=== PATIENT | male | born 1960 | race Caucasian/White ===

== ENCOUNTER 2017-02-15 05:03 | Inpatient (IN) | payer OTHER ==
[2017-01-20 13:44] VITALS: BMI 37.0
--- NOTE | 2017-01-20 14:42 | PAT Medication Instructions ---
Service Date Jan 20, 2017. Current Home Medication List Amlodipine (Norvasc), 5 MG PO QAM Aspirin (Aspirin Ec), 81 MG PO QPM Citalopram (Citalopram Hydrobromide), 1 TAB PO QAM Colchicine (Colcrys), 1 TAB PO QAM Etodolac (Etodolac), 1 TAB PO BID Hctz/Losartan (Hyzaar 25MG/100MG), 1 TAB PO QAM Ibuprofen Tab (Advil), 800 MG PO DAILY PRN for Pain Misc Natural Products (Osteo Bi-Flex Advanced Do), 1 TAB PO BID Omeprazole (Prilosec), 20 MG PO QPM Simvastatin (Zocor), 1 TAB PO HS Tramadol (Ultram), 50 MG PO Q8H PRN for Pain Medication Instructions For Your Scheduled Surgery - Hold the following medications 2 weeks prior to surgery: Misc Natural Products (Osteo Bi-Flex Advanced Do), 1 TAB PO BID - Hold the following medications 7 days hours prior to surgery: Etodolac (Etodolac), 1 TAB PO BID Ibuprofen Tab (Advil), 800 MG PO DAILY PRN for Pain - Hold the following medications the morning of surgery: Hctz/Losartan (Hyzaar 25MG/100MG), 1 TAB PO QAM - Take the following medications the morning of surgery with a sip of water OTHERWISE NOTHING TO EAT OR DRINK AFTER MIDNIGHT: Amlodipine (Norvasc), 5 MG PO QAM Citalopram (Citalopram Hydrobromide), 1 TAB PO QAM Tramadol (Ultram), 50 MG PO Q8H PRN for Pain (okay to take if needed up to 4 hours prior to surgery) Colchicine (Colcrys), 1 TAB PO QAM - Take the following medications as scheduled the night before surgery: Omeprazole (Prilosec), 20 MG PO QPM Aspirin (Aspirin Ec), 81 MG PO QPM Simvastatin (Zocor), 1 TAB PO HS Tramadol (Ultram), 50 MG PO Q8H PRN for Pain If you have any questions please call us at [phone] or [phone] or [phone]
[2017-01-20 15:40] LABS: BASO % 0.7 %; BASO ABS # 0.04 K/uL (0-0.2); COMPLETE YES; EOS % 4.3 %; HEMATOCRIT 42.5 % (42-52); IG% 0.3 %; LYMPH % 18.8 %; MEAN CELL VOLUME 91.2 fL (80-100); MEAN CORPUSCULAR HEMOGLOBIN 31.3 pg (25-34); MEAN CORPUSCULAR HGB CONC 34.4 g/dl (32-36); MEAN PLATELET VOLUME 9.6 fL (7.4-10.4); MONO % 6.8 %; NEUT % 69.1 %; PLATELET COUNT 202 K/uL (130-400); RED BLOOD COUNT 4.66 M/uL (4.7-6.1); WHITE BLOOD COUNT 5.86 K/uL (4.8-10.8)
[2017-01-20 15:48] LABS: BUN/CREATININE RATIO 17.6 (10-20); CREATININE 1.2 mg/dl (0.60-1.40); POTASSIUM 4.2 mmol/L (3.5-5.1)
[2017-01-20 15:50] LABS: INR 0.9 (0.9-1.1)
[2017-01-20 15:53] LABS: URINE APPEARANCE CLEAR (CLEAR); URINE BILIRUBIN NEG (NEG); URINE COLOR YELLOW; URINE NITRITE NEG (NEG); URINE PH 5.5 (4.5-7.5); UROBILINOGEN NEG (NEG)
[2017-01-20 16:04] LABS: MANUAL MICROSCOPIC REQUIRED? NO; REVIEW REQ? NO
--- NOTE | 2017-01-20 16:24 | History and Physical ---
History & Physical Date Jan 20, 2017. Chief Complaint right knee pain History of Present Illness Mr Ramirez is a 56 year old male who complains of right knee pain. Pt here for right tka pre operative visit. States symptoms are worsening. Driving, sitting, and prolonged walking are painful. Reports no relief from pain medication and injections. States he had previous right knee scope 10-12 years ago in [facility] area. He presents with pain, stiffness and weakness on the right side. He states that the symptoms have been chronic non-traumatic. The symptoms occur constantly. The problem is worse. Currently the patient states that the symptoms are moderate-severe. The pain is described as aching, discomforting, shooting, sharp and throbbing. The symptoms occur continuously. He rates his worst pain as 8/10. He rates his current pain as 4/10. The symptoms are aggravated by ascending stairs, descending stairs, driving, first steps while awake, kneeling, movement, squatting, repetitive activities, standing and walking. Guy states that the symptoms are relieved by ice, pain medicine and rest. In addition to right knee pain the patient is also experiencing decreased mobility, crepitus, difficulty bending, pain after activity, stiffness, tenderness and weakness. Pertinent negatives include chills and fever. The patient has had a previous x-ray. He has been treated with a corticosteroid injection on the right side. Patient has had scope on right side. Past Medical/Surgical History HTN High Cholesterol Sleep Apnea GERD h/o back surgery hernia repair hydrocele knee arthroscopy Additional History Hepatic Disease: No Endocrine Disorder: No Kidney Disease: No Hypertension: Yes Heart Disease: No Bleeding Tendencies: No Allergies Coded Allergies: Allopurinol (Verified Allergy, Unknown, rash, 01/20/17) Home Medications Scheduled Amlodipine (Norvasc), 5 MG PO QAM Aspirin (Aspirin Ec), 81 MG PO QPM Citalopram (Citalopram Hydrobromide), 1 TAB PO QAM Colchicine (Colcrys), 1 TAB PO QAM Etodolac (Etodolac), 1 TAB PO BID Hctz/Losartan (Hyzaar 25MG/100MG), 1 TAB PO QAM Misc Natural Products (Osteo Bi-Flex Advanced Do), 1 TAB PO BID Omeprazole (Prilosec), 20 MG PO QPM Simvastatin (Zocor), 1 TAB PO HS Scheduled PRN Ibuprofen Tab (Advil), 800 MG PO DAILY PRN for Pain Tramadol (Ultram), 50 MG PO Q8H PRN for Pain Physical Examination Skin: warm/dry, no rash Eyes: normal inspection, EOMI, sclerae normal ENT: normal ENT inspection, pharynx normal Head: normocephalic, atraumatic Neck: supple, no adenopathy, trachea midline Respiratory/Chest: lungs clear, normal breath sounds, no respiratory distress Cardiovascular: regular rate, rhythm, no edema, no murmur Abdomen / GI: normal bowel sounds, non tender Addiitonal Comments: Physical Exam Exam Findings Details Knee ROM L * Active ROM - Flexion: 135 degrees, Extension: 0 degrees, Factors: normal, Description: active pain free range of motion. Passive ROM - Flexion: 135 degrees, Extension: 0 degrees, Factors: normal, Description: passive pain free range of motion. Knee ROM R * Active ROM - Flexion: 120 degrees, Extension: 5 degrees, Factors: pain, Description: active painful range of motion. Passive ROM - Flexion: 120 degrees, Extension: 5 degrees, Factors: pain, Description: passive painful range of motion. Strength LE Normal Strength Description - Hip: Right: strength is normal. Knee: Right: strength is normal. Ankle/Foot: Right: strength is normal. Knee * Inspection - Gait: limp. Alignment - Right: varus, Left: neutral. Ecchymosis - Right: negative, Left: negative. Effusion - Right: mild, Left: normal. Swelling - Right: mild, Left: none. Flexibility - Right: normal, Left: normal. Maximum tenderness - Right: medial joint line, lateral joint line, patella, Left: normal. Patella exam - Crepitation - Right: mild, Left: normal. Patella position - Right: neutral, Left: neutral. Tilt - Right: equal, Left: normal. [facility]'s - lateral - Right: Positive. [facility]'s - medial - Right: Positive. Knee Comments No calf tenderness Knee Normal Inspection - Atrophy - Right: Absent, Left: Absent. Skin - Right: Normal, Left: Normal. Patella exam - Apprehension - Right: Negative, Left: Negative. Q-angle - Right: Normal, Left: Normal. Neel's - Right: Negative, Left: Negative. [facility]'s - lateral - Left: Negative. [facility]'s - medial - Left: Negative. Posterior drawer - Right: Negative, Left: Negative. Anterior drawer - Right: Negative, Left: Negative. Valgus stress - Right: Negative, Left : Negative. Varus stress - Right: Negative, Left: Negative. Extensor lag - Right : Normal. Neurovascular LE Normal Neurovascular examination including reflexes, sensation , and pulses is within normal limits. Right Knee X-ray: Xrays reviewed of the right knee showing findings consistent with degenerative joint disease including joint space narrowing, subchondral sclerosis and peripheral osteophyte formation. no acute bony pathology, overall varus alignment. Impression: degenerative joint disease of the right knee with no acute bony pathology noted. Diagnosis Right TKA Further care discussed with patient and at this point in time has failed conservative measures and would like to proceed with a right total knee replacement. Plan on discharge will be home with outpatient physical therapy. DVT prophalaxis with TEDs, SCDs and will also place on aspirin 81 mg p.o. b.i.d. for a month postop. Patient will have follow up appointment in our office two weeks post op for staple/suture removal and re-evaluation. Patient otherwise has no other questions or concerns.
[2017-01-21 05:58] LABS: ESTIMATED AVERAGE GLUCOSE 100 mg/dl; HA1C FLAG Normal (Normal)
[~2017-02-15] VITALS: Ht 185.4 cm; Wt 127.5 kg
[2017-02-15] VITALS (9 sets, daily range): BP systolic 110–144; BP diastolic 66–95; PULSE 84–94; TEMP 36.3–36.8; O2SAT 91–96; Ht 185.4 cm; Wt 127.5 kg
[~2017-02-15 05:03] MED LIST: AMLO-110 PO; ASPI81TA28 PO; CITA40TA4 PO; CLC6 PO; ETOD500T95 PO; HYZ/10015 PO; IBUP-103 PO; MISCTAB78 PO; PRLSR20 PO; SIMV20TA2 PO; TRAM-10 PO
[2017-02-15] MEDS ORDERED: LACTATED RINGER'S 1000ML 1,000 ML IV SCH (06:00)
[2017-02-15] MEDS ORDERED: GABAPENTIN 300 MG CAP PO SCH (06:00)
[2017-02-15] MEDS ORDERED: CeleBREX 200 MG CAP PO SCH (06:00)
[2017-02-15] MEDS ORDERED: FAMOTIDINE 20 MG TAB PO SCH (06:00)
[2017-02-15] MEDS ORDERED: LACTATED RINGER'S 1000ML IV SCH (06:00)
[2017-02-15] MEDS ORDERED: CEFAZOLIN 3000 MG/65 ML D5W 65 ML IV SCH (06:00)
[2017-02-15] MEDS ORDERED: ROPIVACAINE 5MG/ML 30 ML 150 MG, BUPIVACAINE/EPINEPHR 0.5% MPF 30 ML, KETOROLAC TROMETH... INFIL SCH ×7 (06:00)
[2017-02-15] MEDS ORDERED: ACETAMINOPHEN 500 MG TAB PO SCH (06:00)
[2017-02-15] MEDS ORDERED: DEXAMETHASONE 4 MG TAB PO SCH (06:00)
[2017-02-15] MEDS ORDERED: LACTATED RINGER'S 1000ML 500 ML IV ONE (06:00)
[2017-02-15] MEDS ORDERED: METOCLOPRAMIDE HCL 10 MG TAB PO SCH (06:00)
[2017-02-15] MEDS ORDERED: BUPIVACAINE 0.25% 30 ML VIAL ONE (06:20)
[2017-02-15] MEDS ORDERED: BUPIVACAINE 0.5 % 5 MG/1 ML PF 10ML VIAL ONE (06:20)
[2017-02-15] MEDS ORDERED: MIDAZOLAM HCL 1 MG/ML 2ML VIAL ONE ×2 (06:34→07:15)
[2017-02-15] MEDS ORDERED: FENTANYL CITRATE INJ 50 MCG/1 ML 2 ML VIAL ONE (06:34)
[2017-02-15] MEDS ORDERED: PROPOFOL IV EMULSION 10 MG/ML 20 ML VIAL IV ONE ×2 (06:34→08:06)
[2017-02-15] MEDS ORDERED: LIDOCAINE HCL 2% 2 ML VIAL (20MG/ML) ONE (06:34)
[2017-02-15] MEDS ORDERED: POVIDONE-IODINE OP SOLN 30 ML BTL ONE (06:42)
[2017-02-15] MEDS ORDERED: BACITRACIN 50000 UNIT VIAL ONE (06:42)
[2017-02-15] MEDS ORDERED: ORTHO JOINT ANESTHETIC ONE (06:42)
[2017-02-15] MEDS: TRANEXAMIC ACID INJ 1,000 MG in SODIUM CHLORIDE 0.9% 100ML 100 ML IV SCH ×2 (06:58→10:42)
--- NOTE | 2017-02-15 07:07 | History & Physical Bridge Note ---
H&P Re-Evaluation Bridge Note: I have examined the patient, reviewed the History & Physical and in the interval since the performance of the History & Physical I have noted the following changes of clinical significance: No changes noted
[2017-02-15] MEDS ORDERED: PHENYLEPHRINE 100MCG/ML 5ML SYR ONE (08:07)
--- NOTE | 2017-02-15 08:22 | [facility] Operative Report ---
Operative Report Operative Date Feb 15, 2017. Pre-Operative Diagnosis Right knee degenerative joint disease Post-Operative Diagnosis Right knee degenerative joint disease Procedure(s) Performed Right total knee arthroplasty right total knee arthroplasty utilizing [employer]hew journey 2 patient matched total knee arthroplasty 6 femur 6 tibia 12 Samia [address] Mayur Coronado Pathology Tech Surgeon(s) Raymon Her PA-C Estimated Blood Loss 5cc Findings Patient presents with severe end-stage DJD with varus alignment subchondral cystic changes medial osteophytes sclerosis varus alignment of the knee Nourse wants to conservative therapy including injections anti-inflammatories relative rest activity modification presents for total knee arthroplasty. Specimens A. Right knee bone and tissue Complication(s) None Disposition Recovery Room / PACU Indications Patient presents with a severe end-stage DJD right knee after failing attempts at conservative management for right total knee Orthoplast a thorough discussion regarding was Caucasians's been had patient elects to proceed forward with knee arthroplasty Description of Procedure After proper prepping and draping of the Right lower extremity anterior midline incision was made over the region of the extensor extensor mechanism after meticulous hemostasis was obtained and maintained in subcutaneous tissues a medial parapatellar incision was made The patella was subluxed lateralward the medial lateral gutter were cleaned from any hypertrophic synovitis and scar tissue of the distal femoral block was placed and the distal femoral osteotomy cut was made subsequently the chamfers anterior and posterior osteotomy cuts were made utilizing the 4-in-1 block the tibia was subsequently subluxed anteriorward medial and ateral meniscal remnants were excised in their entirety remnants of the anterior and posterior cruciate ligaments were excised in their entirety excellent exposure of the proximal tibia was obtained the tibial osteotomy guide was placed on the proximal tibial osteotomy cut was made once again the knee was irrigated with copious amounts of sterile saline solution the patella was subsequently everted lateralward thickened scar tissue around the patella was removed the patella was subsequently cut utilizing a freehand technique and was drilled prepared for final preparation and placement of patella socially flexion-extension gaps were checked and the equal and symmetric trials were placed to the appropriate femoral and tibial trials with poly-spacer being placed for equal flexion and extension gaps and full range of motion including extension to 0 and flexion to 140 the trial components after having been taken to recovery range of motion was subsequently removed meticulous hemostasis was obtained and maintained subsequently a knee block injection of joint cocktail including ropivacaine 0.5% 150 mg. Bupivacaine 0.5 % epinephrine 1-200,030 mL's toradol 30 mg dexamethasone 4 mg ketamine 10 mg clonidine 100 micrograms normal saline solution 30 mg was infiltrated into the soft tissues of the posterior knee medial lateral gutters and periosteal synovium special attention was paid to protect neurovascular structures at all times subsequently trial components having been removed the knee was irrigated with sterile saline solution. debris was removed the proximal tibia was subsequently prepared and was made ready for the placement of the tibial component tibial component was also cemented and tamped into position the femoral component was subsequently placed and cemented in the position the patellar component was subsequently cemented in position because hemostasis once again obtained and maintained wound having been thoroughly irrigated with debridement and debridement lavage was performed as well as a medial parapatellar incision closed with #1 Vicryl in interrupted fashion subcutaneous was closed with #2 Vicryl skin was closed with skin clips. PA-C was necessary for prepping and drapping as well as wound closure of deep fascia Sub cutaneous tissue and skin and was necessary for the case. A sterile compressive dressing was placed patient was taken to recovery in stable condition of report dictated by Cliff I attest to the content of the Intraoperative Record and any orders documented therein. Any exceptions are noted below. I attest to the content of the Intraoperative Record and any orders documented therein. Any exceptions are noted below.
[2017-02-15] MEDS ORDERED: EpHEDrine SULFATE INJ 50 MG/ML AMP IV PRN (09:00)
[2017-02-15] MEDS ORDERED: MEPERIDINE HCL 25 MG/ML CARP IV PRN (09:00)
[2017-02-15] MEDS ORDERED: HYDROmorphone INJ 1 MG/ML SYR IV PRN (09:00)
[2017-02-15] MEDS ORDERED: MoRPHine SULFATE 2 MG/ML CARP IV PRN ×2 (09:00→10:30)
[2017-02-15] MEDS ORDERED: LABETALOL HCL IV 5 MG/ML 20ML IV PRN (09:00)
[2017-02-15] MEDS ORDERED: FENTANYL CITRATE INJ 50 MCG/1 ML 2 ML VIAL IV PRN (09:00)
[2017-02-15] MEDS ORDERED: ONDANSETRON INJ 2 MG/ML 2 ML VIAL IV PRN ×2 (09:00)
[2017-02-15] MEDS ORDERED: CEFAZOLIN IV 2,000 MG in DEXTROSE 5% 50ML 50 ML IV SCH (09:00)
[2017-02-15] MEDS ORDERED: MAGNESIUM HYDROXIDE SUSP 30 ML UDC PO PRN (09:00)
[2017-02-15] MEDS ORDERED: ALUMINUM/MAGNESIUM/SIMETH (MAALOX MAX) 30 ML UDC PO PRN (09:00)
[2017-02-15] MEDS ORDERED: ATROPINE SULFATE 0.1 MG/ML 5ML SYR IV PRN (09:00)
[2017-02-15] MEDS ORDERED: BISACODYL 10 MG SUPP PR PRN (09:00)
[2017-02-15] MEDS ORDERED: TAMSULOSIN HCL 0.4 MG CAP PO PRN (09:00)
--- NOTE | 2017-02-15 09:24 | DIAGNOSTIC IMAGING REPORT ---
RIGHT KNEE 2 VIEWS CLINICAL HISTORY: Degenerative arthritis postop study COMPARISON: None. DISCUSSION: There are postsurgical changes of a total right knee arthroplasty and patellar resurfacing. The femoral and tibial components appear well seated. Overlying surgical drains are evident. There is air within soft tissues consistent with recent surgery. There is a 7 mm corticated bony density projected over the posterior aspect of the medial joint space. IMPRESSION: Postsurgical changes of a total right knee arthroplasty. Electronically signed by: Ravi Ruth M.D. 02/15/2017 9:23 AM Dictated Date/Time: 02/15/2017 9:21 AM
--- NOTE | 2017-02-15 10:22 | Anesthesiology Progress Note ---
Anesthesia Post Op Note Date & Time Feb 15, 2017 at 10:22 Vital Signs Pain Intensity: 0.0 Vital Signs Past 12 Hours Date Time Temp Pulse Resp B/P (MAP) Pulse Ox O2 Delivery O2 Flow Rate FiO2 02/15/17 10:00 94 Nasal Cannula 2.0 02/15/17 10:00 36.8 84 15 116/73 (87) 96 Nasal Cannula 2.0 02/15/17 09:45 81 18 113/78 97 Nasal Cannula 2 02/15/17 09:41 127/88 02/15/17 09:39 87 22 94 02/15/17 09:39 85 22 02/15/17 09:36 111/91 02/15/17 09:35 37.0 79 18 125/81 95 Nasal Cannula 2 02/15/17 09:34 80 20 97 02/15/17 09:34 79 20 02/15/17 09:31 125/81 02/15/17 09:29 74 23 02/15/17 09:29 73 23 94 02/15/17 09:28 75 20 96 02/15/17 09:28 77 20 02/15/17 09:26 120/74 02/15/17 09:23 74 23 95 02/15/17 09:23 73 23 02/15/17 09:21 107/75 02/15/17 09:18 85 21 93 02/15/17 09:18 84 21 02/15/17 09:16 99/73 02/15/17 09:13 82 20 02/15/17 09:13 83 20 95 02/15/17 09:11 116/70 02/15/17 09:08 78 18 97 02/15/17 09:08 78 18 02/15/17 09:06 112/60 02/15/17 09:03 82 20 02/15/17 09:03 81 20 100 02/15/17 09:01 117/67 02/15/17 08:58 83 16 97/64 99 02/15/17 08:58 83 16 02/15/17 08:58 36.6 80 20 97/64 100 Nasal Cannula 2 02/15/17 06:02 36.8 93 20 144/95 Room Air Notes Mental Status: alert / awake / arousable, participated in evaluation Pt Amnestic to Procedure: Yes Nausea / Vomiting: adequately controlled Pain: adequately controlled Airway Patency, RR, SpO2: stable & adequate BP & HR: stable & adequate Hydration State: stable & adequate Anesthetic Complications: no major complications apparent
[2017-02-15] MEDS ORDERED: MoRPHine SULFATE 10 MG/ML CARP/VIAL IV PRN (10:30)
[2017-02-15] MEDS ORDERED: MoRPHine SULFATE 4 MG/ML 1 ML CARP\\VIAL IV PRN (10:30)
[2017-02-15] MEDS: ACETAMINOPHEN 500 MG TAB PO SCH ×2 (10:42→17:04)
[2017-02-15] MEDS: AMLODIPINE BESYLATE 5 MG TAB PO SCH (11:00)
[2017-02-15] MEDS: CITALOPRAM 40 MG TAB PO SCH (11:00)
[2017-02-15] MEDS: COLCHICINE 0.6 MG TAB PO SCH (11:00)
[2017-02-15] MEDS: LOSARTAN/HCTZ 50-12.5 EA TAB PO SCH (11:00)
[2017-02-15] MEDS ORDERED: PANTOprazole SOD 40 MG TAB PO SCH (11:00)
[2017-02-15] MEDS: D5W AND 1/2NSS + 20MEQ KCL 1,000 ML IV SCH ×2 (11:15→18:17)
[2017-02-15] MEDS: CeleBREX 200 MG CAP PO SCH ×2 (12:23→20:55)
[2017-02-15] MEDS: ASPIRIN 81 MG ECTAB PO SCH ×2 (12:24→20:54)
[2017-02-15] MEDS: FERROUS GLUCONATE 324 MG TAB PO SCH ×2 (12:24→17:04)
[2017-02-15] MEDS: MULTIVITAMIN TAB PO SCH (12:24)
[2017-02-15] MEDS: DOCUSATE SODIUM 100 MG CAP PO SCH ×2 (12:25→20:55)
[2017-02-15] MEDS: OXYCODONE HCL IR 5 MG TAB (IMMEDIATE RELEASE) PO PRN (17:06)
[2017-02-15] MEDS: CEFAZOLIN IV 2,000 MG in SYRINGE 0 ML IV SCH (18:17)
[2017-02-15] MEDS: SIMVASTATIN 20 MG TAB PO SCH (20:53)
[2017-02-15] MEDS: SENNA 8.6 MG TAB PO SCH (20:56)
[2017-02-15] MEDS: PANTOprazole SOD 40 MG TAB PO SCH (21:12)
[2017-02-15] MEDS ORDERED: NURSING VERBAL MED ORDER ONE (21:15)
[2017-02-16] MEDS: ACETAMINOPHEN 500 MG TAB PO SCH ×3 (01:39→17:01)
[2017-02-16] MEDS: OXYCODONE HCL IR 5 MG TAB (IMMEDIATE RELEASE) PO PRN ×7 (01:40→20:17)
[2017-02-16] MEDS: CEFAZOLIN IV 2,000 MG in SYRINGE 0 ML IV SCH (01:40)
[2017-02-16 03:51] VITALS: BP 120/76; PULSE 89; TEMP 36.5; O2SAT 95
[2017-02-16] MEDS: D5W AND 1/2NSS + 20MEQ KCL 1,000 ML IV SCH (04:16)
[2017-02-16 06:44] LABS: HEMATOCRIT 33.9 % (42-52); MEAN CELL VOLUME 90.4 fL (80-100); MEAN CORPUSCULAR HEMOGLOBIN 31.2 pg (25-34); MEAN CORPUSCULAR HGB CONC 34.5 g/dl (32-36); MEAN PLATELET VOLUME 9.2 fL (7.4-10.4); PLATELET COUNT 178 K/uL (130-400); RED BLOOD COUNT 3.75 M/uL (4.7-6.1); WHITE BLOOD COUNT 13.77 K/uL (4.8-10.8)
[2017-02-16 07:20] LABS: BUN/CREATININE RATIO 17.1 (10-20); CALCIUM 8.3 mg/dl (8.5-10.1); CREATININE 1.05 mg/dl (0.60-1.40); POTASSIUM 4.2 mmol/L (3.5-5.1)
[2017-02-16 08:00] VITALS: BP 150/91; PULSE 91; TEMP 36.3; O2SAT 97
--- NOTE | 2017-02-16 08:00 | Orthopedic Progress Note ---
Orthopedic Progress Note Date of Service Feb 16, 2017. Subjective Post OP Day: 1 Reports: feeling well, Denies: chest pain, SOB, nausea / vomiting, light headedness, calf pain Objective calves soft nontender, N/V intact, capillary refill less than 2 sec., dressing C /D/I, A&O x3, toes mobile, hemovac drainage (450/125cc per shift) Date Time Temp Pulse Resp B/P (MAP) Pulse Ox O2 Delivery O2 Flow Rate FiO2 02/16/17 03:51 36.5 89 16 120/76 (91) 95 Room Air 02/15/17 23:00 36.6 94 16 114/67 (83) 93 Room Air 02/15/17 20:18 36.4 92 18 110/66 (81) 93 Room Air 02/15/17 19:50 Room Air CPAP 02/15/17 15:01 36.3 86 18 116/73 (87) 93 Nasal Cannula 2.0 02/15/17 13:00 93 18 135/83 (100) 93 02/15/17 12:00 88 18 120/83 (95) 95 02/15/17 11:00 89 18 114/71 (85) 91 02/15/17 10:30 84 18 129/84 (99) 93 02/15/17 10:00 94 Nasal Cannula 2.0 02/15/17 10:00 36.8 84 15 116/73 (87) 96 Nasal Cannula 2.0 02/15/17 09:45 81 18 113/78 97 Nasal Cannula 2 02/15/17 09:41 127/88 02/15/17 09:39 87 22 94 02/15/17 09:39 85 22 02/15/17 09:36 111/91 02/15/17 09:35 37.0 79 18 125/81 95 Nasal Cannula 2 02/15/17 09:34 80 20 97 02/15/17 09:34 79 20 02/15/17 09:31 125/81 02/15/17 09:29 74 23 02/15/17 09:29 73 23 94 02/15/17 09:28 75 20 96 02/15/17 09:28 77 20 02/15/17 09:26 120/74 02/15/17 09:23 74 23 95 02/15/17 09:23 73 23 02/15/17 09:21 107/75 02/15/17 09:18 85 21 93 02/15/17 09:18 84 21 02/15/17 09:16 99/73 02/15/17 09:13 82 20 02/15/17 09:13 83 20 95 02/15/17 09:11 116/70 02/15/17 09:08 78 18 97 02/15/17 09:08 78 18 02/15/17 09:06 112/60 02/15/17 09:03 82 20 02/15/17 09:03 81 20 100 02/15/17 09:01 117/67 02/15/17 08:58 83 16 97/64 99 02/15/17 08:58 83 16 02/15/17 08:58 36.6 80 20 97/64 100 Nasal Cannula 2 Laboratory Results 24 Hours: Test 02/16/17 06:10 Hematocrit 33.9 % Hemoglobin 11.7 g/dL Assessment & Plan Assessment: POD#1 sp right TKA Plan: PT/OT DVT proph- ASA 81mg bid Pain management- Teetee,Tylenol, Celebrex DC planning- OPPT likely DC Monday
[2017-02-16] MEDS: FERROUS GLUCONATE 324 MG TAB PO SCH ×3 (09:25→17:01)
[2017-02-16] MEDS: MULTIVITAMIN TAB PO SCH (09:25)
[2017-02-16] MEDS: ASPIRIN 81 MG ECTAB PO SCH ×2 (09:25→21:03)
[2017-02-16] MEDS: AMLODIPINE BESYLATE 5 MG TAB PO SCH (09:25)
[2017-02-16] MEDS: CITALOPRAM 40 MG TAB PO SCH (09:25)
[2017-02-16] MEDS: COLCHICINE 0.6 MG TAB PO SCH (09:26)
[2017-02-16] MEDS: DOCUSATE SODIUM 100 MG CAP PO SCH ×2 (09:28→21:03)
[2017-02-16] MEDS: LOSARTAN/HCTZ 50-12.5 EA TAB PO SCH (09:28)
[2017-02-16] MEDS: CeleBREX 200 MG CAP PO SCH ×2 (09:29→21:02)
[2017-02-16] MEDS: TRAMADOL HCL 50 MG TAB PO PRN (10:12)
[2017-02-16 12:00] VITALS: BP 141/91; PULSE 87
--- NOTE | 2017-02-16 12:46 | Anesthesiology Progress Note ---
Anesthesia Post Op Note Date & Time Feb 16, 2017 at 12:46 Vital Signs Pain Intensity: 6.0 Vital Signs Past 12 Hours Date Time Temp Pulse Resp B/P (MAP) Pulse Ox O2 Delivery O2 Flow Rate FiO2 02/16/17 08:31 Room Air 02/16/17 08:00 36.3 91 18 150/91 (110) 97 Room Air 02/16/17 03:51 36.5 89 16 120/76 (91) 95 Room Air Notes Mental Status: alert / awake / arousable, participated in evaluation Pt Amnestic to Procedure: Yes Nausea / Vomiting: adequately controlled Pain: adequately controlled Airway Patency, RR, SpO2: stable & adequate BP & HR: stable & adequate Hydration State: stable & adequate Neuraxial Anesthesia: was administered, sensory block resolved Anesthetic Complications: no major complications apparent
[2017-02-16 15:31] VITALS: BP 142/88; PULSE 79; TEMP 36.5; O2SAT 94
[2017-02-16] MEDS: SIMVASTATIN 20 MG TAB PO SCH (21:02)
[2017-02-16] MEDS: SENNA 8.6 MG TAB PO SCH (21:03)
[2017-02-16] MEDS: PANTOprazole SOD 40 MG TAB PO SCH (21:03)
[2017-02-16 23:04] VITALS: BP 155/77; PULSE 87; TEMP 36.8; O2SAT 97
[2017-02-17] MEDS: ACETAMINOPHEN 500 MG TAB PO SCH ×2 (01:18→09:08)
[2017-02-17] MEDS: OXYCODONE HCL IR 5 MG TAB (IMMEDIATE RELEASE) PO PRN ×3 (01:18→10:33)
[2017-02-17 07:00] VITALS: BP 145/90; PULSE 70; TEMP 36.6; O2SAT 94
--- NOTE | 2017-02-17 07:39 | Orthopedic Progress Note ---
Orthopedic Progress Note Date of Service Feb 17, 2017. Subjective Post OP Day: 2 Reports: feeling well, pain controlled w PO medications, Denies: complaints, chest pain, SOB, nausea / vomiting, light headedness, calf pain Objective calves soft nontender, N/V intact, capillary refill less than 2 sec., dressing C /D/I, A&O x3, toes mobile DERMABOND IN TACT Date Time Temp Pulse Resp B/P (MAP) Pulse Ox O2 Delivery O2 Flow Rate FiO2 02/17/17 00:00 Room Air CPAP 02/16/17 23:04 36.8 87 16 155/77 (103) 97 Room Air 02/16/17 15:50 Room Air 02/16/17 15:31 36.5 79 18 142/88 (106) 94 Room Air 02/16/17 12:00 87 141/91 (108) 02/16/17 08:31 Room Air 02/16/17 08:00 36.3 91 18 150/91 (110) 97 Room Air Assessment & Plan Assessment: POD#2 sp right TKA Plan: PT/OT DVT proph- ASA 81mg bid Pain management- Teetee,Tylenol, Celebrex DC planning- OPPT likely DC TODAY
[2017-02-17] MEDS ORDERED: RXC5 PO (07:42)
[2017-02-17] MEDS ORDERED: ACET-24 PO (07:42)
[2017-02-17] MEDS ORDERED: ASPEC81 PO (07:42)
--- NOTE | 2017-02-17 07:43 | Discharge Instructions ---
Discharge Instructions Date of Service Feb 17, 2017. Admission Reason for Admission: Right Knee Degenerative Joint Disease Discharge Discharge Diagnosis / Problem: RIGHT TKA Discharge Goals Goal(s): Improve function Activity Recommendations Activity Limitations: as noted below . Instructions / Follow-Up Instructions / Follow-Up ACTIVITY RECOMMENDATIONS: SELF CARE INSTRUCTIONS AFTER TOTAL KNEE REPLACEMENT A. You may need to continue a physical therapy program after discharge from the hospital. There are several options available to you. Your doctor will assist you in selecting the best one for you. 1. An out-patient facility 2 to 3 times a week for therapy or home therapy. 2. Continue working on all exercises taught to you in the hospital. Your goals should be to increase bending of your knee to 90 degrees and beyond and to fully straighten your knee. B. You may progress at your own pace from walking with a walker or crutches to a cane; then to no assistive devices. C. Make walking a part of your daily routine. Be up as much as comfortable with rest periods throughout the day. Rest with leg elevation is very important. Use the ice wrap frequently for the first 3-4 weeks. D. There are no restrictions on activities. You may ride in a car, shop, participate in weaving machine operator and all social activities. E. Wear the long elastic stockings (LIZA hose) 20 hours a day for 2 weeks after surgery. They can be removed several times a day for laundering and for a bath. F. You may shower, no tub baths until cleared by your doctor. SPECIAL CARE INSTRUCTIONS: VERY IMPORTANT TO READ AND REVIEW A. There are a few signs you need to watch for after you are home. Call [facility] [place] if you notice any of the followin. Increased severe knee pain. Some pain is expected especially when you exercise. 2. Increased swelling in your leg or knee; pain or swelling of the calf muscle in either lower leg. 3. Any fluid drainage from the incision. 4. Shortness of breath or chest pain. B. Please call [facility] [place] at if you have any concerns or questions about your operation or recovery. The doctor or his nurse will return your call promptly. C. You must take antibiotics before dental work, bladder, bowel or other surgery. Your doctor will provide you with a permanent care to carry describing this precaution. IMPORTANT: * REMEMBER TO TAKE ASPIRIN, 81 MG, TWICE DAILY FOR 4 WEEKS UNLESS OTHERWISE DIRECTED. THIS IS YOUR BLOOD THINNER. * HIGH RISK PATIENTS MAY BE PRESCRIBED A STRONGER BLOOD THINNER. THIS WILL BE PROVIDED AT DISCHARGE. * CALL IF INCREASED PAIN, REDNESS, DRAINAGE OR FEVER GREATER THAT 101. * WEAR LIZA HOSE 20 HOURS PER DAY FOR 2 WEEKS. * YOU MAY HAVE A LARGE BAND-AID LIKE DRESSING (SILVERON). THIS WILL REMAIN ON YOUR INCISION FOR 7 DAYS, THEN CAN BE REMOVED. IF INCISION IS LEAKING THROUGH DRESSING, CALL THE OFFICE . FOLLOW UP VISIT: If appointment is not already scheduled: Please call [facility] [place] to make a follow-up appointment for 2 weeks after your surgery at . Current Hospital Diet Patient's current hospital diet: Regular Diet Discharge Diet Recommended Diet: Regular Diet Procedures Procedures Performed: Right total knee arthroplasty right total knee arthroplasty utilizing [employer] Prest[employer] journey 2 patient matched total knee arthroplasty 6 femur 6 tibia 12 Samia 32 oval patella Pending Studies Studies pending at discharge: no Laboratory Results Hemoglobin A1c Test 01/20/17 14:34 Range/Units Estimated Average Glucose 100 mg/dl Hemoglobin A1c 5.1 4.5-5.6 % Medical Emergencies . Who to Call and When: Medical Emergencies: If at any time you feel your situation is an emergency, please call 911 immediately. . Non-Emergent Contact Non-Emergency issues call your: Primary Care Provider . "Provider Documentation" section prepared by Mitch Espinoza. . VTE Core Measure Inpt VTE Proph given/why not?: Other Anticoagulation (ASA), T.E.D. Stockings, SCD's [place] Drug Monitoring Program Search Results: patient reviewed within database, no issues identified
[2017-02-17 08:01] VITALS: BP 145/90; PULSE 70; TEMP 36.6; O2SAT 94
[2017-02-17] MEDS: MULTIVITAMIN TAB PO SCH (09:08)
[2017-02-17] MEDS: FERROUS GLUCONATE 324 MG TAB PO SCH ×2 (09:08→12:30)
[2017-02-17] MEDS: LOSARTAN/HCTZ 50-12.5 EA TAB PO SCH (09:08)
[2017-02-17] MEDS: CeleBREX 200 MG CAP PO SCH (09:09)
[2017-02-17] MEDS: ASPIRIN 81 MG ECTAB PO SCH (09:09)
[2017-02-17] MEDS: AMLODIPINE BESYLATE 5 MG TAB PO SCH (09:09)
[2017-02-17] MEDS: CITALOPRAM 40 MG TAB PO SCH (09:09)
[2017-02-17] MEDS: DOCUSATE SODIUM 100 MG CAP PO SCH (09:09)
[2017-02-17] MEDS: COLCHICINE 0.6 MG TAB PO SCH (09:10)
[2017-02-17] MEDS: TRAMADOL HCL 50 MG TAB PO PRN (09:14)
[2017-02-17 10:23] VITALS: BP 143/83; PULSE 86; O2SAT 95
== END 2017-02-17 13:19 | disposition home or self-care (01) | DRG 470 ==
LOC: C.ACU 05:03 → C.3E 05:53 → ENRESERV 09:22
PROVIDERS: ADMIT Orthopaedic Surgery; ATTEND Orthopaedic Surgery
PROC: 0SRC0J9 Replacement of Right Knee Joint with Synthetic Substitute, Cemented, Open Approach (ICD-10-PCS; principal; 2017-02-15 07:00)
DX: M17.11 Unilateral primary osteoarthritis, right knee (principal); I10 Essential (primary) hypertension; E78.00 Pure hypercholesterolemia, unspecified; G47.30 Sleep apnea, unspecified; K21.9 Gastro-esophageal reflux disease without esophagitis; Z79.82 Long term (current) use of aspirin; Z79.899 Other long term (current) drug therapy

== ENCOUNTER 2021-08-05 09:02 | Inpatient (IN) ==
--- NOTE | 2021-08-05 09:26 | Emergency Department Note ---
Impression & Plan Third degree heart block, Bradycardia ED Provider Note NAME: ELIZABETH ROCHA AGE: 61 SEX: M : 1960 ARRIVES VIA: Walk-In INFORMANT: Patient ED PROVIDER(S): Devin Hughes DO CHIEF COMPLAINT: shortness of breath HPI: Patient is a 61-year-old gentleman with a past medical history of hypertension who presents to the ER for shortness of breath. Symptoms started about 2 weeks ago. He denies any headache or change in vision. He notes any mild exertion causes him significant shortness of breath and he has to stop. He was seen and evaluated here about a week ago and sent home. He followed up with cardiology today. EKG at cardiology showed a complete heart block. He was referred in for further evaluation. Patient does have animals at home. No history of thyroid issues. ROS: See above HPI for pertinent positives & negatives. A total of 10 systems reviewed and were otherwise negative. PAST MEDICAL HISTORY:See Below PAST SURGICAL HISTORY:See Below FAMILY HISTORY:See Below SOCIAL HISTORY:See Below HOME MEDICATIONS:See Below ALLERGIES:See Below VITALS:See Below PHYSICAL EXAMINATION: GENERAL: Sitting up in bed, alert, well appearing, well nourished, no distress, non-toxic EYE EXAM: normal conjunctiva. PERRL and EOM's grossly intact. OROPHARYNX: no exudate, no erythema, lips, buccal mucosa, and tongue normal and mucous membranes are moist NECK: supple, no nuchal rigidity, no adenopathy, non-tender LUNGS: Clear to auscultation. Normal chest wall mechanics HEART: no murmurs, S1 normal and S2 normal ABDOMEN: abdomen soft, non-tender, normo-active bowel sounds, no masses, no rebound or guarding. UPPER EXTREMITIES: upper extremities are grossly normal. LOWER EXTREMITIES: No pitting edema. NEURO EXAM: Normal sensorium, cranial nerves II-XII grossly intact, normal speech, no gross weakness of arms, no gross weakness of legs. MEDICAL DECISION MAKING: Patient is a 61-year-old male who was seen here on the first of this month for shortness of breath. He notes is been present for 2 weeks and gotten significa ntly worse. He was seen evaluated by cardiology and found to have third-degree heart block. He was referred in. IV was established blood work was obtained. EKG once again confirmed third-degree heart block. Patient was placed on the pads. Labs show no significant leukocytosis or anemia. BMP with LFTs bilirubin is unremarkable. TSH was slightly elevated but free T4 was normal. Lyme and Covid were negative. Does have a history of sarcoid. Patient was seen and evaluated by Dr. Quinn Marquez and admitted to the hospitalist. Triage Nursing notes reviewed. Limited review of prior medical records performed Vital Signs: reviewed and remarkable for bradycardia Differential diagnosis: Differential diagnoses includes but is not limited to pneumonia, bronchitis, COPD/Asthma exacerbation, pneumothorax, pulmonary embolism, congestive heart failure, acute coronary syndrome ER treatment provided: See below Diagnostics interpreted by me: ECG: Complete heart block rate of 42 Left axis No PVCs Right bundle branch block QTC 492 Cardiac Monitoring: An order was placed for continuous cardiac monitoring. The monitor shows a rate of 41 with 3rd degree heart block rhythm. Laboratory studies: As stated above and show below. Imaging studies: Portable AP upright 1 view chest shows CHF Consultation(s): Discussed with Dana from [facility] service for further evaluation Discussed with Dr. Quinn Marquez who evaluate the patient at bedside and recomm ended admission and no additional medication currently Procedures: none Critical Care: None Past Med/Surg History Medical History Cutaneous sarcoidosis GERD (gastroesophageal reflux disease) Gout HLD (hyperlipidemia) HTN (hypertension) No pertinent family history TANNER on CPAP Pre-diabetes Surgical History History of arthroscopic knee surgery History of fusion of cervical spine History of hernia repair History of knee replacement procedure of right knee Family History Father , 57 Cancer pancreatitic Alcohol abuse Mother , 64 Myocardial infarction Stroke Social History Smoking Status: Never smoker Hx Alcohol Use: Yes Alcohol type: wine and hard liquor Alcohol type Comment: beer, bourbon Alcohol Intake Frequency: 2-3 x/Week Hx Substance Use: No Preferred Language: Mohawk Communication Ability: Effective Ammonia Distiller Required: No Beliefs That Will Affect Care: None marital status: Current Living Situation: Spouse Other Information That Helps Us Care for You: No Feels Safe at Home: Yes Safety Concerns: Feels Safe At This Time Assistive Devices: Glasses and Hearing Aid - Bilateral Allergies Allergies Allergy/AdvReac Type Severity Reaction Status Date / Time No Known Allergies Allergy Unverified 08/05/21 10:00 Home Meds Home Medications Medication Instructions Recorded Confirmed amlodipine 5 mg tablet 5 mg PO [facility] 07/30/21 08/05/21 colchicine 0.6 mg tablet 0.6 mg PO [facility] 07/30/21 08/05/21 fluticasone propionate 50 2 spray INTRANASAL [facility] 07/30/21 08/05/21 mcg/actuation nasal spray,suspension hydrochlorothiazide 25 mg tablet 25 mg PO [facility] 07/30/21 08/05/21 hydroxychloroquine 200 mg tablet 200 mg PO BID 07/30/21 08/05/21 losartan 100 mg tablet 100 mg PO [facility] 07/30/21 08/05/21 omeprazole 20 mg capsule,delayed 20 mg PO 07/30/21 08/05/21 release sertraline 100 mg tablet 200 mg PO [facility] 07/30/21 08/05/21 simvastatin 20 mg tablet 20 mg PO 07/30/21 08/05/21 triamcinolone acetonide 0.1 % 1 applic TOPICAL [facility] 07/30/21 08/05/21 lotion aspirin 81 mg tablet,delayed 81 mg PO 08/05/21 08/05/21 release furosemide 40 mg tablet (Lasix) 40 mg PO [facility] 08/05/21 08/05/21 Results & Data (ED) Vital Signs Vital Signs - 24 hr 08/05/21 09:05 08/05/21 09:08 08/05/21 10:02 Temperature 37.0 C Temperature Source Temporal Artery Scan Pulse Rate 42 L Pulse Rate [Apical] 72 43 L Respiratory Rate 18 14 22 Respiratory Effort / Characteristics Non-Labored Non-Labored Spontaneous Non-Labored Spontaneous Respiratory Depth Normal Normal Normal Respiratory Pattern Regular Blood Pressure 132/77 Blood Pressure [Left Arm] 149/78 H 123/63 Blood Pressure Mean 95 Blood Pressure Mean [Left Arm] 101 83 Pulse Oximetry 97 95 94 Oxygen Delivery Method Room Air Room Air Room Air Sepsis Recent Fever Within 48 Hours No Sepsis New/Unexplained Change in Mental Status No Sepsis Action Taken by Nursing No Action Required Laboratory Data Result diagrams: 08/05/21 09:28 08/05/21 09:28 Lab Results 0408/05/21 08/05/21 Range/Units 09:25 09:28 09:28 WBC 6.12 (4.8-10.8) K/uL RBC 4.56 L (4.7-6.1) M/uL Hgb 14.4 (14.0-18.0) g/dL Hct 40.6 L (42-52) % MCV 89.0 (80-100) fL MCH 31.6 (25-34) pg MCHC 35.5 (32-36) g/dL RDW Std Deviation 46.5 H (36.4-46.3) fL RDW Coeff of Surya 14.3 (11.5-14.5) % Plt Count 122 L (130-400) K/uL MPV 9.3 (7.4-10.4) fL Immature Gran % (Auto) 0.2 % Neut % (Auto) 81.4 % Lymph % (Auto) 10.1 % [place] % (Auto) 6.4 % Eos % (Auto) 1.6 % Baso % (Auto) 0.3 % Neut # (Auto) 4.98 (1.4-6.5) K/uL Lymph # (Auto) 0.62 L (1.2-3.4) K/uL [place] # (Auto) 0.39 (0.11-0.59) K/uL Eos # (Auto) 0.10 (0-0.5) K/uL Baso # (Auto) 0.02 (0-0.2) K/uL Immature Gran # (Auto) 0.01 (0.00-0.02) K/uL Sodium 137 (136-145) mmol/L Potassium 3.6 (3.5-5.1) mmol/L Chloride 103 (98-107) mmol/L Carbon Dioxide 25 (21-32) mmol/L Anion Gap 9 (3-11) BUN 24 H (6-23) mg/dl Creatinine 1.21 (0.6-1.4) mg/dl Est Cr Clr Drug Dosing 91.9 ml/min Est GFR ( Amer) 74.4 ml/min Est GFR (Non-Af Amer) 64.2 ml/min BUN/Creatinine Ratio 19.8 (10-20) Glucose 110 H (70-99(Fasting)) mg/dl Calcium 8.8 (8.5-10.1) mg/dl Total Bilirubin 1.0 (0.2-1.0) mg/dl AST 20 (13-39) U/L ALT 26 (7-52) U/L Alkaline Phosphatase 45 (34-104) U/L Troponin I < 0.03 (0-0.04) ng/ml Total Protein 7.3 (6.0-8.3) gm/dl Albumin 4.5 (3.4-5.0) gm/dl Globulin 2.8 (2.5-4.0) gm/dl Albumin/Globulin Ratio 1.6 (0.9-2) Lipase 49 (11-82) U/L TSH (0.300-4.500) uIu/ml Free T4 (0.61-1.60) ng/dl Lyme Disease IgG Ab (Negative) Lyme Disease IgM Ab (Negative) SARS-CoV-2, RNA, NAAT NEGATIVE (NEGATIVE) 08/05/21 08/05/21 Range/Units 09:28 09:28 WBC (4.8-10.8) K/uL RBC (4.7-6.1) M/uL Hgb (14.0-18.0) g/dL Hct (42-52) % MCV (80-100) fL MCH (25-34) pg MCHC (32-36) g/dL RDW Std Deviation (36.4-46.3) fL RDW Coeff of Surya (11.5-14.5) % Plt Count (130-400) K/uL MPV (7.4-10.4) fL Immature Gran % (Auto) % Neut % (Auto) % Lymph % (Auto) % [place] % (Auto) % Eos % (Auto) % Baso % (Auto) % Neut # (Auto) (1.4-6.5) K/uL Lymph # (Auto) (1.2-3.4) K/uL [place] # (Auto) (0.11-0.59) K/uL Eos # (Auto) (0-0.5) K/uL Baso # (Auto) (0-0.2) K/uL Immature Gran # (Auto) (0.00-0.02) K/uL Sodium (136-145) mmol/L Potassium (3.5-5.1) mmol/L Chloride (98-107) mmol/L Carbon Dioxide (21-32) mmol/L Anion Gap (3-11) BUN (6-23) mg/dl Creatinine (0.6-1.4) mg/dl Est Cr Clr Drug Dosing ml/min Est GFR ( Amer) ml/min Est GFR (Non-Af Amer) ml/min BUN/Creatinine Ratio (10-20) Glucose (70-99(Fasting)) mg/dl Calcium (8.5-10.1) mg/dl Total Bilirubin (0.2-1.0) mg/dl AST (13-39) U/L ALT (7-52) U/L Alkaline Phosphatase (34-104) U/L Troponin I (0-0.04) ng/ml Total Protein (6.0-8.3) gm/dl Albumin (3.4-5.0) gm/dl Globulin (2.5-4.0) gm/dl Albumin/Globulin Ratio (0.9-2) Lipase (11-82) U/L TSH 6.043 H (0.300-4.500) uIu/ml Free T4 0.86 (0.61-1.60) ng/dl Lyme Disease IgG Ab Negative (Negative) Lyme Disease IgM Ab Negative (Negative) SARS-CoV-2, RNA, NAAT (NEGATIVE) Administered Medications Discontinued Medications Lidocaine HCl (Lidocaine 1% Local 20 Ml Vial) Confirm Administered Dose 20 ml .ROUTE .[employer] ONE Stop: 08/05/21 10:30 Last Admin: 08/05/21 11:23 Dose: Not Given Documented by: [id number] Imaging Data Radiologist's Impression: Chest X-Ray 08/05/21 09:08 XR chest 1V portable CLINICAL HISTORY: Atypical chest pain TECHNIQUE: Single frontal radiograph of the chest was obtained. Comparison: Comparison is made to chest radiograph 07/30/2021 FINDINGS: Anterior cervical fixation hardware is seen. No lines and tubes are seen. The cardiomediastinal silhouette is normal. The lungs are clear. No evidence of pleural effusion or pneumothorax. Previously noted radiodensity in the left chest is not well seen today. IMPRESSION: No acute chest disease. ACT 112: Negative or not required by law. Electronically signed by: Loc Pineda M.D. 08/05/2021 9:55 AM Discharge Plan Visit Data Chief Complaint: Referred by Doctor Stated Complaint: abnormal ekg @ doctor jer elizabeth called ED Provider: Devin Hughes Discharge Problem: Third degree heart block, Bradycardia Patient Disposition: Admitted As Inpatient Discharge Instructions Interventions: ED Discharge Assessment Last Done: 08/05/21 11:20
[2021-08-05 09:38] LABS: Basophils # (auto) 0.02 K/uL (0-0.2); Basophils % (auto) 0.3 %; Eosinophils % (auto) 1.6 %; Hematocrit (blood only) 40.6 % (42-52); Hemoglobin 14.4 g/dL (14.0-18.0); Immature Granulocytes # (auto) 0.01 K/uL (0.00-0.02); Immature Granulocytes % (auto) 0.2 %; Lymphocytes # (auto) 0.62 K/uL (1.2-3.4); Lymphocytes % (auto) 10.1 %; Mean Corpuscular Hemoglobin 31.6 pg (25-34); Mean Corpuscular Hgb Conc 35.5 g/dL (32-36); Mean Platelet Volume 9.3 fL (7.4-10.4); Monocytes # (auto) 0.39 K/uL (0.11-0.59); Monocytes % (auto) 6.4 %; Neutrophils # (auto) 4.98 K/uL (1.4-6.5); Neutrophils % (auto) 81.4 %; Platelet Count 122 K/uL (130-400); RDW Coefficient of Variation 14.3 % (11.5-14.5); RDW Standard Deviation 46.5 fL (36.4-46.3); Red Blood Count 4.56 M/uL (4.7-6.1); White Blood Count 6.12 K/uL (4.8-10.8)
--- NOTE | 2021-08-05 09:51 | Electrocardiogram Report ---
Test Reason : Blood Pressure : / mmHG Vent. Rate : 042 BPM Atrial Rate : 096 BPM P-R Int : 000 ms QRS Dur : 140 ms QT Int : 590 ms P-R-T Axes : 050 -35 000 degrees QTc Int : 492 ms Sinus rhythm with high grade heart block (may not be complete heart block since QRS complex is unchan ged) Left axis deviation Right bundle branch block Abnormal ECG When compared with ECG of 30-JUL-2021 18:40, High grade heart block now present Confirmed by Lencho Vega ([id number]) on 08/05/2021 9:51:06 AM Referred By: ER Confirmed By:Lencho Vega
--- NOTE | 2021-08-05 09:56 | XRay Report ---
XR chest 1V portable CLINICAL HISTORY: Atypical chest pain TECHNIQUE: Single frontal radiograph of the chest was obtained. Comparison: Comparison is made to chest radiograph 07/30/2021 FINDINGS: Anterior cervical fixation hardware is seen. No lines and tubes are seen. The cardiomediastinal silho uette is normal. The lungs are clear. No evidence of pleural effusion or pneumothorax. Previously not ed radiodensity in the left chest is not well seen today. IMPRESSION: No acute chest disease. ACT 112: Negative or not required by law. Electronically signed by: Loc Pineda M.D. 08/05/2021 9:55 AM
[2021-08-05 10:13] LABS: Alanine Aminotransferase 26 U/L (7-52); Albumin Globulin Ratio 1.6 (0.9-2); Albumin Level 4.5 gm/dl (3.4-5.0); Alkaline Phosphatase 45 U/L (34-104); Anion Gap 9 (3-11); Aspartate Aminotransferase 20 U/L (13-39); BUN Creatinine Ratio 19.8 (10-20); Blood Urea Nitrogen 24 mg/dl (6-23); Calcium 8.8 mg/dl (8.5-10.1); Carbon Dioxide 25 mmol/L (21-32); Chloride 103 mmol/L (98-107); Creatinine Clr Calc Pharmacy 91.9 ml/min; Est GFR (African American) 74.4 ml/min; Est GFR (Non-African American) 64.2 ml/min; Globulin 2.8 gm/dl (2.5-4.0); Glucose 110 mg/dl (70-99(Fasting)); Lipase 49 U/L (11-82); Potassium 3.6 mmol/L (3.5-5.1); Sodium 137 mmol/L (136-145); Total Protein 7.3 gm/dl (6.0-8.3); Troponin I < 0.03 ng/ml (0-0.04)
[2021-08-05 10:25] LABS: Thyroid Stimulating Hormone 6.043 uIu/ml (0.300-4.500)
[2021-08-05] MEDS ORDERED: LIDOCAINE 1% LOCAL 20 ML VIAL ONE ×2 (10:29→13:56)
--- NOTE | 2021-08-05 10:31 | History & Physical Report ---
Date of Service August 05, 2021 Assessment & Plan (1) Complete heart block: (2) RICHARDSON (dyspnea on exertion): (3) HTN (hypertension): (4) HLD (hyperlipidemia): (5) TANNER on CPAP: (6) Cutaneous sarcoidosis: Plan: This is a 61-year-old male who has significant past medical history of prediabetes, HTN, HLD, TANNER on CPAP, gout, cutaneous sarcoidosis, depression who presents to ED after being referred from cardiology due to complete heart block. Complete heart block Admit to PCU Cardiology already on board Echocardiogram currently being obtained Elevated TSH but normal Free T4, negative lyme screen Cardiology to discuss with EP for possible pacemaker placement Remain n.p.o. until timing of surgical intervention decided Pacer pads in place HTN hold home bp meds for now, bp 123/63 on amlodipine, lasix, HCTZ and losartan as outpt resume when able HLD Continue statin TANNER on CPAP Continue CPAP Cutaneous sarcoidosis continue hydroxychloroquine twice daily PreDM a1c in a.m. dvt ppx: SCD/TEDS for now Dispo: PCU FULL CODE PCP: Sandra Pt was seen and examined in collaboration with Dr. Elizabeth, please see addendum History of Present Illness Chief Complaint: Referred from cardiology due to complete heart block. Primary Care Provider: Marquis Flores MD This is a 61-year-old male who has significant past medical history of predia betes, HTN, HLD, TANNER on CPAP, gout, cutaneous sarcoidosis, depression who presents to ED after being referred from cardiology due to complete heart block. Patient's is at bedside. Of significance he was diagnosed with COVID-19 May 2021. Approximately 2 weeks ago he noticed increasing shortness of breath with exertion. Even minimal walking required him to take rest due to shortness of breath. He also has been experiencing intermittent lightheadedness and dizziness and twice came down to his knees due to fear of passing out. He denies frankly losing consciousness. He denies recent illness, fever, chills, sweats, syncope, chest pain, shortness of breath, palpitations, cough, URI symptoms, nausea, vomiting, abdominal pain, changes bowel or urinary habits. He denies any recent tick bites. He initially was seen as outpatient by PCP and was found to have an elevated proBNP. He was then referred to ED for further evaluation on 07/31. At that time chest x-ray was unremarkable and clinically no concern of volume overload. EKG at that time was not read as complete heart block. He was seen and evaluated by Dr. Givens in cardiology this morning. EKG in clinic revealed complete heart block and right bundle branch block. He was referred to ED for further evaluation, Lyme screen, TSH and possible pacemaker placement. In ED he remained hemodynamically stable although he was significantly bradycardic. EKG did reveal complete heart block, right bundle branch block. Allergies Allergy/AdvReac Type Severity Reaction Status Date / Time No Known Allergies Allergy Unverified 08/05/21 10:00 Home Medications Medication Instructions Recorded Confirmed Type amlodipine 5 mg tablet 5 mg PO [facility] 07/30/21 08/05/21 History colchicine 0.6 mg tablet 0.6 mg PO [facility] 07/30/21 08/05/21 History fluticasone propionate 50 2 spray INTRANASAL [facility] 07/30/21 08/05/21 History mcg/actuation nasal spray,suspension hydrochlorothiazide 25 mg tablet 25 mg PO [facility] 07/30/21 08/05/21 History hydroxychloroquine 200 mg tablet 200 mg PO BID 07/30/21 08/05/21 History losartan 100 mg tablet 100 mg PO [facility] 07/30/21 08/05/21 History omeprazole 20 mg capsule,delayed 20 mg PO [facility] 07/30/21 08/05/21 History release sertraline 100 mg tablet 200 mg PO [facility] 07/30/21 08/05/21 History simvastatin 20 mg tablet 20 mg PO [facility] 07/30/21 08/05/21 History triamcinolone acetonide 0.1 % 1 applic TOPICAL [facility] 07/30/21 08/05/21 History lotion aspirin 81 mg tablet,delayed 81 mg PO [facility] 08/05/21 08/05/21 History release furosemide 40 mg tablet (Lasix) 40 mg PO [facility] 08/05/21 08/05/21 History Past Med/Surg History Medical History Cutaneous sarcoidosis GERD (gastroesophageal reflux disease) Gout HLD (hyperlipidemia) HTN (hypertension) No pertinent family history TANNER on CPAP Pre-diabetes Surgical History History of arthroscopic knee surgery History of fusion of cervical spine History of hernia repair History of knee replacement procedure of right knee Family History Father , 57 Cancer pancreatitic Alcohol abuse Mother , 64 Myocardial infarction Stroke Social History Smoking Status: Never smoker Hx Alcohol Use: Yes Alcohol type: wine and hard liquor Alcohol type Comment: beer, bourbon Alcohol Intake Frequency: 2-3 x/Week Hx Substance Use: No Preferred Language: Mongolian Communication Ability: Effective Medical Liaison Required: No Beliefs That Will Affect Care: None marital status: Current Living Situation: Spouse Other Information That Helps Us Care for You: No Feels Safe at Home: Yes Safety Concerns: Feels Safe At This Time Assistive Devices: Glasses and Hearing Aid - Bilateral Review of Systems Review of Systems: All systems reviewed & are unremarkable except as noted in HPI & below Physical Exam Physical Exam: Constitutional: WD/WN, M, vitals as above, NAD, sitting up in bed, pleasant, conversing easily Head: Normocephalic, Atraumatic Eyes: PERRL, conjunctivae normal, anicteric sclerae ENMT: external ear and nose normal, oropharynx normal Neck: trachea midline, no thyromegaly normal visual inspection Respiratory: normal respiratory effort, lungs clear to auscultation, no wheeze, rales, rhonchi. Normal insp/exp effort, no accessory muscle use Cardiovascular: bradycardic rate, regular rhythm, no murmur, no edema Vessels: no JVD or carotid bruit Chest: normal inspection of chest Abdomen: obese abd, normal bowel sounds, soft, nontender, no hepatosplenomegaly Musculoskeletal: no cyanosis or clubbing, extremities motor strength 5/5 Skin: no rashes, warm and dry normal turgor Neurologic: PERRL, EOMI, accommodation nl, no face palsy, no dysarthria CN's II-XI intact bilaterally and moves all extremities Psychiatric: A+Ox3, euthymic affect Lymphatic: no cervical or axillary lymphadenopathy : deferred Results & Data Results & Data ([facility]) Vital Signs (Past 12 Hours) Vital Signs Temp Pulse Pulse Resp BP BP Pulse Ox 08/05/21 10:02 43 L 22 123/63 94 04/07/22 09:08 72 14 149/78 H 95 08/05/21 09:05 37.0 C 42 L 18 132/77 97 Diagnostic Findings Chest X-Ray 08/05/21 09:08 XR chest 1V portable CLINICAL HISTORY: Atypical chest pain TECHNIQUE: Single frontal radiograph of the chest was obtained. Comparison: Comparison is made to chest radiograph 07/30/2021 FINDINGS: Anterior cervical fixation hardware is seen. No lines and tubes are seen. The ca rdiomediastinal silhouette is normal. The lungs are clear. No evidence of pleural effusion or pneumothorax. Previously noted radiodensity in the left chest is not well seen today. IMPRESSION: No acute chest disease. ACT 112: Negative or not required by law. Electronically signed by: Loc Pineda M.D. 08/05/2021 9:55 AM ECG Rate (beats per minute): 42 Rhythm: normal sinus Findings: + complete heart block, + RBBB and + prolonged QT COVID-19 Results Results COVID-19 Adm Lab Results: RBC 4.56 M/uL (4.7-6.1) L 08/05/21 WBC 6.12 K/uL (4.8-10.8) 08/05/21 Hgb 14.4 g/dL (14.0-18.0) 08/05/21 Hct 40.6 % (42-52) L 08/05/21 Plt Count 122 K/uL (130-400) L 08/05/21 Neutrophils (%) (Auto) 81.4 % 08/05/21 Lymphocytes (%) (Auto) 10.1 % 08/05/21 Monocytes # (Auto) 0.39 K/uL (0.11-0.59) 08/05/21 Eosinophils # (Auto) 0.10 K/uL (0-0.5) 08/05/21 Immature Granulocyte % (Auto) 0.2 % 08/05/21 Neutrophils # (Auto) 4.98 K/uL (1.4-6.5) 08/05/21 Lymphocytes # (Auto) 0.62 K/uL (1.2-3.4) L 08/05/21 Monocytes # (Auto) 0.39 K/uL (0.11-0.59) 08/05/21 Eosinophils # (Auto) 0.10 K/uL (0-0.5) 08/05/21 Basophils # (Auto) 0.02 K/uL (0-0.2) 08/05/21 Immature Granulocyte # (Auto) 0.01 K/uL (0.00-0.02) 08/05/21 Na 137 mmol/L (136-145) 08/05/21 K 3.6 mmol/L (3.5-5.1) 08/05/21 Cl 103 mmol/L (98-107) 08/05/21 CO2 25 mmol/L (21-32) 08/05/21 Anion Gap 9 (3-11) 08/05/21 BUN 24 mg/dl (6-23) H 08/05/21 Creatinine 1.21 mg/dl (0.6-1.4) 08/05/21 BUN/Creatinine Ratio 19.8 (10-20) 08/05/21 Glucose Level 110 mg/dl (70-99(Fasting)) H 08/05/21 Ca 8.8 mg/dl (8.5-10.1) 08/05/21 Total Bilirubin 1.0 mg/dl (0.2-1.0) 08/05/21 AST/SGOT 20 U/L (13-39) 08/05/21 ALT/SGPT 26 U/L (7-52) 08/05/21 Alkaline Phosphatase 45 U/L (34-104) 08/05/21 Total Protein 7.3 gm/dl (6.0-8.3) 08/05/21 Albumin 4.5 gm/dl (3.4-5.0) 08/05/21 Globulin 2.8 gm/dl (2.5-4.0) 08/05/21 Albumin/Globulin Ratio 1.6 (0.9-2) 08/05/21 Troponin I < 0.03 ng/ml (0-0.04) 08/05/21 SARS-CoV-2, RNA, NAAT NEGATIVE (NEGATIVE) 08/05/21 Chest X-Ray 08/05/21 Code Status & VTE Plan Code Status FULL CODE VTE Prophylaxis Plan VTE Prophylaxis will be ordered: Yes Supervising Physician Co-Signing Physician Notes I have seen and examined the patient at bedside. I have reviewed the chart and discussed the case with Dana PA-C. In summary, this is a 61-year-old male with history of cutaneous sarcoid, TANNER, HTN who presents to the ED with symptomatic complete heart block. No reversible causes found. Electrolytes normal, TSH normal, lyme negative, not on AV griffin blocking agents. HR in 40s, BP normal. Awake, alert oriented, sitting comfortably in bed, not in acute distress. Chest clear, bradycardic, abdomen benign. Extremities with no edema. Echo reviewed. Seen by Cardiology. Plan for pacemaker and npo for the same. Discussed with patient and at bedside. Rest per the note above.
[2021-08-05 10:46] LABS: Lyme Ab IgG w/WB Rflx Negative (Negative); Lyme Ab IgM w/WB Rflx Negative (Negative)
[2021-08-05 11:00] LABS: T4 Free Thyroxine 0.86 ng/dl (0.61-1.60)
--- NOTE | 2021-08-05 11:10 | Cardiology Consultation ---
Date of Consultation August 05, 2021 Assessment & Plan (1) Complete heart block: (2) RICHARDSON (dyspnea on exertion): (3) TANNER on CPAP: (4) HTN (hypertension): (5) Cutaneous sarcoidosis: 61-year-old male with approximately 3 to 4-week history of exertional dyspnea and mild congestive heart failure found out to be in third-degree AV block on EKG and assessment. Current symptoms and complaints appear precipitated by conduction abnormalities. Initial thyroid function without profound hypothyroidism and Lyme screen negative. Echocardiogram is pending and will be reviewed. EP was consulted for consideration of pacemaker cutaneous sarcoid does raise some concerns regarding possible systemic involvement though no evidence of such on chest x-ray. Echocardiogram will be reviewed Patient to be kept n.p.o. for time being History of Present Illness Reason for Consultation: Third-degree heart block Requesting Physician: Dr. Hughes Attending Physician: Dr. Elizabeth History of Present Illness Patient is a 61-year-old male evaluated in cardiology outpatient clinic earlier today. Full consultation performed at that time but issues are as follows 1. Recent symptoms of exertional dyspnea and mild congestive heart failure treated with oral furosemide 2. Third-degree AV block 3. Hypertension 4. Obstructive sleep apnea on CPAP supplementation 5. Moderate obesity 6. 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 Initial evaluation on 07/29/2021 resulted on ER visit for elevated BNP and initiation of diuretic therapy. He was referred for cardiology evaluation and on presentation today was found to be in sinus rhythm with third-degree AV block, right bundle branch block conduction configuration. He denies any acute chest pains, notes no syncope or near syncope but does have exertional dyspnea and fatigue occasional lightheadedness on sudden standing. No acute fevers chills or unexplained infections. No rash or tick exposure. No orthopnea PND or worsening peripheral edema with chronic mild edema at times. Weight is up approximately 30 pounds over the past year. No bleeding difficulties. Wears CPAP faithfully Allergies Allergy/AdvReac Type Severity Reaction Status Date / Time No Known Allergies Allergy Unverified 08/05/21 10:00 Home Medications Medication Instructions Recorded Confirmed Type amlodipine 5 mg tablet 5 mg PO QAM 07/30/21 08/05/21 History colchicine 0.6 mg tablet 0.6 mg PO QAM 07/30/21 08/05/21 History fluticasone propionate 50 2 spray INTRANASAL QA 07/30/21 08/05/21 History mcg/actuation nasal spray,suspension hydrochlorothiazide 25 mg tablet 25 mg PO [facility] 07/30/21 08/05/21 History hydroxychloroquine 200 mg tablet 200 mg PO BID 07/30/21 08/05/21 History losartan 100 mg tablet 100 mg PO QA 07/30/21 08/05/21 History omeprazole 20 mg capsule,delayed 20 mg PO HS 07/30/21 08/05/21 History release sertraline 100 mg tablet 200 mg PO [facility] 07/30/21 08/05/21 History simvastatin 20 mg tablet 20 mg PO HS 07/30/21 08/05/21 History triamcinolone acetonide 0.1 % 1 applic TOPICAL QA 07/30/21 08/05/21 History lotion aspirin 81 mg tablet,delayed 81 mg PO 08/05/21 08/05/21 History release furosemide 40 mg tablet (Lasix) 40 mg PO [facility] 08/05/21 08/05/21 History Patient History Medical History Cutaneous sarcoidosis GERD (gastroesophageal reflux disease) Gout HLD (hyperlipidemia) HTN (hypertension) No pertinent family history TANNER on CPAP Pre-diabetes Surgical History History of arthroscopic knee surgery History of fusion of cervical spine History of hernia repair History of knee replacement procedure of right knee Family History Father , 57 Cancer pancreatitic Alcohol abuse Mother , 64 Myocardial infarction Stroke Social History Smoking Status: Never smoker Hx Alcohol Use: Yes Alcohol type: wine and hard liquor Alcohol type Comment: beer, bourbon Alcohol Intake Frequency: 2-3 x/Week Hx Substance Use: No Preferred Language: Setswana Communication Ability: Effective 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 Beliefs That Will Affect Care: None marital status: Current Living Situation: Spouse Other Information That Helps Us Care for You: No Feels Safe at Home: Yes Safety Concerns: Feels Safe At This Time Assistive Devices: Glasses and Hearing Aid - Bilateral Review of Systems Review of Systems: All systems reviewed & are unremarkable except as noted in HPI & below Physical Exam Constitutional: WD/WN, vitals as above + obese; no acute distress Eyes: PERRL, conjunctivae normal, anicteric sclerae ENMT: external ear and nose normal, oropharynx normal Neck: trachea midline, no thyromegaly Respiratory: normal respiratory effort, lungs clear to auscultation Cardiovascular: Rate/Rhythm: regular rate and + bradycardic Heart Sounds: normal S1 and normal S2; no gallop and no murmur Palpation: normal PMI Vessels: normal carotid upstroke and radial pulses present; no JVD and no carotid bruit Extremities: + edema (Trace) Gastrointestinal (Abdomen): normal bowel sounds, soft, nontender, no hepatosplenomegaly Musculoskeletal: no cyanosis or clubbing, extremities motor strength 5/5 Skin: no rashes, warm and dry Neurologic: PERRL, EOMI, accommodation nl, no face palsy, no dysarthria Psychiatric: A+Ox3, euthymic affect Results & Data ([facility]) Vital Signs (Past 12 Hours) Vital Signs Temp Pulse Pulse Resp BP BP Pulse Ox 08/05/21 10:50 36.6 C 41 L 20 123/60 93 08/05/21 10:02 43 L 22 123/63 94 08/05/21 09:08 72 14 149/78 H 95 08/05/21 09:05 37.0 C 42 L 18 132/77 97 Laboratory Results Laboratory Results - last 24 hr 08/05/21 08/05/21 08/05/21 09:25 09:28 09:28 WBC 6.12 RBC 4.56 L Hgb 14.4 Hct 40.6 L MCV 89.0 MCH 31.6 MCHC 35.5 RDW Std Deviation 46.5 H RDW Coeff of Surya 14.3 Plt Count 122 L MPV 9.3 Immature Gran % (Auto) 0.2 Neut % (Auto) 81.4 Lymph % (Auto) 10.1 Titus % (Auto) 6.4 Eos % (Auto) 1.6 Baso % (Auto) 0.3 Neut # (Auto) 4.98 Lymph # (Auto) 0.62 L Titus # (Auto) 0.39 Eos # (Auto) 0.10 Baso # (Auto) 0.02 Immature Gran # (Auto) 0.01 Sodium 137 Potassium 3.6 Chloride 103 Carbon Dioxide 25 Anion Gap 9 BUN 24 H Creatinine 1.21 Est Cr Clr Drug Dosing 91.9 Est GFR ( Amer) 74.4 Est GFR (Non-Af Amer) 64.2 BUN/Creatinine Ratio 19.8 Glucose 110 H Calcium 8.8 Total Bilirubin 1.0 AST 20 ALT 26 Alkaline Phosphatase 45 Troponin I < 0.03 Total Protein 7.3 Albumin 4.5 Globulin 2.8 Albumin/Globulin Ratio 1.6 Lipase 49 TSH Free T4 Lyme Disease IgG Ab Lyme Disease IgM Ab SARS-CoV-2, RNA, NAAT NEGATIVE 08/05/21 08/05/21 09:28 09:28 WBC RBC Hgb Hct MCV MCH MCHC RDW Std Deviation RDW Coeff of Surya Plt Count MPV Immature Gran % (Auto) Neut % (Auto) Lymph % (Auto) Titus % (Auto) Eos % (Auto) Baso % (Auto) Neut # (Auto) Lymph # (Auto) Titus # (Auto) Eos # (Auto) Baso # (Auto) Immature Gran # (Auto) Sodium Potassium Chloride Carbon Dioxide Anion Gap BUN Creatinine Est Cr Clr Drug Dosing Est GFR ( Amer) Est GFR (Non-Af Amer) BUN/Creatinine Ratio Glucose Calcium Total Bilirubin AST ALT Alkaline Phosphatase Troponin I Total Protein Albumin Globulin Albumin/Globulin Ratio Lipase TSH 6.043 H Free T4 0.86 Lyme Disease IgG Ab Negative Lyme Disease IgM Ab Negative SARS-CoV-2, RNA, NAAT
[2021-08-05] MEDS ORDERED: POLYETHYLENE (MIRALAX) 17 GM PACK PO PRN (11:57)
[2021-08-05] MEDS ORDERED: MAGNESIUM HYDROXIDE SUSP 30 ML UDC PO PRN (11:57)
[2021-08-05] MEDS ORDERED: ACETAMINOPHEN 325 MG TAB PO PRN (11:57)
[2021-08-05] MEDS ORDERED: ALUMINUM/MAGNESIUM SUSP 30 ML UDC PO PRN (11:57)
[2021-08-05] MEDS ORDERED: PROMETHAZINE HCL 12.5 MG in SODIUM CHLORIDE 0.9% 50 ML IV PRN (11:57)
[2021-08-05] MEDS ORDERED: VANCOMYCIN HCL 1000MG/20ML VIAL ONE ×2 (13:56→16:00)
[2021-08-05] MEDS ORDERED: WATER, STERILE FOR INJ 10 ML VIAL ONE (13:56)
[2021-08-05] MEDS ORDERED: BUPIVACAINE 0.25% 30 ML VIAL ONE (13:56)
[2021-08-05] MEDS ORDERED: MIDAZOLAM HCL 5 MG/ML 1 ML VIAL ONE (14:00)
[2021-08-05] MEDS ORDERED: fentaNYL citrate 100 MCG/2 ML VIAL ONE (14:00)
[2021-08-05] MEDS ORDERED: ceFAZolin 330 MG/ML 1 GM VIAL ONE (14:01)
--- NOTE | 2021-08-05 14:11 | Cardiology Consultation ---
Date of Consultation August 05, 2021 Assessment & Plan (1) Third degree heart block: (2) Bradycardia: (3) RICHARDSON (dyspnea on exertion): (4) Complete heart block: 1. Symptomatic bradycardia: This is related to complete heart block. This is clearly the etiology behind most his symptoms over the past few weeks. Curiously, on the EKG obtained at his last emergency room evaluation there does appear to be 2-1 av conduction mistaken as sinus bradycardia. The etiology of his heart block is unclear. He does not have known cardiac disease and is relatively young for development of complete heart block. There is no evidence of Lyme carditis. The concerning part of his history involves sarcoidosis. While this is only known to involve the skin In his case, I think it is plausible that it also involves his cardiac conduction system. Additional evaluation in this regard can be performed subsequent to implantation of a pacemaker. In lieu of a pacemaker and in the setting of possible cardiac sarcoid, I think he is better served by an implantable defibrillator. Individual this with cardiac sarcoid or certainly at risk of more malignant arrhythmias for which a pacemaker Will provide no benefit. I do not think there is much of a downside to implant an ICD verses a pacemaker in his circumstance. There is always the concern about inappropriate therapy. However, the device will provide pacing support just like a pacemaker and will alleviate his symptoms. He will not provide "physiologic" pacing which would be our standard otherwise in his case, but with preserved LV systolic function, RV apical pacing has been shown to be safe and not detrimental over many years. I discussed the procedure with the patient and his including the risks and alternatives. We will plan on proceeding today. History of Present Illness Reason for Consultation: Complete heart block, symptomatic bradycardia Requesting Physician: Jimmy Attending Physician: Les Elizabeth MD History of Present Illness the patient is a 61-year-old gentleman without a known history of cardiac disease who has been experiencing symptoms of exertional intolerance and dyspnea for few weeks. This primarily manifest by dyspnea on exertion. He also feels more fatigued and has difficulty completing routine tasks such as walking to get the mail. rare symptoms of dizziness. No presyncope. No history of syncope. No exertional chest symptoms. The patient had presented to the emergency room approximately 1 week ago for evaluation After serum studies revealed an elevated BNP. he was started on diuretic therapy and scheduled for follow-up in the outpatient setting. This morning he presented to the outpatient cardiology clinic where he was discovered to be bradycardic. An EKG confirmed complete heart block and the patient was sent to the emergency room. At the time of my interview the patient was feeling well. No specific complaints at rest. Allergies Allergy/AdvReac Type Severity Reaction Status Date / Time No Known Allergies Allergy Unverified 08/05/21 10:00 Home Medications Medication Instructions Recorded Confirmed Type amlodipine 5 mg tablet 5 mg PO QAM 07/30/21 08/05/21 History colchicine 0.6 mg tablet 0.6 mg PO QAM 07/30/21 08/05/21 History fluticasone propionate 50 2 spray INTRANASAL QAM 07/30/21 08/05/21 History mcg/actuation nasal spray,suspension hydrochlorothiazide 25 mg tablet 25 mg PO QAM 07/30/21 08/05/21 History hydroxychloroquine 200 mg tablet 200 mg PO BID 07/30/21 08/05/21 History losartan 100 mg tablet 100 mg PO QA 07/30/21 08/05/21 History omeprazole 20 mg capsule,delayed 20 mg PO HS 07/30/21 08/05/21 History release sertraline 100 mg tablet 200 mg PO QAM 07/30/21 08/05/21 History simvastatin 20 mg tablet 20 mg PO HS 07/30/21 08/05/21 History triamcinolone acetonide 0.1 % 1 applic TOPICAL QA 07/30/21 08/05/21 History lotion aspirin 81 mg tablet,delayed 81 mg PO HS 08/05/21 08/05/21 History release furosemide 40 mg tablet (Lasix) 40 mg PO QAM 90 Days #90 tab 08/06/21 Rx oxycodone 5 mg tablet 5 mg PO Q8H PRN #10 tab 08/06/21 Rx Patient History Medical History Cutaneous sarcoidosis GERD (gastroesophageal reflux disease) Gout HLD (hyperlipidemia) HTN (hypertension) No pertinent family history TANNER on CPAP Pre-diabetes Surgical History History of arthroscopic knee surgery History of fusion of cervical spine History of hernia repair History of knee replacement procedure of right knee Family History Father , 57 Cancer pancreatitic Alcohol abuse Mother , 64 Myocardial infarction Stroke Social History Smoking Status: Never smoker Hx Alcohol Use: Yes Alcohol type: wine and hard liquor Alcohol type Comment: beer, bourbon Alcohol Intake Frequency: 2-3 x/Week Hx Substance Use: No Preferred Language: Latvian Communication Ability: Effective Player Manager Required: No Beliefs That Will Affect Care: None marital status: Current Living Situation: Spouse Other Information That Helps Us Care for You: No Feels Safe at Home: Yes Safety Concerns: Feels Safe At This Time Assistive Devices: Glasses and Hearing Aid - Bilateral Review of Systems Review of Systems: Per HPI. No recent fevers or chills. Physical Exam Physical Exam: The patient is alert and oriented. Mood and affect appeared normal. He answered all questions appropriately. HEENT: Pupils are equal and reactive to light and accommodation. Extraocular movements are intact. The sclerae are anicteric. Neuro: Cranial nerves intact Lungs: Clear to auscultation bilaterally. He has good air movement without use of accessory muscles. No rales wheezes or rhonchi. Cardiac: Heart demonstrates a Regular rhythm and slow rate. Normal S1 and S2. No murmurs on examination. Pulses: The patient has palpable radial pulses bilaterally that are equal in intensity Extremities: There was no evidence of hypoperfusion. There is no cyanosis or clubbing. There is no edema. Skin: I did not appreciate any rashes on examination today. Results & Data ([facility]) Vital Signs (Past 12 Hours) Vital Signs Temp Pulse Pulse Resp BP BP Pulse Ox 08/05/21 11:57 36.7 C 40 L 20 137/71 96 08/05/21 11:55 36.7 C 40 L 18 143/73 H 96 08/05/21 10:50 36.6 C 41 L 20 123/60 93 08/05/21 10:02 43 L 22 123/63 94 08/05/21 09:08 72 14 149/78 H 95 08/05/21 09:05 37.0 C 42 L 18 132/77 97 Laboratory Results Lyme titers negative. TSH very mildly elevated. Free T4 was normal. Chest x-ray obtained the time admission was essentially normal. Echocardiogram obtained 08/05/2021: Normal LV size with moderate LVH. Ejection fraction greater than 70 percent. Mild mitral regurgitation. Mildly elevated estimated right ventricular pressures. PG Care Time/CCT Total # of Minutes Spent Total Time Spent with Patient: Total time spent is greater than 50% in coordination of care (as documented) at patient's floor/unit and/or counseling patient: Coding Level of Care Code 66388 Inpt Consult Level 4 Diagnoses Third degree heart block I44.2 Bradycardia R00.1 RICHARDSON (dyspnea on exertion) R06.00 Complete heart block I44.2
--- NOTE | 2021-08-05 14:13 | Pre Anesthesia Assessment ---
Date of Service August 05, 2021 Pre Sedation Assessment Vital Signs Temp Pulse Pulse Resp BP BP Pulse Ox 08/05/21 11:57 36.7 C 40 L 20 137/71 96 08/05/21 11:55 36.7 C 40 L 18 143/73 H 96 08/05/21 10:50 36.6 C 41 L 20 123/60 93 08/05/21 10:02 43 L 22 123/63 94 08/05/21 09:08 72 14 149/78 H 95 08/05/21 09:05 37.0 C 42 L 18 132/77 97 Cardiovascular + bradycardic Respiratory + respiratory effort normal Pre-Sedation Airway Assessment Smoking Status: Never smoker Hx Sleep Apnea: Yes Hx Difficult Intubation: No Short, Thick Neck: No Thyromental Distance: > or= 3.5 Finger Breadths Oral Cavity: + WNL Mallampati Class: III ASA: ASA3 Procedure Planning Contraindications for Sedation: none Current Medications Reviewed: Yes Notes The planned sedation has been discussed with the patient. Informed Consent was obtained. I have identified the patient, determined the appropriateness of sedation and have assessed the patient immediately prior to the procedure. All medicine(s) and interventions are by my order.
--- NOTE | 2021-08-05 16:28 | Electrophysiology Report ---
Date of Service August 05, 2021 Electrophysiology Procedure Electrophysiology Procedure Report Procedure performed: Implantation of dual-chamber ICD Staff wastewater technician: Jamison Beebe MD Indication: The patient is a 61-year-old gentleman with a history of sarcoidosis. He has been experiencing symptoms of exertional dyspnea and exercise intolerance for a few weeks. Emergency room evaluation today revealed complete heart block. The patient was felt to be a good candidate for a permanent device due to symptomatic nonreversible AV node dysfunction. A dual- chamber device was selected is currently in sinus rhythm and wished to maintain AV synchrony. Defibrillator was selected given his history of sarcoidosis and heart block. Procedure in detail: The patient was informed of the risks benefits and alternatives to the intended procedure and she wished to proceed. He was taken to the electrophysiology suite in a fasting state. A preoperative antibiotic had been administered. The patient was monitored electrocardiographically throughout today's procedure and conscious sedation was administered per protocol. The left upper pectoral area is prepped and draped in usual sterile fashion. This area was anesthetized using subcutaneous administration of a xylocaine solution. An incision was made at this site and carried down to the prepectoralis fascia using sharp dissection. Electrocautery was also employed for dissection as well as for hemostasis. A device pocket was fashioned tissues above the pectoralis muscle. Subsequent to this maneuver the left axillary vein was accessed using modified Seldinger technique. Sheaths were placed over guidewires at this site and used to facilitate passage of the pacing leads to the respective chambers under fluoroscopic guidance. This included right atrial and right ventricular leads. Adequate sensing and threshold parameters were obtained prior to Active fixation of the leads to the endocardial surface. The proximal portion leads were then sutured the prepectoral fascia using nonabsorbable suture. The device pocket was irrigated with antibiotic solution. The leads were then attached to the device. The device and leads were then placed in the pocket and pocket was closed in 3 layers of absorbable suture. Steri-Strips and sterile dressing were applied. The device was tested noninvasively prior to conclusion the procedure. The patient tolerated procedure well there no immediate complications. Equipment used: New pulse generator: Construction [employer]. Model number: [id number] serial number [id number] Right atrial lead: Construction Crew Member [employer]. Model number: [id number] serial number [id number] Right ventricular lead: Construction Crew Member [employer]. Model number: 6935M serial number [id number] Measured data: Right atrial lead: P waves measured 2.3 mV. Pacing threshold 1.75 V at 0.4 ms with a paced impedance of 399 ohms Right ventricular lead: R waves measured 3.5 mV. Pacing threshold was 0.75 V at 0.4 ms with a pacing impedance of 551 ohms Impression: Successful implantation of dual-chamber ICD [facility] Electrophysiology codes ICD Procedure 1: ICD: 71126 Insert single or dual ICD system PG Moderate Sedation Codes Moderate Sedation Codes Procedure 1: Sedation/Anesthesia: 45228 Mod Sedation by the same physician;Init15 Min Child Age 5 & Up Procedure 2: Sedation/Anesthesia: 22429 Mod Sedation by the same physician; Ea [id number] Minutes
--- NOTE | 2021-08-05 16:28 | Post Anesthesia Assessment ---
Date of Service August 05, 2021 Post Sedation Assessment Vital Signs Temp Pulse Pulse Resp BP BP Pulse Ox 08/05/21 14:17 42 L 16 129/81 94 08/05/21 11:57 36.7 C 40 L 20 137/71 96 08/05/21 11:55 36.7 C 40 L 18 143/73 H 96 08/05/21 10:50 36.6 C 41 L 20 123/60 93 08/05/21 10:02 43 L 22 123/63 94 08/05/21 09:08 72 14 149/78 H 95 08/05/21 09:05 37.0 C 42 L 18 132/77 97 Recovery Score Activity: Moves 4 extremities Respiration: Deep Breath/Cough Circulation: +/-20% PreAnes Value Consciousness: Fully Awake Oxygen Saturation: > 92% On Room Air Discharge Sedation Level of Care: Fast Track Phase II Post Sedation Plan On clinical assessment, the patient appears to have tolerated the sedation without complications. Patient is recovering as anticipated. Patient will continue to be monitored by nursing and may be discharged when sedation discharge criteria are met per below protocol. Upon Completions of procedure up to 15 minutes continue every 5 minute vital signs and the P.A.R. score; then discharge to a Phase I or Fast Track to Phase II per the following guidelines: * Discharge Patient to appropriate Phase II area if PAR is 8 or greater or retur n to pre- procedure baseline. The post - procedure orders will be as directed. * If PAR score is less than 8 or not return to pre-procedure baseline then patient will follow Phase I monitoring till PAR is reached for Phase II. The Phase I may be done in procedure room or may call to secure a Phase I area. * If naloxone or flumazenil are used for reversal, hold in Phase I for continued monitoring from when last reversal dose was given for a minimum of 60 minutes or longer pending the nurse and/or physician discretion of patient condition before discharge to Phase II. Please call the Sedation Physician to re-evaluate and complete post-note for discharge to Phase II area. Do NOT discharge from procedure sedation or Phase 1 until post- sedation evaluation note is complete by procedure /sedation MD Sedation Discharge Instructions to be given to the patient at discharge to home.
[2021-08-05] MEDS: oxyCODONE HCL IR 5 MG TAB (IMMEDIATE RELEASE) PO PRN (19:51)
[2021-08-05] MEDS: HYDROXYCHLOROQUINE SULFATE 200 MG TAB PO SCH (20:08)
[2021-08-05] MEDS ORDERED: PANTOprazole 40 MG TAB PO SCH (21:00)
[2021-08-05] MEDS ORDERED: SIMVASTATIN 20 MG TAB PO SCH (21:00)
[2021-08-05] MEDS ORDERED: ASPIRIN 81 MG ECTAB PO SCH (21:00)
[2021-08-05] MEDS: ceFAZolin 1000MG 1,000 MG/7.5 ML SYR IV SCH (23:14)
[2021-08-06] MEDS: oxyCODONE HCL IR 5 MG TAB (IMMEDIATE RELEASE) PO PRN ×2 (04:32→10:22)
[2021-08-06 06:12] LABS: Hematocrit (blood only) 39.8 % (42-52); Hemoglobin 13.9 g/dL (14.0-18.0); Mean Corpuscular Hemoglobin 31.5 pg (25-34); Mean Corpuscular Hgb Conc 34.9 g/dL (32-36); Mean Corpuscular Volume 90.2 fL (80-100); Mean Platelet Volume 9.3 fL (7.4-10.4); Platelet Count 103 K/uL (130-400); RDW Coefficient of Variation 14.1 % (11.5-14.5); RDW Standard Deviation 46.5 fL (36.4-46.3); Red Blood Count 4.41 M/uL (4.7-6.1); White Blood Count 4.33 K/uL (4.8-10.8)
[2021-08-06 06:37] LABS: Albumin Globulin Ratio 1.7 (0.9-2); Albumin Level 4.3 gm/dl (3.4-5.0); BUN Creatinine Ratio 18.6 (10-20); Bilirubin,Total 1.2 mg/dl (0.2-1.0); Calcium 8.8 mg/dl (8.5-10.1); Creatinine Clr Calc Pharmacy 97.5 ml/min; Est GFR (African American) 80.9 ml/min; Est GFR (Non-African American) 69.8 ml/min; Globulin 2.5 gm/dl (2.5-4.0); Magnesium 2.2 mg/dl (1.7-2.4); Potassium 3.7 mmol/L (3.5-5.1); Total Protein 6.8 gm/dl (6.0-8.3)
--- NOTE | 2021-08-06 08:13 | XRay Report ---
XR chest 2V PA/lateral CLINICAL HISTORY: EXACT TIME ORDERED Evaluate for pneumothorax and l. Status post pacer placement COMPARISON STUDY: 08/05/2021 TECHNIQUE: 2 views of the chest FINDINGS: Frontal and lateral radiographs of the chest demonstrate interval placement of a dual-lead cardiac pa cer on the left. There is no evidence for pneumothorax. The lungs are clear of alveolar opacities. On the lateral radiograph, there is evidence for small bilateral pleural effusions. There is no evidenc e for vascular congestion. There is no acute osseous pathology. IMPRESSION: 1. Status post pacer placement with no evidence for pneumothorax. 2. Small bilateral pleural effusions. ACT 112: Negative or not required by law. Electronically signed by: Remington Rosado M.D. 08/06/2021 8:12 AM
[2021-08-06] MEDS: ceFAZolin 1000MG 1,000 MG/7.5 ML SYR IV SCH (08:58)
[2021-08-06] MEDS: HYDROXYCHLOROQUINE SULFATE 200 MG TAB PO SCH (08:58)
[2021-08-06] MEDS ORDERED: SERTRALINE HCL 100 MG TABLET PO SCH (09:00)
[2021-08-06] MEDS ORDERED: COLCHICINE 0.6 MG TAB PO SCH (09:00)
[2021-08-06] MEDS ORDERED: FLUTICASONE PROPIONATE NA SPR 16 GM BTL SCH (09:00)
--- NOTE | 2021-08-06 09:33 | Cardiology Progress Note ---
Date of Service August 06, 2021 Assessment & Plan (1) Complete heart block: Plan: Successful implant of dual-chamber ICD yesterday. Normal function. Symptoms are better. At this point I believe he is safe for discharge. I will recommend keeping wound dry in the Steri-Strips intact until he can follow-up in the clinic for a wound check. He should refrain from lifting left arm above the shoulder behind the neck for 6 weeks. An ICD was selected in lieu of a pa cemaker given his history of sarcoid and unknown explanation for his conduction disease. An additional evaluation for cardiac sarcoid can be considered in the outpatient setting. Admission and Anticipated Discharge Date Admission Date: August 05, 2021 Subjective This morning patient claims to be feeling well. Some discomfort at the implant site. Overall feeling much better. He is able to ambulate to the bathroom without significant dyspnea. Review of Systems Review of Systems: Per HPI Physical Exam Physical Exam: evaluation of the device implant site did not reveal any evidence of hematoma or erythema. No significant ecchymosis. Steri-Strips intact. Results & Data ([facility]) Vital Signs (Past 12 Hours) Vital Signs Temp Pulse Resp BP BP Pulse Ox 08/06/21 07:33 36.5 C 84 16 155/83 H 94 08/06/21 04:10 36.8 C 83 18 138/83 91 08/05/21 23:23 36.7 C 89 18 155/83 H 94 Diagnostic Findings Chest x-ray obtained this morning revealed normal lead placement without pneumothorax. I performed complete device interrogation. No intrinsic R-waves. Normal sensing on the atrial lead. Normal threshold on both leads. Normal function.
[2021-08-06] MEDS ORDERED: amLODIPine BESYLATE 5 MG TAB PO ONE (10:24)
[2021-08-06] MEDS ORDERED: LOSARTAN POTASSIUM 50 MG TAB PO SCH (10:30)
[2021-08-06 10:39] LABS: Estimated Average Glucose 88 mg/dl; Hemoglobin A1C 4.7 % (4.5-5.6)
--- NOTE | 2021-08-06 10:47 | Cardiology Progress Note ---
Date of Service August 06, 2021 Assessment & Plan (1) Complete heart block: (2) RICHARDSON (dyspnea on exertion): (3) TANNER on CPAP: (4) HTN (hypertension): (5) Cutaneous sarcoidosis: Plan: 61-year-old male admitted with complete heart block and mild congestive heart failure secondary to conduction abnormalities not clinically improving with AV sequential pacing. 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 Overall feels improved almost immediately after pacemaker defibrillator implanted. No difficulties overnight. Incision site clean Device interrogation reveals normal function Review of Systems Review of Systems: All systems reviewed & are unremarkable except as noted in Subjective Physical Exam Constitutional: WD/WN, vitals as above + obese; no acute distress Eyes: PERRL, conjunctivae normal, anicteric sclerae ENMT: external ear and nose normal, oropharynx normal Neck: trachea midline, no thyromegaly Respiratory: normal respiratory effort, lungs clear to auscultation Cardiovascular: Rate/Rhythm: regular rate and + bradycardic Heart Sounds: normal S1 and normal S2; no gallop and no murmur Palpation: normal PMI Vessels: normal carotid upstroke and radial pulses present; no JVD and no carotid bruit Extremities: + edema (Trace) Gastrointestinal (Abdomen): normal bowel sounds, soft, nontender, no hepatosplenomegaly Musculoskeletal: no cyanosis or clubbing, extremities motor strength 5/5 Skin: no rashes, warm and dry Neurologic: PERRL, EOMI, accommodation nl, no face palsy, no dysarthria Psychiatric: A+Ox3, euthymic affect Results & Data ([facility]) Vital Signs (Past 12 Hours) Vital Signs Temp Pulse Pulse Resp BP BP Pulse Ox 08/06/21 08:00 83 08/06/21 07:33 36.5 C 84 16 155/83 H 94 08/06/21 04:10 36.8 C 83 18 138/83 91 08/05/21 23:23 36.7 C 89 18 155/83 H 94 Laboratory Results Laboratory Results - last 24 hr 08/06/21 08/06/21 08/06/21 05:55 05:55 05:55 WBC 4.33 L RBC 4.41 L Hgb 13.9 L Hct 39.8 L MCV 90.2 MCH 31.5 MCHC 34.9 RDW Std Deviation 46.5 H RDW Coeff of Surya 14.1 Plt Count 103 L MPV 9.3 Sodium 137 Potassium 3.7 Chloride 103 Carbon Dioxide 27 Anion Gap 7 BUN 21 Creatinine 1.13 Est Cr Clr Drug Dosing 97.5 Est GFR ( Amer) 80.9 Est GFR (Non-Af Amer) 69.8 BUN/Creatinine Ratio 18.6 Glucose 114 H Estimat Average Glucose 88 Hemoglobin A1c 4.7 Calcium 8.8 Magnesium 2.2 Total Bilirubin 1.2 H AST 24 ALT 24 Alkaline Phosphatase 44 Total Protein 6.8 Albumin 4.3 Globulin 2.5 Albumin/Globulin Ratio 1.7 Diagnostic Findings Chest x-ray 08/06/2021 no pneumothorax
--- NOTE | 2021-08-06 14:26 | Discharge Summary ---
Date of Service August 06, 2021 Admission HPI Per Admitting Provider This is a 61-year-old male who has significant past medical history of prediabetes, HTN, HLD, TANNER on CPAP, gout, cutaneous sarcoidosis, depression who presents to ED after being referred from cardiology due to complete heart block. Patient's is at bedside. Of significance he was diagnosed with COVID-19 May 2021. Approximately 2 weeks ago he noticed increasing shortness of breath with exertion. Even minimal walking required him to take rest due to shortness of breath. He also has been experiencing intermittent lightheadedness and dizziness and twice came down to his knees due to fear of passing out. He denies frankly losing consciousness. He denies recent illness, fever, chills, sweats, syncope, chest pain, shortness of breath, palpitations, cough, URI symptoms, nausea, vomiting, abdominal pain, changes bowel or urinary habits. He denies any recent tick bites. He initially was seen as outpatient by PCP and was found to have an elevated proBNP. He was then referred to ED for further evaluation on 07/31. At that time chest x-ray was unremarkable and clinically no concern of volume overload. EKG at that time was not read as complete heart block. He was seen and evaluated by Dr. Givens in cardiology this morning. EKG in clinic revealed complete heart block and right bundle branch block. He was referred to ED for further evaluation, Lyme screen, TSH and possible pacemaker placement. In ED he remained hemodynamically stable although he was significantly bradycardic. EKG did reveal complete heart block, right bundle branch block. Admission Exam Per Admitting Provider Constitutional: WD/WN, M, vitals as above, NAD, sitting up in bed, pleasant, conversing easily Head: Normocephalic, Atraumatic Eyes: PERRL, conjunctivae normal, anicteric sclerae ENMT: external ear and nose normal, oropharynx normal Neck: trachea midline, no thyromegaly normal visual inspection Respiratory: normal respiratory effort, lungs clear to auscultation, no wheeze, rales, rhonchi. Normal insp/exp effort, no accessory muscle use Cardiovascular: bradycardic rate, regular rhythm, no murmur, no edema Vessels: no JVD or carotid bruit Chest: normal inspection of chest Abdomen: obese abd, normal bowel sounds, soft, nontender, no hepatosplenomegaly Musculoskeletal: no cyanosis or clubbing, extremities motor strength 5/5 Skin: no rashes, warm and dry normal turgor Neurologic: PERRL, EOMI, accommodation nl, no face palsy, no dysarthria CN's II-XI intact bilaterally and moves all extremities Psychiatric: A+Ox3, euthymic affect Lymphatic: no cervical or axillary lymphadenopathy : deferred Principal Diagnosis (1) Complete heart block: (2) RICHARDSON (dyspnea on exertion): (3) Obstructive sleep apnea on CPAP: (4) HTN (hypertension): (5) Cutaneous sarcoidosis: Discharge Exam General- No acute distress Head- atraumatic Eyes- PERRL, EOMI, ENT- oropharynx clear Neck- supple, no JVD Lungs- clear to auscultation Heart- regular rhythm; no murmur Abdomen- normal bowel sounds, soft, nontender Extremities- no calf tenderness Neuro- alert, oriented x 3; PERRL, EOMI; no facial palsy; no dysarthria Skin- warm & dry Discharge Data Allergies Allergy/AdvReac Type Severity Reaction Status Date / Time No Known Allergies Allergy Unverified 08/05/21 10:00 Consultations 08/05/21 09:48 ED Decision to Admit Stat 08/05/21 10:08 Consult Cardiology Routine 08/05/21 11:10 Consult Cardiology Stat Procedures Performed Operation Date: 08/05/21 14:30 Actual Procedures p ICD Insertion Single or Dual - Jamison Beebe MD Ordered Studies 08/05/21 14:00 EP Lab Images for PACS ONCE XR chest 2V PA/lateral CLINICAL HISTORY: EXACT TIME ORDERED Evaluate for pneumothorax and l. Status post pacer placement COMPARISON STUDY: 08/05/2021 TECHNIQUE: 2 views of the chest FINDINGS: Frontal and lateral radiographs of the chest demonstrate interval placement of a dual-lead cardiac pacer on the left. There is no evidence for pneumothorax. The lungs are clear of alveolar opacities. On the lateral radiograph, there is evidence for small bilateral pleural effusions. There is no evidence for vascular congestion. There is no acute osseous pathology. IMPRESSION: 1. Status post pacer placement with no evidence for pneumothorax. 2. Small bilateral pleural effusions. ACT 112: Negative or not required by law. Electronically signed by: Remington Rosado M.D. 08/06/2021 8:12 AM Dictated:08/06/21810 Transcribed: 08/06/21810 XR chest 1V portable CLINICAL HISTORY: Atypical chest pain TECHNIQUE: Single frontal radiograph of the chest was obtained. Comparison: Comparison is made to chest radiograph 07/30/2021 FINDINGS: Anterior cervical fixation hardware is seen. No lines and tubes are seen. The cardiomediastinal silhouette is normal. The lungs are clear. No evidence of pleural effusion or pneumothorax. Previously noted radiodensity in the left chest is not well seen today. IMPRESSION: No acute chest disease. ACT 112: Negative or not required by law. Electronically signed by: Loc Pineda M.D. 08/05/2021 9:55 AM Dictated:08/05/21952 Transcribed: 08/05/21952 Hospital Course (1) Complete heart block: (2) RICHARDSON (dyspnea on exertion): (3) HTN (hypertension): (4) HLD (hyperlipidemia): (5) TANNER on CPAP: (6) Cutaneous sarcoidosis: This is a 61-year-old male who has significant past medical history of prediabetes, HTN, HLD, TANNER on CPAP, gout, cutaneous sarcoidosis, depression who presents to ED after being referred from cardiology due to complete heart block. Complete heart block Successful implant of dual-chamber ICD yesterday. CXR showed Status post pacer placement with no evidence for pneumothorax. ECHO showed moderate concentric LVH with EF greater than 70% Case discussed with cardiology Ok from cardiology standpoint to discharge home today Follow up with cardiology in 1 week to check for pacemaker wound HTN hold home bp meds for now, bp 123/63 Continue amlodipine, lasix, HCTZ and losartan as outpt resume when able HLD Continue statin TANNER on CPAP Continue CPAP Cutaneous sarcoidosis continue hydroxychloroquine twice daily PreDM Hgb A1c 4.7 Continue monitor BS dvt ppx: SCD/TEDS for now Dispo: PCU FULL CODE PCP: Sandra Total Time Total Time Spent Total Time Spent (In Minutes): 35 minutes Discharge Plan Discharge Items Patient Disposition: Home - Self-Care Reason For Visit: COMPLETE HEART BLOCK Discharge Diagnosis: (1) Complete heart block: (2) RICHARDSON (dyspnea on exertion): (3) Obstructive sleep apnea on CPAP: (4) HTN (hypertension): (5) Cutaneous sarcoidosis: Activity: Resume your previous activity Lifting: No more than 10 pounds Lifting Comment: No lifting left arm above the shoulder or behind the neck for 6 weeks Bathing: Keep incision dry Bathing Comment: keep wound dry and Steri-Strips intact until follow-up in 5-7 days. Driving/Machine Use: Resume 1 day after discharge Non-emergency contact: Primary Care Provider and Microbial Specialist Call non-emergency contact if: you have any medication questions, your pain is worsening, your temperature is above 101, your wound has increased redness and your wound has increased drainage Follow-up/Referrals: Marquis Flores MD [Primary Care Provider] - (Date & Time 08/10/2021 12:20 PM Provider Marquis Flores MD Department [facility] ) Diet: Heart Healthy Addtl Attending Provider Instructions: Follow up with your primary care provider Dr. Flores on 08/10/2021 @ 12:20 PM at the [facility] Follow up with cardiology to check pacemaker ( wound ). Please call for the appointment if you don't hear next week from the cardiology office Please keep wound dry in the Steri-Strips intact until you can follow-up in the clinic for a wound check. Please avoid lifting left arm above the shoulder behind the neck for [address] your doctor says it's OK. OK to shower tomorrow Do not lift no more than 10 lbs for 1-2 week Do not stretch your arm behind your back for as long as directed by your doctor. Keep incision area clean and dry Check your incision area for signs of infection (redness, swelling, drainage, or warmth). Before you receive any treatment, tell all healthcare providers (including your dentist) that you have a pacemaker. Keep your cell phone away from your pacemaker. Don't carry the phone in your shirt pocket overlying the pacemaker, even when it's turned off. Avoid strong magnets If you order for an MRI in the future, please inform that you have a pacemaker Check BMP in 1 week to monitor your renal function and electrolytes while on Lasix and Hydrochlorothoazide Pending Studies at Discharge: No Stand-Alone Forms: My [facility] [employer], Smoking Cessation Medications and DC Order Prescriptions: New oxycodone 5 mg Tablet 5 mg PO Q8H PRN (Reason: severe pain (scale score 7-10)) Qty: 10 RF: 0 Continued amlodipine 5 mg tablet 5 mg PO QAM RF: 0 omeprazole 20 mg capsule,delayed release(DR/EC) 20 mg PO HS RF: 0 simvastatin 20 mg tablet 20 mg PO HS RF: 0 sertraline 100 mg tablet 200 mg PO QAM RF: 0 hydrochlorothiazide 25 mg tablet 25 mg PO QAM RF: 0 losartan 100 mg tablet 100 mg PO QAM RF: 0 colchicine 0.6 mg tablet 0.6 mg PO QAM RF: 0 hydroxychloroquine 200 mg tablet 200 mg PO BID RF: 0 triamcinolone acetonide 0.1 % Lotion 1 applic TOPICAL QAM RF: 0 fluticasone propionate 50 mcg/actuation [place],Suspension 2 spray INTRANASAL QAM RF: 0 aspirin 81 mg Tablet,Delayed Release (Dr/Ec) 81 mg PO HS RF: 0 Changed furosemide [Lasix] 40 mg tablet 40 mg PO QAM 90 Days Qty: 90 RF: 0 Discharge Orders: Discharge Order (Routine); Ordered 08/06/21 Ordered By: Cristo Medrano Admission Data Admit Date/Time: 08/05/21 10:08 Attending Provider: Cristo Medrano Admit Provider: Les Elizabeth Primary Care Provider: Marquis Flores Other Providers: Les Elizabeth ; Jamison Beebe ; Quinn Marquez Other Interventions: Discharge Summary Assessment (RN) Last Done: 08/06/21 15:00
--- NOTE | 2021-08-07 12:34 | Electrocardiogram Report ---
Test Reason : Blood Pressure : / mmHG Vent. Rate : 081 BPM Atrial Rate : 081 BPM P-R Int : 174 ms QRS Dur : 180 ms QT Int : 498 ms P-R-T Axes : 040 -89 066 degrees QTc Int : 578 ms Atrial-sensed ventricular-paced rhythm Abnormal ECG When compared with ECG of 05-AUG-2021 09:13, Electronic ventricular pacemaker has replaced Sinus rhythm Vent. rate has increased BY 39 BPM Confirmed by Stefan Caba ([id number]) on 08/07/2021 12:33:28 PM Referred By: Mayur Givens Confirmed By:Stefan Caba
== END 2021-08-06 15:46 | disposition home or self-care (01) | DRG 244 ==
LOC: ED 09:02 → 2S 10:08 → SUATTDRO 10:08 → 2S 11:20
PROC: EPB.ICD (2021-08-05 14:30)
DX: G47.33 Obstructive sleep apnea (adult) (pediatric); F32.A Depression, unspecified; I11.0 Hypertensive heart disease with heart failure; E66.9 Obesity, unspecified; Z79.82 Long term (current) use of aspirin; I50.9 Heart failure, unspecified; M10.9 Gout, unspecified; Z96.651 Presence of right artificial knee joint; Z98.1 Arthrodesis status; E78.5 Hyperlipidemia, unspecified; I44.2 Atrioventricular block, complete; D86.3 Sarcoidosis of skin; Z68.38 Body mass index [BMI] 38.0-38.9, adult; K21.9 Gastro-esophageal reflux disease without esophagitis

== ENCOUNTER 2021-08-10 09:45 | Inpatient (IN) ==
[2021-08-10] MEDS ORDERED: SODIUM CHLORIDE 0.9% 500 ML IV ONE (10:08)
[2021-08-10 10:15] LABS: Basophils # (auto) 0.01 K/uL (0-0.2); Basophils % (auto) 0.1 %; Eosinophils # (auto) 0.06 K/uL (0-0.5); Eosinophils % (auto) 0.6 %; Hematocrit (blood only) 36.8 % (42-52); Hemoglobin 12.7 g/dL (14.0-18.0); Immature Granulocytes # (auto) 0.03 K/uL (0.00-0.02); Immature Granulocytes % (auto) 0.3 %; Lymphocytes # (auto) 0.86 K/uL (1.2-3.4); Lymphocytes % (auto) 8.6 %; Mean Corpuscular Hemoglobin 31.2 pg (25-34); Mean Corpuscular Hgb Conc 34.5 g/dL (32-36); Mean Corpuscular Volume 90.4 fL (80-100); Mean Platelet Volume 9.9 fL (7.4-10.4); Monocytes # (auto) 0.83 K/uL (0.11-0.59); Monocytes % (auto) 8.3 %; Neutrophils # (auto) 8.26 K/uL (1.4-6.5); Neutrophils % (auto) 82.1 %; Platelet Count 160 K/uL (130-400); RDW Standard Deviation 45.9 fL (36.4-46.3); Red Blood Count 4.07 M/uL (4.7-6.1); White Blood Count 10.05 K/uL (4.8-10.8)
--- NOTE | 2021-08-10 10:19 | Emergency Department Note ---
Impression & Plan Cardiac tamponade, Cardiac pacemaker in situ, Syncope ED Provider Note NAME: ELIZABETH ROCHA AGE: 61 SEX: M : 1960 ARRIVES VIA: Ambulance INFORMANT: Patient ED PROVIDER(S): Devin Hughes DO CHIEF COMPLAINT: weak, dizzy, syncope HPI: Patient is a 61-year-old gentleman who was seen here in the ER this past . He had third-degree heart block and was maintaining appropriate pressures. He was seen and evaluated by Dr. Marquez and taken to the cardiac suite for an ICD placement. He presents today as he woke up and was not feeling well. He was feeling very dizzy and lightheaded. He has blood pressure checked and it was in the 70s. He did pass out. He denies any headache or change in vision currently. He admits to intermittent sharp stabbing pains in his chest. He notes shortness of breath has been getting worse over the past 2 days. No belly pain Currently. No dysuria urgency or frequency. No other exacerbating or remitting factors. ROS: See above HPI for pertinent positives & negatives. A total of 10 systems reviewed and were otherwise negative. PAST MEDICAL HISTORY:See Below PAST SURGICAL HISTORY:See Below FAMILY HISTORY:See Below SOCIAL HISTORY:See Below HOME MEDICATIONS:See Below ALLERGIES:See Below VITALS:See Below PHYSICAL EXAMINATION: GENERAL: Sitting up in bed, alert, well appearing, well nourished, no distress, non-toxic EYE EXAM: normal conjunctiva. PERRL and EOM's grossly intact. OROPHARYNX: no exudate, no erythema, lips, buccal mucosa, and tongue normal and mucous membranes are moist NECK: supple, no nuchal rigidity, no adenopathy, non-tender CHEST: Pacer pocket left upper chest is clean dry and intact with Steri-Strips in place LUNGS: Clear to auscultation. Normal chest wall mechanics HEART: no murmurs, S1 normal and S2 normal ABDOMEN: abdomen soft, non-tender, normo-active bowel sounds, no masses, no rebound or guarding. UPPER EXTREMITIES: upper extremities are grossly normal. LOWER EXTREMITIES: No pitting edema. NEURO EXAM: Normal sensorium, cranial nerves II-XII grossly intact, normal speech, no gross weakness of arms, no gross weakness of legs. MEDICAL DECISION MAKING: Patient is a 61-year-old male who presents the ER for syncopal episode sewed. IV was established blood work was obtained. Labs show no significant leukocytosis. Mild anemia 12.7. BMP with creatinine 1.99 up from baseline of 1. LFTs were unremarkable. T bili slightly up at 1.5. Lipase was normal. Covid was negative. Chest x-ray with a large cardiac silhouette. Bedside ultrasound was placed myself and showed a large pleural effusion. Consulted Dr. Patten he was gracious enough to come down right away and had the pc technician and showed them benign. Heart alert was called. He was given IV fluids. He was taken emergently to [facility].Systolic pressures remained 90s to low 100s while in the ER. Pressures were soft initially in the 80s upon arrival. Triage Nursing notes reviewed. Limited review of prior medical records performed Vital Signs: reviewed and remarkable for Hypotension Differential diagnosis: Differential diagnosis includes etiologies such as vasovagal event, infection, hypoglycemia, electrolyte abnormalities, cardiac sources, intracerebral event, toxicologic, neurologic, as well as others were entertained. ER treatment provided: See below Diagnostics interpreted by me: ECG:Ventricularly paced at a rate of 89 Left axis QTC 547 Cardiac Monitoring: An order was placed for continuous cardiac monitoring. The monitor shows a rate of 89 with sinus rhythm. Laboratory studies: As stated above and show below. Imaging studies: Portable AP upright 1 view of the chest shows large cardiac silhouette Consultation(s): D/w with Dr. Alan Patten who evaluated the patient and he was taken emergently to [facility] D/w New from [facility] for admission Procedures: none PDMP:reviewed and no issues Critical Care: I have personally spent 32 minutes of critical care time in the direct management of this patient. This includes bedside care, interpretation of diagnostic studies, and testing, discussion with consultants, patient, and family members, and other required patient management activities. This 32 minutes is in excess of all separately billable procedures. Past Med/Surg History Medical History Cutaneous sarcoidosis GERD (gastroesophageal reflux disease) Gout HLD (hyperlipidemia) HTN (hypertension) No pertinent family history TANNER on CPAP Pre-diabetes Surgical History History of arthroscopic knee surgery History of fusion of cervical spine History of hernia repair History of knee replacement procedure of right knee Family History Father , 57 Cancer pancreatitic Alcohol abuse Mother , 64 Myocardial infarction Stroke Social History Smoking Status: Never smoker Hx Alcohol Use: Yes Alcohol type: wine and hard liquor Alcohol type Comment: beer, bourbon Alcohol Intake Frequency: 2-3 x/Week Hx Substance Use: No Preferred Language: Lithuanian Communication Ability: Effective 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: No Beliefs That Will Affect Care: None marital status: Current Living Situation: Spouse Feels Safe at Home: Yes Assistive Devices: Glasses and Hearing Aid - Bilateral Allergies Allergies Allergy/AdvReac Type Severity Reaction Status Date / Time No Known Allergies Allergy Unverified 08/10/21 11:51 Home Meds Home Medications Medication Instructions Recorded Confirmed amlodipine 5 mg tablet 5 mg PO [facility] 07/30/21 08/10/21 colchicine 0.6 mg tablet 0.6 mg PO [facility] 07/30/21 08/10/21 fluticasone propionate 50 2 spray INTRANASAL [facility] 07/30/21 08/10/21 mcg/actuation nasal spray,suspension hydrochlorothiazide 25 mg tablet 25 mg PO [facility] 07/30/21 08/10/21 hydroxychloroquine 200 mg tablet 200 mg PO BID 07/30/21 08/10/21 losartan 100 mg tablet 100 mg PO [facility] 07/30/21 08/10/21 omeprazole 20 mg capsule,delayed 20 mg PO HS 07/30/21 08/10/21 release sertraline 100 mg tablet 200 mg PO [facility] 07/30/21 08/10/21 simvastatin 20 mg tablet 20 mg PO 07/30/21 08/10/21 triamcinolone acetonide 0.1 % 1 applic TOPICAL [facility] 07/30/21 08/10/21 lotion aspirin 81 mg tablet,delayed 81 mg PO 08/05/21 08/10/21 release acetaminophen 500 mg tablet 1,500 mg PO .TODAY PRN 08/10/21 08/10/21 (Tylenol Extra Strength) Previous Rx's Medication Instructions Recorded furosemide 40 mg tablet (Lasix) 40 mg PO QA 90 Days #90 tab 08/06/21 oxycodone 5 mg tablet 5 mg PO Q8H PRN #10 tab 08/06/21 Results & Data (ED) Vital Signs Vital Signs - 24 hr 08/10/21 09:48 08/10/21 10:09 08/10/21 11:00 Temperature 36 C L Temperature Source Oral Pulse Rate 90 Pulse Rate [Apical] 88 90 Respiratory Rate 23 24 Respiratory Effort / Characteristics Non-Labored Spontaneous Non-Labored Spontaneous Respiratory Depth Normal Normal Blood Pressure 90/64 L Blood Pressure [Right Arm] 90/71 L 104/73 Blood Pressure Mean 72 Blood Pressure Mean [Right Arm] 77 83 Pulse Oximetry 92 94 91 Oxygen Delivery Method Room Air Room Air Room Air Sepsis Recent Fever Within 48 Hours No Sepsis New/Unexplained Change in Mental Status No Sepsis Action Taken by Nursing No Action Required Laboratory Data Result diagrams: 08/10/21 09:55 08/10/21 09:55 Lab Results 08/10/21 08/10/21 08/10/21 Range/Units 09:55 09:55 09:55 WBC 10.05 (4.8-10.8) K/uL RBC 4.07 L (4.7-6.1) M/uL Hgb 12.7 L (14.0-18.0) g/dL Hct 36.8 L (42-52) % MCV 90.4 (80-100) fL MCH 31.2 (25-34) pg MCHC 34.5 (32-36) g/dL RDW Std Deviation 45.9 (36.4-46.3) fL RDW Coeff of Surya 14.0 (11.5-14.5) % Plt Count 160 (130-400) K/uL MPV 9.9 (7.4-10.4) fL Immature Gran % (Auto) 0.3 % Neut % (Auto) 82.1 % Lymph % (Auto) 8.6 % [place] % (Auto) 8.3 % Eos % (Auto) 0.6 % Baso % (Auto) 0.1 % Neut # (Auto) 8.26 H (1.4-6.5) K/uL Lymph # (Auto) 0.86 L (1.2-3.4) K/uL [place] # (Auto) 0.83 H (0.11-0.59) K/uL Eos # (Auto) 0.06 (0-0.5) K/uL Baso # (Auto) 0.01 (0-0.2) K/uL Immature Gran # (Auto) 0.03 H (0.00-0.02) K/uL Sodium 134 L (136-145) mmol/L Potassium 3.8 (3.5-5.1) mmol/L Chloride 100 (98-107) mmol/L Carbon Dioxide 23 (21-32) mmol/L Anion Gap 11 (3-11) BUN 32 H (6-23) mg/dl Creatinine 1.99 H (0.6-1.4) mg/dl Est Cr Clr Drug Dosing 57.1 ml/min Est GFR ( Amer) 40.8 ml/min Est GFR (Non-Af Amer) 35.2 ml/min BUN/Creatinine Ratio 16.1 (10-20) Glucose 157 H (70-99(Fasting)) mg/dl Calcium 8.6 (8.5-10.1) mg/dl Total Bilirubin 1.5 H (0.2-1.0) mg/dl AST 32 (13-39) U/L ALT 38 (7-52) U/L Alkaline Phosphatase 62 (34-104) U/L Troponin I High Sens Cancelled 5.6 Total Protein 6.9 (6.0-8.3) gm/dl Albumin 4.2 (3.4-5.0) gm/dl Globulin 2.7 (2.5-4.0) gm/dl Albumin/Globulin Ratio 1.6 (0.9-2) Lipase 26 (11-82) U/L SARS-CoV-2, RNA, NAAT (NEGATIVE) 08/10/21 08/10/21 Range/Units 10:13 10:55 WBC (4.8-10.8) K/uL RBC (4.7-6.1) M/uL Hgb (14.0-18.0) g/dL Hct (42-52) % MCV (80-100) fL MCH (25-34) pg MCHC (32-36) g/dL RDW Std Deviation (36.4-46.3) fL RDW Coeff of Surya (11.5-14.5) % Plt Count (130-400) K/uL MPV (7.4-10.4) fL Immature Gran % (Auto) % Neut % (Auto) % Lymph % (Auto) % [place] % (Auto) % Eos % (Auto) % Baso % (Auto) % Neut # (Auto) (1.4-6.5) K/uL Lymph # (Auto) (1.2-3.4) K/uL [place] # (Auto) (0.11-0.59) K/uL Eos # (Auto) (0-0.5) K/uL Baso # (Auto) (0-0.2) K/uL Immature Gran # (Auto) (0.00-0.02) K/uL Sodium (136-145) mmol/L Potassium (3.5-5.1) mmol/L Chloride (98-107) mmol/L Carbon Dioxide (21-32) mmol/L Anion Gap (3-11) BUN (6-23) mg/dl Creatinine (0.6-1.4) mg/dl Est Cr Clr Drug Dosing ml/min Est GFR ( Amer) ml/min Est GFR (Non-Af Amer) ml/min BUN/Creatinine Ratio (10-20) Glucose (70-99(Fasting)) mg/dl Calcium (8.5-10.1) mg/dl Total Bilirubin (0.2-1.0) mg/dl AST (13-39) U/L ALT (7-52) U/L Alkaline Phosphatase (34-104) U/L Troponin I High Sens 5.4 Total Protein (6.0-8.3) gm/dl Albumin (3.4-5.0) gm/dl Globulin (2.5-4.0) gm/dl Albumin/Globulin Ratio (0.9-2) Lipase (11-82) U/L SARS-CoV-2, RNA, NAAT NEGATIVE (NEGATIVE) Administered Medications Acetaminophen (Acetaminophen 325 Mg Tab) 650 mg PO Q4H PRN PRN Reason: Pain or Fever Stop: 09/09/21 14:39 Last Admin: 08/10/21 16:09 Dose: 650 mg Documented by: [id number] Colchicine (Colchicine 0.6 Mg Tab) 0.6 mg PO BID LANRE Stop: 09/09/21 14:49 Last Admin: 08/10/21 16:16 Dose: 0.6 mg Documented by: [id number] Discontinued Medications Fentanyl Citrate (Fentanyl Citrate 100 Mcg/2 Ml Vial) Confirm Administered Dose 100 mcg .ROUTE .STK-MED ONE Stop: 08/10/21 11:52 Last Admin: 08/10/21 13:05 Dose: 100 mcg Documented by: [id number] Fentanyl Citrate (Fentanyl Citrate 100 Mcg/2 Ml Vial) Confirm Administered Dose 100 mcg .ROUTE .STK-MED ONE Stop: 08/10/21 13:03 Last Increment: 08/10/21 13:07 Dose: 25 mcg Documented by: [id number] Heparin Sodium (Porcine) (Heparin (Porcine) 1000 Unit/Ml 10 Ml ([facility] Use Only)) Confirm Administered Dose 10,000 units .ROUTE .STK-MED ONE Stop: 08/10/21 11:53 Last Admin: 08/10/21 13:06 Dose: Not Given Documented by: [id number] Heparin Sodium/Sodium Chloride (Heparin In Nss Infusion 1000 Unit/500 Ml (2 U/Ml) Bag) Confirm Administered Dose 3,000 units IV .STK-MED ONE Stop: 08/10/21 11:52 Last Admin: 08/10/21 13:07 Dose: 3,000 units Documented by: [id number] Sodium Chloride (Nss) 500 mls @ 999 mls/hr IV .Q31M ONE Stop: 08/10/21 10:38 Last Infusion: 08/10/21 10:48 Dose: 0 mls/hr Documented by: [id number] Admin: 08/10/21 10:16 Dose: 999 mls/hr Documented by: [id number] Lidocaine HCl (Lidocaine 1% Local 20 Ml Vial) Confirm Administered Dose 20 ml .ROUTE .STK-MED ONE Stop: 08/10/21 12:11 Last Admin: 08/10/21 13:06 Dose: 20 ml Documented by: [id number] Midazolam HCl (Midazolam Hcl 1 Mg/Ml 2ml Vial) Confirm Administered Dose 2 mg .ROUTE .STK-MED ONE Stop: 08/10/21 11:52 Last Admin: 08/10/21 13:06 Dose: 2 mg Documented by: [id number] Midazolam HCl (Midazolam Hcl 1 Mg/Ml 2ml Vial) Confirm Administered Dose 2 mg .ROUTE .STK-MED ONE Stop: 08/10/21 12:57 Last Admin: 08/10/21 13:06 Dose: 2 mg Documented by: [id number] Nicardipine HCl (Nicardipine Hcl Inj 2.5 Mg/Ml 10 Ml Amp) Confirm Administered Dose 25 mg .ROUTE .STK-MED ONE Stop: 08/10/21 11:52 Last Admin: 08/10/21 13:06 Dose: Not Given Documented by: [id number] Imaging Data Radiologist's Impression: Chest X-Ray 08/10/21 10:09 XR chest 1V portable HISTORY: 61 years-old Male Chest Pain acute atypical chest pain COMPARISON: Chest radiographs 08/16/2001 TECHNIQUE: Portable AP view of the chest FINDINGS: The cardiac silhouette is enlarged. Left subclavian pacer/AICD. No pneumothorax or overt pulmonary edema. Blunting of the right costophrenic angle. Mild bibasilar densities. Bones appear grossly intact. Cervical spinal fusion hardware. IMPRESSION: 1. Cardiomegaly without overt pulmonary edema. 2. Trace right pleural effusion with mild bibasilar opacities. ACT 112: Negative or not required by law. The above report was generated using voice recognition software. It may contain grammatical, syntax or spelling errors. Electronically signed by: Brian Nieto M.D. 08/10/2021 11:05 AM Discharge Plan Visit Data Chief Complaint: Hypotension Stated Complaint: HYPOTENSION ED Provider: Devin Hughes Discharge Problem: Cardiac tamponade, Cardiac pacemaker in situ, Syncope Patient Disposition: Admitted As Inpatient Discharge Instructions Interventions: ED Discharge Assessment Last Done: 08/10/21 12:00
[2021-08-10 10:40] LABS: Albumin Globulin Ratio 1.6 (0.9-2); Albumin Level 4.2 gm/dl (3.4-5.0); BUN Creatinine Ratio 16.1 (10-20); Bilirubin,Total 1.5 mg/dl (0.2-1.0); Calcium 8.6 mg/dl (8.5-10.1); Creatinine Clr Calc Pharmacy 57.1 ml/min; Est GFR (African American) 40.8 ml/min; Est GFR (Non-African American) 35.2 ml/min; Globulin 2.7 gm/dl (2.5-4.0); Potassium 3.8 mmol/L (3.5-5.1); Total Protein 6.9 gm/dl (6.0-8.3)
--- NOTE | 2021-08-10 11:06 | XRay Report ---
XR chest 1V portable HISTORY: 61 years-old Male Chest Pain acute atypical chest pain COMPARISON: Chest radiographs 08/16/2001 TECHNIQUE: Portable AP view of the chest FINDINGS: The cardiac silhouette is enlarged. Left subclavian pacer/AICD. No pneumothorax or overt pulmonary ed sharonda. Blunting of the right costophrenic angle. Mild bibasilar densities. Bones appear grossly intact. Cervical spinal fusion hardware. IMPRESSION: 1. Cardiomegaly without overt pulmonary edema. 2. Trace right pleural effusion with mild bibasilar opacities. ACT 112: Negative or not required by law. The above report was generated using voice recognition software. It may contain grammatical, syntax o r spelling errors. Electronically signed by: Brian Nieto M.D. 08/10/2021 11:05 AM
[2021-08-10 11:22] LABS: Troponin I High Sensitivity 5.6 pg/ml (0-20)
[2021-08-10] MEDS ORDERED: fentaNYL citrate 100 MCG/2 ML VIAL ONE ×2 (11:51→13:02)
[2021-08-10] MEDS ORDERED: MIDAZOLAM HCL 1 MG/ML 2ML VIAL ONE ×2 (11:51→12:56)
[2021-08-10] MEDS ORDERED: niCARdipine HCL INJ 2.5 MG/ML 10 ML AMP ONE (11:51)
[2021-08-10] MEDS ORDERED: HEPARIN (PORCINE) 1000 UNIT/ML 10 ML (CATH LAB USE ONLY) ONE (11:52)
[2021-08-10] MEDS ORDERED: LIDOCAINE 1% LOCAL 20 ML VIAL ONE (12:10)
--- NOTE | 2021-08-10 12:18 | Cardiology Consultation ---
Date of Consultation August 10, 2021 Assessment & Plan (1) Cardiac tamponade: (2) Syncope: (3) Third degree heart block: (4) TANNER on CPAP: (5) Pre-diabetes: (6) Cardiac pacemaker in situ: Large circumferential pericardial effusion with tamponade physiology 2 large bore antecubital IV's placed with NSS wide open for emergent echo guided pericardiocentesis will then recover in ICU and fully interrogate pacemaker I discussed the findings, plan, treatment and possible complications with the patient and his , both are in agreement to proceed. 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 Hughes Attending Physician: RICCO History of Present Illness Mr. Ramirez is a very pleasant 61 yo M post op day #5 s/p dual chamber ppm placement for 3rd degree heart block. Presented to [facility] ER on 08/10/21 with a reported witnessed syncopal event. He states that initially after pacemaker placement he was feeling well.Then few days later he developed some lightheadedness and overall feeling not well. he developed some lightheadedness and overall feeling not well. This morning he h tried his a witnessed syncopal event by his that occurred upon standing. . He presents to the emergency department and was initially relatively hypotensive. and was initially relative a stat echocardiogram was performed which revealed hypotensive. A stat echocardiogram for large pericardial effusion was performed which revealed with tamponade physiology. Allergies Allergy/AdvReac Type Severity Reaction Status Date / Time No Known Allergies Allergy Unverified 08/10/21 11:51 Home Medications Medication Instructions Recorded Confirmed Type amlodipine 5 mg tablet 5 mg PO [facility] 07/30/21 08/10/21 History fluticasone propionate 50 2 spray INTRANASAL [facility] 07/30/21 08/10/21 History mcg/actuation nasal spray,suspension hydroxychloroquine 200 mg tablet 200 mg PO BID 07/30/21 08/10/21 History sertraline 100 mg tablet 200 mg PO [facility] 07/30/21 08/10/21 History simvastatin 20 mg tablet 20 mg PO HS 07/30/21 08/10/21 History triamcinolone acetonide 0.1 % 1 applic TOPICAL [facility] 07/30/21 08/10/21 History lotion oxycodone 5 mg tablet 5 mg PO Q8H PRN #10 tab 08/06/21 08/10/21 Rx colchicine 0.6 mg tablet 0.6 mg PO BID 30 Days #10 tab 08/16/21 Rx pantoprazole 40 mg tablet,delayed 40 mg PO HS 30 Days #10 tab 08/16/21 Rx release prednisone 10 mg tablet 10 mg PO UD #9 tab 08/16/21 Rx Patient History Medical History Complete heart block Cutaneous sarcoidosis Depression GERD (gastroesophageal reflux disease) Gout HLD (hyperlipidemia) HTN (hypertension) No pertinent family history TANNER on CPAP Pre-diabetes Surgical History History of arthroscopic knee surgery History of fusion of cervical spine History of hernia repair History of knee replacement procedure of right knee Family History Father , 57 Cancer pancreatitic Alcohol abuse Mother , 64 Myocardial infarction Stroke Social History Smoking Status: Never smoker Hx Alcohol Use: Yes Alcohol type: wine and hard liquor Alcohol type Comment: beer, bourbon Alcohol Intake Frequency: 2-3 x/Week Hx Substance Use: No Preferred Language: [place] Islander Communication Ability: Effective Oracle Database Architect Required: No Beliefs That Will Affect Care: None marital status: Current Living Situation: Spouse Feels Safe at Home: Yes Assistive Devices: CPAP, Glasses and Hearing Aid - Bilateral Review of Systems Review of Systems: All systems reviewed & are unremarkable except as noted in HPI & below Physical Exam Physical Exam: Physical Exam: General: Awake, alert and oriented x 3. No acute distress. HEENT: Normocephalic, atraumatic. Pupils equal, round and reactive to light and accommodation. Extraocular muscles are intact. Anicteric sclera. Moist mucous membranes. Neck: No JVD. No bruit. Cardiovascular: Regular but distant. Pulmonary: Clear to auscultation bilaterally. No rales, rhonchi, or wheezing. Abdomen: Bowel sounds x 4, soft. No rebound, guarding or tenderness. No organomegaly. Extremities: No clubbing, cyanosis or edema. +2 pedal pulses bilaterally. Skin: Warm and dry. Results & Data ([facility]) Vital Signs (Past 12 Hours) Vital Signs Temp Pulse Pulse Resp BP BP Pulse Ox 08/10/21 11:00 90 24 104/73 91 08/10/21 10:09 94 08/10/21 09:48 36 C L 90 88 23 90/64 L 90/71 L 92 Diagnostic Findings bedside echocardiogram revealed large circumferential pericardial effusion, particulary anterior with tamponade physiology and significant RV free wall collapse.
--- NOTE | 2021-08-10 14:29 | Pre Anesthesia Assessment ---
Date of Service August 10, 2021 Pre Sedation Assessment Vital Signs Temp Pulse Pulse Resp BP BP Pulse Ox 08/10/21 13:45 99.3 F 81 22 122/81 92 08/10/21 13:31 81 17 112/72 94 08/10/21 13:21 79 17 120/82 90 08/10/21 11:00 90 24 104/73 91 08/10/21 10:09 94 08/10/21 09:48 96.8 F L 90 88 23 90/64 L 90/71 L 92 Cardiovascular RRR, no murmur, no edema Respiratory normal respiratory effort, lungs clear to auscultation Pre-Sedation Airway Assessment Smoking Status: Never smoker Hx Sleep Apnea: Yes Hx Difficult Intubation: No Short, Thick Neck: No Thyromental Distance: > or= 3.5 Finger Breadths Oral Cavity: + WNL ASA: ASA3 Procedure Planning Contraindications for Sedation: none Current Medications Reviewed: Yes Notes The planned sedation has been discussed with the patient. Informed Consent was obtained. I have identified the patient, determined the appropriateness of sedation and have assessed the patient immediately prior to the procedure. All medicine(s) and interventions are by my order.
--- NOTE | 2021-08-10 14:30 | Post Anesthesia Assessment ---
Date of Service August 10, 2021 Post Sedation Assessment Vital Signs Temp Pulse Pulse Resp BP BP Pulse Ox 08/10/21 13:45 99.3 F 81 22 122/81 92 08/10/21 13:31 81 17 112/72 94 08/10/21 13:21 79 17 120/82 90 08/10/21 11:00 90 24 104/73 91 08/10/21 10:09 94 08/10/21 09:48 96.8 F L 90 88 23 90/64 L 90/71 L 92 Recovery Score Activity: Moves 4 extremities Respiration: Deep Breath/Cough Circulation: +/-20% PreAnes Value Consciousness: Fully Awake Oxygen Saturation: O2 needed for >90% Discharge Sedation Level of Care: Fast Track Phase II Post Sedation Plan On clinical assessment, the patient appears to have tolerated the sedation without complications. Patient is recovering as anticipated. Patient will continue to be monitored by nursing and may be discharged when sedation discharge criteria are met per below protocol. Upon Completions of procedure up to 15 minutes continue every 5 minute vital signs and the P.A.R. score; then discharge to a Phase I or Fast Track to Phase II per the following guidelines: * Discharge Patient to appropriate Phase II area if PAR is 8 or greater or return to pre- procedure baseline. The post - procedure orders will be as directed. * If PAR score is less than 8 or not return to pre-procedure baseline then patient will follow Phase I monitoring till PAR is reached for Phase II. The Phase I may be done in procedure room or may call to secure a Phase I area. * If naloxone or flumazenil are used for reversal, hold in Phase I for continued monitoring from when last reversal dose was given for a minimum of 60 minutes or longer pending the nurse and/or physician discretion of patient condition before discharge to Phase II. Please call the Sedation Physician to re-evaluate and complete post-note for discharge to Phase II area. Do NOT discharge from procedure sedation or Phase 1 until post- sedation evaluation note is complete by procedure /sedation MD Sedation Discharge Instructions to be given to the patient at discharge to home.
[2021-08-10] MEDS ORDERED: ONDANSETRON INJ 2 MG/ML 2 ML VIAL IV PRN (14:40)
[2021-08-10] MEDS ORDERED: POLYETHYLENE (MIRALAX) 17 GM PACK PO PRN (14:40)
[2021-08-10] MEDS ORDERED: ICU PROTOCOL FOR HYPERGLYCEMIA PRN (14:40)
[2021-08-10] MEDS ORDERED: MAGNESIUM HYDROXIDE SUSP 30 ML UDC PO PRN (14:40)
[2021-08-10] MEDS ORDERED: ALUMINUM/MAGNESIUM SUSP 30 ML UDC PO PRN (14:40)
--- NOTE | 2021-08-10 14:46 | Cardiac Catheterization ---
[facility] Data: Efficiency Expert Cardiac Status Clinical evaluation leading to the procedure CAD Presenation: Sx unlikely to be ischemic Diagnostic Physicians Name: Jamison Mcclure MD Closure Device Recommendations: Medical Therapy and/or Counseling Cardiac Cath Procedure Full Procedure Date August 10, 2021 Pre-Procedure Diagnosis Pre-Procedure Diagnosis: Pericardial Disease AUC Score AUC Score: 8 Post-Procedure Diagnosis Post-Procedure Diagnosis: Cardiothoracic Finding (pericardial tamponade) Procedure(s) Performed Procedure(s) Performed: Pericardiocentesis Berry Grower Jamison Mcclure MD Gaming Dealer(s) Heating Technician Estimated Blood Loss Estimated Blood Loss: pericardial fluid Medication(s) Medication(s): Fentanyl, Lidocaine 1% and Versed Summary of Findings PERICARDIOCENTESIS Indication: Large pericardial effusion, tamponade post pacemaker placement 08/05/2021 Procedure: Local anesthesia with 1% lidocaine Under echocardiographic/fluoroscopic guidance pericardial space accessed with a micro puncture needle Position in pericardial space confirmed with injection of saline contrast Opening pericardial pressure 20 6 Fr pericardial pigtail catheter placed in pericardial space Removed 620 mL of grossly bloody fluid On repeat echo trivial residual fluid, RV well-expanded Post procedure pericardial pressure 11 Pericardial drain sutured in place Summary: 1. Successful ultrasound-guided pericardiocentesis with removal of 620 mL of grossly bloody fluid Recommendations: Drainage pericardial catheter every 8-12 hours Follow-up pericardial cell counts, cultures Repeat echo in a.m. Start colchicine Hemodynamics Rest Ao:: -- Final Ao: -- LV: -- Recommendations Recommendations: Medical Therapy and/or Counseling Specimens Specimens: None Radiation Exposure (mGy) 266 Contrast (mls) -- Drains Drains: 6Fr pericardial pigtail catheter Anesthesia Moderate 5152-3310 Procedural Complication(s) None Disposition ICU I attest to the content of the Intraoperative Record and any orders documented therein. Any exceptions are noted below. [facility] Card Cath Procedure Codes Therapeutic Services & Ancillary Proc Procedure 1: Cardiovascular Tx and Anc Procedures: 83047 Ultrasonic Guidance Pericardiocentesis Procedure 2: Cardiovascular Tx and Anc Procedures: 91537 Pericardiocentesis; initial Moderate Sedation Procedure 1: Sedation/Anesthesia: 97345 Mod Sedation by the same physician;Init15 Min Child Age 5 & Up Procedure 2: Sedation/Anesthesia: 07042 Mod Sedation by the same physician; Ea [id number] Minutes PG Care Time/CCT Total # of Minutes Spent Total Time Spent with Patient: Total time spent is greater than 50% in coordination of care (as documented) at patient's floor/unit and/or counseling patient:
--- NOTE | 2021-08-10 14:56 | Critical Care Consultation ---
Date of Consultation August 10, 2021 Assessment & Plan (1) Cardiac tamponade: (2) RICHARDSON (dyspnea on exertion): (3) TANNER on CPAP: (4) GERD (gastroesophageal reflux disease): (5) Gout: (6) Cutaneous sarcoidosis: 61-year-old male presented to the hospital with shortness of breath, he recently had cardiac pacemaker placed in 08/05/2021. Was found to be in cardiac tamponade. Was taken to the OR for pericardiocentesis 08/10/21 --Cardiac tamponade Likely to genic from pacemaker placement S/p pericardiocentesis 08/10/21, 620 mL bloody fluid was removed. Monitor hemodynamics Interventional cardiology on board Continue with colchicine Repeat 2D echo in the morning --TANNER Continue with home CPAP --Hypertension At home patient is on amlodipine 5 mg, Hydrochlorothiazide 25 mg Hold blood pressure medication for the time being, will resume once the blood pressure starts to creep up --Dyslipidemia Continue with simvastatin --Cutaneous sarcoidosis On hydroxychloroquine Prolonged QTC, patient does have a paced rhythm which might be one of the reason why it is following Avoid other QT prolonging medications --Prophylaxis VTE:IPC GI: Pantoprazole Lines: Peripheral Diet: Cardiac Plan: Monitor H&H Monitor hemodynamics Pain medication to control chest pain Incentive spirometry I have personally spent 38 minutes of critical care time in the direct management of this patient. This is a life/limb threatening event. This includes time spent evaluating patient, direct bedside care, chart review, placing orders, interpretation of diagnostic studies, discussion with consultants, patient, and family members, as well as other required patient management activities. This time is exclusive of all separately billable procedures, and teaching time and separate from and in addition to any other critical care service time. Please note the above document was generated using voice recognition software. It may contain grammatical, syntax or spelling errors. History of Present Illness Attending Physician: Maylin Alcaraz MD History of Present Illness 61-year-old male presented to hospital with complaints of shortness of breath Past medical history: Hypertension, dyslipidemia, TANNER on CPAP, gout, cutaneous sarcoidosis Patient recently had a pacemaker placed in 08/05/2021 for complete heart block. He was discharged on 08/06/2021 Chest x-ray in the ED showed increased cardiac silhouette compared to 08/05/2021. Bedside echo showed cardiac tamponade. Patient was taken to the Home Care Scheduler for pericardiocentesis Was transferred to ICU for further monitoring At the time of examination patient's was in the room. Patient's heart rate was pacing at 85. Blood pressure was in the 120s. He was breathing in the mid teens. Did complain of chest pain on taking deep breath in but did say that he is feeling better compared to when he came to the hospital. Denies any headache, no nausea or vomiting No chest tightness. No hemoptysis. Social history: Lifetime non-smoker Allergies Allergy/AdvReac Type Severity Reaction Status Date / Time No Known Allergies Allergy Unverified 08/10/21 11:51 Home Medications Medication Instructions Recorded Confirmed Type amlodipine 5 mg tablet 5 mg PO QAM 07/30/21 08/10/21 History colchicine 0.6 mg tablet 0.6 mg PO QAM 07/30/21 08/10/21 History fluticasone propionate 50 2 spray INTRANASAL QA 07/30/21 08/10/21 History mcg/actuation nasal spray,suspension hydrochlorothiazide 25 mg tablet 25 mg PO QAM 07/30/21 08/10/21 History hydroxychloroquine 200 mg tablet 200 mg PO BID 07/30/21 08/10/21 History losartan 100 mg tablet 100 mg PO QA 07/30/21 08/10/21 History omeprazole 20 mg capsule,delayed 20 mg PO HS 07/30/21 08/10/21 History release sertraline 100 mg tablet 200 mg PO QA 07/30/21 08/10/21 History simvastatin 20 mg tablet 20 mg PO HS 07/30/21 08/10/21 History triamcinolone acetonide 0.1 % 1 applic TOPICAL QAM 07/30/21 08/10/21 History lotion aspirin 81 mg tablet,delayed 81 mg PO HS 08/05/21 08/10/21 History release furosemide 40 mg tablet (Lasix) 40 mg PO QAM 90 Days #90 tab 08/06/21 08/10/21 Rx oxycodone 5 mg tablet 5 mg PO Q8H PRN #10 tab 08/06/21 08/10/21 Rx acetaminophen 500 mg tablet 1,500 mg PO .TODAY PRN 08/10/21 08/10/21 History (Tylenol Extra Strength) Patient History Medical History Cutaneous sarcoidosis GERD (gastroesophageal reflux disease) Gout HLD (hyperlipidemia) HTN (hypertension) No pertinent family history TANNER on CPAP Pre-diabetes Surgical History History of arthroscopic knee surgery History of fusion of cervical spine History of hernia repair History of knee replacement procedure of right knee Family History Father , 57 Cancer pancreatitic Alcohol abuse Mother , 64 Myocardial infarction Stroke Social History Smoking Status: Never smoker Hx Alcohol Use: Yes Alcohol type: wine and hard liquor Alcohol type Comment: beer, bourbon Alcohol Intake Frequency: 2-3 x/Week Hx Substance Use: No Preferred Language: Gambian Communication Ability: Effective Sr. Social Media & Mobile Manager Required: No Beliefs That Will Affect Care: None marital status: Current Living Situation: Spouse Other Information That Helps Us Care for You: No Feels Safe at Home: Yes Safety Concerns: Feels Safe At This Time Assistive Devices: Glasses and Hearing Aid - Bilateral Review of Systems Review of Systems: All systems reviewed & are unremarkable except as noted in HPI & below Physical Exam Physical Exam: Constitutional: No acute distress HEENT: EOMI, PERRLA Respiratory system: Good air entry bilaterally, no wheeze, rhonchi, mild crackles bilateral lower lobes CVS: S1-S2 positive, no murmurs or gallops, distant heart sounds, left-sided PPM Abdomen: Soft, nontender, nondistended, positive bowel sounds x4 Extremities: +2 pulses bilaterally radialis/ dorsalis pedis, no cyanosis, no edema Neuro: Awake alert oriented x3 Psych: Normal mood and affect G/U: No Kim Skin: no rashes, warm and dry Lymphatic: no cervical or axillary lymphadenopathy Results & Data Results & Data ([facility]) Vital Signs (Past 12 Hours) Vital Signs Temp Pulse Pulse Resp BP BP Pulse Ox 08/10/21 13:45 37.4 C 81 22 122/81 92 08/10/21 13:31 81 17 112/72 94 08/10/21 13:21 79 17 120/82 90 08/10/21 11:00 90 24 104/73 91 08/10/21 10:09 94 08/10/21 09:48 36 C L 90 88 23 90/64 L 90/71 L 92 Laboratory Results 08/10/21 09:55 08/10/21 09:55 Coding Level of Care Code Critical Care 1st 30-74 mins Diagnoses Cardiac tamponade I31.4 RICHARDSON (dyspnea on exertion) R06.00 TANNER on CPAP G47.33; Z99.89 GERD (gastroesophageal reflux disease) K21.9 Gout M10.9 Cutaneous sarcoidosis D86.3 Time Spent (min) 38
[2021-08-10] MEDS: ACETAMINOPHEN 325 MG TAB PO PRN ×2 (16:09→20:36)
[2021-08-10] MEDS: COLCHICINE 0.6 MG TAB PO SCH ×2 (16:16→20:38)
[2021-08-10 16:51] LABS: Basophils, Fluid 2 %; Eosinophils, Fluid 0 %; Lymphocytes, Fluid 7 %; Mono,Macrophage,Mesothelial 3 %; Neutrophils, Fluid 88 %; Pericardial Fluid Appearance BLOODY; Pericardial Fluid Color RED; RBC Pericardial Fluid (A) 4908000 /uL; WBC Pericardial Fluid (A) 10482 /ul
[2021-08-10] MEDS: IBUPROFEN 600 MG TAB PO SCH (17:14)
--- NOTE | 2021-08-10 19:50 | History & Physical Report ---
Date of Service August 10, 2021 Assessment & Plan (1) Cardiac tamponade: (2) Syncope: (3) Complete heart block: (4) Cardiac pacemaker in situ: (5) TANNER on CPAP: (6) HLD (hyperlipidemia): (7) Cutaneous sarcoidosis: (8) HTN (hypertension): (9) Gout: (10) Depression: Plan: Pt is a 61 y/o M with hx of cutaneous sarcoidosis on hydroxychloroquine, Gout, TANNER on CPAP, Depression, HLD, HTN, recent admission for complete heart block s/p dual camber ICD implantation admitted for cardiac tamponade Examined the pt after the pericardiocentesis. He is feeling better and VSS Syncope and Hypotension -2/2 Cardiac tamponade -s/p Pericardiocentesis: removed 620cc of bloody fluid ----has a drain in place -pt was started on colchicine -pt is currently admitted to ICU -will hold pts HTN meds for now -cardiology following ZEE: 2/2 Cardiac tamponade s/p pericardiocentesis -s/p fluid resuscitation -will trend BMP -will hold pts HTN meds for now Complete heart block s/p dual chamber ICD implantation: -device interrogation was normal -continue to monitor pt on tele Cutaneous sarcoidosis: -continue hydroxychloroquine HLD: -continue statin Depression: -continue Zoloft TANNER on CPAP: -setting of 10 Diet: Cardiac DVT PPx: On IPC Code Status: Full code Emergency Contact: [phone] Admission and Anticipated Discharge Date Admission Date: August 10, 2021 History of Present Illness Chief Complaint: syncope Primary Care Provider: Marquis Flores MD Pt is a 61 y/o M with hx of cutaneous sarcoidosis on hydroxychloroquine, Gout, TANNER on CPAP, Depression, HLD, HTN, recent admission for complete heart block s/p dual camber ICD implantation came to the ER after a syncopal episode with hypotension Per , pt complained of not feeling too well 3 days ago. Started to experience fatigue 2 days ago and today morning he felt lightheaded and had a syncopal episode. He lost consciousness for 1 minute. Was slightly confused after the syncope but no episode of foaming in the mouth, urinary or fecal inco ntinence. He also experienced diaphoresis with the syncope. Denied any fever. At bedside pt complained of mild headache. Denied any CP, SOB or leg swelling. Pt was found to be in cardiac tamponade therefore taken to the produce laborer for pericardiocentesis. Recent Echo showed LVH with EF of >70% EKG: Ventricular paced with HR of 89 BPM Allergies Allergy/AdvReac Type Severity Reaction Status Date / Time No Known Allergies Allergy Unverified 08/10/21 11:51 Home Medications Medication Instructions Recorded Confirmed Type amlodipine 5 mg tablet 5 mg PO QA 07/30/21 08/10/21 History colchicine 0.6 mg tablet 0.6 mg PO QAM 07/30/21 08/10/21 History fluticasone propionate 50 2 spray INTRANASAL QA 07/30/21 08/10/21 History mcg/actuation nasal spray,suspension hydrochlorothiazide 25 mg tablet 25 mg PO QA 07/30/21 08/10/21 History hydroxychloroquine 200 mg tablet 200 mg PO BID 07/30/21 08/10/21 History losartan 100 mg tablet 100 mg PO QA 07/30/21 08/10/21 History omeprazole 20 mg capsule,delayed 20 mg PO HS 07/30/21 08/10/21 History release sertraline 100 mg tablet 200 mg PO QA 07/30/21 08/10/21 History simvastatin 20 mg tablet 20 mg PO HS 07/30/21 08/10/21 History triamcinolone acetonide 0.1 % 1 applic TOPICAL QA 07/30/21 08/10/21 History lotion aspirin 81 mg tablet,delayed 81 mg PO HS 08/05/21 08/10/21 History release furosemide 40 mg tablet (Lasix) 40 mg PO QA 90 Days #90 tab 08/06/21 08/10/21 Rx oxycodone 5 mg tablet 5 mg PO Q8H PRN #10 tab 08/06/21 08/10/21 Rx acetaminophen 500 mg tablet 1,500 mg PO .TODAY PRN 08/10/21 08/10/21 History (Tylenol Extra Strength) Past Med/Surg History Medical History (Updated 08/10/21 @ 19:48 by Maylin Alcaraz MD) Complete heart block Cutaneous sarcoidosis Depression GERD (gastroesophageal reflux disease) Gout HLD (hyperlipidemia) HTN (hypertension) No pertinent family history TANNER on CPAP Pre-diabetes Surgical History History of arthroscopic knee surgery History of fusion of cervical spine History of hernia repair History of knee replacement procedure of right knee Family History Father , 57 Cancer pancreatitic Alcohol abuse Mother , 64 Myocardial infarction Stroke Social History Smoking Status: Never smoker Hx Alcohol Use: Yes Alcohol type: wine and hard liquor Alcohol type Comment: beer, bourbon Alcohol Intake Frequency: 2-3 x/Week Hx Substance Use: No Preferred Language: Lao Communication Ability: Effective Magneto Repairer Required: No Beliefs That Will Affect Care: None marital status: Current Living Situation: Spouse Feels Safe at Home: Yes Assistive Devices: Glasses and Hearing Aid - Bilateral Review of Systems Review of Systems: At least 10 Review of systems were reviewed and all negative except as indicated in HPI Physical Exam Physical Exam: General:. well developed, well nourished, average body habitus HEENT:. Normocephalic and atraumatic, Normal Conjunctiva, EOMI, Sclera is non- icteric Lungs:. No signs of respiratory distress, CTA, no wheezing or crackles Heart:.distant heart sound Abdominal:.obese abd, Soft, NT MSK:. No deformities of UE and LE, No leg edema Psych:. AAOx3, normal affect Results & Data Results & Data ([facility]) Vital Signs (Past 12 Hours) Vital Signs Temp Pulse Pulse Resp BP BP Pulse Ox 08/10/21 18:00 94 H 30 H 109/74 92 08/10/21 17:00 101 H 20 125/75 97 08/10/21 16:00 37.1 C 89 18 137/92 96 08/10/21 15:00 82 15 129/85 94 08/10/21 14:00 81 23 122/81 95 08/10/21 13:45 37.4 C 81 22 122/81 92 08/10/21 13:31 81 17 112/72 94 08/10/21 13:21 79 17 120/82 90 08/10/21 11:00 90 24 104/73 91 08/10/21 10:09 94 08/10/21 09:48 36 C L 90 88 23 90/64 L 90/71 L 92 Laboratory Results Short CBC 08/10/21 Range/Units 09:55 WBC 10.05 (4.8-10.8) K/uL Hgb 12.7 L (14.0-18.0) g/dL Hct 36.8 L (42-52) % Plt Count 160 (130-400) K/uL BMP 08/10/21 09:55 Sodium 134 L Potassium 3.8 Chloride 100 Carbon Dioxide 23 BUN 32 H Creatinine 1.99 H Glucose 157 H Calcium 8.6 Liver Function 08/10/21 Range/Units 09:55 Total Bilirubin 1.5 H (0.2-1.0) mg/dl AST 32 (13-39) U/L ALT 38 (7-52) U/L Alkaline Phosphatase 62 (34-104) U/L Albumin 4.2 (3.4-5.0) gm/dl Diagnostic Findings Chest X-Ray 08/10/21 10:09 XR chest 1V portable HISTORY: 61 years-old Male Chest Pain acute atypical chest pain COMPARISON: Chest radiographs 08/16/2001 TECHNIQUE: Portable AP view of the chest FINDINGS: The cardiac silhouette is enlarged. Left subclavian pacer/AICD. No pneumothorax or overt pulmonary edema. Blunting of the right costophrenic angle. Mild bibasilar densities. Bones appear grossly intact. Cervical spinal fusion hardware. IMPRESSION: 1. Cardiomegaly without overt pulmonary edema. 2. Trace right pleural effusion with mild bibasilar opacities. ACT 112: Negative or not required by law. The above report was generated using voice recognition software. It may contain grammatical, syntax or spelling errors. Electronically signed by: Brian Nieto M.D. 08/10/2021 11:05 AM Code Status & VTE Plan VTE Prophylaxis Plan VTE Prophylaxis will be ordered: Yes (1) Syncope Syncope type: unspecified Qualified Code(s): R55 - Syncope and collapse
[2021-08-10] MEDS: SIMVASTATIN 20 MG TAB PO SCH (20:39)
[2021-08-10] MEDS: PANTOprazole 40 MG TAB PO SCH (20:39)
[2021-08-10] MEDS: HYDROXYCHLOROQUINE SULFATE 200 MG TAB PO SCH (20:39)
[2021-08-10] MEDS ORDERED: ASPIRIN 81 MG ECTAB PO SCH (21:00)
[2021-08-10] MEDS ORDERED: MoRPHine SULFATE 2 MG/ML CARP ONE (22:12)
--- NOTE | 2021-08-10 22:13 | Communication Note ---
Date of Service: August 10, 2021 Drained an additional 270ml of bloody appearing fluid at 10pm.
[2021-08-10] MEDS: MoRPHine SULFATE 2 MG/ML CARP IV PRN (22:20)
[2021-08-10] MEDS: oxyCODONE HCL IR 5 MG TAB (IMMEDIATE RELEASE) PO PRN (22:23)
[2021-08-11] MEDS: IBUPROFEN 600 MG TAB PO SCH ×3 (00:26→16:53)
[2021-08-11 05:20] LABS: Basophils # (auto) 0.01 K/uL (0-0.2); Basophils % (auto) 0.2 %; Eosinophils % (auto) 1.7 %; Hematocrit (blood only) 33.8 % (42-52); Hemoglobin 11.5 g/dL (14.0-18.0); Immature Granulocytes # (auto) 0.01 K/uL (0.00-0.02); Immature Granulocytes % (auto) 0.2 %; Lymphocytes % (auto) 11.7 %; Mean Corpuscular Hemoglobin 31.1 pg (25-34); Mean Corpuscular Volume 91.4 fL (80-100); Mean Platelet Volume 9.5 fL (7.4-10.4); Monocytes # (auto) 0.66 K/uL (0.11-0.59); Neutrophils # (auto) 4.52 K/uL (1.4-6.5); Neutrophils % (auto) 75.2 %; Platelet Count 119 K/uL (130-400); RDW Standard Deviation 47.1 fL (36.4-46.3)
[2021-08-11 05:27] LABS: Albumin Globulin Ratio 1.4 (0.9-2); Albumin Level 3.8 gm/dl (3.4-5.0); BUN Creatinine Ratio 20.9 (10-20); Bilirubin,Total 1.2 mg/dl (0.2-1.0); Calcium 8.3 mg/dl (8.5-10.1); Creatinine Clr Calc Pharmacy 79.2 ml/min; Est GFR (African American) 65.8 ml/min; Est GFR (Non-African American) 56.8 ml/min; Globulin 2.7 gm/dl (2.5-4.0); Magnesium 2.3 mg/dl (1.7-2.4); Potassium 3.7 mmol/L (3.5-5.1); Total Protein 6.5 gm/dl (6.0-8.3)
--- NOTE | 2021-08-11 05:43 | Electrocardiogram Report ---
Test Reason : Blood Pressure : / mmHG Vent. Rate : 089 BPM Atrial Rate : 089 BPM P-R Int : 188 ms QRS Dur : 170 ms QT Int : 450 ms P-R-T Axes : 056 -81 053 degrees QTc Int : 547 ms Atrial-sensed ventricular-paced rhythm Abnormal ECG When compared with ECG of 06-AUG-2021 05:39, Vent. rate has increased BY 8 BPM Confirmed by Denzel Win ([id number]) on 08/11/2021 5:43:17 AM Referred By: REFERRED SELF Confirmed By:Denzel Win
[2021-08-11] MEDS: POTASSIUM CHLORIDE / WTR 10 MEQ/100 ML PLCT IV SCH ×2 (07:32→09:00)
[2021-08-11] MEDS: COLCHICINE 0.6 MG TAB PO SCH ×2 (07:33→20:25)
[2021-08-11] MEDS: SERTRALINE HCL 100 MG TABLET PO SCH (07:34)
[2021-08-11] MEDS: HYDROXYCHLOROQUINE SULFATE 200 MG TAB PO SCH ×2 (07:35→20:25)
[2021-08-11] MEDS ORDERED: PANTOprazole 40 MG TAB PO SCH (09:00)
--- NOTE | 2021-08-11 09:10 | Critical Care Progress Note ---
Date of Service August 11, 2021 Assessment & Plan (1) Cardiac tamponade: (2) RICHARDSON (dyspnea on exertion): (3) TANNER on CPAP: (4) GERD (gastroesophageal reflux disease): (5) Gout: (6) Cutaneous sarcoidosis: Plan: 61-year-old male presented to the hospital with shortness of breath, he recently had cardiac pacemaker placed in 08/05/2021. Was found to be in cardiac tamponade. Was taken to the OR for pericardiocentesis 08/10/21 --Cardiac tamponade Likely to genic from pacemaker placement S/p pericardiocentesis 08/10/21, 620 mL bloody fluid was removed --> another 270ml was removed later on the day of 08/11/21 Monitor hemodynamics Interventional cardiology on board Continue with colchicine Repeat 2D echo today --TANNER Continue with home CPAP --Hypertension At home patient is on amlodipine 5 mg, Hydrochlorothiazide 25 mg Hold blood pressure medication for the time being, will resume once the blood pressure starts to creep up --Dyslipidemia Continue with simvastatin --Cutaneous sarcoidosis On hydroxychloroquine Prolonged QTC, patient does have a paced rhythm which might be one of the reason why it is following Avoid other QT prolonging medications --Thrombocytopenia Chronic Etiology could be underlying sarcoidosis or being on Plaquenil Continue to monitor --Prophylaxis VTE:IPC GI: Pantoprazole Lines: Peripheral Diet: Cardiac Plan: Chest x-ray from today shows better contours of the pericardial vasculature., AICD in place H&H is stable. Continue with incentive spirometry Further plan will depend on how much fluid is drained today at bedside Follow-up 2D echo from today Please note the above document was generated using voice recognition software. It may contain grammatical, syntax or spelling errors.Any formal questions or concerns about the content, text or information contained within the body of this dictation should be directly addressed to the provider for clarification. Admission and Anticipated Discharge Date Admission Date: August 10, 2021 Subjective Patient seen and examined at bedside. No acute distress, no adverse events overnight Patient says his breathing is much better compared to yesterday Denies any pain when he takes deep breaths. No headache, no blurry vision No nausea or vomiting He had his breakfast today. Use his CPAP overnight Review of Systems Review of Systems: All systems reviewed & are unremarkable except as noted in Subjective Physical Exam 2 Physical Exam: Constitutional: No acute distress HEENT: EOMI, PERRLA Respiratory system: Good air entry bilaterally, no wheeze, rhonchi, mild precision aircraft systems assembler ckles bilateral lower lobes CVS: S1-S2 positive, no murmurs or gallops, distant heart sounds, left-sided PPM Abdomen: Soft, nontender, nondistended, positive bowel sounds x4 Extremities: +2 pulses bilaterally radialis/ dorsalis pedis, no cyanosis, no edema Neuro: Awake alert oriented x3 Psych: Normal mood and affect G/U: No Kim Skin: no rashes, warm and dry Lymphatic: no cervical or axillary lymphadenopathy Results & Data Results & Data ([facility]) Vital Signs (Past 12 Hours) Vital Signs Temp Pulse Resp BP Pulse Ox 08/11/21 07:01 88 16 96 08/11/21 07:00 86 19 113/75 96 08/11/21 06:00 84 21 117/74 92 08/11/21 05:00 82 25 H 108/69 94 08/11/21 04:26 37.0 C 08/11/21 04:00 77 19 103/68 95 08/11/21 03:00 70 20 92/66 L 93 08/11/21 02:01 74 18 94 08/11/21 02:00 69 19 94 08/11/21 01:00 75 19 90/62 L 93 08/11/21 00:14 94 H 08/11/21 00:00 88 18 107/65 92 08/10/21 23:00 92 H 18 105/73 92 08/10/21 22:00 36.8 C 97 H 31 H 122/76 94 08/10/21 21:00 91 H 24 107/61 93 Laboratory Results 08/11/21 04:46 08/11/21 04:46 Coding Level of Care Code 03186 Subseq Hosp Care Lvl 3 Diagnoses Cardiac tamponade I31.4 RICHARDSON (dyspnea on exertion) R06.00 TANNER on CPAP G47.33; Z99.89 GERD (gastroesophageal reflux disease) K21.9 Gout M10.9 Cutaneous sarcoidosis D86.3
[2021-08-11] MEDS: FLUTICASONE PROPIONATE NA SPR 16 GM BTL SCH (09:22)
[2021-08-11] MEDS: MoRPHine SULFATE 2 MG/ML CARP IV PRN ×2 (09:41→20:26)
[2021-08-11] MEDS: oxyCODONE HCL IR 5 MG TAB (IMMEDIATE RELEASE) PO PRN ×2 (09:41→20:46)
--- NOTE | 2021-08-11 10:16 | XRay Report ---
XR chest 1V portable HISTORY: 61 years-old Male f/u acute shortness of breath COMPARISON: Chest radiograph 08/10/2021 TECHNIQUE: Portable AP view of the chest FINDINGS: Cardiac silhouette is enlarged. Left subclavian pacer/AICD. Trace pleural effusions suggested. Mild b ibasilar densities are similar to prior. No pneumothorax overt pulmonary edema. Degenerative changes of the shoulders and spine. Cervical spinal fusion hardware. IMPRESSION: 1. Cardiomegaly without pulmonary edema. 2. Trace pleural effusions with mild bibasilar opacities suggestive of probable atelectasis. ACT 112: Negative or not required by law. The above report was generated using voice recognition software. It may contain grammatical, syntax o r spelling errors. Electronically signed by: Brian Nieto M.D. 08/11/2021 10:15 AM
--- NOTE | 2021-08-11 11:57 | Communication Note ---
Date of Service: August 11, 2021 145 mL of bloody appearing fluid removed from pericardial drain at 9:30 AM
[2021-08-11] MEDS ORDERED: OPTIRAY 320 100ml IV ONE (12:34)
--- NOTE | 2021-08-11 13:21 | CT Scan Report ---
CHEST CT WITH CONTRAST CT DOSE: 745.88 mGycm HISTORY: lead perforation-evaluate pacer leads for culprit TECHNIQUE: Multiaxial CT images of the chest were performed following the intravenous administration of contrast. A dose lowering technique was utilized adhering to the principles of ALARA. COMPARISON: None. FINDINGS: The central airways are patent. No pneumothorax. Consolidation within the bilateral lower l obes posteriorly favor atelectasis from the small bilateral pleural effusions. No suspicious lytic or blastic osseous lesions. Cervical spinal fusion hardware is partially visualized. A left-sided dual- chamber pacemaker. The leads are located within the right atrium and right ventricle. Evaluation for lead perforations essentially nondiagnostic due to the motion artifact. There is a trace pericardial effusion. No mediastinal hematoma. Small old external pacemaker lead also noted. Mild mediastinal lym phadenopathy with the dominant subcarinal lymph node measuring 3.2 x 1.6 cm. No hilar lymphadenopathy . Questional small filling defect seen within the right lower lobe pulmonary embolus on image 230. Th is favors streak artifact. A small pulmonary embolus could also a similar appearance. Normal caliber thoracic aorta with no evidence for dissection. The visualized liver and spleen are unremarkable. Nor mal esophagus. IMPRESSION: 1. Essentially nondiagnostic evaluation for cardiac pacemaker lead perforation due to the cardiac mot ion. There is a trace pericardial effusion. However, no mediastinal hematoma. 2. Mild mediastinal lymphadenopathy. 3. Small bilateral pleural effusions. 4. Questionable filling defect seen within a right lower lobe segmental pulmonary artery is likely du e to streak artifact. However, a pulmonary embolus could also have a similar appearance. Therefore, c orrelation with lower extremity Dopplers is recommended to assess for possible DVT. ACT 112: Negative or not required by law. Electronically signed by: Joni Vela M.D. 08/11/2021 1:19 PM
--- NOTE | 2021-08-11 13:44 | Cardiology Consultation ---
Date of Consultation August 11, 2021 Assessment & Plan (1) Cardiac tamponade: (2) Syncope: (3) Third degree heart block: (4) TANNER on CPAP: (5) Pre-diabetes: (6) Cardiac pacemaker in situ: Large circumferential pericardial effusion with tamponade physiology 2 large bore antecubital IV's placed with NSS wide open for emergent echo guided pericardiocentesis will then recover in ICU and fully interrogate pacemaker I discussed the findings, plan, treatment and possible complications with the patient and his , both are in agreement to proceed. Heart alert called to activate can labeler, case reviewed with interventional team History of Present Illness Attending Physician: Noé Oakes MD Allergies Allergy/AdvReac Type Severity Reaction Status Date / Time No Known Allergies Allergy Unverified 08/10/21 11:51 Home Medications Medication Instructions Recorded Confirmed Type amlodipine 5 mg tablet 5 mg PO QA 07/30/21 08/10/21 History colchicine 0.6 mg tablet 0.6 mg PO QA 07/30/21 08/10/21 History fluticasone propionate 50 2 spray INTRANASAL QA 07/30/21 08/10/21 History mcg/actuation nasal spray,suspension hydrochlorothiazide 25 mg tablet 25 mg PO QA 07/30/21 08/10/21 History hydroxychloroquine 200 mg tablet 200 mg PO BID 07/30/21 08/10/21 History losartan 100 mg tablet 100 mg PO QA 07/30/21 08/10/21 History omeprazole 20 mg capsule,delayed 20 mg PO 07/30/21 08/10/21 History release sertraline 100 mg tablet 200 mg PO QA 07/30/21 08/10/21 History simvastatin 20 mg tablet 20 mg PO 07/30/21 08/10/21 History triamcinolone acetonide 0.1 % 1 applic TOPICAL QA 07/30/21 08/10/21 History lotion aspirin 81 mg tablet,delayed 81 mg PO 08/05/21 08/10/21 History release furosemide 40 mg tablet (Lasix) 40 mg PO QAM 90 Days #90 tab 08/06/21 08/10/21 Rx oxycodone 5 mg tablet 5 mg PO Q8H PRN #10 tab 08/06/21 08/10/21 Rx acetaminophen 500 mg tablet 1,500 mg PO .TODAY PRN 04/12/22 04/12/22 History (Tylenol Extra Strength) Patient History Medical History (Updated 08/10/21 @ 19:48 by Maylin Alcaraz MD) Complete heart block Cutaneous sarcoidosis Depression GERD (gastroesophageal reflux disease) Gout HLD (hyperlipidemia) HTN (hypertension) No pertinent family history TANNER on CPAP Pre-diabetes Surgical History History of arthroscopic knee surgery History of fusion of cervical spine History of hernia repair History of knee replacement procedure of right knee Family History Father , 57 Cancer pancreatitic Alcohol abuse Mother , 64 Myocardial infarction Stroke Social History Smoking Status: Never smoker Hx Alcohol Use: Yes Alcohol type: wine and hard liquor Alcohol type Comment: beer, bourbon Alcohol Intake Frequency: 2-3 x/Week Hx Substance Use: No Preferred Language: [place] Communication Ability: Effective 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: No Beliefs That Will Affect Care: None marital status: Current Living Situation: Spouse Feels Safe at Home: Yes Assistive Devices: CPAP, Glasses and Hearing Aid - Bilateral Results & Data ([facility]) Vital Signs (Past 12 Hours) Vital Signs Temp Pulse Resp BP Pulse Ox 08/11/21 12:00 87 20 126/66 93 08/11/21 11:00 89 16 109/72 94 08/11/21 09:00 90 25 H 117/65 93 08/11/21 08:00 87 17 110/70 96 08/11/21 07:01 88 16 96 08/11/21 07:00 86 19 113/75 96 08/11/21 06:00 84 21 117/74 92 08/11/21 05:00 82 25 H 108/69 94 08/11/21 04:26 37.0 C 08/11/21 04:00 77 19 103/68 95 08/11/21 03:00 70 20 92/66 L 93 08/11/21 02:01 74 18 94 08/11/21 02:00 69 19 94 (1) Syncope Syncope type: unspecified Qualified Code(s): R55 - Syncope and collapse
--- NOTE | 2021-08-11 13:49 | Cardiology Progress Note ---
Date of Service August 11, 2021 Assessment & Plan (1) Cardiac tamponade: (2) Syncope: (3) Third degree heart block: (4) TANNER on CPAP: (5) Pre-diabetes: (6) Cardiac pacemaker in situ: (7) Acute pericarditis: Plan: S/p pericardiocentesis now with a total of 1035 mL of grossly bloody fluid removed our EP colleagues will reevaluate today, appreciate their input colchicin, ibuprofen and prn morphine for acute pericarditis will be continued. cont to monitor in ICU Admission and Anticipated Discharge Date Admission Date: August 10, 2021 Subjective Patient seen and examined, chart reviewed. He did have some chest discomfort starting yesterday afternoon was started on colchicine, I also added Motrin at that time. Additional 270 mL of fluid removed last p.m. and 145 mL this morning. States chest pain has improved especially with the addition of morphine. Denies shortness of breath. Telemetry reviewed: Ventricularly paced rhythm. Review of Systems Review of Systems: All systems reviewed & are unremarkable except as noted in HPI & below Physical Exam Physical Exam: General: Awake, alert and oriented x 3. No acute distress. HEENT: Normocephalic, atraumatic. Pupils equal, round and reactive to light and accommodation. Extraocular muscles are intact. Anicteric sclera. Moist mucous membranes. Neck: No JVD. No bruit. Cardiovascular: Regular. Positive S-4. Normal S-1 and S-2. No S-3. No murmurs or rubs. Pulmonary: Clear to auscultation B/L. No rales, rhonchi or wheezing Abdomen: Bowel sounds x 4, soft. No rebound, guarding or tenderness. No organomegaly. Extremities: No clubbing, cyanosis or edema. +2 pedal pulses bilaterally. Skin: Warm and dry. Results & Data ([facility]) Vital Signs (Past 12 Hours) Vital Signs Temp Pulse Resp BP Pulse Ox 08/11/21 12:00 87 20 126/66 93 08/11/21 11:00 89 16 109/72 94 08/11/21 09:00 90 25 H 117/65 93 08/11/21 08:00 87 17 110/70 96 08/11/21 07:01 88 16 96 08/11/21 07:00 86 19 113/75 96 08/11/21 06:00 84 21 117/74 92 08/11/21 05:00 82 25 H 108/69 94 08/11/21 04:26 37.0 C 08/11/21 04:00 77 19 103/68 95 08/11/21 03:00 70 20 92/66 L 93 08/11/21 02:01 74 18 94 08/11/21 02:00 69 19 94 (1) Syncope Syncope type: unspecified Qualified Code(s): R55 - Syncope and collapse
--- NOTE | 2021-08-11 17:28 | Hospitalist Progress Note ---
Date of Service August 11, 2021 Assessment & Plan (1) Cardiac tamponade: (2) Syncope: (3) Complete heart block: (4) Cardiac pacemaker in situ: (5) TANNER on CPAP: (6) HLD (hyperlipidemia): (7) Cutaneous sarcoidosis: (8) HTN (hypertension): (9) Gout: (10) Depression: Plan: per admitting SVC notes with addendum: Pt is a 61 y/o M with hx of cutaneous sarcoidosis on hydroxychloroquine, Gout, TANNER on CPAP, Depression, HLD, HTN, recent admission for complete heart block s/p dual camber ICD implantation admitted for cardiac tamponade Examined the pt after the pericardiocentesis. He is feeling better and VSS Syncope and Hypotension -2/2 Cardiac tamponade -s/p Pericardiocentesis: removed 620cc of bloody fluid ----has a drain in place -pt was started on colchicine -pt is currently admitted to ICU -will hold pts HTN meds for now -cardiology following 08/11 has drained at least 800cc so far BP stable overall on Colchicine and Ibuprofen monitor closely ZEE: 2/2 Cardiac tamponade s/p pericardiocentesis -s/p fluid resuscitation -will trend BMP -will hold pts HTN meds for now 08/11 crea improved to 1.3 Complete heart block s/p dual chamber ICD implantation: -device interrogation was normal -continue to monitor pt on tele Cutaneous sarcoidosis: -continue hydroxychloroquine HLD: -continue statin Depression: -continue Zoloft TANNER on CPAP: -setting of 10 Diet: Cardiac DVT PPx: On IPC Code Status: Full code Emergency Contact: [phone] Admission and Anticipated Discharge Date Admission Date: August 10, 2021 Subjective ff up for cardiac tamponade, etc seen resting in bed, comfortable sitting up states he feels fine overall no chest pain, dyspnea, palpitations, dizziness no fever/chills no other symptoms Review of Systems Review of Systems: all noted and negative except for above Physical Exam Physical Exam: General- oriented x 3, not in distress, speaks in sentences with no effort or accessory muscle use Head- atraumatic Eyes- PERRL, EOMI, anicteric ENT- oropharynx clear Neck- supple, no JVD, no adenopathy, no thyromegaly; carotids +2/2, no bruits appreciated Lungs- clear to auscultation bilaterally, no rales/wheezes Heart- normal rate, regular rhythm; no murmur, no gallop, no rub appreciated drain in place- no surrounding erythema/bleeding Abdomen- normal bowel sounds, nondistended, soft, nontender, no masses or hepatosplenomegaly Extremities- no pretibial edema, no calf tenderness; peripheral pulses intact Neuro- alert, oriented x 3; CN 2-12 grossly intact; motor 5/5 bilateral ly;sensation 100% on all extremities; no other gross focal neurologic deficits Skin- warm & dry Results & Data Results & Data ([facility]) Vital Signs (Past 12 Hours) Vital Signs Pulse Resp BP Pulse Ox 08/11/21 16:00 91 H 08/11/21 15:18 91 H 08/11/21 14:00 91 H 25 H 124/77 92 08/11/21 13:00 87 21 103/79 92 08/11/21 12:38 92 H 14 107/76 95 08/11/21 12:00 87 20 126/66 93 08/11/21 11:00 89 16 109/72 94 08/11/21 09:00 90 25 H 117/65 93 08/11/21 08:00 87 17 110/70 96 08/11/21 07:01 88 16 96 08/11/21 07:00 86 19 113/75 96 08/11/21 06:00 84 21 117/74 92 all noted and reviewed including below (1) Syncope Syncope type: unspecified Qualified Code(s): R55 - Syncope and collapse
[2021-08-11] MEDS: PANTOprazole 40 MG TAB PO SCH (20:25)
[2021-08-11] MEDS: SIMVASTATIN 20 MG TAB PO SCH (20:25)
--- NOTE | 2021-08-11 20:26 | Ultrasound Report ---
ULTRASOUND BILATERAL LOWER EXTREMITY VENOUS CLINICAL HISTORY: Preoperative examination. COMPARISON STUDY: Left lower extremity venous ultrasound dated 10/03/2017 TECHNIQUE: Real-time, grayscale, and color Doppler sonography of the deep veins of the right and left lower extremity was performed from the inguinal crease to the calf. Compression and augmentation wer e utilized. FINDINGS: There is no sonographic evidence of deep venous thrombosis identified in the right or left lower extremity. The common femoral, superficial femoral, and popliteal veins are patent and normally compressible bilaterally. The greater saphenous vein and the profunda femoris vein at the junction w ith the common femoral vein are clear in both legs. The visualized calf veins are patent bilaterally. IMPRESSION: There is no sonographic evidence of deep venous thrombosis identified in the right or lef t lower extremity. ACT 112: Negative or not required by law. Electronically signed by: Uriah Salinas M.D. 08/11/2021 8:25 PM
[2021-08-12] MEDS: IBUPROFEN 600 MG TAB PO SCH ×3 (00:03→16:31)
[2021-08-12 05:25] LABS: Basophils # (auto) 0.01 K/uL (0-0.2); Basophils % (auto) 0.2 %; Eosinophils # (auto) 0.15 K/uL (0-0.5); Eosinophils % (auto) 3.2 %; Hematocrit (blood only) 34.1 % (42-52); Hemoglobin 11.5 g/dL (14.0-18.0); Immature Granulocytes # (auto) 0.01 K/uL (0.00-0.02); Immature Granulocytes % (auto) 0.2 %; Lymphocytes # (auto) 0.58 K/uL (1.2-3.4); Lymphocytes % (auto) 12.2 %; Mean Corpuscular Hemoglobin 30.5 pg (25-34); Mean Corpuscular Hgb Conc 33.7 g/dL (32-36); Mean Corpuscular Volume 90.5 fL (80-100); Mean Platelet Volume 9.2 fL (7.4-10.4); Monocytes # (auto) 0.58 K/uL (0.11-0.59); Monocytes % (auto) 12.2 %; Neutrophils # (auto) 3.43 K/uL (1.4-6.5); Platelet Count 122 K/uL (130-400); RDW Coefficient of Variation 13.8 % (11.5-14.5); RDW Standard Deviation 46.3 fL (36.4-46.3); Red Blood Count 3.77 M/uL (4.7-6.1); White Blood Count 4.76 K/uL (4.8-10.8)
[2021-08-12 05:46] LABS: BUN Creatinine Ratio 21.8 (10-20); Calcium 8.2 mg/dl (8.5-10.1); Creatinine Clr Calc Pharmacy 118.3 ml/min; Est GFR (Non-African American) 93.2 ml/min; Magnesium 2.3 mg/dl (1.7-2.4); Potassium 3.8 mmol/L (3.5-5.1)
[2021-08-12] MEDS ORDERED: POTASSIUM CHLORIDE CRTAB 20 MEQ TABCR PO STA (06:08)
[2021-08-12] MEDS: COLCHICINE 0.6 MG TAB PO SCH ×2 (07:33→21:17)
[2021-08-12] MEDS: HYDROXYCHLOROQUINE SULFATE 200 MG TAB PO SCH ×2 (07:34→21:17)
[2021-08-12] MEDS: FLUTICASONE PROPIONATE NA SPR 16 GM BTL SCH (07:34)
[2021-08-12] MEDS: SERTRALINE HCL 100 MG TABLET PO SCH (07:34)
--- NOTE | 2021-08-12 08:09 | Critical Care Progress Note ---
Date of Service August 12, 2021 Assessment & Plan (1) Cardiac tamponade: (2) RICHARDSON (dyspnea on exertion): (3) TANNER on CPAP: (4) GERD (gastroesophageal reflux disease): (5) Gout: (6) Cutaneous sarcoidosis: Plan: 61-year-old male presented to the hospital with shortness of breath, he recently had cardiac pacemaker placed in 08/05/2021. Was found to be in cardiac tamponade. Was taken to the OR for pericardiocentesis 08/10/21 --Cardiac tamponade Likely to genic from pacemaker placement S/p pericardiocentesis 08/10/21, 620 mL bloody fluid was removed --> another 270ml followed by 100ml removed on 08/11/21 --> 80ml removed on 08/12/21 Monitor hemodynamics Interventional cardiology on board Repeat 2D echo 08/11/2021: Trace anterior pericardial effusion with no tamponade physiology Continue with colchicine and ibuprofen --CT chest without contrast showed possible right lower lobe pulmonary artery filling defect Doppler bilateral lower extremity was negative The probability of pulmonary embolus is very low given the patient saturating well on room air. Patient is not complaining of any shortness of breath and CT chest was without contrast No further work-up indicated right now --TANNER Continue with home CPAP --Hypertension At home patient is on amlodipine 5 mg, Hydrochlorothiazide 25 mg Hold blood pressure medication for the time being, will resume once the blood pressure starts to creep up --Dyslipidemia Continue with simvastatin --Cutaneous sarcoidosis On hydroxychloroquine Prolonged QTC, patient does have a paced rhythm which might be one of the reason why it is following Avoid other QT prolonging medications --Thrombocytopenia Chronic Etiology could be underlying sarcoidosis or being on Plaquenil Continue to monitor --Prophylaxis VTE:IPC GI: Pantoprazole Lines: Peripheral Diet: Cardiac Plan: In/out: -1126, urine output 2146 H&H stable Patient is still draining pericardial fluid from the drain. It is getting more clear. Plan as per cardiology to decide whether they can remove the pericardial drain later today or tomorrow Please note the above document was generated using voice recognition software. It may contain grammatical, syntax or spelling errors.Any formal questions or concerns about the content, text or information contained within the body of this dictation should be directly addressed to the provider for clarification. Admission and Anticipated Discharge Date Admission Date: August 10, 2021 Subjective Patient seen and examined at bedside. No acute distress, no adverse events overnight. Denies any chest pain Able to take deep breaths and without any issues No headache, no nausea, no vomiting Urinating well. Fair appetite Review of Systems Review of Systems: All systems reviewed & are unremarkable except as noted in Subjective Physical Exam Physical Exam: Constitutional: No acute distress HEENT: EOMI, PERRLA Respiratory system: Good air entry bilaterally, no wheeze, rhonchi, mild crackles bilateral lower lobes CVS: S1-S2 positive, no murmurs or gallops, distant heart sounds, left-sided PPM Abdomen: Soft, nontender, nondistended, positive bowel sounds x4 Extremities: +2 pulses bilaterally radialis/ dorsalis pedis, no cyanosis, no edema Neuro: Awake alert oriented x3 Psych: Normal mood and affect G/U: No Kim Skin: no rashes, warm and dry Lymphatic: no cervical or axillary lymphadenopathy Results & Data Results & Data ([facility]) Vital Signs (Past 12 Hours) Vital Signs Temp Pulse Resp BP BP Pulse Ox 08/12/21 05:00 36.8 C 82 17 132/83 92 08/12/21 04:05 108/74 08/12/21 04:00 81 19 108/74 95 08/12/21 03:57 36.7 C 08/12/21 03:00 83 22 106/73 92 08/12/21 02:00 78 18 102/70 92 08/12/21 01:00 81 20 102/72 93 08/12/21 00:00 36.8 C 88 20 108/75 94 08/11/21 23:17 89 08/11/21 23:00 84 19 104/71 92 08/11/21 22:30 89 21 92 08/11/21 22:00 91 H 19 116/73 91 08/11/21 21:30 91 H 17 92 08/11/21 21:01 93 H 21 141/91 H 91 08/11/21 21:00 94 H 24 93 08/11/21 20:30 90 20 92 Laboratory Results 08/12/21 04:52 08/12/21 04:52 Coding Level of Care Code 76411 Subseq Hosp Care Lvl 3 Diagnoses Cardiac tamponade I31.4 RICHARDSON (dyspnea on exertion) R06.00 TANNER on CPAP G47.33; Z99.89 GERD (gastroesophageal reflux disease) K21.9 Gout M10.9 Cutaneous sarcoidosis D86.3
--- NOTE | 2021-08-12 08:15 | Communication Note ---
Date of Service: August 11, 2021 Removed 100ml of bloody/serosanguineous fluid from pericardial drain at 08/11 20:45.
[2021-08-12] MEDS: MoRPHine SULFATE 2 MG/ML CARP IV PRN ×2 (08:43→21:26)
--- NOTE | 2021-08-12 08:50 | Communication Note ---
Date of Service: August 12, 2021 Removed 80ml of serosanguineous fluid at 08:30 08/12.
--- NOTE | 2021-08-12 11:31 | Hospitalist Progress Note ---
Date of Service August 12, 2021 Assessment & Plan (1) Cardiac tamponade: (2) Syncope: (3) Complete heart block: (4) Cardiac pacemaker in situ: (5) TANNER on CPAP: (6) HLD (hyperlipidemia): (7) Cutaneous sarcoidosis: (8) HTN (hypertension): (9) Gout: (10) Depression: Plan: per admitting SVC notes with addendum: Pt is a 61 y/o M with hx of cutaneous sarcoidosis on hydroxychloroquine, Gout, TANNER on CPAP, Depression, HLD, HTN, recent admission for complete heart block s/p dual camber ICD implantation admitted for cardiac tamponade Examined the pt after the pericardiocentesis. He is feeling better and VSS Syncope and Hypotension -2/2 Cardiac tamponade -s/p Pericardiocentesis: removed 620cc of bloody fluid ----has a drain in place -pt was started on colchicine -pt is currently admitted to ICU -will hold pts HTN meds for now -cardiology following 08/12 has drained at least 1000cc so far drainage output seems to be decreasing Hg stable 11.5 BP remaining stable overall on Colchicine and Ibuprofen monitor closely ZEE: 2/2 Cardiac tamponade s/p pericardiocentesis -s/p fluid resuscitation -will trend BMP -will hold pts HTN meds for now 08/11 crea improved to 0.87 Complete heart block s/p dual chamber ICD implantation: -device interrogation was normal -continue to monitor pt on tele Cutaneous sarcoidosis: -continue hydroxychloroquine HLD: -continue statin Depression: -continue Zoloft TANNER on CPAP: -setting of 10 Diet: Cardiac DVT PPx: On IPC Code Status: Full code Emergency Contact: [phone] Admission and Anticipated Discharge Date Admission Date: August 10, 2021 Subjective ff up for cardiac tamponade, etc seen resting in bed, sitting up comfortable in good spirits states he feels fine overall no chest pain, dyspnea, dizziness, palpitations no other symptoms Review of Systems Review of Systems: all noted and negative except for above Physical Exam Physical Exam: General- oriented x 3, not in distress, speaks in sentences with no effort or accessory muscle use Eyes- anicteric Neck- no JVD Lungs- clear breath sounds bilaterally, no rales/wheezes Heart- normal rate, regular rhythm; no murmurs drain in place- no bleeding, discharge noted Abdomen- normal bowel sounds, nondistended, soft, nontender Extremities- no pretibial edema, no calf tenderness Neuro- alert, oriented x 3; no gross focal neurologic deficits Skin- warm & dry Results & Data Results & Data ([facility]) Vital Signs (Past 12 Hours) Vital Signs Temp Pulse Pulse Resp BP BP Pulse Ox 08/12/21 08:00 36.2 C L 84 20 119/82 93 08/12/21 05:00 36.8 C 82 17 132/83 92 08/12/21 04:05 108/74 08/12/21 04:00 81 19 108/74 95 08/12/21 03:57 36.7 C 08/12/21 03:00 83 22 106/73 92 08/12/21 02:00 78 18 102/70 92 08/12/21 01:00 81 20 102/72 93 08/12/21 00:00 36.8 C 88 20 108/75 94 all noted and reviewed including below (1) Syncope Syncope type: unspecified Qualified Code(s): R55 - Syncope and collapse
[2021-08-12] MEDS: ACETAMINOPHEN 325 MG TAB PO PRN (14:10)
--- NOTE | 2021-08-12 14:44 | Cardiology Progress Note ---
Date of Service August 12, 2021 Assessment & Plan (1) Cardiac tamponade: (2) Syncope: (3) Third degree heart block: (4) TANNER on CPAP: (5) Pre-diabetes: (6) Cardiac pacemaker in situ: (7) Acute pericarditis: Plan: S/p pericardiocentesis Only 80 mL out today. Discussed with our EP colleagues, no indication for lead rearrangement at this time. We will continue to monitor output. We will continue colchicine 0.6 mg p.o. twice daily x3 months and ibuprofen 600 mg 3 times daily for 1 month for treatment of pericarditis. Admission and Anticipated Discharge Date Admission Date: August 10, 2021 Subjective Patient seen and examined, chart reviewed. Out of bed in chair with family at bedside. States he feels well. States the chest discomfort has resolved and denies any shortness of breath, palpitations, lightheadedness or dizziness. Telemetry reviewed: Ventricularly paced rhythm. Review of Systems Review of Systems: All systems reviewed & are unremarkable except as noted in HPI & below Physical Exam Physical Exam: General: Awake, alert and oriented x 3. No acute distress. HEENT: Normocephalic, atraumatic. Pupils equal, round and reactive to light and accommodation. Extraocular muscles are intact. Anicteric sclera. Moist mucous membranes. Neck: No JVD. No bruit. Cardiovascular: Regular. Positive S-4. Normal S-1 and S-2. No S-3. No murmurs or rubs. Pulmonary: Clear to auscultation B/L. No rales, rhonchi or wheezing Abdomen: Bowel sounds x 4, soft. No rebound, guarding or tenderness. No organomegaly. Extremities: No clubbing, cyanosis or edema. +2 pedal pulses bilaterally. Skin: Warm and dry. Results & Data ([facility]) Vital Signs (Past 12 Hours) Vital Signs Temp Pulse Pulse Resp BP BP Pulse Ox 08/12/21 11:00 84 23 115/69 92 08/12/21 10:00 94 H 19 97/70 L 95 08/12/21 09:00 87 19 99/69 L 95 08/12/21 08:00 36.2 C L 84 20 119/82 93 08/12/21 05:00 36.8 C 82 17 132/83 92 08/12/21 04:05 108/74 04/14/22 04:00 81 19 108/74 95 08/12/21 03:57 36.7 C 08/12/21 03:00 83 22 106/73 92 (1) Syncope Syncope type: unspecified Qualified Code(s): R55 - Syncope and collapse
[2021-08-12] MEDS: SIMVASTATIN 20 MG TAB PO SCH (21:16)
[2021-08-12] MEDS: PANTOprazole 40 MG TAB PO SCH (21:16)
--- NOTE | 2021-08-12 21:52 | Communication Note ---
Date of Service: August 12, 2021 Removed 105ml of serosanguineous fluid at 08/12 21:40.
[2021-08-13] MEDS: IBUPROFEN 600 MG TAB PO SCH ×3 (00:16→18:11)
[2021-08-13 05:38] LABS: Basophils # (auto) 0.02 K/uL (0-0.2); Basophils % (auto) 0.4 %; Eosinophils # (auto) 0.19 K/uL (0-0.5); Eosinophils % (auto) 4.3 %; Hematocrit (blood only) 33.5 % (42-52); Hemoglobin 11.1 g/dL (14.0-18.0); Immature Granulocytes # (auto) 0.02 K/uL (0.00-0.02); Immature Granulocytes % (auto) 0.4 %; Lymphocytes # (auto) 0.42 K/uL (1.2-3.4); Lymphocytes % (auto) 9.4 %; Mean Corpuscular Hemoglobin 30.4 pg (25-34); Mean Corpuscular Hgb Conc 33.1 g/dL (32-36); Mean Corpuscular Volume 91.8 fL (80-100); Mean Platelet Volume 9.2 fL (7.4-10.4); Monocytes # (auto) 0.38 K/uL (0.11-0.59); Monocytes % (auto) 8.5 %; Neutrophils # (auto) 3.43 K/uL (1.4-6.5); Platelet Count 136 K/uL (130-400); RDW Coefficient of Variation 13.5 % (11.5-14.5); RDW Standard Deviation 45.9 fL (36.4-46.3); Red Blood Count 3.65 M/uL (4.7-6.1); White Blood Count 4.46 K/uL (4.8-10.8)
[2021-08-13 05:58] LABS: BUN Creatinine Ratio 20.6 (10-20); Calcium 8.2 mg/dl (8.5-10.1); Creatinine Clr Calc Pharmacy 107.3 ml/min; Est GFR (African American) 97.3 ml/min; Est GFR (Non-African American) 83.9 ml/min; Magnesium 2.2 mg/dl (1.7-2.4); Phosphorus 3.5 mg/dl (2.5-4.9); Potassium 3.8 mmol/L (3.5-5.1)
[2021-08-13] MEDS: FLUTICASONE PROPIONATE NA SPR 16 GM BTL SCH ×2 (09:11→09:16)
[2021-08-13] MEDS: SERTRALINE HCL 100 MG TABLET PO SCH (09:11)
[2021-08-13] MEDS: COLCHICINE 0.6 MG TAB PO SCH ×2 (09:12→20:11)
[2021-08-13] MEDS: HYDROXYCHLOROQUINE SULFATE 200 MG TAB PO SCH ×2 (09:12→20:11)
[2021-08-13] MEDS: MoRPHine SULFATE 2 MG/ML CARP IV PRN ×2 (09:27→20:40)
--- NOTE | 2021-08-13 09:27 | Critical Care Progress Note ---
Date of Service August 13, 2021 Assessment & Plan (1) Cardiac tamponade: (2) RICHARDSON (dyspnea on exertion): (3) TANNER on CPAP: (4) GERD (gastroesophageal reflux disease): (5) Gout: (6) Cutaneous sarcoidosis: Plan: 61-year-old male presented to the hospital with shortness of breath, he recently had cardiac pacemaker placed in 08/05/2021. Was found to be in cardiac tamponade. Was taken to the OR for pericardiocentesis 08/10/21 --Cardiac tamponade Likely to genic from pacemaker placement S/p pericardiocentesis 08/10/21, 620 mL bloody fluid was removed --> another 270ml followed by 100ml removed on 08/11/21 --> 80ml removed on 08/12/21 followed by 105 mL in the evening--> Monitor hemodynamics Interventional cardiology on board Repeat 2D echo 08/11/2021: Trace anterior pericardial effusion with no tamponade physiology Continue with colchicine and ibuprofen --CT chest without contrast showed possible right lower lobe pulmonary artery filling defect Doppler bilateral lower extremity was negative The probability of pulmonary embolus is very low given the patient saturating well on room air. Patient is not complaining of any shortness of breath and CT chest was without contrast No further work-up indicated right now --TANNER Continue with home CPAP --Hypertension At home patient is on amlodipine 5 mg, Hydrochlorothiazide 25 mg Hold blood pressure medication for the time being, will resume once the blood pressure starts to creep up --Dyslipidemia Continue with simvastatin --Cutaneous sarcoidosis On hydroxychloroquine Prolonged QTC, patient does have a paced rhythm which might be one of the reason why it is following Avoid other QT prolonging medications --Thrombocytopenia Chronic Etiology could be underlying sarcoidosis or being on Plaquenil Continue to monitor --Prophylaxis VTE:IPC GI: Pantoprazole Lines: Peripheral Diet: Cardiac Plan: In/out: -486, urine output 1686 H&H stable Pericardial catheter still draining, it is more serosanguineous now. Plan regarding removal as per cardiology Please note the above document was generated using voice recognition software. It may contain grammatical, syntax or spelling errors.Any formal questions or concerns about the content, text or information contained within the body of this dictation should be directly addressed to the provider for clarification. Admission and Anticipated Discharge Date Admission Date: August 10, 2021 Subjective Patient seen and examined at bedside. No acute distress, no gross events overnight Denies any chest pain Able to take deep breaths without any issues No headache, no nausea, no vomiting Fair appetite. Review of Systems Review of Systems: All systems reviewed & are unremarkable except as noted in Subjective Physical Exam Physical Exam: Constitutional: No acute distress HEENT: EOMI, PERRLA Respiratory system: Mild decreased right lower lobe air entry, no wheeze,no rhonchi, mild crackles bilateral lower lobes CVS: S1-S2 positive, no murmurs or gallops, distant heart sounds, left-sided PPM Abdomen: Soft, nontender, nondistended, positive bowel sounds x4 Extremities: +2 pulses bilaterally radialis/ dorsalis pedis, no cyanosis, no edema Neuro: Awake alert oriented x3 Psych: Normal mood and affect G/U: No Kim Skin: no rashes, warm and dry Lymphatic: no cervical or axillary lymphadenopathy Results & Data Results & Data ([facility]) Vital Signs (Past 12 Hours) Vital Signs Temp Pulse Resp BP Pulse Ox 08/13/21 05:30 81 15 96 08/13/21 05:02 86 22 113/78 95 08/13/21 05:00 106 H 14 95 08/13/21 04:30 79 16 95 08/13/21 04:00 80 21 120/73 97 08/13/21 03:30 76 19 95 08/13/21 03:00 36.7 C 75 19 107/76 95 08/13/21 02:30 76 19 94 08/13/21 02:00 70 12 112/70 98 08/13/21 01:30 76 16 96 08/13/21 01:00 75 18 120/75 96 08/13/21 00:30 77 28 H 97 08/13/21 00:00 36.8 C 79 19 94 08/12/21 23:30 83 18 96 08/12/21 23:00 84 22 121/79 94 08/12/21 22:30 90 18 95 08/12/21 22:00 94 H 23 134/86 100 Laboratory Results 08/13/21 04:56 08/13/21 04:56 Coding Level of Care Code 03611 Subseq Hosp Care Lvl 2 Diagnoses Cardiac tamponade I31.4 RICHARDSON (dyspnea on exertion) R06.00 TANNER on CPAP G47.33; Z99.89 GERD (gastroesophageal reflux disease) K21.9 Gout M10.9 Cutaneous sarcoidosis D86.3
--- NOTE | 2021-08-13 10:32 | Cardiology Progress Note ---
Date of Service August 13, 2021 Assessment & Plan (1) Cardiac tamponade: (2) Syncope: (3) Third degree heart block: (4) TANNER on CPAP: (5) Pre-diabetes: (6) Cardiac pacemaker in situ: (7) Acute pericarditis: Plan: Still draining from his pericardial catheter. Otherwise the patient is stable. Interventional as well as EP services are appreciated. Admission and Anticipated Discharge Date Admission Date: August 10, 2021 Subjective The patient is alert and in no acute distress. He feels well and is watching TV comfortably. Review of Systems Review of Systems: Review of Systems: See HPI for pertinent positives. All other 10 point review of systems are negative. Physical Exam Physical Exam: General: no acute distress and stated age Head: normocephalic, no masses, lesions, tenderness or abnormalities Eyes: conjunctiva are pink and non-injected, sclera clear Neck: supple, no adenopathy, no bruits, normal jugular venous pulse, no hepatojugular reflux Chest: normal shape and normal respiratory effort Lungs: clear to auscultation and percussion Cardiac Exam: - regular rate & rhythm, no murmurs gallops or rubs - normal S1, normal S2 Pulses: 2(+) throughout Abdomen: abdomen soft, non-tender, no abnormal masses and no hepatosplenomegaly Musculoskeletal: no gait disturbance, no joint inflammation, no deforming arthritis Extremities: no edema and no cyanosis Neuro: grossly normal exam Results & Data ([facility]) Vital Signs (Past 12 Hours) Vital Signs Temp Pulse Resp BP Pulse Ox 08/13/21 09:33 36.8 C 08/13/21 08:30 89 20 93 08/13/21 08:01 100 H 23 114/74 96 08/13/21 08:00 91 H 20 97 08/13/21 07:30 89 27 H 98 08/13/21 07:01 85 26 H 133/81 96 08/13/21 07:00 82 15 95 08/13/21 06:30 79 20 94 08/13/21 06:00 85 19 94 08/13/21 05:30 81 15 96 08/13/21 05:02 86 22 113/78 95 08/13/21 05:00 106 H 14 95 08/13/21 04:30 79 16 95 08/13/21 04:00 80 21 120/73 97 08/13/21 03:30 76 19 95 08/13/21 03:00 36.7 C 75 19 107/76 95 08/13/21 02:30 76 19 94 08/13/21 02:00 70 12 112/70 98 08/13/21 01:30 76 16 96 08/13/21 01:00 75 18 120/75 96 08/13/21 00:30 77 28 H 97 08/13/21 00:00 36.8 C 79 19 94 08/12/21 23:30 83 18 96 08/12/21 23:00 84 22 121/79 94 Laboratory Results Laboratory Results - last 24 hr 08/12/21 08/13/21 08/13/21 11:29 04:56 04:56 WBC 4.46 L RBC 3.65 L Hgb 11.1 L Hct 33.5 L MCV 91.8 MCH 30.4 MCHC 33.1 RDW Std Deviation 45.9 RDW Coeff of Surya 13.5 Plt Count 136 MPV 9.2 Immature Gran % (Auto) 0.4 Neut % (Auto) 77.0 Lymph % (Auto) 9.4 Scott % (Auto) 8.5 Eos % (Auto) 4.3 Baso % (Auto) 0.4 Neut # (Auto) 3.43 Lymph # (Auto) 0.42 L Scott # (Auto) 0.38 Eos # (Auto) 0.19 Baso # (Auto) 0.02 Immature Gran # (Auto) 0.02 Sodium 135 L Potassium 3.8 Chloride 104 Carbon Dioxide 23 Anion Gap 8 BUN 20 Creatinine 0.97 Est Cr Clr Drug Dosing 107.3 Est GFR ( Amer) 97.3 Est GFR (Non-Af Amer) 83.9 BUN/Creatinine Ratio 20.6 H Glucose 103 H POC Glucose 106 H Calcium 8.2 L Phosphorus 3.5 Magnesium 2.2 Medications Administered Current Inpatient Medications Acetaminophen (Acetaminophen 325 Mg Tab) 650 mg PO Q4H PRN PRN Reason: Pain or Fever Stop: 09/09/21 14:39 Last Admin: 08/12/21 14:10 Dose: 650 mg Documented by: Al Hydrox/Mg Hydrox/Simethicone (Aluminum/Magnesium Susp 30 Ml Udc) 15 ml PO Q4H PRN PRN Reason: Dyspepsia Stop: 09/09/21 14:39 Colchicine (Colchicine 0.6 Mg Tab) 0.6 mg PO BID [facility] Stop: 09/09/21 14:49 Last Admin: 08/13/21 09:12 Dose: 0.6 mg Documented by: Fluticasone Propionate (Fluticasone Propionate Na Spr 16 Gm Btl) 2 sprays NA QAM [facility] Stop: 09/10/21 08:59 Last Admin: 08/13/21 09:16 Dose: Not Given Documented by: Hydroxychloroquine Sulfate (Hydroxychloroquine Sulfate 200 Mg Tab) 200 mg PO BID [facility] Stop: 09/09/21 20:59 Last Admin: 08/13/21 09:12 Dose: 200 mg Documented by: Potassium Chloride (K Dawson / Wtr) 10 meq in 100 mls @ 100 mls/hr IV Q1H [facility] Stop: 08/13/21 12:14 Ibuprofen (Ibuprofen 600 Mg Tab) 600 mg PO Q8H [facility] Stop: 09/09/21 16:44 Last Admin: 08/13/21 09:13 Dose: 600 mg Documented by: Magnesium Hydroxide (Magnesium Hydroxide Susp 30 Ml Udc) 30 ml PO Q12H PRN PRN Reason: Constipation Stop: 09/09/21 14:39 Morphine Sulfate (Morphine Sulfate 2 Mg/Ml Carp) 2 mg IV Q2H PRN PRN Reason: Pain Stop: 08/24/21 22:10 Last Admin: 08/13/21 09:27 Dose: 2 mg Documented by: Oxycodone HCl (Oxycodone Hcl Ir 5 Mg Tab (Immediate Release)) 5 mg PO Q8H PRN PRN Reason: severe pain (scale score 7-10) Stop: 08/24/21 14:39 Last Admin: 08/11/21 20:46 Dose: 5 mg Documented by: Pantoprazole Sodium (Pantoprazole 40 Mg Tab) 40 mg PO [facility]; Protocol Stop: 09/09/21 20:59 Last Admin: 08/12/21 21:16 Dose: 40 mg Documented by: Polyethylene Glycol (Polyethylene (Miralax) 17 Gm Pack) 17 gm PO DAILY PRN PRN Reason: Constipation Stop: 09/09/21 14:39 Sertraline HCl (Sertraline Hcl 100 Mg Tablet) 200 mg PO [facility] Stop: 09/10/21 08:59 Last Admin: 08/13/21 09:11 Dose: 200 mg Documented by: Simvastatin (Simvastatin 20 Mg Tab) 20 mg PO HS [facility] Stop: 09/09/21 20:59 Last Admin: 08/12/21 21:16 Dose: 20 mg Documented by: (1) Syncope Syncope type: unspecified Qualified Code(s): R55 - Syncope and collapse
--- NOTE | 2021-08-13 10:42 | Communication Note ---
Date of Service: August 13, 2021 Removed another 105 mL of Serosanguineous fluid from pericardial drain at 0930 on 08/13.
[2021-08-13] MEDS: POTASSIUM CHLORIDE / WTR 10 MEQ/100 ML PLCT IV SCH ×2 (10:59→12:42)
--- NOTE | 2021-08-13 17:07 | Hospitalist Progress Note ---
Date of Service August 13, 2021 Assessment & Plan (1) Cardiac tamponade: (2) Syncope: (3) Complete heart block: (4) Cardiac pacemaker in situ: (5) TANNER on CPAP: (6) HLD (hyperlipidemia): (7) Cutaneous sarcoidosis: (8) HTN (hypertension): (9) Gout: (10) Depression: Plan: per admitting SVC notes with addendum: Pt is a 61 y/o M with hx of cutaneous sarcoidosis on hydroxychloroquine, Gout, TANNER on CPAP, Depression, HLD, HTN, recent admission for complete heart block s/p dual camber ICD implantation admitted for cardiac tamponade Examined the pt after the pericardiocentesis. He is feeling better and VSS Syncope and Hypotension -2/2 Cardiac tamponade -s/p Pericardiocentesis: removed 620cc of bloody fluid ----has a drain in place -pt was started on colchicine -pt is currently admitted to ICU -will hold pts HTN meds for now -cardiology following 08/13 drained another 100cc today Hg stable 1l BP remaining stable overall on Colchicine and Ibuprofen awaiting further recommendations by Cardiology ZEE: 2/2 Cardiac tamponade s/p pericardiocentesis -s/p fluid resuscitation -will trend BMP -will hold pts HTN meds for now 08/11 crea improved to 0.87 Complete heart block s/p dual chamber ICD implantation: -device interrogation was normal -continue to monitor Cutaneous sarcoidosis: -continue hydroxychloroquine HLD: -continue statin Depression: -continue Zoloft TANNER on CPAP: -setting of 10 Diet: Cardiac DVT PPx: On IPC Code Status: Full code Emergency Contact: [phone] Admission and Anticipated Discharge Date Admission Date: August 10, 2021 Subjective ff up for pericardial effusion, etc seen resting in bed, sitting up not in distress states he feels fine overall no chest pain, dyspnea, palpitations, dizziness no other symptoms Review of Systems Review of Systems: all noted and negative except for above Physical Exam Physical Exam: General- oriented x 2, not in distress, speaks in sentences with no effort or accessory muscle use Eyes- anicteric Neck- no JVD Lungs- clear BS, no rales/wheezes Heart- normal rate, regular rhythm; no murmurs Abdomen- normal bowel sounds, nondistended, soft, nontender Extremities- no pretibial edema, no calf tenderness Neuro- alert, oriented x 3; no gross focal neurologic deficits Skin- warm & dry Results & Data Results & Data ([facility]) Vital Signs (Past 12 Hours) Vital Signs Temp Pulse Resp BP Pulse Ox 08/13/21 16:25 36.7 C 08/13/21 13:00 85 20 130/81 96 08/13/21 12:39 36.8 C 08/13/21 12:30 82 22 95 08/13/21 12:00 84 14 115/75 97 08/13/21 11:30 83 25 H 96 08/13/21 11:00 92 H 16 96 08/13/21 10:30 82 25 H 93 08/13/21 10:00 85 24 117/75 92 08/13/21 09:33 36.8 C 08/13/21 09:30 84 25 H 98 08/13/21 09:29 86 18 128/69 96 08/13/21 09:00 88 21 120/75 08/13/21 08:30 89 20 93 08/13/21 08:01 100 H 23 114/74 96 08/13/21 08:00 91 H 20 97 08/13/21 07:30 89 27 H 98 08/13/21 07:01 85 26 H 133/81 96 08/13/21 07:00 82 15 95 08/13/21 06:30 79 20 94 08/13/21 06:00 85 19 94 08/13/21 05:30 81 15 96 all noted and reviewed including below (1) Syncope Syncope type: unspecified Qualified Code(s): R55 - Syncope and collapse
[2021-08-13] MEDS: SIMVASTATIN 20 MG TAB PO SCH (20:12)
[2021-08-13] MEDS: PANTOprazole 40 MG TAB PO SCH (20:12)
--- NOTE | 2021-08-13 20:52 | Communication Note ---
Date of Service: August 13, 2021 Using sterile technique, 80cc serosanguinous fluid removed from pericardial drain.
[2021-08-13] MEDS: oxyCODONE HCL IR 5 MG TAB (IMMEDIATE RELEASE) PO PRN (20:54)
[2021-08-13] MEDS ORDERED: methylPREDNISolone 60 MG in SYRINGE 0 ML IV ONE (21:00)
[2021-08-14] MEDS: IBUPROFEN 600 MG TAB PO SCH ×3 (00:13→17:05)
[2021-08-14 05:52] LABS: BUN Creatinine Ratio 19.8 (10-20); Calcium 8.4 mg/dl (8.5-10.1); Creatinine Clr Calc Pharmacy 108.5 ml/min; Est GFR (African American) 98.5 ml/min; Magnesium 2.3 mg/dl (1.7-2.4); Phosphorus 3.5 mg/dl (2.5-4.9); Potassium 4.9 mmol/L (3.5-5.1)
[2021-08-14 05:59] LABS: Eosinophils # (auto) 0.02 K/uL (0-0.5); Eosinophils % (auto) 0.4 %; Hematocrit (blood only) 33.8 % (42-52); Hemoglobin 11.2 g/dL (14.0-18.0); Immature Granulocytes # (auto) 0.01 K/uL (0.00-0.02); Immature Granulocytes % (auto) 0.2 %; Lymphocytes # (auto) 0.33 K/uL (1.2-3.4); Lymphocytes % (auto) 5.9 %; Mean Corpuscular Hemoglobin 30.5 pg (25-34); Mean Corpuscular Hgb Conc 33.1 g/dL (32-36); Mean Corpuscular Volume 92.1 fL (80-100); Mean Platelet Volume 9.2 fL (7.4-10.4); Monocytes # (auto) 0.07 K/uL (0.11-0.59); Monocytes % (auto) 1.2 %; Neutrophils # (auto) 5.21 K/uL (1.4-6.5); Neutrophils % (auto) 92.3 %; Platelet Count 174 K/uL (130-400); RDW Coefficient of Variation 13.4 % (11.5-14.5); RDW Standard Deviation 45.2 fL (36.4-46.3); Red Blood Count 3.67 M/uL (4.7-6.1); White Blood Count 5.64 K/uL (4.8-10.8)
--- NOTE | 2021-08-14 06:44 | Electrocardiogram Report ---
Test Reason : Blood Pressure : / mmHG Vent. Rate : 084 BPM Atrial Rate : 084 BPM P-R Int : 170 ms QRS Dur : 170 ms QT Int : 454 ms P-R-T Axes : 025 -81 049 degrees QTc Int : 536 ms Atrial-sensed ventricular-paced rhythm Abnormal ECG When compared with ECG of 10-AUG-2021 09:49, Vent. rate has decreased BY 5 BPM Confirmed by Denzel Win ([id number]) on 08/14/2021 6:44:13 AM Referred By: REFERRED SELF Confirmed By:Denzel Win
[2021-08-14] MEDS: FLUTICASONE PROPIONATE NA SPR 16 GM BTL SCH (08:06)
[2021-08-14] MEDS: COLCHICINE 0.6 MG TAB PO SCH ×2 (08:07→20:15)
[2021-08-14] MEDS: HYDROXYCHLOROQUINE SULFATE 200 MG TAB PO SCH ×2 (08:07→20:15)
[2021-08-14] MEDS: SERTRALINE HCL 100 MG TABLET PO SCH (08:08)
[2021-08-14] MEDS: MoRPHine SULFATE 2 MG/ML CARP IV PRN ×2 (10:16→21:40)
--- NOTE | 2021-08-14 10:53 | Communication Note ---
Date of Service: August 14, 2021 Using sterile technique 50 cc of serosanguineous fluid removed from the pericardial drain
[2021-08-14] MEDS ORDERED: methylPREDNISolone 60 MG in SYRINGE 0 ML IV STA (10:54)
--- NOTE | 2021-08-14 11:06 | Critical Care Progress Note ---
Date of Service August 14, 2021 Assessment & Plan (1) Cardiac tamponade: (2) RICHARDSON (dyspnea on exertion): (3) TANNER on CPAP: (4) GERD (gastroesophageal reflux disease): (5) Gout: (6) Cutaneous sarcoidosis: Plan: 61-year-old male presented to the hospital with shortness of breath, he recently had cardiac pacemaker placed in 08/05/2021. Was found to be in cardiac tamponade. Was taken to the OR for pericardiocentesis 08/10/21 --Cardiac tamponade Likely to genic from pacemaker placement S/p pericardiocentesis 08/10/21, 620 mL bloody fluid was removed --> another 270ml followed by 100ml removed on 08/11/21 --> 80ml removed on 08/12/21 followed by 105 mL in the evening Monitor hemodynamics Interventional cardiology on board Repeat 2D echo 08/11/2021: Trace anterior pericardial effusion with no tamponade physiology Continue with colchicine and ibuprofen --CT chest without contrast showed possible right lower lobe pulmonary artery filling defect Doppler bilateral lower extremity was negative The probability of pulmonary embolus is very low given the patient saturating well on room air. Patient is not complaining of any shortness of breath and CT chest was without contrast No further work-up indicated right now --TANNER Continue with home CPAP --Hypertension At home patient is on amlodipine 5 mg, Hydrochlorothiazide 25 mg Hold blood pressure medication for the time being, will resume once the blood pressure starts to creep up --Dyslipidemia Continue with simvastatin --Cutaneous sarcoidosis On hydroxychloroquine Prolonged QTC, patient does have a paced rhythm which might be one of the reason why it is following Avoid other QT prolonging medications --Thrombocytopenia Chronic Etiology could be underlying sarcoidosis or being on Plaquenil Continue to monitor --Prophylaxis VTE:IPC GI: Pantoprazole Lines: Peripheral Diet: Cardiac Plan: In/out: -1 L, urine output [id number] Patient has been started on Solu-Medrol on top of ibuprofen and colchicine I will increase his pantoprazole to 40 mg twice daily while he stays on Solu- Medrol Cardiology drained 50 mL in the morning today. Plan is likely to take the drain out today. Please note the above document was generated using voice recognition software. It may contain grammatical, syntax or spelling errors.Any formal questions or concerns about the content, text or information contained within the body of this dictation should be directly addressed to the provider for clarification. Admission and Anticipated Discharge Date Admission Date: August 10, 2021 Subjective Patient seen and examined at bedside. No acute distress, no events overnight. Good appetite Denies any nausea or vomiting No chest pain, no shortness of breath No headache, no blurry vision Overall feeling better. Use CPAP overnight Review of Systems Review of Systems: All systems reviewed & are unremarkable except as noted in Subjective Physical Exam Physical Exam: Constitutional: No acute distress HEENT: EOMI, PERRLA Respiratory system: Mild decreased right lower lobe air entry, no wheeze,no rhonchi, mild crackles bilateral lower lobes CVS: S1-S2 positive, no murmurs or gallops, distant heart sounds, left-sided PPM Abdomen: Soft, nontender, nondistended, positive bowel sounds x4 Extremities: +2 pulses bilaterally radialis/ dorsalis pedis, no cyanosis, no edema Neuro: Awake alert oriented x3 Psych: Normal mood and affect G/U: No Kim Skin: no rashes, warm and dry Lymphatic: no cervical or axillary lymphadenopathy Results & Data Results & Data ([facility]) Vital Signs (Past 12 Hours) Vital Signs Temp Pulse Resp BP Pulse Ox 08/14/21 09:11 36.7 C 08/14/21 07:30 91 H 17 95 08/14/21 07:01 77 15 115/72 96 08/14/21 07:00 75 15 91 08/14/21 06:30 79 20 91 08/14/21 06:00 85 20 95 08/14/21 05:30 83 15 89 L 08/14/21 05:00 77 25 H 116/75 92 08/14/21 04:00 76 19 115/94 93 08/14/21 03:30 77 20 94 08/14/21 03:00 80 19 113/77 93 08/14/21 02:30 36.8 C 75 20 93 08/14/21 02:00 76 22 115/74 96 08/14/21 01:30 77 19 96 08/14/21 01:00 79 20 108/73 93 08/14/21 00:30 84 25 H 92 08/14/21 00:00 36.6 C 85 19 116/81 95 08/13/21 23:57 91 H 08/13/21 23:30 93 H 20 96 Laboratory Results 08/14/21 04:37 08/14/21 04:37 Coding Level of Care Code 01397 Subseq Hosp Care Lvl 2 Diagnoses Cardiac tamponade I31.4 RICHARDSON (dyspnea on exertion) R06.00 TANNER on CPAP G47.33; Z99.89 GERD (gastroesophageal reflux disease) K21.9 Gout M10.9 Cutaneous sarcoidosis D86.3
[2021-08-14] MEDS: PANTOprazole 40 MG TAB PO SCH ×2 (11:37→20:14)
--- NOTE | 2021-08-14 17:52 | Hospitalist Progress Note ---
Date of Service August 14, 2021 delayed entry date of service noted above Assessment & Plan (1) Cardiac tamponade: (2) Syncope: (3) Complete heart block: (4) Cardiac pacemaker in situ: (5) TANNER on CPAP: (6) HLD (hyperlipidemia): (7) Cutaneous sarcoidosis: (8) HTN (hypertension): (9) Gout: (10) Depression: Plan: per admitting SVC notes with addendum: Pt is a 61 y/o M with hx of cutaneous sarcoidosis on hydroxychloroquine, Gout, TANNER on CPAP, Depression, HLD, HTN, recent admission for complete heart block s/p dual camber ICD implantation admitted for cardiac tamponade Examined the pt after the pericardiocentesis. He is feeling better and VSS Syncope and Hypotension -2/2 Cardiac tamponade -s/p Pericardiocentesis: removed 620cc of bloody fluid ----has a drain in place -pt was started on colchicine -pt is currently admitted to ICU -will hold pts HTN meds for now -cardiology following 08/14 drained another 50cc today Hg stable 1l BP remaining stable overall on Colchicine and Ibuprofen Solumedrol daily given awaiting further recommendations by Cardiology ZEE: 2/2 Cardiac tamponade s/p pericardiocentesis -s/p fluid resuscitation -will trend BMP -will hold pts HTN meds for now crea improved to 0.87 Complete heart block s/p dual chamber ICD implantation: -device interrogation was normal -continue to monitor Cutaneous sarcoidosis: -continue hydroxychloroquine HLD: -continue statin Depression: -continue Zoloft TANNER on CPAP: -setting of 10 Diet: Cardiac DVT PPx: On IPC Code Status: Full code Emergency Contact: [phone] Admission and Anticipated Discharge Date Admission Date: August 10, 2021 Subjective ff up for pericardial effusion, etc seen resting in chair, comfortable in good spirits denies chest pain, dyspnea, palpitations no other new symptoms Review of Systems Review of Systems: all noted and negative except for above Physical Exam Physical Exam: General- oriented x 3, not in distress, speaks in sentences with no effort or accessory muscle use Eyes- anicteric Neck- no JVD Lungs- clear breath sounds bilaterally Heart- normal rate, regular rhythm; no murmurs drain in place- no issues Abdomen- normal bowel sounds, nondistended, soft, nontender Extremities- no pretibial edema, no calf tenderness Neuro- alert, oriented x 3; no gross focal neurologic deficits Skin- warm & dry Results & Data Results & Data ([facility]) Vital Signs (Past 12 Hours) Vital Signs Temp Pulse Resp BP Pulse Ox 08/14/21 17:08 36.8 C 08/14/21 12:11 36.6 C 08/14/21 11:30 91 H 14 92 08/14/21 11:01 87 16 116/87 97 08/14/21 11:00 87 21 92 08/14/21 10:30 88 16 94 08/14/21 10:00 84 23 131/85 94 08/14/21 09:30 85 16 95 08/14/21 09:11 36.7 C 08/14/21 09:00 91 H 15 127/87 94 08/14/21 08:30 86 24 90 08/14/21 08:05 91 H 23 123/74 95 08/14/21 08:00 99 H 19 08/14/21 07:30 91 H 17 95 08/14/21 07:01 77 15 115/72 96 08/14/21 07:00 75 15 91 08/14/21 06:30 79 20 91 08/14/21 06:00 85 20 95 all noted and reviewed including below (1) Syncope Syncope type: unspecified Qualified Code(s): R55 - Syncope and collapse
[2021-08-14] MEDS: SIMVASTATIN 20 MG TAB PO SCH (20:14)
--- NOTE | 2021-08-14 21:58 | Communication Note ---
Date of Service: August 14, 2021 Using sterile technique, 30cc serosanguinous fluid removed from pericardial drain
[2021-08-15] MEDS: IBUPROFEN 600 MG TAB PO SCH ×3 (01:02→16:21)
[2021-08-15 05:23] LABS: Basophils # (auto) 0.01 K/uL (0-0.2); Basophils % (auto) 0.1 %; Eosinophils # (auto) 0.09 K/uL (0-0.5); Eosinophils % (auto) 1.1 %; Hematocrit (blood only) 32.5 % (42-52); Hemoglobin 10.9 g/dL (14.0-18.0); Immature Granulocytes # (auto) 0.01 K/uL (0.00-0.02); Immature Granulocytes % (auto) 0.1 %; Lymphocytes % (auto) 7.2 %; Mean Corpuscular Hemoglobin 30.3 pg (25-34); Mean Corpuscular Hgb Conc 33.5 g/dL (32-36); Mean Corpuscular Volume 90.3 fL (80-100); Monocytes # (auto) 0.75 K/uL (0.11-0.59); Neutrophils # (auto) 6.91 K/uL (1.4-6.5); Neutrophils % (auto) 82.5 %; Platelet Count 181 K/uL (130-400); RDW Coefficient of Variation 13.3 % (11.5-14.5); RDW Standard Deviation 44.5 fL (36.4-46.3); White Blood Count 8.37 K/uL (4.8-10.8)
[2021-08-15 05:39] LABS: Calcium 8.2 mg/dl (8.5-10.1); Creatinine Clr Calc Pharmacy 105.4 ml/min; Est GFR (African American) 98.5 ml/min; Magnesium 2.3 mg/dl (1.7-2.4); Phosphorus 3.5 mg/dl (2.5-4.9); Potassium 4.5 mmol/L (3.5-5.1)
--- NOTE | 2021-08-15 07:57 | Critical Care Progress Note ---
Date of Service August 15, 2021 Assessment & Plan (1) Cardiac tamponade: (2) RICHARDSON (dyspnea on exertion): (3) TANNER on CPAP: (4) GERD (gastroesophageal reflux disease): (5) Gout: (6) Cutaneous sarcoidosis: Plan: 61-year-old male presented to the hospital with shortness of breath, he recently had cardiac pacemaker placed in 08/05/2021. Was found to be in cardiac tamponade. Was taken to the OR for pericardiocentesis 08/10/21 --Cardiac tamponade Likely to genic from pacemaker placement S/p pericardiocentesis 08/10/21, 620 mL bloody fluid was removed --> another 270ml followed by 100ml removed on 08/11/21 --> 80ml removed on 08/12/21 followed by 105 mL in the evening Monitor hemodynamics Interventional cardiology on board Repeat 2D echo 08/11/2021: Trace anterior pericardial effusion with no tamponade physiology Continue with colchicine and ibuprofen --CT chest without contrast showed possible right lower lobe pulmonary artery filling defect Doppler bilateral lower extremity was negative The probability of pulmonary embolus is very low given the patient saturating well on room air. Patient is not complaining of any shortness of breath and CT chest was without contrast No further work-up indicated right now --TANNER Continue with home CPAP --Hypertension At home patient is on amlodipine 5 mg, losartan 100 mg, one-time dose hydrochlorothiazide 25 mg Hold blood pressure medication for the time being, will resume once the blood pressure starts to creep up --Dyslipidemia Continue with simvastatin --Cutaneous sarcoidosis On hydroxychloroquine Prolonged QTC, patient does have a paced rhythm which might be one of the reason why it is following Avoid other QT prolonging medications --Thrombocytopenia Chronic Etiology could be underlying sarcoidosis or being on Plaquenil Continue to monitor --Prophylaxis VTE:IPC GI: Pantoprazole Lines: Peripheral Diet: Cardiac Plan: In/out: -1 L, urine output 2557 Go down on pantoprazole to again once every day as patient is not on Solu-Medrol anymore. Cardiology drained 30 mL last night Patient blood pressure has started to creep up occasionally. Will resume amlodipine 5 mg on a daily basis Please note the above document was generated using voice recognition software. It may contain grammatical, syntax or spelling errors.Any formal questions or concerns about the content, text or information contained within the body of this dictation should be directly addressed to the provider for clarification. Admission and Anticipated Discharge Date Admission Date: August 10, 2021 Subjective Patient seen and examined at bedside. No acute distress, no dressings overnight Denies any chest pain, no headache, no nausea, no vomiting Has been using incentive spirometry Fair appetite. Urinating well. Review of Systems Review of Systems: All systems reviewed & are unremarkable except as noted in Subjective Physical Exam Physical Exam: Constitutional: No acute distress HEENT: EOMI, PERRLA Respiratory system: Good range of activity, no wheeze,no rhonchi, mild crackles bilateral lower lobes CVS: S1-S2 positive, no murmurs or gallops, distant heart sounds, left-sided PPM Abdomen: Soft, nontender, nondistended, positive bowel sounds x4 Extremities: +2 pulses bilaterally radialis/ dorsalis pedis, no cyanosis, no edema Neuro: Awake alert oriented x3 Psych: Normal mood and affect G/U: No Kim Skin: no rashes, warm and dry Lymphatic: no cervical or axillary lymphadenopathy Results & Data Results & Data ([facility]) Vital Signs (Past 12 Hours) Vital Signs Temp Pulse Resp BP Pulse Ox 08/15/21 07:37 36.5 C 08/15/21 03:00 72 19 111/75 96 08/15/21 02:00 80 19 134/84 93 08/15/21 01:06 83 15 128/84 97 08/15/21 00:00 80 22 135/79 93 08/14/21 23:01 81 15 138/83 93 08/14/21 22:01 104 H 20 140/90 08/14/21 21:01 86 23 146/86 H 92 08/14/21 20:11 86 25 H 140/88 95 08/14/21 20:00 87 Laboratory Results 08/15/21 04:57 08/15/21 04:57 Coding Level of Care Code 49532 Subseq Hosp Care Lvl 2 Diagnoses Cardiac tamponade I31.4 RICHARDSON (dyspnea on exertion) R06.00 TANNER on CPAP G47.33; Z99.89 GERD (gastroesophageal reflux disease) K21.9 Gout M10.9 Cutaneous sarcoidosis D86.3
[2021-08-15] MEDS: COLCHICINE 0.6 MG TAB PO SCH ×2 (08:18→20:02)
[2021-08-15] MEDS: FLUTICASONE PROPIONATE NA SPR 16 GM BTL SCH (08:18)
[2021-08-15] MEDS: SERTRALINE HCL 100 MG TABLET PO SCH (08:19)
[2021-08-15] MEDS: HYDROXYCHLOROQUINE SULFATE 200 MG TAB PO SCH ×2 (08:19→20:02)
[2021-08-15] MEDS: MoRPHine SULFATE 2 MG/ML CARP IV PRN (09:28)
--- NOTE | 2021-08-15 10:23 | Cardiology Progress Note ---
Date of Service August 15, 2021 Assessment & Plan (1) Cardiac tamponade: (2) Syncope: (3) Third degree heart block: (4) TANNER on CPAP: (5) Pre-diabetes: (6) Acute pericarditis: (7) Presence of combination internal cardiac defibrillator (ICD) and pacemaker: Plan: Patient clinically improving with less pericardial catheter drainage with anticipated catheter removal. On colchicine and steroids. No clinical symptoms. Device still functioning appropriately Admission and Anticipated Discharge Date Admission Date: August 10, 2021 Subjective Patient seen and examined, chart, medications, telemetry reviewed. Feels well this morning no pleuritic discomfort no chest pain or discomfort. Pericardial catheter draining last with likely plans to remove later today. No arrhythmias on telemetry. Review of Systems Review of Systems: All systems reviewed & are unremarkable except as noted in Subjective Physical Exam Constitutional: WD/WN, vitals as above Eyes: PERRL, conjunctivae normal, anicteric sclerae ENMT: external ear and nose normal, oropharynx normal Neck: trachea midline, no thyromegaly Respiratory: normal respiratory effort, lungs clear to auscultation Cardiovascular: Rate/Rhythm: regular rate and regular rhythm Heart Sounds: no murmur and no cardiac rub Chest (Breasts): Chest: + pacemaker (Pacer defibrillator site clean without irritation) Additional Comments: Pericardial catheter site without erythema Gastrointestinal (Abdomen): normal bowel sounds, soft, nontender, no hepatosplenomegaly Results & Data ([facility]) Vital Signs (Past 12 Hours) Vital Signs Temp Pulse Resp BP Pulse Ox 08/15/21 07:37 36.5 C 08/15/21 03:00 72 19 111/75 96 08/15/21 02:00 80 19 134/84 93 08/15/21 01:06 83 15 128/84 97 08/15/21 00:00 80 22 135/79 93 08/14/21 23:01 81 15 138/83 93 Laboratory Results Laboratory Results - last 24 hr 08/15/21 08/15/21 04:57 04:57 WBC 8.37 RBC 3.60 L Hgb 10.9 L Hct 32.5 L MCV 90.3 MCH 30.3 MCHC 33.5 RDW Std Deviation 44.5 RDW Coeff of Surya 13.3 Plt Count 181 MPV 9.0 Immature Gran % (Auto) 0.1 Neut % (Auto) 82.5 Lymph % (Auto) 7.2 Jennings % (Auto) 9.0 Eos % (Auto) 1.1 Baso % (Auto) 0.1 Neut # (Auto) 6.91 H Lymph # (Auto) 0.60 L Jennings # (Auto) 0.75 H Eos # (Auto) 0.09 Baso # (Auto) 0.01 Immature Gran # (Auto) 0.01 Sodium 135 L Potassium 4.5 Chloride 105 Carbon Dioxide 24 Anion Gap 6 BUN 23 Creatinine 0.96 Est Cr Clr Drug Dosing 105.4 Est GFR ( Amer) 98.5 Est GFR (Non-Af Amer) 85.0 BUN/Creatinine Ratio 24.0 H Glucose 124 H Calcium 8.2 L Phosphorus 3.5 Magnesium 2.3 (1) Syncope Syncope type: unspecified Qualified Code(s): R55 - Syncope and collapse
[2021-08-15] MEDS: amLODIPine BESYLATE 5 MG TAB PO SCH (12:33)
--- NOTE | 2021-08-15 13:05 | Communication Note ---
Date of Service: August 15, 2021 Using sterile technique, approximately 45 cc of serosanguineous fluid removed from the pericardial drain. Subsequently the drain itself was removed and an iodoform gauze dressing was placed over the access site. No immediate complications.
[2021-08-15] MEDS: predniSONE 10 MG TABLET PO SCH (14:36)
--- NOTE | 2021-08-15 17:49 | Hospitalist Progress Note ---
Date of Service August 15, 2021 Assessment & Plan (1) Cardiac tamponade: (2) Syncope: (3) Complete heart block: (4) Cardiac pacemaker in situ: (5) TANNER on CPAP: (6) HLD (hyperlipidemia): (7) Cutaneous sarcoidosis: (8) HTN (hypertension): (9) Gout: (10) Depression: Plan: per admitting SVC notes with addendum: Pt is a 61 y/o M with hx of cutaneous sarcoidosis on hydroxychloroquine, Gout, TANNER on CPAP, Depression, HLD, HTN, recent admission for complete heart block s/p dual camber ICD implantation admitted for cardiac tamponade Examined the pt after the pericardiocentesis. He is feeling better and VSS Syncope and Hypotension -2/2 Cardiac tamponade -s/p Pericardiocentesis: removed 620cc of bloody fluid ----has a drain in place -pt was started on colchicine -pt is currently admitted to ICU -will hold pts HTN meds for now -cardiology following 08/15 drained another 30cc today Hg stable ~11 BP remaining stable overall on Colchicine and Ibuprofen Solumedrol daily given--> transitioned to Prednisone Cardiology on board ZEE: 2/2 Cardiac tamponade s/p pericardiocentesis -s/p fluid resuscitation -will trend BMP -will hold pts HTN meds for now crea improved to 0.87 Complete heart block s/p dual chamber ICD implantation: -device interrogation was normal -continue to monitor Cutaneous sarcoidosis: -continue hydroxychloroquine HLD: -continue statin Depression: -continue Zoloft TANNER on CPAP: -setting of 10 Diet: Cardiac DVT PPx: On IPC Code Status: Full code Emergency Contact: [phone] Admission and Anticipated Discharge Date Admission Date: August 10, 2021 Subjective ff up for pericardial effusion, etc seen resting in bed, comfortable no chest pain, dyspnea, palpitations, dizziness no other symptoms Review of Systems Review of Systems: all noted and negative except for above Physical Exam Physical Exam: General- oriented x 3, not in distress, speaks in sentences with no effort or accessory muscle use Eyes- anicteric Neck- no JVD Lungs- clear breath sounds BL Heart- normal rate, regular rhythm; no murmurs drain in place: no bleeding/signs of infection Abdomen- normal bowel sounds, nondistended, soft, nontender Extremities- no pretibial edema, no calf tenderness Neuro- alert, oriented x 3; no gross focal neurologic deficits Skin- warm & dry Results & Data Results & Data ([facility]) Vital Signs (Past 12 Hours) Vital Signs Temp Pulse Resp BP Pulse Ox 08/15/21 16:15 36.5 C 08/15/21 16:00 82 19 138/86 08/15/21 15:30 78 21 08/15/21 15:00 83 19 134/86 08/15/21 14:30 85 08/15/21 14:00 84 23 115/78 93 08/15/21 13:30 89 22 08/15/21 13:00 88 16 135/81 92 08/15/21 12:37 36.6 C 08/15/21 12:34 86 20 136/81 95 08/15/21 12:30 82 18 94 08/15/21 12:00 89 19 97 08/15/21 11:30 80 24 92 08/15/21 11:00 79 19 124/81 93 08/15/21 10:30 87 21 08/15/21 10:00 80 24 141/80 H 96 08/15/21 09:30 78 20 98 08/15/21 09:00 80 22 119/68 95 08/15/21 08:30 85 23 96 08/15/21 08:01 20 117/73 08/15/21 08:00 87 19 97 08/15/21 07:37 36.5 C 08/15/21 07:30 82 13 100 08/15/21 07:00 77 16 114/75 95 08/15/21 06:30 76 20 95 08/15/21 06:00 78 12 117/80 95 all noted and reviewed including below (1) Syncope Syncope type: unspecified Qualified Code(s): R55 - Syncope and collapse
[2021-08-15] MEDS: SIMVASTATIN 20 MG TAB PO SCH (20:01)
[2021-08-15] MEDS ORDERED: PANTOprazole 40 MG TAB PO SCH (21:00)
[2021-08-16] MEDS: IBUPROFEN 600 MG TAB PO SCH ×2 (00:32→08:54)
[2021-08-16] MEDS: FLUTICASONE PROPIONATE NA SPR 16 GM BTL SCH (08:54)
[2021-08-16] MEDS: predniSONE 10 MG TABLET PO SCH (08:55)
[2021-08-16] MEDS: SERTRALINE HCL 100 MG TABLET PO SCH (08:55)
[2021-08-16] MEDS: COLCHICINE 0.6 MG TAB PO SCH (08:56)
[2021-08-16] MEDS: amLODIPine BESYLATE 5 MG TAB PO SCH (08:56)
[2021-08-16] MEDS: HYDROXYCHLOROQUINE SULFATE 200 MG TAB PO SCH (08:56)
--- NOTE | 2021-08-16 09:19 | Cardiology Progress Note ---
Date of Service August 16, 2021 Assessment & Plan (1) Cardiac tamponade: (2) Syncope: (3) Third degree heart block: (4) TANNER on CPAP: (5) Pre-diabetes: (6) Acute pericarditis: (7) Presence of combination internal cardiac defibrillator (ICD) and pacemaker: Plan: The patient will have a limited echo today. If no reaccumulation of pericardial fluid then I believe he can be discharged. He should be discharged on colchicine and a tapering dose of steroids. Admission and Anticipated Discharge Date Admission Date: August 10, 2021 Subjective Sitting in a chair no complaints today. Review of Systems Review of Systems: Review of Systems: See HPI for pertinent positives. All other 10 point review of systems are negative. Physical Exam Physical Exam: General: no acute distress and stated age Head: normocephalic, no masses, lesions, tenderness or abnormalities Eyes: conjunctiva are pink and non-injected, sclera clear Neck: supple, no adenopathy, no bruits, normal jugular venous pulse, no hepatojugular reflux Chest: normal shape and normal respiratory effort Lungs: clear to auscultation and percussion Cardiac Exam: - regular rate & rhythm, no murmurs gallops or rubs - normal S1, normal S2 Pulses: 2(+) throughout Abdomen: abdomen soft, non-tender, no abnormal masses and no hepatosplenomegaly Musculoskeletal: no gait disturbance, no joint inflammation, no deforming arthritis Extremities: no edema and no cyanosis Neuro: grossly normal exam Results & Data ([facility]) Vital Signs (Past 12 Hours) Vital Signs Temp Pulse Pulse Resp BP BP Pulse Ox 08/16/21 07:21 36.7 C 84 19 148/93 H 95 08/16/21 03:00 36.6 C 80 13 141/94 H 08/16/21 00:00 78 08/15/21 23:00 82 18 136/87 93 Medications Administered Current Inpatient Medications Acetaminophen (Acetaminophen 325 Mg Tab) 650 mg PO Q4H PRN PRN Reason: Pain or Fever Stop: 09/09/21 14:39 Last Admin: 08/12/21 14:10 Dose: 650 mg Documented by: Al Hydrox/Mg Hydrox/Simethicone (Aluminum/Magnesium Susp 30 Ml Udc) 15 ml PO Q4H PRN PRN Reason: Dyspepsia Stop: 09/09/21 14:39 Amlodipine Besylate (Amlodipine Besylate 5 Mg Tab) 5 mg PO QAM [facility] Stop: 09/14/21 11:59 Last Admin: 08/16/21 08:56 Dose: 5 mg Documented by: Colchicine (Colchicine 0.6 Mg Tab) 0.6 mg PO BID [facility] Stop: 09/09/21 14:49 Last Admin: 08/16/21 08:56 Dose: 0.6 mg Documented by: Fluticasone Propionate (Fluticasone Propionate Na Spr 16 Gm Btl) 2 sprays NA QAM [facility] Stop: 09/10/21 08:59 Last Admin: 08/16/21 08:54 Dose: Not Given Documented by: Hydroxychloroquine Sulfate (Hydroxychloroquine Sulfate 200 Mg Tab) 200 mg PO BID [facility] Stop: 09/09/21 20:59 Last Admin: 08/16/21 08:56 Dose: 200 mg Documented by: Ibuprofen (Ibuprofen 600 Mg Tab) 600 mg PO Q8H [facility] Stop: 09/09/21 16:44 Last Admin: 08/16/21 08:54 Dose: 600 mg Documented by: Magnesium Hydroxide (Magnesium Hydroxide Susp 30 Ml Udc) 30 ml PO Q12H PRN PRN Reason: Constipation Stop: 09/09/21 14:39 Morphine Sulfate (Morphine Sulfate 2 Mg/Ml Carp) 2 mg IV Q2H PRN PRN Reason: Pain Stop: 08/24/21 22:10 Last Admin: 08/15/21 09:28 Dose: 2 mg Documented by: Oxycodone HCl (Oxycodone Hcl Ir 5 Mg Tab (Immediate Release)) 5 mg PO Q8H PRN PRN Reason: severe pain (scale score 7-10) Stop: 08/24/21 14:39 Last Admin: 08/13/21 20:54 Dose: 5 mg Documented by: Pantoprazole Sodium (Pantoprazole 40 Mg Tab) 40 mg PO [facility]; Protocol Stop: 09/14/21 20:59 Last Admin: 08/15/21 20:01 Dose: 40 mg Documented by: Polyethylene Glycol (Polyethylene (Miralax) 17 Gm Pack) 17 gm PO DAILY PRN PRN Reason: Constipation Stop: 09/09/21 14:39 Prednisone (Prednisone 10 Mg Tablet) 30 mg PO DAILY [facility] Stop: 09/14/21 13:14 Last Admin: 08/16/21 08:55 Dose: 30 mg Documented by: Sertraline HCl (Sertraline Hcl 100 Mg Tablet) [facility] Stop: 09/10/21 08:59 Last Admin: 08/16/21 08:55 Dose: 200 mg Documented by: Simvastatin (Simvastatin 20 Mg Tab) 20 mg PO [facility] Stop: 09/09/21 20:59 Last Admin: 08/15/21 20:01 Dose: 20 mg Documented by: (1) Syncope Syncope type: unspecified Qualified Code(s): R55 - Syncope and collapse
[2021-08-16 09:39] LABS: Basophils # (auto) 0.01 K/uL (0-0.2); Basophils % (auto) 0.1 %; Eosinophils % (auto) 2.8 %; Hematocrit (blood only) 36.6 % (42-52); Immature Granulocytes # (auto) 0.01 K/uL (0.00-0.02); Immature Granulocytes % (auto) 0.1 %; Lymphocytes # (auto) 1.26 K/uL (1.2-3.4); Lymphocytes % (auto) 17.5 %; Mean Corpuscular Hemoglobin 29.9 pg (25-34); Mean Corpuscular Hgb Conc 32.8 g/dL (32-36); Mean Platelet Volume 8.8 fL (7.4-10.4); Monocytes % (auto) 1.4 %; Neutrophils # (auto) 5.61 K/uL (1.4-6.5); Neutrophils % (auto) 78.1 %; Platelet Count 178 K/uL (130-400); RDW Coefficient of Variation 13.5 % (11.5-14.5); RDW Standard Deviation 45.4 fL (36.4-46.3); Red Blood Count 4.02 M/uL (4.7-6.1); White Blood Count 7.19 K/uL (4.8-10.8)
--- NOTE | 2021-08-16 15:01 | Hospitalist Progress Note ---
Date of Service August 16, 2021 Assessment & Plan (1) Cardiac tamponade: (2) Syncope: (3) Complete heart block: (4) Cardiac pacemaker in situ: (5) TANNER on CPAP: (6) HLD (hyperlipidemia): (7) Cutaneous sarcoidosis: (8) HTN (hypertension): (9) Gout: (10) Depression: Plan: per admitting SVC notes with addendum: Pt is a 61 y/o M with hx of cutaneous sarcoidosis on hydroxychloroquine, Gout, TANNER on CPAP, Depression, HLD, HTN, recent admission for complete heart block s/p dual camber ICD implantation admitted for cardiac tamponade Examined the pt after the pericardiocentesis. He is feeling better and VSS Syncope and Hypotension -- 2/2 Cardiac tamponade -- s/p Pericardiocentesis: removed 620cc of bloody fluid ----has a drain in place -pt was started on colchicine -pt is currently admitted to ICU -will hold pts HTN meds for now -cardiology following 08/16 limited echo: minimal effusion noted Hg stable ~11 BP remaining stable overall on Colchicine Solumedrol daily given--> transitioned to Prednisone Cardiology on board cleared for discharge: Colchicine BID Prednisone taper x 5 days HOLD Aspirin, Losartan, Lasix, HCTZ until ff up with Dr. Beebe as per him ff up with Dr. Beebe in 1 week ZEE: 2/2 Cardiac tamponade s/p pericardiocentesis -s/p fluid resuscitation crea improved to 0.87 Complete heart block s/p dual chamber ICD implantation: -device interrogation was normal Cutaneous sarcoidosis: -continue hydroxychloroquine HLD: -continue statin Depression: -continue Zoloft TANNER on CPAP: -setting of 10 Disposition d/c home ff up with PCP in 1 week Admission and Anticipated Discharge Date Admission Date: August 10, 2021 Subjective ff up for pericardial effusion, etc seen resting in bed, comfortable sitting up in good spirits states he feels better overall no chest pain, dyspnea, palpitations, dizziness no other symptoms states he is ready and would like to be discharged today Review of Systems Review of Systems: all noted and negative except for above Physical Exam Physical Exam: General- oriented x 3, not in distress, speaks in sentences with no effort or accessory muscle use Eyes- anicteric Neck- no JVD Lungs- clear breath sounds bilaterally, no rales/wheezes Heart- normal rate, regular rhythm; no murmurs dressing in place: no bleeding, discharge or signs of infection Abdomen- normal bowel sounds, nondistended, soft, nontender Extremities- no pretibial edema, no calf tenderness Neuro- alert, oriented x 3; no gross focal neurologic deficits Skin- warm & dry Results & Data Results & Data ([facility]) Vital Signs (Past 12 Hours) Vital Signs Temp Pulse Pulse Resp BP BP Pulse Ox 08/16/21 14:00 87 23 137/84 93 08/16/21 13:01 85 21 130/86 95 08/16/21 13:00 86 23 94 08/16/21 12:01 96 H 17 151/81 H 93 08/16/21 12:00 92 H 21 94 08/16/21 11:01 127/80 92 08/16/21 11:00 93 08/16/21 10:02 19 08/16/21 09:00 92 H 19 144/82 H 08/16/21 08:01 88 20 98 08/16/21 07:21 36.7 C 84 19 148/93 H 95 08/16/21 07:15 78 22 148/93 H 95 08/16/21 07:00 81 14 96 all noted and reviewed including below (1) Syncope Syncope type: unspecified Qualified Code(s): R55 - Syncope and collapse
--- NOTE | 2021-08-16 15:24 | Discharge Summary ---
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 Started to experience fatigue 2 days ago and today morning he felt lightheaded and had a syncopal episode. He lost consciousness for 1 minute. Was slightly confused after the syncope but no episode of foaming in the mouth, urinary or fecal incontinence. He also experienced diaphoresis with the syncope. Denied any fever. At bedside pt complained of mild headache. Denied any CP, SOB or leg swelling. Pt was found to be in cardiac tamponade therefore taken to the director of laboratory operations for pericardiocentesis. Recent Echo showed LVH with EF of >70% EKG: Ventricular paced with HR of 89 BPM Principal Diagnosis Cardiac Tamponade secondary to Pericardial Effusion Discharge Exam General- oriented x 3, not in distress, speaks in sentences with no effort or accessory muscle use Eyes- anicteric Neck- no JVD Lungs- clear breath sounds bilaterally, no rales/wheezes Heart- normal rate, regular rhythm; no murmurs dressing in place: no bleeding, discharge or signs of infection Abdomen- normal bowel sounds, nondistended, soft, nontender Extremities- no pretibial edema, no calf tenderness Neuro- alert, oriented x 3; no gross focal neurologic deficits Skin- warm & dry Discharge Data Allergies Allergy/AdvReac Type Severity Reaction Status Date / Time No Known Allergies Allergy Unverified 08/10/21 11:51 Consultations 08/10/21 11:14 ED Decision to Admit Stat 08/10/21 11:30 Consult Cardiology Routine 08/10/21 12:53 Consult Pilot Boat Captain Routine Procedures Performed Operation Date: 08/10/21 12:00 Actual Procedures p Pericardiocentesis Initial - Luis Antonio Mcclure MD s Fluoroscopy Up To 1 Hour - Luis Antonio Mcclure MD Ordered Studies 08/10/21 12:07 CL Cath Imgs for PACS use only Stat 08/11/21 10:46 CT chest diagnostic w con Routine CHEST CT WITH CONTRAST CT DOSE: 745.88 mGycm HISTORY: lead perforation-evaluate pacer leads for culprit TECHNIQUE: Multiaxial CT images of the chest were performed following the intravenous administration of contrast. A dose lowering technique was utilized adhering to the principles of ALARA. COMPARISON: None. FINDINGS: The central airways are patent. No pneumothorax. Consolidation within the bilateral lower lobes posteriorly favor atelectasis from the small bilateral pleural effusions. No suspicious lytic or blastic osseous lesions. Cervical spinal fusion hardware is partially visualized. A left-sided dual-chamber pacemaker. The leads are located within the right atrium and right ventricle. Evaluation for lead perforations essentially nondiagnostic due to the motion artifact. There is a trace pericardial effusion. No mediastinal hematoma. Small old external pacemaker lead also noted. Mild mediastinal lymphadenopathy with the dominant subcarinal lymph node measuring 3.2 x 1.6 cm. No hilar lymphadenopathy. Questional small filling defect seen within the right lower lobe pulmonary embolus on image 230. This favors streak artifact. A small pulmonary embolus could also a similar appearance. Normal caliber thoracic aorta with no evidence for dissection. The visualized liver and spleen are unremarkable. Normal esophagus. IMPRESSION: 1. Essentially nondiagnostic evaluation for cardiac pacemaker lead perforation due to the cardiac motion. There is a trace pericardial effusion. However, no mediastinal hematoma. 2. Mild mediastinal lymphadenopathy. 3. Small bilateral pleural effusions. 4. Questionable filling defect seen within a right lower lobe segmental pulmonary artery is likely due to streak artifact. However, a pulmonary embolus could also have a similar appearance. Therefore, correlation with lower extremity Dopplers is recommended to assess for possible DVT. ACT 112: Negative or not required by law. 08/11/21 13:21 US venous doppler LE Routine FINDINGS: There is no sonographic evidence of deep venous thrombosis identified in the right or left lower extremity. The common femoral, superficial femoral, and popliteal veins are patent and normally compressible bilaterally. The greater saphenous vein and the profunda femoris vein at the junction with the common femoral vein are clear in both legs. The visualized calf veins are patent bilaterally. IMPRESSION: There is no sonographic evidence of deep venous thrombosis identified in the right or left lower extremity. ACT 112: Negative or not required by law. 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, Gout, TANNER on CPAP, Depression, HLD, HTN, recent admission for complete heart block s/p dual camber ICD implantation admitted for cardiac tamponade Syncope and Hypotension -- recent admission for complete heart block s/p dual camber ICD implantation came to the ER after a syncopal episode with hypotension -- 2/2 Cardiac tamponade -- admitted to ICU -- s/p Pericardiocentesis, Pericardial drain placement ~1L bloody fluid drained Hypotension improved -- placed on colchicine, Ibuprofen, Solumedrol 08/16 limited echo: minimal effusion noted Hg stable ~11 BP remaining stable overall Solumedrol daily given--> transitioned to Prednisone cleared for discharge: Colchicine BID Prednisone taper x 5 days HOLD Aspirin, Losartan, Lasix, HCTZ until ff up with Dr. Beebe as per him ff up with Dr. Beebe in 1 week ZEE: 2/2 Cardiac tamponade s/p pericardiocentesis -s/p fluid resuscitation crea improved to 0.87 Complete heart block s/p dual chamber ICD implantation: -device interrogation was normal Cutaneous sarcoidosis: -continue hydroxychloroquine HLD: -continue statin Depression: -continue Zoloft TANNER on CPAP: -setting of 10 Disposition d/c home ff up with PCP in 1 week ff up with [facility] [place] [employer] [place] [employer] Dr. Beebe Total Time Total Time Spent Total Time Spent (In Minutes): >30 minutes Discharge Plan Discharge Items Patient Disposition: Home - Self-Care Reason For Visit: PERICARDIAL EFFUSION Discharge Diagnosis: PERICARDIAL EFFUSION Activity: As commented below Activity Comment: INCREASE ACTIVITY GRADUALLY TOLERATED Lifting: Wait until after follow-up appointment Exercise/Sports: Wait until after follow-up appointment Driving/Machine Use: NO DRIVING UNTIL RE-EVALUATED AND ALLOWED BY PRECISION LENS GENERATOR Non-emergency contact: Primary Care Provider and [employer] Officer Call non-emergency contact if: you have any medication questions, your symptoms worsen, your pain is worsening and your pain is unusual for you Follow-up/Referrals: Jamison Beebe MD [Physician] - Guy Bower DO [Physician] - Marquis Flores MD [Primary Care Provider] - (Date & Time 08/19/2021 10:40 AM Provider Marquis Flores MD Department Family Practice [facility] ) Diet: Heart Healthy Addtl Attending Provider Instructions: PLEASE REFER TO YOUR NEW MEDICATION LIST AND FOLLOW INSTRUCTIONS CAREFULLY. YOUR NEW MEDICATIONS INCLUDE: COLCHICINE- TWICE A DAY PREDNISONE TAPER- TAKE 30MG X 1 DAY, THEN 20MG X 2 DAYS, THEN 10 MG X 2 DAYS, THEN STOP PANTOPRAZOLE PLEASE HOLD LOSARTAN, ASPIRIN, LASIX, HCTZ FOR NOW. FURTHER ADVICE ON WHEN TO RESUME THESE MEDICATIONS ON FOLLOW UP WITH DR. BEEBE IN 1 WEEK. RETURN TO THE ER IF WITH WORSENING OF SYMPTOMS, INCLUDING CHEST PAIN, SHORTNESS OF BREATH, DIZZINESS, WEAKNESS. FOLLOW UP WITH PRIMARY CARE PHYSICIAN IN [address] FOLLOW UP WITH DR. BEEBE IN 1 WEEK. FOLLOW UP WITH DR. BOWER IN 3-4 WEEKS. Pending Studies at Discharge: No Stand-Alone Forms: My [facility], Smoking Cessation Medications and DC Order Prescriptions: New pantoprazole 40 mg Tablet,Delayed Release (Dr/Ec) 40 mg PO HS 30 Days Qty: 30 RF: 1 prednisone 10 mg tablet 10 mg PO UD Qty: 9 RF: 0 Continued amlodipine 5 mg tablet 5 mg PO QAM RF: 0 simvastatin 20 mg tablet 20 mg PO HS RF: 0 sertraline 100 mg tablet 200 mg PO QAM RF: 0 hydroxychloroquine 200 mg tablet 200 mg PO BID RF: 0 triamcinolone acetonide 0.1 % Lotion 1 applic TOPICAL QAM RF: 0 fluticasone propionate 50 mcg/actuation [place],Suspension 2 spray INTRANASAL QAM RF: 0 oxycodone 5 mg Tablet 5 mg PO Q8H PRN (Reason: severe pain (scale score 7-10)) Qty: 10 RF: 0 Changed colchicine 0.6 mg tablet 0.6 mg PO BID 30 Days Qty: 60 RF: 0 Discontinued omeprazole 20 mg capsule,delayed release(DR/EC) 20 mg PO HS RF: 0 hydrochlorothiazide 25 mg tablet 25 mg PO QAM RF: 0 losartan 100 mg tablet 100 mg PO QAM RF: 0 aspirin 81 mg Tablet,Delayed Release (Dr/Ec) 81 mg PO HS RF: 0 furosemide [Lasix] 40 mg tablet 40 mg PO QAM 90 Days Qty: 90 RF: 0 acetaminophen [Tylenol Extra Strength] 500 mg Tablet 1,500 mg PO .TODAY PRN (Reason: Pain) RF: 0 Discharge Orders: Discharge Order (Routine); Ordered 08/16/21 Ordered By: Noé Oakes Admission Data Admit Date/Time: 08/10/21 12:03 Attending Provider: Noé Oakes Admit Provider: Maylin Alcaraz Primary Care Provider: Marquis Flores Other Providers: Maylin Alcaraz ; Guy Bower Muqueet Other Interventions: Discharge Summary Assessment (RN) Last Done: 08/16/21 14:59
--- NOTE | 2021-08-23 09:29 | Coding Query ---
CODING QUERY To promote full compliance with coding requirements relating to patient care, provider participation is requested in all cases of icd 9 coder uncertainty. Please assist us with the question(s) below: Please clarify the meaning of ZEE. ZEE is not a valid abbreviation. Thank you. ( X ) Acute Kidney Injury ( ) Acute Kidney Insufficiency ( ) Other (Specify): Principal Diagnosis: "that condition established after study, to be chiefly responsible for occasioning the admission of the patient to the hospital for care." Co-Existing Principal Diagnosis: "when two or more diagnoses equally meet the criteria for principal diagnosis as determined by the circumstances of admission, diagnostic work up, and/or therapy provided, and the Alphabetic Index, Tabular List, or another coding guideline does not provide sequencing direction, any one of the diagnoses may be sequenced first." "When the physician has documented what appears to be a current diagnosis in the body of the record, but has not included the diagnosis in the final diagnostic statement, the physician should be asked whether the diagnosis should be added." (Source Coding Clinic 2 QTR90. p3-4) TANYA
== END 2021-08-16 15:40 | disposition home or self-care (01) | DRG 315 ==
LOC: ED 09:45 → CC 12:02 → 1E 12:02 → SUATTDRO 12:03

== ENCOUNTER 2023-10-06 09:56 | Inpatient (IN) ==
--- NOTE | 2023-10-06 10:29 | Emergency Department Note ---
Impression & Plan Near syncope, Atypical chest pain ED Provider Note Provider: Emmanuel Bryant MD DATE OF SERVICE: 10/06/2023 CHIEF COMPLAINT: Near syncope, diaphoresis/sweating, shortness of breath, chest heaviness HISTORY OF PRESENT ILLNESS: Patient is a 63-year-old gentleman history of heart block with AICD and prediabetes presenting here today via ambulance from the [facility]. Patient was at the [facility] for a conference and carried a box up about a flight of stairs and sat down and felt some tunnel vision diaphoresis chest heaviness but not pain and shortness of breath. This has improved some. States the last few days has been having some chest heaviness. Denies syncope but again near syncope with some tunnel vision today. Denies any abdominal symptoms or fever cough or cold of significance. Denies significant leg swelling or recent travel. Patient states that his mother had a head bleed with a heart attack while on aspirin and he does not like to take aspirin and declined it and route. PAST MEDICAL HISTORY: As noted above MEDICATIONS: Reviewed home medications list not on aspirin. SOCIAL HISTORY: Non-smoker PHYSICAL EXAM: GENERAL: alert and oriented in no acute distress on stretcher Head: normocephalic and atraumatic EYES: No injection, discharge or icterus. NECK: Trachea midline. ENT: Mucous membranes pink and moist. LUNGS: Airway patent. No retractions. Breath sounds clear HEART: Regular rate and rhythm. No chest wall tenderness ABDOMEN: Soft and non-tender, without guarding or rebound. SKIN: Acyanotic, warm, dry, without rashes EXTREMITIES: Without swelling, tenderness or deformity NEUROLOGICAL: No focal deficits. No aphasia. No facial droop or slurred speech. Ambulatory. EK bpm atrially sensed ventricular paced rhythm without PVC. No clear acute ST segment elevation with an interventricular conduction delay. QTc 508. CONTINUOUS CARDIAC MONITORING: was ordered and showed a heart rate of 70s bpm in ventricular paced rhythm Patient's laboratory studies and imaging reviewed. Differential includes Cardiac ischemia, aortic dissection, pulmonary embolism, pneumothorax, pneumonia, pericarditis, myocarditis, esophageal rupture, GERD, cholecystitis, pancreatitis, musculoskeletal, as well as other pathologies. IMPRESSION/MEDICAL DECISION MAKING: EKG obtained which appears to be stable ventricular pacing. No obvious ischemic changes although again given the fact that he is ventricular paced some limitations. QTc 508. Pacemaker interrogation completed without significant arrhythmia noted discussion with the [employer] junior sales representative. Chest x-ray without acute process mild basilar atelectasis noted. Ambulatory to the bathroom here without issue and again not significantly hypoxic. Again patient hesitant for aspirin at this time. Denies significant chest heaviness at this point. Did have a pacemaker placed but no history of cardiac stenting by his report. Family history of heart issues. No other significant neurological deficit I doubt acute CVA. No headache reported. Blood work here without significant leukocytosis. No severe anemia. No evidence of significant lecture abnormality or renal dysfunction. Troponin here normal. Lipase not elevated no evidence of hepatitis or pancreatitis. Questionably exist if this exertional near syncopal episode is cardiac related. Discussed with the patient the findings. Discussed concerning nature. Patient was scheduled for an elective outpatient echo on Monday to follow the history of cardiac tamponade after pacemaker placement from several years ago. Follows with Dr. Givens; is director of search engine optimization is actually on-call so reached out discussed with him the findings and story today. He also agrees the patient should stay for further cardiac evaluation. Updated the patient and family at bedside and patient was reluctantly agreeable. Discussed with the hospitalist team. DIAGNOSIS: Atypical chest pain, near syncope DISPOSITION: Hospitalist will evaluate Patient was agreeable with this plan. Past Med/Surg History Problem List (Updated 10/06/23 @ 13:12 by Emmanuel Bryant M.D.) Atypical chest pain (Acute) Near syncope (Acute) Dyspnea Presence of combination internal cardiac defibrillator (ICD) and pacemaker Acute pericarditis Depression Complete heart block Cardiac pacemaker in situ (Acute) Syncope (Acute) Cardiac tamponade (Acute) Pre-diabetes GERD (gastroesophageal reflux disease) Gout Right knee DJD Medical History Complete heart block Cutaneous sarcoidosis Depression GERD (gastroesophageal reflux disease) Gout HLD (hyperlipidemia) HTN (hypertension) No pertinent family history TANNER on CPAP Pre-diabetes Surgical History History of arthroscopic knee surgery History of fusion of cervical spine History of hernia repair History of knee replacement procedure of right knee Family History Father , 57 Cancer pancreatitic Alcohol abuse Mother , 64 Myocardial infarction Stroke Social History Smoking Status: Never smoker Hx Alcohol Use: Yes Alcohol type: wine and hard liquor Alcohol type Comment: beer, bourbon Alcohol Intake Frequency: 2-3 x/Week Hx Substance Use: No Preferred Language: Slovenian Communication Ability: Effective Hr Analyst Required: No Beliefs That Will Affect Care: None marital status: Current Living Situation: Spouse Feels Safe at Home: Yes Assistive Devices: CPAP, Glasses and Hearing Aid - Bilateral Allergies Allergies Allergy/AdvReac Type Severity Reaction Status Date / Time No Known Allergies Allergy Unverified 08/31/21 10:18 Home Meds Home Medications Medication Instructions Recorded Confirmed amlodipine 5 mg tablet 5 mg PO [facility] 07/30/21 08/31/21 fluticasone propionate 50 2 spray intranasal [facility] 07/30/21 08/31/21 mcg/actuation nasal spray,suspension hydroxychloroquine 200 mg tablet 200 mg PO BID 07/30/21 08/31/21 sertraline 100 mg tablet 200 mg PO [facility] 07/30/21 08/31/21 simvastatin 20 mg tablet 20 mg PO HS 07/30/21 08/31/21 triamcinolone acetonide 0.1 % 1 applic topical [facility] 07/30/21 08/31/21 lotion Previous Rx's Medication Instructions Recorded oxycodone 5 mg tablet 5 mg PO Q8H PRN severe pain (scale 08/06/21 score 7-10) #10 tabs colchicine 0.6 mg tablet 0.6 mg PO BID 30 days #10 tabs 08/16/21 pantoprazole 40 mg tablet,delayed 40 mg PO HS 30 days #10 tabs 08/16/21 release Results & Data (ED) Vital Signs Vital Signs - 24 hr 10/06/23 09:57 10/06/23 10:10 10/06/23 10:10 Temperature 36.0 C L Temperature Source Temporal Artery Scan Pulse Rate 76 74 Pulse Rhythm Regular Respiratory Rate 20 18 Blood Pressure 138/82 Blood Pressure Mean 100 Pulse Oximetry 96 96 96 Oxygen Delivery Method Room Air Room Air Oxygen Flow Rate 0 Sepsis Recent Fever Within 48 Hours No Sepsis New/Unexplained Change in Mental Status N/A Sepsis Action Taken by Nursing No Action Required 10/06/23 10:17 10/06/23 10:45 Temperature Temperature Source Pulse Rate 73 72 Pulse Rhythm Respiratory Rate 19 Blood Pressure 128/82 Blood Pressure Mean 97 Pulse Oximetry 93 Oxygen Delivery Method Room Air Oxygen Flow Rate Sepsis Recent Fever Within 48 Hours Sepsis New/Unexplained Change in Mental Status Sepsis Action Taken by Nursing Laboratory Data 10/06/23 10:10 10/06/23 10:10 Lab Results 10/06/23 Range/Units 10:10 WBC 5.61 (4.8-10.8) K/ul RBC 4.55 L (4.70-6.10) M/uL Hgb 13.8 L (14.0-18.0) g/dl Hct 41.2 L (42.0-52.0) % MCV 90.5 (80.0-100.0) fL MCH 30.3 (25.0-34.0) pg MCHC 33.5 (32.0-36.0) g/dL RDW Std Deviation 47.6 H (36.4-46.3) fL RDW Coeff of Surya 14.3 (11.5-14.5) % Plt Count 109 L (130-400) K/uL MPV 9.4 (9.4-12.4) fL Immature Gran % (Auto) 0.2 % Neut % (Auto) 77.5 % Lymph % (Auto) 11.4 % Coffey % (Auto) 8.9 % Eos % (Auto) 1.6 % Baso % (Auto) 0.4 % Neut # (Auto) 4.35 (1.40-6.50) K/uL Lymph # (Auto) 0.64 L (1.20-3.40) K/uL Coffey # (Auto) 0.50 (0.11-0.59) K/uL Eos # (Auto) 0.09 (0.00-0.50) K/uL Baso # (Auto) 0.02 (0.00-0.20) K/uL Immature Gran # (Auto) 0.01 (0.01-0.20) K/uL PT 10.4 (9.0-12.0) Seconds INR 1.0 (0.9-1.1) APTT 28 (21-31) Seconds PTT Ratio 1.0 Sodium 137 (136-145) mmol/L Potassium 4.0 (3.5-5.1) mmol/L Chloride 102 (98-107) mmol/L Carbon Dioxide 28 (21-32) mmol/L Anion Gap 7 (3-11) BUN 24 H (6-23) mg/dl Creatinine 1.04 (0.6-1.4) mg/dl Est Cr Clr Drug Dosing 102.9 ml/min Est GFR ( Amer) 88.1 ml/min Est GFR (Non-Af Amer) 76.1 ml/min BUN/Creatinine Ratio 23.1 H (10-20) Glucose 91 (70-99(Fasting)) mg/dl Calcium 9.1 (8.6-10.3) mg/dl Total Bilirubin 1.0 (0.2-1.0) mg/dl AST 25 (13-39) U/L ALT 26 (7-52) U/L Alkaline Phosphatase 42 (34-104) U/L Troponin I High Sens 4.1 (0-20) pg/ml Total Protein 7.6 (6.0-8.3) gm/dl Albumin 4.5 (3.4-5.0) gm/dl Globulin 3.1 (2.5-4.0) gm/dl Albumin/Globulin Ratio 1.5 (0.9-2) Lipase 47 (11-82) U/L Imaging Data Radiologist's Impression: Chest X-Ray 10/06/23 10:03 XR chest 1V portable HISTORY: 63 years-old Male Chest pain, nonspecific COMPARISON: 08/31/2021 TECHNIQUE: AP view of the chest FINDINGS: Cardiac silhouette is enlarged. Left subclavian pacer/AICD. Cervical spinal fusion hardware. No pneumothorax, pleural effusion or pulmonary edema. Mild linear subsegmental bibasilar atelectasis versus scarring. The right lateral lung bases partially excluded from the [id number]. IMPRESSION: 1. Cardiomegaly without acute process. 2. Mild subsegmental bibasilar atelectasis. ACT 112: Negative or not required by law. The above report was generated using voice recognition software. It may contain grammatical, syntax or spelling errors. Electronically signed by: Brian Nieto M.D. 10/06/2023 10:30 AM Discharge Plan Visit Data Chief Complaint: Chest Pain Stated Complaint: CHEST TIGHTNESS, NAUSEA, SOB ED Provider: Emmanuel Bryant Discharge Problem: Near syncope, Atypical chest pain Patient Disposition: Being Evaluated by Hospitalist Forms Stand Alone Forms: My [facility] Prescriptions Prescriptions: No Action colchicine 0.6 mg tablet 0.6 mg PO BID 30 Days Qty: 10 0RF pantoprazole 40 mg tablet,delayed release (DR/EC) 40 mg PO HS 30 Days Qty: 10 1RF amlodipine 5 mg tablet 5 mg PO QAM simvastatin 20 mg tablet 20 mg PO HS sertraline 100 mg tablet 200 mg PO QAM hydroxychloroquine 200 mg tablet 200 mg PO BID triamcinolone acetonide 0.1 % Lotion 1 applic TOPICAL QAM Rx Instructions: apply to forehead fluticasone propionate 50 mcg/actuation [place],Suspension 2 spray INTRANASAL QAM oxycodone 5 mg Tablet 5 mg PO Q8H PRN (Reason: severe pain (scale score 7-10)) Qty: 10 0RF Rx Instructions: please hold for lethargy and drowsiness Referrals Referrals: Marquis Flores MD [Primary Care Provider] -
--- NOTE | 2023-10-06 10:31 | XRay Report ---
XR chest 1V portable HISTORY: 63 years-old Male Chest pain, nonspecific COMPARISON: 08/31/2021 TECHNIQUE: AP view of the chest FINDINGS: Cardiac silhouette is enlarged. Left subclavian pacer/AICD. Cervical spinal fusion hardware. No pneum othorax, pleural effusion or pulmonary edema. Mild linear subsegmental bibasilar atelectasis versus s carring. The right lateral lung bases partially excluded from the [id number]. IMPRESSION: 1. Cardiomegaly without acute process. 2. Mild subsegmental bibasilar atelectasis. ACT 112: Negative or not required by law. The above report was generated using voice recognition software. It may contain grammatical, syntax o r spelling errors. Electronically signed by: Brian Nieto M.D. 10/06/2023 10:30 AM
[2023-10-06 11:46] LABS: Basophils # (auto) 0.02 K/uL (0.00-0.20); Basophils % (auto) 0.4 %; Eosinophils # (auto) 0.09 K/uL (0.00-0.50); Eosinophils % (auto) 1.6 %; Hematocrit (blood only) 41.2 % (42.0-52.0); Hemoglobin 13.8 g/dl (14.0-18.0); Immature Granulocytes # (auto) 0.01 K/uL (0.01-0.20); Immature Granulocytes % (auto) 0.2 %; Lymphocytes # (auto) 0.64 K/uL (1.20-3.40); Lymphocytes % (auto) 11.4 %; Mean Corpuscular Hemoglobin 30.3 pg (25.0-34.0); Mean Corpuscular Hgb Conc 33.5 g/dL (32.0-36.0); Mean Corpuscular Volume 90.5 fL (80.0-100.0); Mean Platelet Volume 9.4 fL (9.4-12.4); Monocytes % (auto) 8.9 %; Neutrophils # (auto) 4.35 K/uL (1.40-6.50); Neutrophils % (auto) 77.5 %; Platelet Count 109 K/uL (130-400); RDW Coefficient of Variation 14.3 % (11.5-14.5); RDW Standard Deviation 47.6 fL (36.4-46.3); Red Blood Count 4.55 M/uL (4.70-6.10); White Blood Count 5.61 K/ul (4.8-10.8)
[2023-10-06 12:01] LABS: Albumin Globulin Ratio 1.5 (0.9-2); Albumin Level 4.5 gm/dl (3.4-5.0); BUN Creatinine Ratio 23.1 (10-20); Calcium 9.1 mg/dl (8.6-10.3); Creatinine Clr Calc Pharmacy 102.9 ml/min; Est GFR (African American) 88.1 ml/min; Est GFR (Non-African American) 76.1 ml/min; Globulin 3.1 gm/dl (2.5-4.0); Total Protein 7.6 gm/dl (6.0-8.3)
[2023-10-06 12:07] LABS: Troponin I High Sensitivity 4.1 pg/ml (0-20)
[2023-10-06 12:11] LABS: Partial Thromboplastin Time 28 Seconds (21-31); Prothrombin Time 10.4 Seconds (9.0-12.0)
--- NOTE | 2023-10-06 13:23 | History & Physical Report ---
Date of Service October 06, 2023 Assessment & Plan (1) Chest heaviness: (2) Near syncope: (3) Dyspnea: (4) Presence of combination internal cardiac defibrillator (ICD) and pacemaker: Plan: Guy Ramirez is a 63 y/o M with PMHx of dyslipidemia, gout, prediabetes, TANNER on BiPAP, complete heart block s/p pacemaker placement, HTN, depression and other problems listed below who presented to the ED via EMS for evaluation of chest heaviness and episode of near-syncope. Initial troponin negative. EKG performed in the ED interpreted by myself and reveals the following: atrial-sensed ventricular-paced rhythm w/ HR 72bpm, P-R Int 174ms, QT/QTc 464/508ms and QRS Dur 174ms. No acute electrolyte abnormalities, LFTs unremarkable. No evidence of acute kidney injury or acute anemic process. Chest x-ray revealed cardiomegaly without acute process, mild subsegmental bi basilar atelectasis. Currently 96% SpO2 on RA. No acute distress, no supplemental oxygen therapy required at this time. -Cardiology consult placed, appreciate the recommendations/input. -Echo pending, troponin negative at this time. Repeat troponin @ 2pm, 6pm. Lipid panel in AM. -HH, carb consistent diet ordered. Bowel regimen in place PRN. Continuous cardiac monitoring. -Plan to keep patient NPO at midnight pending potential need for stress echo, further testing in AM. -Continue statin therapy, repeat CBC and BMP in AM as well. Will also repeat Hgb A1C. --> Follow results. Declined aspirin therapy initially in the ED, but has taken this medication in the past and is not against using it if need be. --> Please refer to my HPI for more explanation regarding this situation. (5) Pre-diabetes: Plan: -Appears last hemoglobin A1C 5.2 on 09/22/22, will repeat hemoglobin A1C in AM. -He is currently diet controlled, not on any diabetic medication regimen at home. (6) HLD (hyperlipidemia): Plan: -Continue simvastatin therapy, repeat lipid panel in AM. (7) Depression: Plan: -Can continue [employer] Zoloft therapy while hospitalized. (8) Cutaneous sarcoidosis: Plan: -No any oral medication regimen, using topical triamcinolone daily per patient. -Can continue topical triamcinolone therapy while he hospitalized, applies to his scalp region. --> will be bringing in this medication for him. (9) TANNER (obstructive sleep apnea): Plan: -Currently on BiPAP therapy, can use home device while inpatient. -Order placed to do so, will be bringing in his machine. DVT Prophylaxis: Lovenox Code Status: Full Code PCP: Marquis Flores MD Dispo: Observation --> Med/Surg w/ Telemetry Patient seen in collaboration with Dr. Chawla. Please see addendum. I spent a total of 75 minutes coordinating, documenting, and providing care for this patient excluding time spent in the performance of separately billed services. This included personally reviewing all current laboratories and imaging studies, medical reconciliation, outpatient chart review and discussion with specialists. This chart was completed in part utilizing Speech Voice Recognition Software. Grammatical errors, random word insertions, pronoun errors, and incomplete sentences are an occasional consequence of this system due to software limitations, ambient noise, and hardware issues. Any formal questions or concerns about the content, text, or information contained within the body of this dictation should be directly addressed to the provider for clarification. History of Present Illness Chief Complaint: Chest heaviness, episode of near syncope Primary Care Provider: Marquis Flores MD Guy Ramirez is a 63 y/o M with PMHx of dyslipidemia, gout, prediabetes, TANNER on BiPAP, complete heart block s/p pacemaker placement, HTN, depression and other problems listed below who presented to the ED via EMS for evaluation of chest heaviness and episode of near-syncope. History obtained from patient, and associated ED/PCP/specialist records. Patient seen with Dr. Chawla in the ED. Patient's present at bedside, provides additional history. Patient states he was attending a conference over at the [employer] and suddenly became very dizzy/sweaty when carrying a heavy box up stairs. Patient reports he was near syncope, but never lost consciousness (just felt like he was going to). Symptoms resolved with rest and application of an ice pack on his neck. He was still dizzy somewhat upon arrival to the ED, but that has since resolved. Patient states he has been experiencing some intermittent chest heaviness for the past few days, but states its "nothing that significant." It appears the these "chest heaviness" episodes have resolved with rest, no medical/medication intervention required. He has felt short of breath intermittently for the past few days as well. Patient reports that he "gets winded" when moving heavy objects or participating in increased activity. reports that he stated it felt like "something heavy was sitting on his chest" this morning, but ultimately that feeling subsided without any intervention. Patient does not feel anything is wrong. Reports his "heart history has not been arterial, more electrical." Him and his have been walking a couple miles here and there occasionally, and he does have to stop to rest intermittently but states it is not out of the normal for him to do so. He has never felt his ICD device go off. No tobacco history, occasional alcohol use. Patient reports drinking sometimes more than 2 drinks/day in the past 2 weeks. Wears BiPAP at home, will bring this in for him to wear at night during his hospitalization here. He reports being on aspirin in the past, but is very hesitant regarding being placed on any anticoagulation medication following an episode where his mother had a brain bleed following administration of "clot- busting" medication. Denies any abdominal pain, urinary or bowel habit changes. No true chest pain, only chest heaviness per patient. Has not noticed any leg swelling, changes in his appetite. Seems he lives a pretty active lifestyle recently with his , as alluded to previously. Initial troponin negative. EKG performed in the ED interpreted by myself and reveals the following: atrial-sensed ventricular-paced rhythm w/ HR 72bpm, P-R Int 174ms, QT/QTc 464/508ms and QRS Dur 174ms. No acute electrolyte abnormalities, LFTs unremarkable. No evidence of acute kidney injury or acute anemic process. Chest x-ray revealed cardiomegaly without acute process, mild subsegmental bibasilar atelectasis. Allergies Allergy/AdvReac Type Severity Reaction Status Date / Time hydroxychloroquine Allergy Rash Verified 10/06/23 13:38 Home Medications Medication Instructions Recorded Confirmed Type acetaminophen 500 mg tablet 1,500 mg PO BID PRN Pain 10/06/23 10/06/23 History (Tylenol Extra Strength) amlodipine 10 mg tablet 10 mg PO DAILY 10/06/23 10/06/23 History chlorthalidone 25 mg tablet 25 mg PO QAM 10/06/23 10/06/23 History fluticasone propionate 50 2 spray intranasal DAILY PRN Nasal 10/06/23 10/06/23 History mcg/actuation nasal Congestion spray,suspension (Flonase Allergy Relief) furosemide 20 mg tablet 20 mg PO DAILY 10/06/23 10/06/23 History losartan 100 mg tablet 100 mg PO QAM 10/06/23 10/06/23 History metoprolol succinate 50 mg 75 mg PO QAM 10/06/23 10/06/23 History tablet,extended release 24 hr omeprazole 20 mg capsule,delayed 20 mg PO QAM 10/06/23 10/06/23 History release sertraline 100 mg tablet 200 mg PO QAM 10/06/23 10/06/23 History simvastatin 20 mg tablet 20 mg PO HS 10/06/23 10/06/23 History triamcinolone acetonide 0.1 % 1 applic topical DAILY 10/06/23 10/06/23 History topical cream Past Med/Surg History Problem List (Updated 10/06/23 @ 14:52 by Atiya Collier PA-C) Cutaneous sarcoidosis TANNER (obstructive sleep apnea) Atypical chest pain HLD (hyperlipidemia) Dyslipidemia Chest heaviness Near syncope (Acute) Dyspnea Presence of combination internal cardiac defibrillator (ICD) and pacemaker Acute pericarditis Depression Complete heart block Cardiac pacemaker in situ (Acute) Syncope (Acute) Cardiac tamponade (Acute) Pre-diabetes GERD (gastroesophageal reflux disease) Gout Right knee DJD Medical History (Updated 10/06/23 @ 14:52 by Atiya Collier PA-C) Family history of ischemic heart disease Bradycardia Third degree heart block RICHARDSON (dyspnea on exertion) Complete heart block TANNER on CPAP No pertinent family history HTN (hypertension) Surgical History History of hernia repair History of fusion of cervical spine History of arthroscopic knee surgery History of knee replacement procedure of right knee Family History Father , 57 Cancer pancreatitic Alcohol abuse Mother , 64 Myocardial infarction Stroke Social History Smoking Status: Never smoker Hx Alcohol Use: Yes Alcohol type: wine and hard liquor Alcohol type Comment: beer, bourbon Alcohol Intake Frequency: 2-3 x/Week Hx Substance Use: No Preferred Language: Persian Communication Ability: Effective Director Of Promotions Required: No Beliefs That Will Affect Care: None marital status: Current Living Situation: Spouse Feels Safe at Home: Yes Assistive Devices: CPAP, Glasses and Hearing Aid - Bilateral Review of Systems Review of Systems: At least ten systems reviewed and negative, except as noted in the HPI. Physical Exam Physical Exam: Please refer to Dr. Chawla' addendum for physical examination findings, as we saw the patient together in the ED and she performed the physical examination herself. Results & Data Results & Data Vital Signs (Past 12 Hours) Vital Signs Temp Pulse Resp BP Pulse Ox O2 Del Method O2 Flow Rate 10/06/23 10:45 72 19 128/82 93 Room Air 10/06/23 10:17 73 10/06/23 10:10 74 18 96 Room Air 10/06/23 10:10 96 Room Air 0 10/06/23 09:57 36.0 C L 76 20 138/82 96 Laboratory Results Short CBC 10/06/23 Range/Units 10:10 WBC 5.61 (4.8-10.8) K/ul Hgb 13.8 L (14.0-18.0) g/dl Hct 41.2 L (42.0-52.0) % Plt Count 109 L (130-400) K/uL BMP 10/06/23 10:10 Sodium 137 Potassium 4.0 Chloride 102 Carbon Dioxide 28 BUN 24 H Creatinine 1.04 Glucose 91 Calcium 9.1 Liver Function 10/06/23 Range/Units 10:10 Total Bilirubin 1.0 (0.2-1.0) mg/dl AST 25 (13-39) U/L ALT 26 (7-52) U/L Alkaline Phosphatase 42 (34-104) U/L Albumin 4.5 (3.4-5.0) gm/dl Diagnostic Findings Chest X-Ray 10/06/23 10:03 XR chest 1V portable HISTORY: 63 years-old Male Chest pain, nonspecific COMPARISON: 08/31/2021 TECHNIQUE: AP view of the chest FINDINGS: Cardiac silhouette is enlarged. Left subclavian pacer/AICD. Cervical spinal fusion hardware. No pneumothorax, pleural effusion or pulmonary edema. Mild linear subsegmental bibasilar atelectasis versus scarring. The right lateral lung bases partially excluded from the [id number]. IMPRESSION: 1. Cardiomegaly without acute process. 2. Mild subsegmental bibasilar atelectasis. ACT 112: Negative or not required by law. The above report was generated using voice recognition software. It may contain grammatical, syntax or spelling errors. Electronically signed by: Brian Nieto M.D. 10/06/2023 10:30 AM ECG Additional Comments: EKG performed in the ED interpreted by myself and reveals the following: atrial- sensed ventricular-paced rhythm w/ HR 72bpm, P-R Int 174ms, QT/QTc 464/508ms and QRS Dur 174ms. Code Status & VTE Plan VTE Prophylaxis Plan VTE Prophylaxis will be ordered: Yes Supervising Physician Co-Signing Physician Notes I have seen and discussed the case with the collaborating advanced practitioner. I agree with the above H&P. I have reviewed and confirmed the patients medical history, the findings on physical examination, and the patients diagnosis and treatment plan with Fabio MATHIS and agree with the information documented. In short, Mr. Ramirez is a 63 year old gentleman with hx of CHB s/p dcICD and other comorbidities who is admitted for evaluation of exertional angina. Patient states he has been more physically active for the last 2 days, noting pressure and SOB. Today was more marked--as he attempted to climb stairs while holding a box, he noted diaphoresis, pallor, chest pressure--all which resolved with rest. GENERAL APPEARANCE: AxOx4, generally well-appearing M, no acute distress. HEENT: NC, AT. MMM. EOMI, clear conjunctiva, oropharynx clear. NECK: Supple without lymphadenopathy. No stiffness or restricted ROM. HEART: Normal rate and regular rhythm, normal S1/S1, no m/r/g LUNGS: CTAB, moving air well. No crackles or wheezes are heard. ABDOMEN: Soft, nontender, nondistended with good bowel sounds heard. BACK: No CVAT, no obvious deformity. EXTREMITIES: Without cyanosis, clubbing or edema. NEUROLOGICAL: Grossly nonfocal. Alert and oriented, moving all 4 extremities. CN not formally tested but appear grossly intact. Observed to ambulate with normal gait. Skin: Warm and dry without any rash. #Chest pain, suspicious for Stable Angina -substernal pressure on exertion, resolves with rest, no noted EKG changes Trop negative at this time Declined ASA at this time, but open to taking if necessary -add asa Continue Statin Lipid panel and A1C in am Monitor on tele Trend trop x 3 ECHO Cards consult Cath on monday, NPO Monday #CHB s/p dcICD #Paroxysmal atrial fibrillation, not on AC #Hx of tamponade 2/2 lead perforation EKG atrial pacing Monitor on tele no device discharges per patient #TANNER on BIPAP, can use home device #Cutaneous sarcoidosis no reports of active lesions, not on hydrochloroquine rest of plan as above I spent a total of 35 minutes coordinating, documenting, and providing care for this patient excluding time spent in the performance of separately billed services. All of the aforementioned completed outside of collaborating with the assigned advanced practitioner for a full treatment plan. I have reviewed the advanced practitioner's documentation, and I agree with, and take responsibility for the plan of care (3) Dyspnea Dyspnea type: dyspnea on exertion Qualified Code(s): R06.09 - Other forms of dyspnea (6) HLD (hyperlipidemia) Hyperlipidemia type: unspecified Qualified Code(s): E78.5 - Hyperlipidemia, unspecified (7) Depression Depression Type: unspecified Qualified Code(s): F32.A - Depression, unspecified
--- NOTE | 2023-10-06 13:48 | Cardiology Consultation ---
Date of Consultation October 06, 2023 Assessment & Plan (1) Chest heaviness: (2) Near syncope: (3) Dyspnea: (4) Presence of combination internal cardiac defibrillator (ICD) and pacemaker: (5) Complete heart block: (6) Cardiac pacemaker in situ: (7) Dyslipidemia: (8) Family history of ischemic heart disease: Plan 63-year-old male with recent issues of chest heaviness and exertional dyspnea, experiencing a near syncopal episode after mild exertional that wsa associated with dyspnea and diaphoresis. EKG with a ventricular paced rhythm. Initial high-sensitivity troponin negative. Chest x-ray without acute process. Device interrogation without arrhythmia or malfunction. Blood pressure normotensive. Examination without overt hypervolemia. Recommendations: Aspirin Beta-humberto Statin Serial cardiac enzymes, additional labs as ordered Resting echocardiography Lexiscan nuclear stress testing versus diagnostic cardiac catheterization to be determined. Further recommendations pending the above, evaluation by Dr. Givens, patient's ongoing hospitalization. I spent a total of 50 minutes on the date of service in preparation, delivery, and documentation of the care provided to this patient excluding any time spent in the performance of separately billed services. This visit was a split-shared visit with the substantive portion of the medical decision making performed by the supervising appointment scheduler/billing provider. Supervising Physician Co-Signing Physician Notes I have personally performed a history and physical examination on the patient. I have reviewed the advance practitioner's documentation, and I agree with, and take responsibility for the plan of care. 63-year-old male present to the emergency department episode of exertional chest heaviness and near syncope. Denies any resting symptoms. Notes reproducible discomfort when performing moderate to very including yard work. History suggestive of exertional angina. No personal history of coronary disease, cedric estive heart failure, or diabetes. Currently pain-free. Natural cardiac enzymes within normal limits. Further ischemic evaluation indicated. Discussed Lexiscan nuclear stress testing versus coronary angiography. Due to the typical nature of patient's anginal symptoms, he is agreeable to left heart catheterization with coronary angiography. Planned procedure Monday10/09/2023. N.p.o. except medications on Monday night. Add full dose aspirin. Transition simvastatin to high intensity statin therapy. Continue metoprolol succinate, losartan, amlodipine, and furosemide as previously ordered. I spent a total of 45 minutes on the date of service in preparation, delivery, and documentation of the care provided to this patient, excluding any time spent in the performance of separately billed services. History of Present Illness Reason for Consultation: Chest heaviness, near syncope Requesting Physician: Mani Blanton Attending Physician: Mani Blanton History of Present Illness Mr. Guy Ramirez is a very pleasant 63-year-old male who has been experiencing heaviness in the chest the last few days along with some exertional dyspnea. This morning he picked up a colleague to go to the [facility] for a [facility] [employer] [place]. When walking up one flight of stair while carrying a box he developed significant diaphoresis and dyspnea, experiencing a sensation of dizziness and some tunnel vision. He notes sitting down and drinking water and using an ice pack. He notes sitting there for 10 to 15 minutes and starting to feel better. Thereafter his Tamika picked him up and brought him to the ER for further evaluation. EKG for revealed a ventricular paced rhythm. Initial high-sensitivity troponin negative at 4.1 pg/mL. Chest x-ray without acute process. Laboratory work revealed mild anemia with a hemoglobin of 13.8. Platelet count was low at 109 K. Creatinine was normal at 1.04. He describes eating a good breakfast this morning, as per his norm. No recent illnesses. No vomiting. No diarrhea. No melena or hematochezia. No hematuria or dysuria. No recent medication changes. Lives in [place], [facility]. One dog. Yard is treated for ticks. No palpitations. No resting shortness of breath. No orthopnea, PND, or peripheral edema. No true syncope. No fevers or chills. No night sweats. Past Medical and Surgical History: High degree AV block status post dual chamber ICD implantation on 08/05/[address] Beebe at [facility] ICD implanted due to concerns regarding possible sarcoid cardiac involvement History of cardiac tamponade s/p pericardiocentesis r/t ICD implantation Cutaneous sarcoidosis, diagnosed 2016 and 2018 after skin biopsy from the scalp region. Treated with hydroxychloroquine from 2018 to 08/2021, discontinued due to development of a rash thought to be an allergic reaction from the hydrochloroquine. Paroxysmal atrial fibrillation via device interrogation No anticoagulation, patient preference Hypertension Dyslipidemia Prediabetes Obstructive sleep apnea on BiPAP therapy Obesity Cervical disc disease status post fusion Gout Hernia repair Knee medial meniscectomy Right total knee arthroplasty Hydrocele repair will Inguinal hernia repair Family History: Father at 57 with pancreatic cancer. Mother had severe long hypertension, suffering an SC with resultant hemorrhagic CVA. Brother with CAD and CHF. Maternal grandmother with CAD. Paternal grandmother with a CVA. Social History: Never smoker. No smokeless tobacco. Alcohol: 2 shots of whiskey daily. No illegal drug use. 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 Allergies Allergy/AdvReac Type Severity Reaction Status Date / Time hydroxychloroquine Allergy Rash Verified 10/06/23 13:38 Home Medications Medication Instructions Recorded Confirmed Type acetaminophen 500 mg tablet 1,500 mg PO BID PRN Pain 10/06/23 10/06/23 History (Tylenol Extra Strength) amlodipine 10 mg tablet 10 mg PO DAILY 10/06/23 10/06/23 History chlorthalidone 25 mg tablet 25 mg PO QAM 10/06/23 10/06/23 History fluticasone propionate 50 2 spray intranasal DAILY PRN Nasal 10/06/23 10/06/23 History mcg/actuation nasal Congestion spray,suspension (Flonase Allergy Relief) furosemide 20 mg tablet 20 mg PO DAILY 10/06/23 10/06/23 History losartan 100 mg tablet 100 mg PO QAM 10/06/23 10/06/23 History metoprolol succinate 50 mg 75 mg PO QAM 10/06/23 10/06/23 History tablet,extended release 24 hr omeprazole 20 mg capsule,delayed 20 mg PO QAM 10/06/23 10/06/23 History release sertraline 100 mg tablet 200 mg PO QAM 10/06/23 10/06/23 History simvastatin 20 mg tablet 20 mg PO HS 10/06/23 10/06/23 History triamcinolone acetonide 0.1 % 1 applic topical DAILY 10/06/23 10/06/23 History topical cream Patient History Medical History Bradycardia Third degree heart block RICHARDSON (dyspnea on exertion) Complete heart block Cutaneous sarcoidosis TANNER on CPAP HLD (hyperlipidemia) No pertinent family history HTN (hypertension) Surgical History History of hernia repair History of fusion of cervical spine History of arthroscopic knee surgery History of knee replacement procedure of right knee Family History Father , 57 Cancer pancreatitic Alcohol abuse Mother , 64 Myocardial infarction Stroke Social History Smoking Status: Never smoker Hx Alcohol Use: Yes Alcohol type: wine and hard liquor Alcohol type Comment: beer, bourbon Alcohol Intake Frequency: 2-3 x/Week Hx Substance Use: No Preferred Language: Guyanese Communication Ability: Effective 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 Physical Exam Physical Exam: General: A&Ox3. NAD. HENT: Normocephalic. Atraumatic. Eyes: PER. Conjunctiva pink, sclera clear. Neck: No carotid bruits. No JVD. Heart: Regular, paced. Systolic murmur. No diastolic murmur. Lungs: Clear to auscultation. Abdomen: +BS. No organomegaly. Extremities: No clubbing, cyanosis, or edema. Limited neurological examination is without focal deficits. Pulses: Posterior tibial=2/4. Results & Data Vital Signs (Past 12 Hours) Vital Signs Temp Pulse Resp BP Pulse Ox O2 Del Method O2 Flow Rate 10/06/23 10:45 72 19 128/82 93 Room Air 10/06/23 10:17 73 10/06/23 10:10 74 18 96 Room Air 10/06/23 10:10 96 Room Air 0 10/06/23 09:57 36.0 C L 76 20 138/82 96 Laboratory Results Cardiac Enzymes 10/06/23 Range/Units 10:10 AST 25 (13-39) U/L Troponin I High Sens 4.1 (0-20) pg/ml Coagulation 10/06/23 Range/Units 10:10 PT 10.4 (9.0-12.0) Seconds APTT 28 (21-31) Seconds CBC 10/06/23 Range/Units 10:10 WBC 5.61 (4.8-10.8) K/ul RBC 4.55 L (4.70-6.10) M/uL Hgb 13.8 L (14.0-18.0) g/dl Hct 41.2 L (42.0-52.0) % Plt Count 109 L (130-400) K/uL Neut # (Auto) 4.35 (1.40-6.50) K/uL Lymph # (Auto) 0.64 L (1.20-3.40) K/uL Benton # (Auto) 0.50 (0.11-0.59) K/uL Eos # (Auto) 0.09 (0.00-0.50) K/uL Baso # (Auto) 0.02 (0.00-0.20) K/uL Comprehensive Metabolic Panel 10/06/23 Range/Units 10:10 Sodium 137 (136-145) mmol/L Potassium 4.0 (3.5-5.1) mmol/L Chloride 102 (98-107) mmol/L Carbon Dioxide 28 (21-32) mmol/L BUN 24 H (6-23) mg/dl Creatinine 1.04 (0.6-1.4) mg/dl Glucose 91 (70-99(Fasting)) mg/dl Calcium 9.1 (8.6-10.3) mg/dl AST 25 (13-39) U/L ALT 26 (7-52) U/L Alkaline Phosphatase 42 (34-104) U/L Total Protein 7.6 (6.0-8.3) gm/dl Albumin 4.5 (3.4-5.0) gm/dl Intake and Output 10/05/23 10/06/23 10/06/23 22:59 06:59 14:59 Other: Weight 130.3 kg Weight Measurement Method Chair Scale Patient Weight 10/07/23 06:59 Weight 130.3 kg Diagnostic Findings Chest x-ray revealed an enlarged cardiac silhouette with left subclavian pacemaker defibrillator, cervical spine fusion hardware, and mild linear subsegmental bibasilar atelectasis versus scarring. Device interrogation performed on October 06, 2023 at 10:59:23 demonstrated appropriate function, 7 years remaining longevity. AT/AF (23 seconds in total from December 23, 2022 to October 06, 2023, nothing in September 2023). No VT. No VF. OptiVol 2.0 fluid index below threshold. 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 EKG on October 06, 2023 revealed an atrial sensed ventricular paced rhythm
[2023-10-06] MEDS ORDERED: FLUTICASONE PROPIONATE NA SPR 16 GM BTL PRN (14:02)
--- NOTE | 2023-10-06 15:05 | Communication Note ---
Date of Service: October 06, 2023 Patient was seen and evaluated by cardiology in the ED [Mitch Hou PA-C & Dr. Givens]. Appears his history is suggestive of exertional angina. Per their documentation, patient will be undergoing left heart catheterization w/ coronary angiography on Monday morning (10/09/23). He will need to be NPO Monday night, except his medications. Patient to be placed on full dose aspirin, and plan is to transition him from simvastatin to high-intensity statin therapy. OK to continue metoprolol succinate, losartan, amlodipine and furosemide. Per cardiology's documentation: "Device interrogation performed on October 06, 2023 at 10:59:23 demonstrated appropriate function, 7 years remaining longevity. AT/AF (23 seconds in total from December 23, 2022 to October 06, 2023, nothing in September 2023). No VT. No VF. OptiVol 2.0 fluid index below threshold. 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
[2023-10-06] MEDS ORDERED: POLYETHYLENE (MIRALAX) 17 GM PACK PO PRN (15:44)
[2023-10-06] MEDS ORDERED: LORazepam 1 MG TAB PO PRN (15:44)
[2023-10-06] MEDS ORDERED: ONDANSETRON INJ 2 MG/ML 2 ML VIAL IV PRN (15:44)
[2023-10-06] MEDS ORDERED: MAGNESIUM HYDROXIDE SUSP 30 ML UDC PO PRN (15:44)
[2023-10-06] MEDS ORDERED: ALUMINUM/MAGNESIUM SUSP 30 ML UDC PO PRN (15:44)
[2023-10-06] MEDS: ASPIRIN 81 MG ECTAB PO ONE (16:59)
[2023-10-06] MEDS: ENOXAPARIN INJ 40 MG/0.4 ML SYR SQ SCH (18:39)
[2023-10-06] MEDS: ACETAMINOPHEN 325 MG TAB PO PRN (19:45)
[2023-10-06] MEDS: ATORVASTATIN 40 MG TAB PO SCH (19:45)
[2023-10-06] MEDS: PANTOprazole 40 MG TAB PO SCH (20:31)
[2023-10-06] MEDS ORDERED: SIMVASTATIN 40 MG TAB PO SCH (21:00)
[2023-10-06] MEDS ORDERED: SIMVASTATIN 20 MG TAB PO SCH (21:00)
--- OUTSIDE RECORDS SUMMARY | 2023-10-07 04:26 | External Medical Summary | Summary of Care ---
Author Name Unknown Organization [facility] Address [address] [place] [address] Phone [phone] Care Team Providers Care Dust Box Worker Name Role Phone Marquis Flores MD Primary Care Provider + Reason for Referral * Precert (Within 10 days (routine)) - Pending Review Specialty Diagnoses / Procedures Referred By Contac t Referred To Contact Cardiac Studies Diagnoses Complete heart block (HCC) Sarcoidosis Procedures ECHO, COMPLETE (2D), TRANS-THORACIC Kathryn Lynn CRNP [address] [place] [id number] Referral ID Status Reason Start Date Expiration Date Visits Requested Visits Authorized [id number] Pending Review Precert 07/25/2023 999 999 Reason for Visit * Reason Comments Follow Up Encounter Details Date Type Department Care Team (Late st Contact Info) Description 07/25/2023 8:30 AM EDT Office Visit Cardiology, [facility] [address] [place] [phone] Kathryn Lynn CRNP [address] [place] [id number] Complete heart block (HCC)*; Sarcoidosis Allergies Active Allergy Reactions Criticality Noted Date Comments Hydroxychloroquine 12/27/2021 Total body rash documented as of this encounter (statuses as of 07/25/2023) Medications Medication Sig Dispensed Refills Start Date End Date Status fluticasone (FLONASE) 50 MCG/ACT nasal spray USE 2 SPRAYS IN EACH NOSTRIL DAILY 1 Bottle 2 06/08/2015 Active Acetaminophen 500 MG Oral Tablet (Tylenol) 3 Tablets. 0 08/10/2021 Active amLODIPine Besylate 10 MG Oral Tablet (Norvasc) Take 1 Tablet (10 mg) by mouth in the morning. 90 Tablet 3 03/16/2022 Active Allopurinol 300 MG Oral Tablet (Zyloprim) Take 1 Tablet by mouth in the morning. 90 Tablet 3 10/27/2022 Active Simvastatin 20 MG Oral Tablet (Zocor)Indicatio ns:Hyperlipidemi a with target LDL less than 100 TAKE 1 TABLET EVERY NIGHT AT BEDTIME 90 Tablet 3 12/09/2022 Active Furosemide 20 MG Oral Tablet (Lasix)Indicatio ns:Complete heart block (HCC),Sarcoidosi s,HTN, goal below 140/90 TAKE 1 TABLET IN THE MORNING 90 Tablet 3 12/09/2022 Active Omeprazole 20 MG Oral Capsule Delayed Release (PriLOSEC) TAKE 1 CAPSULE IN THE MORNING 90 Capsule 3 02/04/2023 Active Losartan Potassium 100 MG Oral Tablet (Cozaar) Take 1 Tablet by mouth in the morning. In the morning.. 90 Tablet 3 02/22/2023 Active Chlorthalidone 25 MG Oral Tablet (Hygroton)Indica tions:HTN, goal below 130/80 Take 1 Tablet by mouth in the morning. In the morning.. 90 Tablet 3 04/12/2023 Active Triamcinolone Acetonide 0.1 % External Cream (Aristocort) Apply topically to affected area 2 times a day. Apply to scalp 1-2 times daily 80 g 3 04/13/2023 Active Metoprolol Succinate ER 50 MG Oral Tablet Extended Release 24 Hour (toPROL XL)Indications:C omplete heart block (HCC),Sarcoidosi s,HTN, goal below 140/90 TAKE ONE AND ONE-HALF TABLETS IN THE MORNING 135 Tablet 3 04/20/2023 Active Sertraline HCl 100 MG Oral Tablet (Zoloft)Indicati ons:Depression, major, recurrent, mild (HCC) Take 2 Tablets by mouth in the morning. 180 Tablet 1 05/29/2023 Active BiPAP every night at bedtime. 0 Active CPAP every night at bedtime. 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 Present several years on scalp. Tinnitus of both ears 01/15/2018 Overview: ulbrecht-hearing aides. Prediabetes 01/15/2018 Depression, major, recurrent, mild 05/18/2017 History of nonmelanoma skin cancer 03/27/2017 Overview: Hx of BCC on nose & forehead TANNER on CPAP 10/22/2014 Overview: CPAP settings ? 02/20/13 Titration -- CPAP 14 cwp, resolution of hypoxemia 02/09/13 PSG -- AHI 65.9, <90% 89.3 mins [facility] (previously [facility] in ) Routine general medical exam ination at a health care facility 07/18/2014 Overview: 09/20 TTE normal EF , mild valve 10/20 PFT WNl. Refer sarcoid clinc. 08/20 Complete heart block. Pacemaker placed. Followed by cardiac tamponade TTE [facility] normal EF. +elev right vent pressures. 12/18 colon 6 & 5mm plyp PATH Pend: hyperplastic and adenoma russ 5y 03/19 cutaneous sarcoid 12/13 +polyp path hyperplastic. Colonoscopy. Russ 5y Dyslipidemia HTN, goal below 130/80 Gout Cervical vertebral fusion documented as of this encounter (statuses as of 07/25/2023) Resolved Problems Problem Noted Date Diagnosed Date Resolved Date Status post total right knee replacement 05/17/2016 06/06/2020 Numbness in feet 05/17/2016 06/06/2020 Overview: 2016 labs WNL. Consider EMG if worsening Hoarseness 09/02/2014 05/17/2016 Post-nasal drip 07/18/2014 06/06/2020 Allergic rhinitis 07/18/2014 06/06/2020 History of basal cell carcinoma (BCC) 06/06/2020 Overview: BCC documented as of this encounter (statuses as of 07/25/2023) Immunizations Name Administration Dates Next Due COVID-19 mRNA, LNP-s, No Pre serve, 2-Dose Series (SimpliVT) 02/03/2021,07/30/2020,07/04/2020 COVID-19, LNP-s, No Preserve , Jay-sucrose, Ages 12+ (SimpliVT) 10/07/2021 COVID-19, MRNA-LNP, 23-24, P F, 30 MCG/0.3 mL, 12 YRS AND ABOVE, IM ([email or web address]) 03/06/2023 Covid-19, Mrna, Lnp-s, Pf, B ivalent, 30 Mcg, IM, 12 yrs and above (SimpliVT) 02/12/2022 HEP A - Hepatitis A (Adult > 18 yrs) 08/12/2015, 05/01/2010 PPD 03/11/2015 Pneumococcal Conjugate Vacci ne, 20-valent ([id number]) 09/22/2022 Pneumococcal Polysaccharide PPV23 (Pneumovax) 08/19/2021 RSV Vac., Bivalent, Perfusio n F, Pf,0.5 Ml (Abrysvo) 04/12/2023 Rabies Vaccine (Rabavert) 09/11/2015,08/19/2015, 08/12/2015 Seasonal Influenza Virus Vac cine, Unspecified Formulation 02/12/2022,02/03/2021 Seasonal Influenza, PF, 6 M & above, IM , (FluLaval or Fluzone) 01/11/2023,01/17/2020,03/05/2019,01/15,01/30/2017 Seasonal Influenza, QUAD, wi th Preserv, 6 mons & Above, 0.5 mL, IM 02/12/2022 Seasonal Influenza, Quadriva lent, No Preserve, IM 02/29/2016 Seasonal Influenza, Split, I IV3, With Preserve, Inj 01/08/2015,03/05/2014 TDAP (age 10 and older)(Boostrix) 05/13/2015 Typhoid VICPs Parenteral, 2 years and above (Typhim ) 08/12/2015 Zoster Vaccine Recombinant (Shingrix) 11/28/2019 ,05/31/2019 documented as of this encounter Social History Tobacco Use Types Packs/Day Years Used Date Smoking Tobacco: Never Smokeless Tobacco: Never Tobacco Cessation:Counseling Given: Not Answered Alcohol Use Standard Drinks/Week Comments Yes 0 (1 standard drink = 0.6 oz pur e alcohol) 2-3 times/wk PHQ-2 Answer Date Recorded PHQ Adult Total Score 0 04/12/2023 Hunger Vital Sign Answer Date Recorded Within the past 12 months, y ou worried that your food would run out before you got the money to buy more. Never true 09/17/19 23 Within the past 12 months, t he food you bought just didn't last and you didn't have money to get more. Never true 09/16/2022 Sex and Gender Information Value Date Recorded Sex Assigned at Male 09/16/2022 11:49 AM EDT Gender Identity Male 09/16/2022 11:49 AM EDT Sexual Orientation Straight 09/16/2022 11 :49 AM EDT Job Start Date Occupation Industry Not on file Not on file Not on file documented as of this encounter Last Filed Vital Signs Vital Sign Reading Time Taken Comments Blood Pressure 128/76 07/25/2023 8:32 AM EDT Pulse 76 07/25/2023 8:32 AM EDT Temperature - - Respiratory Rate - - Oxygen Saturation 97% 07/25/2023 8:32 AM EDT Inhaled Oxygen Concentration - - Weight 133.4 kg (294 lb) 07/25/2023 8:32 AM EDT Height - - Body Mass Index 38.79 05/18/2022 9:24 AM EST documented in this encounter Progress Notes * Kathryn Lynn CRNP - 07/25/2023 8:30 AM EDT Cardiology Outpatient Visit 07/25/2023 Primary Cook Fast Food: Dr. Givens Past medical history: Hx of 3rd degree AVB s/p dual chamber ICD implantation, 08/05/[address] Beebe at [facility] ICD implanted (instead of dual chamber pacemaker) due to concerns regarding possible sarcoid cardiac involvement Hx of cardiac tamponade s/p pericardiocentesis r/t ICD implantation PAF, seen on device interrogation 01/10. [place] less than 0.1%, no AC- patient preference [id number] score of 1 HTN TANNER, bipap Obesity Cutaneous sarcoidosis, diagnosed 2016 and 2018 after skin biopsy from the scalp region. Was treatedwith chronic hydroxychloroquine from 2018 to 08/2021 but stopped due to development of a rash thought to be an allergic reaction from the hydrochloroquine. Following with Pulmonary, normal PFTs- no respiratory treatment needed at this time HPI Very pleasant 63-year-old male presenting to the cardiology office today in routine follow-up. Was last evaluated by Dr. Givens approximately 3 months ago. At this time he had concerns regarding hypertension. Losartan was increased. Hydrochlorothiazide was discontinued in favor of chlorthalidone. Today the patient presents feeling well and offers no acute concerns. No chest pain, shortness of breath, palpitations, dizziness, syncope or near syncope. No orthopnea, PND, or increased lower extremity edema. No fever, chills, cough, hematochezia, melena, or hemoptysis. Most recent device interrogation dated 05/2023--appropriate function. No mode switches or AFib. No VT/VF. No shocks. Adequate battery life of 7.75 years. He states he is compliant with all medications, and offers no side effects. Current Outpatient Medications Medication Sig Dispense Refill fluticasone (FLONASE) 50 MCG/ACT nasal spray USE 2 SPRAYS IN EACH NOSTRIL DAILY 1 Bottle 2 Acetaminophen 500 MG Oral Tablet (Tylenol) 3 Tablets. amLODIPine Besylate 10 MG Oral Tablet (Norvasc) Take 1 Tablet (10 mg) by mouth in the morning. 90 Tablet 3 Allopurinol 300 MG Oral Tablet (Zyloprim) Take 1 Tablet by mouth in the morning. 90 Tablet 3 Simvastatin 20 MG Oral Tablet (Zocor) TAKE 1 TABLET EVERY NIGHT AT BEDTIME 90 Tablet 3 Furosemide 20 MG Oral Tablet (Lasix) TAKE 1 TABLET IN THE MORNING 90 Tablet 3 Omeprazole 20 MG Oral Capsule Delayed Release (PriLOSEC) TAKE 1 CAPSULE IN THE MORNING 90 Capsule 3 Losartan Potassium 100 MG Oral Tablet (Cozaar) Take 1 Tablet by mouth in the morning. In the morning.. 90 Tablet 3 Chlorthalidone 25 MG Oral Tablet (Hygroton) Take 1 Tablet by mouth in the morning. In the morning..90 Tablet 3 Triamcinolone Acetonide 0.1 % External Cream (Aristocort) Apply topically to affected area 2 times a day. Apply to scalp 1-2 times daily 80 g 3 Metoprolol Succinate ER 50 MG Oral Tablet Extended Release 24 Hour (toPROL XL) TAKE ONE AND ONE-HALF TABLETS IN THE MORNING 135 Tablet 3 Sertraline HCl 100 MG Oral Tablet (Zoloft) Take 2 Tablets by mouth in the morning. 180 Tablet 1 BiPAP every night at bedtime. No current facility-administered medications for this visit. 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 New 03/19 dx Gout Hoarseness 09/02/2014 HTN, goal below 140/90 Hydrocele, right Major depression, recurrent (HCC) Numbness in feet 05/17/2016 TANNER on CPAP 10/22/2014 Other and unspecified hyperlipidemia Post-nasal drip 07/18/2014 Routine general medical examination at a health care facility 07/18/2014 S/P placement of cardiac pacemaker 08/05/2021 complete heart block Skin cancer BCC Sleep apnea, obstructive Status post total right knee replacement 05/17/2016 Tinnitus of both ears 01/15/2018 Past Surgical History: Procedure Laterality Date ANESTH, LOWER ABDOMEN HERNIA REPAIR ARTHROPLASTY KNEE TOTAL Right 02/15/2017 Dr Coronado [facility] COLONOSCOPY, DIAGNOSTIC (RECTUM) 12/05/2014 hyperplastic polyp, diverticulosis, repeat 5 yrs/COLONOSCOPY FLEXIBLE PROXIMAL DIAGNOSTIC performedby Magnus Adair DO at [facility] COLONOSCOPY, DIAGNOSTIC (RECTUM) 12/12/2019 severe diverticulosis sigmoid and descending colon/internal hemorrhoids/biopsies show adenomatous and hyperplastic polyps/recall 5 years/COLONOSCOPY FLEXIBLE PROXIMAL DIAGNOSTIC performed by Magnus Lan DO at [facility] EXPLORATION/TREATMENT OF KNEE JOINT Left 09/21/2017 Dr Coronado, medial meniscectomy. MISCELLANEOUS ORDER ([facility] ONLY) skin cancer face MISCELLANEOUS ORDER ([facility] ONLY) Right meniscus repair NECK SPINE FUSION (CERV, BELOW C2) Summer 2013 C3-5 [place], [place] PACEMAKER INSERTION PER 08/05/2021 Dr Beebe @[facility]. complete heart block PERICARDIOCENTESIS W/ IMAGING 08/10/2021 cardiac tamponade. done at [facility] REMOVAL OF HYDROCELE, UNILATERAL Right REPAIR INITIAL INGUINAL HERNIA REDUCIBLE AGE 5 OR MORE Bilateral Social History Tobacco Use Smoking status: Never Smokeless tobacco: Never Vaping Use Vaping Use: Never used Substance Use Topics Alcohol use: Yes Comment: 2-3 times/wk Drug use: No Review of patient's allergies indicates: Allergen Reactions Hydroxychloroquine Total body rash Review of Systems: See HPI for pertinent positives. All others negative, other than those noted in HPI. Physical Exam BP 128/76 | Pulse 76 | Wt 133.4 kg (294 lb) | SpO2 97% | BMI 38.79 kg/m | BSA 2.62 m General: No acute distress. A+Ox3. HEENT: Normocephalic. Atraumatic. Conjunctiva and sclera clear. NECK: No carotid bruits. No JVD. Carotid upstrokes are brisk. Heart: RRR. S1 and S2 noted without murmur, rubs, gallops. Left chest incision well approximated, no signs of infection. Lungs: Clear to auscultation. No wheezes, rhonchi, rales. Abdomen: Normal bowel sounds. Soft. Nontender. No masses or organomegaly. No abdominal bruits. Extremities: No edema. No clubbing or cyanosis. Pulses: radial=2/4, posterior tibial=2/4, dorsalis pedis = 2/4. NEURO: No focal deficits. PSYCH: Normal. Lab data/imaging study review: Cardiac PET-CT 11/12/2021 1. No PET evidence of active myocardial inflammation. 2. Diaphragmatic attenuation. No definite perfusion defect at rest. Normal left ventricular systolic function. 3. Hilar and mediastinal lymphadenopathy with increased radiotracer uptake, consistent with historyof extracardiac sarcoidosis. Echo 11/24/2021 Small circumferential pericardial effusion with moderate organization. Cardiac tamponade is absent. Normal IVC size and collapsability with sniff indicates a normal right atrial pressure of 3 mmHg. The qualitative LV ejection fraction is 55-59% (normal). 2D echocardiogram report [facility] 08/18/2021: Trivial pericardial effusion without hemodynamic significance. 2D echocardiogram report [facility] 08/16/2021: Trivial pericardial effusion. No evidence of tamponade. 2D echocardiogram report [facility] 08/10/2021: Large circumferential pericardial effusion more pronounced anteriorly. Tamponade physiology with RV diastolic collapse. Impression/Plan: 1. Complete heart block (HCC) 2. S/P placement of ICD 3. Cardiac/pericardial tamponade 4. S/P pericardiocentesis -History of complete heart block status ICD Postop course complicated by pericardial tamponade status post pericardial centesis. -ICD implanted (instead of dual chamber pacemaker) due to concerns regarding possible sarcoid cardiac involvement. -Cardiac PET-CT without active cardiac sarcoid involvement. -Also following with pulmonary for hilar LN involvement, no resp intervention warranted at this time. 1. Continue metoprolol succinate 75 mg daily 5. Paroxysmal atrial fibrillation -One episode of atrial fibrillation/flutter lasting 22 minutes, Metoprolol was increased to 75 mg daily and no further episodes of atrial fibrillation were seen on device interrogation. -Given a [id number] score of 1- AC deferred 1. Continue metoprolol succinate 75 mg daily 2. Not on AC, If atrial fibrillation is detected and burden increases will rediscuss anticoagulation at that time. 6. HTN, goal below 140/90 -BP controlled. 1. Continue amlodipine 10 mg daily 2. Continue losartan 100 mg daily 3. Continue chlorthalidone 25 mg daily 7. Sarcoidosis -Cutaneous sarcoidosis formally on hydroxychloroquine therapy. Cardiac PET-CT without active cardiac sarcoid involvement. Also following with pulmonary for hilar LN involvement, no resp intervention warranted at this time. 1. Repeat resting echocardiogram in the near future reassess LV systolic function and wall motion, valvular status The patient agrees to the above plan and will call with additional questions or concerns. ER with all emergencies advised. Follow-up: Return in about 6 months (around 01/25/2024). | Check-out note: SCHEDULE ECHO . 6 MOS TK I spent a total of 30 minutes on the date of service in preparation, delivery, and documentation ofthe care provided to Guy Ramirez excluding any time spent in the performance of separately billed services. JENNA Downs, Department of Cardiology This chart was completed in part utilizing [employer] Speech Voice Recognition Software. Grammatical errors, random word insertions, prounoun errors, and incomplete sentences are an occasional consequence of this system due to software limitations, ambient noise, and hardware issues. Any formal questions or concerns about the content, text, or information contained within the body of this dictation should be directly addressed to the provider for clarification. documented in this encounter Nursing Notes * Josie Christie CMA - 07/25/2023 8:31 AM EDT Examination Room: 7 Name: Guy Ramirez Date of : (1960) Reason for Visit: 4m Interim Hospitalization(s): none Problems/Concerns: denied Chest Pain/SOB: denied My [facility] is a way you can talk to your provider online through e-mail. Would you like to sign up? I can activate it for you? ALREADY ACTIVE Patient was instructed to not get up on the exam table until directed and assisted by their provider; patient is to remain seated in the chair/ wheelchair/ exam table for fall prevention and safety reasons. Patient is aware to have assistance to step down off exam table with personnel. Patient voiced full comprehension of instructions. documented in this encounter Plan of Treatment Upcoming Encounters Date Type Department Care Team (Late st Contact Info) Description 10/09/2023 7:15 AM EDT Cardiac Studies Cardiac Studies, [facility] [address] [place] [address] 10/12/2023 10:20 AM EDT Office Visit Family Practice [facility] [address] [place] [address] Marquis Flores MD [address] [place] [address] 12/25/2023 8:30 AM EDT Cardiac Studies Cardiology, [facility] [address] [place] [address] [facility] [address] [place] [address] Scheduled Orders Name Type Priority Associated Diagnoses Orde r Schedule ECHO, COMPLETE (2D), TRANS-THORACIC Echocardiology Routine Complete heart block (HCC) Sarcoidosis Expected: 07/25/2023, Expires: 07/24/2024 Scheduled Procedures Name Priority Associated Diagnoses Date/Ti me COLONOSCOPY FLEXIBLE PROXIMA L DIAGNOSTIC Recall History of colonic polyps Health Maintenance Due Date Last Done Comments HIV Screening 1975 Hepatitis C Screening 1978 HbA1c 09/23/2023 09/22/2022, 03/31, 02/13/2019, Additional history exists Depression Screening 04/12/2024 04/12/2023, 09/30/2016 (Declined) GFR 04/12/2024 04/12/2023, 05/2022, 09/22/2022, Additional history exists Albumin/Creatinine Ratio 07/29/2024 07/29/2021 COLONOSCOPY-EVERY 5 YRS AGES 18-100 12/11/2024 12/12/2019, 12/12/2019, 12/05/2014, Additional history exists DTaP,Tdap,and Td Vaccines (2 - Td or Tdap) 05/13/2025 05/13/2015 Lipid Panel 04/12/2028 04/12/2023, 08/30, 04/09/2021, Additional history exists Zoster Vaccines Completed 11/28/2019, 05/31/2019 Pneumococcal Vaccine: Pediatrics (0 to 5 Years) and At-Risk Patients (6 to 64 Years) Aged Out 09/22/2022, 08/19/2021 No longer eligibl e based on patient's age to complete this topic Influenza Vaccine (FLU shot) Completed , 02/12/2022, 02/12/2022, Additional history exists COVID-19 Vaccine Completed 03/06/2023, , 10/07/2021, Additional history exists GARDASIL-HPV IMMUNIZATION SERIES Aged Out No longer eligible based on patient's age to complete this topic Hepatitis B Aged Out No longer eligi ble based on patient's age to complete this topic MENINGOCOCCAL (MENACTRA/MENVEO) Aged Out No longer eligible based on patient's age to complete this topic documented as of this encounter Medical Devices Not on filedocumented as of this encounter Visit Diagnoses Diagnosis Complete heart block (HCC)- Primary Atrioventricular block, complete Sarcoidosis documented in this encounter Care Teams Dust Box Worker Relationship Specialty Start Date End Date Marquis Flores MD [address] [id number] PCP - General Family Medicine 07/18/14 documented as of this encounter"
--- OUTSIDE RECORDS SUMMARY | 2023-10-07 04:26 | External Medical Summary | Summary of Care ---
Author Name Unknown Organization [facility] Address [address] [place] [address] Phone [phone] Care Team Providers Care School Standards Coach Name Role Phone Marquis Flores MD Primary Care Provider + Encounter Details Date Type Department Care Team (Late st Contact Info) Description 06/15/2023 Result Scan Unspecified Department Mayur Givens O, DO [address] [place] [address] <No scans attached> Allergies Active Allergy Reactions Criticality Noted Date Comments Hydroxychloroquine 12/27/2021 Total body rash documented as of this encounter (statuses as of 06/15/2023) Medications Medication Sig Dispensed Refills Start Date End Date Status fluticasone (FLONASE) 50 MCG/ACT nasal spray USE 2 SPRAYS IN EACH NOSTRIL DAILY 1 Bottle 2 06/08/2015 Active Acetaminophen 500 MG Oral Tablet (Tylenol) 3 Tablets. 0 08/10/2021 Active amLODIPine Besylate 10 MG Oral Tablet (Norvasc) Take 1 Tablet (10 mg) by mouth in the morning. 90 Tablet 3 03/16/2022 Active CPAP every night at bedtime. 0 Active Allopurinol 300 MG Oral Tablet (Zyloprim) Take 1 Tablet by mouth in the morning. 90 Tablet 3 10/27/2022 Active Simvastatin 20 MG Oral Tablet (Zocor)Indications: Hyperlipidemia with target LDL less than 100 TAKE 1 TABLET EVERY NIGHT AT BEDTIME 90 Tablet 3 12/09/2022 Active Furosemide 20 MG Oral Tablet (Lasix)Indications: Complete heart block (HCC),Sarcoidosis,H TN, goal below 140/90 TAKE 1 TABLET IN THE MORNING 90 Tablet 3 12/09/2022 Active Omeprazole 20 MG Oral Capsule Delayed Release (PriLOSEC) TAKE 1 CAPSULE IN THE MORNING 90 Capsule 3 02/04/2023 Active Losartan Potassium 100 MG Oral Tablet (Cozaar) Take 1 Tablet by mouth in the morning. In the morning.. 90 Tablet 3 02/22/2023 Active Chlorthalidone 25 MG Oral Tablet (Hygroton)Indicatio ns:HTN, goal below 130/80 Take 1 Tablet by mouth in the morning. In the morning.. 90 Tablet 3 04/12/2023 Active Triamcinolone Acetonide 0.1 % External Cream (Aristocort) Apply topically to affected area 2 times a day. Apply to scalp 1-2 times daily 80 g 3 04/13/2023 Active Metoprolol Succinate ER 50 MG Oral Tablet Extended Release 24 Hour (toPROL XL)Indications:Comp lete heart block (HCC),Sarcoidosis,H TN, goal below 140/90 TAKE ONE AND ONE-HALF TABLETS IN THE MORNING 135 Tablet 3 04/20/2023 Active Sertraline HCl 100 MG Oral Tablet (Zoloft)Indications :Depression, major, recurrent, mild (HCC) Take 2 Tablets by mouth in the morning. 180 Tablet 1 05/29/2023 Active documented as of this encounter (statuses as of 06/15/2023) Active Problems Problem Noted Date Diagnosed Date Complete heart block 08/06/2021 S/P placement of cardiac pacemaker 08/05/2021 Overview: complete heart block Cutaneous sarcoidosis 03/22/2019 Overview: New 03/19 dx. Present several years on scalp. Tinnitus of both ears 01/15/2018 Overview: [employer]-hearing aides. Prediabetes 01/15/2018 Depression, major, recurrent, mild 05/18/2017 History of nonmelanoma skin cancer 03/27/2017 Overview: Hx of BCC on nose & forehead TANNER on CPAP 10/22/2014 Overview: CPAP settings ? 02/20/13 Titration -- CPAP 14 cwp, resolution of hypoxemia 02/09/13 PSG -- AHI 65.9, <90% 89.3 mins [facility] (previously [facility] in ) Routine general medical exam ination at a health care facility 07/18/2014 Overview: 09/20 TTE normal EF , mild valve 10/20 PFT WNl. Refer sarcoid clinc. 08/20 Complete heart block. Pacemaker placed. Followed by cardiac tamponade TTE [facility] normal EF. +elev right vent pressures. 12/18 colon 6 & 5mm plyp PATH Pend: hyperplastic and adenoma russ 5y 03/19 cutaneous sarcoid 12/13 +polyp path hyperplastic. Colonoscopy. Russ 5y Dyslipidemia HTN, goal below 130/80 Gout Cervical vertebral fusion documented as of this encounter (statuses as of 06/15/2023) Resolved Problems Problem Noted Date Diagnosed Date Resolved Date Status post total right knee replacement 05/17/2016 06/06/2020 Numbness in feet 05/17/2016 06/06/2020 Overview: 2016 labs WNL. Consider EMG if worsening Hoarseness 09/02/2014 05/17/2016 Post-nasal drip 07/18/2014 06/06/2020 Allergic rhinitis 07/18/2014 06/06/2020 History of basal cell carcinoma (BCC) 06/06/2020 Overview: BCC documented as of this encounter (statuses as of 06/15/2023) Immunizations Name Administration Dates Next Due COVID-19 mRNA, LNP-s, No Pre serve, 2-Dose Series (Scannx) 02/03/2021,07/30/2020,07/04/2020 COVID-19, LNP-s, No Preserve , Jay-sucrose, Ages 12+ (Scannx) 10/07/2021 COVID-19, MRNA-LNP, 23-24, P F, 30 MCG/0.3 mL, 12 YRS AND ABOVE, IM ([facility]) 03/06/2023 Covid-19, Mrna, Lnp-s, Pf, B ivalent, 30 Mcg, IM, 12 yrs and above (Pfizer) 02/12/2022 HEP A - Hepatitis A (Adult > 18 yrs) 08/12/2015, 05/01/2010 PPD 03/11/2015 Pneumococcal Conjugate Vacci ne, 20-valent ([id number]) 09/22/2022 Pneumococcal Polysaccharide PPV23 (Pneumovax) 08/19/2021 RSV [...] Date Smoking Tobacco: Never Smokeless Tobacco: Never Alcohol Use Standard Drinks/Week Comments Yes 0 [...] on file documented as of this encounter Plan of Treatment Upcoming Encounters Date Type Department Care Team (Late st Contact Info) Description 07/20/2023 9:00 AM EDT Office Visit Cardiology, [facility] [address] [place] [address] Kathryn Lynn CRNP [address] [place] [address] 10/12/2023 10:20 AM EDT Office Visit Family Practice [facility] [address] [place] [address] Marquis Flores MD [address] [place] [address] 12/25/2023 8:30 AM EDT Cardiac Studies Cardiology, [facility] [address] [place] [address] [facility] [address] [place] [address] Scheduled Procedures Name Priority Associated Diagnoses Date/Ti [...] Not on filedocumented as of this encounter Procedures Procedure Name Priority Date/Time Associated Diagnosis Comments CARDIOLOGY SCANNED RESULT 06/15/2023 documented in this encounter Results * CARDIOLOGY SCANNED RESULT (06/15/2023) 06/15/2023 Mayur MCKEON documented in this encounter Care Teams School Standards Coach Relationship Specialty Start Date End Date Marquis Flores MD [address] [place] [address] PCP - General Family Medicine 07/18/14 documented as of this encounter
--- OUTSIDE RECORDS SUMMARY | 2023-10-07 04:26 | External Medical Summary | Summary of Care ---
Author Name Unknown Organization [facility] Address [address] [place] [address] Phone [phone] Care Team Providers Care Wire Rigger Name Role Phone Marquis Flores MD Primary Care Provider + Encounter Details Date Type Department Care Team (Late st Contact Info) Description 09/19/2023 Result Scan Unspecified Department Mayur Givens O, DO [address] [place] [address] <No scans attached> Allergies Active Allergy Reactions Criticality Noted Date Comments Hydroxychloroquine 12/27/2021 Total body rash documented as of this encounter (statuses as of 09/19/2023) Medications Medication Sig Dispensed Refills Start Date End Date Status fluticasone (FLONASE) 50 MCG/ACT nasal spray USE 2 SPRAYS IN EACH NOSTRIL DAILY 1 Bottle 2 06/08/2015 Active Acetaminophen 500 MG Oral Tablet (Tylenol) 3 Tablets. 08/10/2021 Active amLODIPine Besylate 10 MG Oral [...] 05/29/2023 Active BiPAP every night at bedtime. 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 Present several years on scalp. Tinnitus of both ears 01/15/2018 Overview: [employer]-hearing aides. Prediabetes 01/15/2018 Depression, major, recurrent, mild 05/18/2017 History of nonmelanoma skin cancer 03/27/2017 Overview: Hx of BCC on nose & forehead TANNER on CPAP 10/22/2014 Overview: CPAP settings ? 02/20/13 Titration -- CPAP 14 cwp, resolution of hypoxemia 02/09/13 PSG -- AHI 65.9, <90% 89.3 mins [facility] (previously [facility] in ) Routine general medical exam ination at a health care facility 07/18/2014 Overview: 09/20 TTE normal EF , mild valve 10/20 PFT WNl. Refer sarcoid clinc. 08/20 Complete heart block. Pacemaker placed. Followed by cardiac tamponade TTE [facility] normal EF. +elev right vent pressures. 12/18 colon 6 & 5mm plyp PATH Pend: hyperplastic and adenoma russ 5y 03/19 cutaneous sarcoid 12/13 +polyp path hyperplastic. Colonoscopy. Russ 5y Dyslipidemia HTN, goal below 130/80 Gout Cervical vertebral fusion documented as of this encounter (statuses as of 09/19/2023) Resolved Problems Problem Noted Date Diagnosed Date Resolved Date Status post total right knee replacement 05/17/2016 06/06/2020 Numbness in feet 05/17/2016 06/06/2020 Overview: 2016 labs WNL. Consider EMG if worsening Hoarseness 09/02/2014 05/17/2016 Post-nasal drip 07/18/2014 06/06/2020 Allergic rhinitis 07/18/2014 06/06/2020 History of basal cell carcinoma (BCC) 06/06/2020 Overview: BCC documented as of this encounter (statuses as of 09/19/2023) Immunizations Name Administration Dates Next Due COVID-19 mRNA, LNP-s, No Pre serve, 2-Dose Series ([employer]) 02/03/2021,07/30/2020,07/04/2020 COVID-19, LNP-s, No Preserve , Jay-sucrose, Ages 12+ ([employer]) 10/07/2021 COVID-19, MRNA-LNP, 23-24, P F, 30 MCG/0.3 mL, 12 YRS AND ABOVE, IM ([facility]) 03/06/2023 Covid-19, Mrna, Lnp-s, Pf, B ivalent, 30 Mcg, IM, 12 yrs and above (Pfizer) 02/12/2022 HEP A - Hepatitis A (Adult > 18 yrs) 08/12/2015, 05/01/2010 PPD 03/11/2015 Pneumococcal Conjugate Vacci ne, 20-valent ([id number]) 09/22/2022 Pneumococcal Polysaccharide PPV23 (Pneumovax) 08/19/2021 RSV [...] 7:15 AM EDT Cardiac Studies Cardiac Studies, [facility] [address] [place] [address] 10/12/2023 10:20 AM EDT Office Visit Family Practice [facility] [address] [place] [address] Marquis Flores MD [address] [place] [address] 12/25/2023 8:30 AM EDT Cardiac Studies Cardiology, [facility] [address] [place] [address] [place] [address] [place] [address] Scheduled Procedures Name Priority Associated Diagnoses Date/Ti me COLONOSCOPY FLEXIBLE PROXIMA L DIAGNOSTIC Recall History of colonic polyps Health Maintenance Due Date Last Done Comments HIV Screening 1975 Hepatitis C Screening 1978 Cologuard 2005 Fecal Occult Blood Test 2005 Sigmoidoscopy 2005 HbA1c 09/23/2023 09/22/2022, 03/31, 02/13/2019, Additional history exists GFR 04/12/2024 04/12/2023, 05/2022, 09/22/2022, Additional history exists Albumin/Creatinine Ratio 07/29/2024 07/29/2021 Colonoscopy 12/11/2024 12/12/2019, 11/29, 12/05/2014, Additional history exists Colorectal Cancer Screening 12/11/2024 DTaP,Tdap,and Td Vaccines (2 - Td or Tdap) 05/13/2025 05/13/2015 Lipid Panel 04/12/2028 04/12/2023, 08/30, 04/09/2021, Additional history exists Zoster Vaccines Completed 11/28/2019, 05/31/2019 RETIRED - COLONOSCOPY-EVERY 5 YRS AGES 18-100 Discontinued 12/12/2019, 12/12/2019, 12/05/2014, Additional history exists Pneumococcal Vaccine: Pediatrics (0 to 5 Years) and At-Risk Patients (6 to 64 Years) Aged Out 09/22/2022, 08/19/2021 No longer eligibl e based on patient's age to complete this topic Influenza Vaccine (FLU shot) Completed 01/11/2023, 02/12/2022, 02/12/2022, Additional history exists COVID-19 Vaccine [...] Date/Time Associated Diagnosis Comments CARDIOLOGY SCANNED RESULT 09/19/2023 documented in this encounter Results * CARDIOLOGY SCANNED RESULT (09/19/2023) 09/19/2023 Mayur MCKEON documented in this encounter Care Teams Wire Rigger Relationship Specialty Start Date End Date Marquis Flores MD [address] [place] [address] PCP - General Family Medicine 07/18/14 documented as of this encounter
--- OUTSIDE RECORDS SUMMARY | 2023-10-07 04:27 | External Medical Summary | Summary of Care ---
Author Name Unknown Organization [facility] Address [address] [place] [address] Phone [phone] Care Team Providers Care Shipping And Receiving Operator Name Role Phone Marquis Flores MD Primary Care Provider + Reason for Visit * Reason Comments Return Visit 6 month follow up Encounter Details Date Type Department Care Team (Late st Contact Info) Description 04/12/2023 8:40 AM EST Office Visit [facility] [address] [place] [address] Marquis Flores MD [address] [place] [phone] HTN, goal below 130/80*; Chronic gout without tophus, unspecified cause, unspecified site; Screening for prostate cancer; Screening for diabetes mellitus; Lipid screening; Dyslipidemia; Malaise and fatigue Allergies Active Allergy Reactions Criticality Noted Date Comments Hydroxychloroquine 12/27/2021 Total body rash documented as of this encounter (statuses as of 04/12/2023) Medications Medication Sig Dispensed Refills Start Date End Date Status fluticasone (FLONASE) 50 MCG/ACT nasal spray USE 2 SPRAYS IN EACH NOSTRIL DAILY 1 Bottle 2 06/08/2015 Active Acetaminophen 500 MG Oral Tablet (Tylenol) 3 Tablets. 0 08/10/2021 Active Triamcinolone Acetonide 0.1 % External Cream (Aristocort) Apply topically to affected area 2 times a day . Apply to scalp 1-2 times daily 80 g 3 08/23/2021 Active amLODIPine Besylate 10 MG Oral Tablet (Norvasc) Take 1 Tablet (10 mg) by mouth in the morning. 90 Tablet 3 03/16/2022 Active Metoprolol Succinate ER 50 MG Oral Tablet Extended Release 24 Hour (toPROL XL)Indications:C omplete heart block (HCC),Sarcoidosi s,HTN, goal below 140/90 Take 1.5 Tablets by mouth in the morning. 150 Tablet 3 04/20/2022 Active CPAP every night at bedtime. 0 Active Allopurinol 300 MG Oral Tablet (Zyloprim) Take 1 Tablet by mouth in the morning. 90 Tablet 3 10/27/2022 Active Sertraline HCl 100 MG Oral Tablet (Zoloft)Indicati ons:Depression, major, recurrent, mild (HCC) Take 2 Tablets by mouth in the morning. 180 Tablet 3 10/27/2022 Active Simvastatin 20 MG [...] the morning.. 90 Tablet 3 04/12/2023 Active Sildenafil Citrate 25 MG Oral Tablet Take 1 Tablet by mouth daily as needed for Erectile Dysfunction. 10 Tablet 2 07/20/2022 04/12/2023 Discontinue d(Medicatio n List Clean Up) Doxycycline Hyclate 50 MG Oral Capsule (Vibramycin) Take 2 capsules twice daily for 2 weeks, then take 1 capsule twice daily 120 Capsule 5 08/31/2022 04/12/2023 Discontinue d(Medicatio n List Clean Up) hydroCHLOROthiaz austin 12.5 MG Oral Tablet (Hydrodiuril) Take 1 Tablet by mouth in the morning. 90 Tablet 1 12/12/2022 04/12/2023 Discontinue d(Medicatio n List Clean Up) documented as of this encounter (statuses as of 04/12/2023) Active Problems Problem Noted Date Diagnosed Date [...] <90% 89.3 mins [facility] (previously [facility] in [place]) Routine general medical exam ination at a health care facility 07/18/2014 Overview: 09/20 TTE normal EF , mild valve 10/20 PFT WNl. Refer sarcoid clinc. 08/20 Complete heart block. Pacemaker placed. Followed by cardiac tamponade TTE [facility] normal EF. +elev right vent pressures. 12/18 colon 6 & 5mm plyp PATH Pend: hyperplastic and adenoma russ 5y 03/19 cutaneous sarcoid 12/13 +polyp path hyperplastic. Colonoscopy. Russ 5y Dyslipidemia HTN, goal below 130/80 Gout Cervical vertebral fusion documented as of this encounter (statuses as of 04/12/2023) Resolved Problems Problem Noted Date Diagnosed Date Resolved Date Status post total right knee replacement 05/17/2016 06/06/2020 Numbness in feet 05/17/2016 06/06/2020 Overview: 2016 labs WNL. Consider EMG if worsening Hoarseness 09/02/2014 05/17/2016 Post-nasal drip 07/18/2014 06/06/2020 Allergic rhinitis 07/18/2014 06/06/2020 History of basal cell carcinoma (BCC) 06/06/2020 Overview: BCC documented as of this encounter (statuses as of 04/12/2023) Immunizations Name Administration Dates Next Due COVID-19 mRNA, LNP-s, No Pre serve, 2-Dose Series (Zoom) 02/03/2021,07/30/2020,07/04/2020 COVID-19, LNP-s, No Preserve , Jay-sucrose, Ages 12+ (Pfizer) 10/07/2021 COVID-19, MRNA-LNP, 23-24, P F, 30 MCG/0.3 mL, 12 YRS AND ABOVE, IM ([facility]) 03/06/2023 Covid-19, Mrna, Lnp-s, Pf, B ivalent, 30 Mcg, IM, 12 yrs and above (Zoom) 02/12/2022 HEP A - Hepatitis A (Adult > 18 yrs) 08/12/2015, 05/01/2010 PPD 03/11/2015 Pneumococcal Conjugate Vacci ne, 20-valent ([id number]) 09/22/2022 Pneumococcal Polysaccharide PPV23 (Pneumovax) 08/19/2021 Rabies Vaccine (Rabavert) 09/11/2015,08/19/2015, 08/12/2015 Seasonal Influenza [...] alcohol) 2-3 times/wk PHQ-2 Answer Date Recorded PHQ-2 Score 0 11/21/2019 Hunger Vital Sign Answer Date Recorded Within [...] Sign Reading Time Taken Comments Blood Pressure 140/82 04/12/2023 8:38 AM EST Pulse 79 04/12/2023 8:38 AM EST Temperature - - Respiratory Rate 20 04/12/2023 8:38 AM EST Oxygen Saturation 96% 04/12/2023 8:38 AM EST Inhaled Oxygen Concentration - - Weight 133.8 kg (295 lb) 04/12/2023 8:38 AM EST Height - - Body Mass Index 38.92 05/18/2022 9:24 AM EST documented in this encounter Progress Notes * Marquis Flores MD - 04/12/2023 9:19 AM EST SUBJECTIVE: Guy Ramirez is a 63 year old male here for Return Visit (6 month follow up) . Here for f/u. More fatigue this year. Usually naps around 2. No fever, chills, chest pain, shortness of breath, headache, nausea, vomit, diarrhea, constipation or vision changes BPs higher at home 150s-160s/90s on verified cuff Physical: BP 140/82 | Pulse 79 | Resp 20 | Wt 133.8 kg (295 lb) | SpO2 96% | BMI 38.92 kg/m | BSA 2.63 m General-No apparent Distress Head, Eyes, Ears, Nose, Throat--Normocephalic, atraumatic Neck-Supple Lymph-no lymphadenopathy Lungs-Clear to Auscultation bilaterally Cardiovascular--Regular rate & Rhythm, +s1, s2, no murmur Abdomen-soft, nontender, nondistended + bowel sounds Extremities--no edema Neuro-alert & oriented x3 (I10) HTN, goal below 130/80 (primary encounter diagnosis) Plan: Chlorthalidone 25 MG Oral Tablet (Hygroton) D/c HCTZ, switch to chlorthalidone Consider decrease metoprolol due to fatigue--he will discuss with Dr Givens ([id number]) Chronic gout without tophus, unspecified cause, unspecified site Plan: URIC ACID (Z12.5) Screening for prostate cancer Plan: PSA (Z13.1) Screening for diabetes mellitus Plan: BASIC METABOLIC PANEL (Z13.220) Lipid screening Plan: LIPID PANEL WITH DIRECT LDL IF TG IS HIGH (E78.5) Dyslipidemia Plan: cont mgmt (R53.81, R53.83) Malaise and fatigue Plan: CBC WITH WBC DIFFERENTIAL AND ANEMIA REFLEX WORKUP As above (This note was completed using the dictation program Fluency Direct. As such, there may be misspellings, word substitutions, or other variations that should not change the essence of the clinical content of this encounter note.If there is need for further clarification, please direct questions to the provider listed above.) Marquis Flores MD documented in this encounter Nursing Notes * Osiris Iniguez LPN - 04/12/2023 8:38 AM EST The patient has been properly identified by confirmation of name and date of . Chief Complaint Patient presents with Return Visit 6 month follow up documented in this encounter Plan of Treatment Upcoming Encounters Date Type Department Care Team (Late st Contact Info) Description 10/12/2023 10:20 AM EDT Office Visit Family Practice [facility] [address] [place] [address] Marquis Florse MD [address] [place] [address] 12/25/2023 8:30 AM EDT Cardiac Studies Cardiology, [facility] [address] [place] [address] [facility] [address] [place] [address] Scheduled Orders Name Type Priority Associated Diagnoses Orde r Schedule URIC ACID Lab Routine Chronic gout without tophus, unspecified cause, unspecified site Expected: 04/12/2023 (Approximate), Expires: 04/11/2024 BASIC METABOLIC PANEL Lab Routine Screening for diabetes mellitus Expected: 04/12/2023 (Approximate), Expires: 04/11/2024 LIPID PANEL WITH DIRECT LDL IF TG IS HIGH Lab Routine Lipid screening Expected: 04/12/2023, Expires: 04/12/2024 PSA Lab Routine Screening for prostate cancer Expected: 04/12/2023 (Approximate), Expires: 04/11/2024 CBC WITH WBC DIFFERENTIAL AND ANEMIA REFLEX WORKUP Lab Routine Malaise and fatigue Expected: 10/12/2023 (Approximate), Expires: 04/12/2024 Scheduled Procedures Name Priority Associated Diagnoses Date/Ti me COLONOSCOPY FLEXIBLE PROXIMA L DIAGNOSTIC Recall History of colonic polyps Health Maintenance Due Date Last Done Comments HIV Screening 1975 Hepatitis C Screening 1978 HbA1c 09/23/2023 09/22/2022, 03/31, 02/13/2019, Additional history exists GFR 03/01/2024 03/01/2023, 08/30, 03/23/2022, Additional history exists Depression Screening 04/12/2024 04/12/2023, 09/30/2016 (Declined) Albumin/Creatinine Ratio 07/29/2024 07/29/2021 COLONOSCOPY-EVERY 5 YRS AGES 18-100 12/11/2024 12/12/2019, 12/12/2019, 12/05/2014, Additional history exists DTaP,Tdap,and Td Vaccines (2 - Td or Tdap) 05/13/2025 05/13/2015 Lipid Panel 09/23/2027 09/22/2022, 03/31, 01/10/2018, Additional history exists Zoster Vaccines Completed 11/28/2019, [...] as of this encounter Visit Diagnoses Diagnosis HTN, goal below 130/80- Primary Unspecified essential hypertension Chronic gout without tophus, unspecified cause, unspecified site Screening for prostate cancer Special screening for malignant neoplasm of prostate Screening for diabetes mellitus Lipid screening Screening for lipoid disorders Dyslipidemia Other and unspecified hyperlipidemia Malaise and fatigue Other malaise and fatigue documented in this encounter Care Teams Shipping And Receiving Operator Relationship Specialty Start Date End Date Marquis Flores MD [address] [place] [address] PCP - General Family Medicine 07/18/14 documented as of this encounter"
--- OUTSIDE RECORDS SUMMARY | 2023-10-07 04:27 | External Medical Summary | Summary of Care ---
Author Name Unknown Organization [facility] Address [address] [place] [address] Phone [phone] Care Team Providers Care Wet Inspector Optical Glass Name Role Phone Marquis Flores MD Primary Care Provider + Reason for Visit * Reason Comments Outpatient Testing Encounter Details Date Type Department Care Team (Late st Contact Info) Description 04/12/2023 10:30 AM EST Laboratory Laboratory, [facility] [address] [facility] [place] [id number] [facility] [address] [place] [address] Chronic gout without tophus, unspecified cause, unspecified site; Screening for diabetes mellitus; Lipid screening; Screening for prostate cancer Allergies Active Allergy Reactions Criticality Noted Date [...] heart block (HCC),Sarcoidosis,H TN, goal below 140/90 Take 1.5 Tablets by [...] the morning.. 90 Tablet 3 04/12/2023 Active documented as of this encounter (statuses [...] <90% 89.3 mins [facility] (previously [facility] in ) Routine general medical exam ination at a [facility] care facility 07/18/2014 Overview: 09/20 TTE normal EF , mild valve 10/20 PFT WNl. Refer sarcoid clinc. 08/20 Complete heart block. Pacemaker placed. Followed by cardiac tamponade TTE [facility] normal EF. +elev right vent pressures. [...] mRNA, LNP-s, No Pre serve, 2-Dose Series ([employer]) 02/03/2021,07/30/2020,07/04/2020 COVID-19, LNP-s, No Preserve , Jay-sucrose, Ages 12+ ([employer]) 10/07/2021 COVID-19, MRNA-LNP, 23-24, P F, 30 MCG/0.3 mL, 12 YRS AND ABOVE, IM (PFIZER-Comirnaty) 03/06/2023 Covid-19, Mrna, Lnp-s, Pf, B ivalent, 30 Mcg, IM, 12 yrs and above (Pfizer) 02/12/2022 HEP A - Hepatitis A (Adult > 18 yrs) 08/12/2015, 05/01/2010 PPD 03/11/2015 Pneumococcal Conjugate Vacci ne, 20-valent ([id number]) 09/22/2022 Pneumococcal Polysaccharide PPV23 (Pneumovax) 08/19/2021 RSV [...] 07/20/2023 9:00 AM EDT Office Visit Cardiology, [facility] [address] [place] [place] [address] Kathryn Lynn CRNP [address] [place] [address] 10/12/2023 10:20 AM EDT Office Visit Family Practice [facility] [address] [place] [address] Marquis Flores MD [address] [place] [address] 12/25/2023 8:30 AM EDT Cardiac Studies Cardiology, [facility] [address] [place] [address] [facility] [address] [place] [address] Pending Results Name Type Priority Associated Diagnoses Date /Time URIC ACID Lab Routine Chronic gout without tophus, unspecified cause, unspecified site 04/12/2023 10:31 AM EST BASIC METABOLIC PANEL Lab Routine Screening for diabetes mellitus 04/12/2023 10:31 AM EST LIPID PANEL WITH DIRECT LDL IF TG IS HIGH Lab Routine Lipid screening 04/12/2023 10:31 AM EST PSA Lab Routine Screening for prostate cancer 04/12/2023 10:31 AM EST Scheduled Procedures Name Priority Associated Diagnoses Date/Ti [...] as of this encounter Visit Diagnoses Diagnosis Chronic gout without tophus, unspecified cause, unspecified site Screening for diabetes mellitus Lipid screening Screening for lipoid disorders Screening for prostate cancer Special screening for malignant neoplasm of prostate documented in this encounter Care Teams Wet Inspector Optical Glass Relationship Specialty Start Date End Date Marquis Flores MD [address] [place] [address] PCP - General Family Medicine 07/18/14 documented as of this encounter
--- OUTSIDE RECORDS SUMMARY | 2023-10-07 04:27 | External Medical Summary | Summary of Care ---
Author Name Unknown Organization [facility] Address [address] [place] [address] Phone [phone] Care Team Providers Care Lamina Searcher Name Role Phone Marquis Moss MD Primary Care Provider + Reason for Visit * Reason Comments eRx-Medication Refill Encounter Details Date Type Department Care Team (Late st Contact Info) Description 05/24/[address] [facility] [address] [place] [address] Mary Reyes MD [address] [place] [id number] Depression, major, recurrent, mild (HCC) Allergies Active Allergy Reactions Criticality Noted Date Comments Hydroxychloroquine 12/27/2021 Total body rash documented as of this encounter (statuses as of 05/25/2023) Medications Medication Sig Dispensed Refills Start Date [...] Tablet (Zoloft)Indicati ons:Depression, major, recurrent, mild (HCC) take 2 tablets by mouth every morning 60 Tablet 5 05/25/2023 Active Sertraline HCl 100 MG Oral Tablet (Zoloft)Indicati ons:Depression, major, recurrent, mild (HCC) Take 2 Tablets by mouth in the morning. 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 Present several years on scalp. Tinnitus of both ears 01/15/2018 Overview: chintan-hearing aides. Prediabetes 01/15/2018 Depression, major, recurrent, mild 05/18/2017 History of nonmelanoma skin cancer 03/27/2017 Overview: Hx of BCC on nose & forehead TANNER on CPAP 10/22/2014 Overview: CPAP settings ? 02/20/13 Titration -- CPAP 14 cwp, resolution of hypoxemia 02/09/13 PSG -- AHI 65.9, <90% 89.3 mins [facility] (previously [facility] in ) Routine general medical exam ination at a health care facility 07/18/2014 Overview: 09/20 TTE normal EF , mild valve 10/20 PFT WNl. Refer sarcoid clinc. 08/20 Complete heart block. Pacemaker placed. Followed by cardiac tamponade TTE [facility] normal EF. +elev right vent pressures. 12/18 colon 6 & 5mm plyp PATH Pend: hyperplastic and adenoma russ 5y 03/19 cutaneous sarcoid 12/13 +polyp path hyperplastic. Colonoscopy. Russ 5y Dyslipidemia HTN, goal below 130/80 Gout Cervical vertebral fusion documented as of this encounter (statuses as of 05/25/2023) Resolved Problems Problem Noted Date Diagnosed Date Resolved Date Status post total right knee replacement 05/17/2016 06/06/2020 Numbness in feet 05/17/2016 06/06/2020 Overview: 2016 labs WNL. Consider EMG if worsening Hoarseness 09/02/2014 05/17/2016 Post-nasal drip 07/18/2014 06/06/2020 Allergic rhinitis 07/18/2014 06/06/2020 History of basal cell carcinoma (BCC) 06/06/2020 Overview: BCC documented as of this encounter (statuses as of 05/25/2023) Immunizations Name Administration Dates Next Due COVID-19 mRNA, LNP-s, No Pre serve, 2-Dose Series ([employer]) 02/03/2021,07/30/2020,07/04/2020 COVID-19, LNP-s, No Preserve , Jay-sucrose, Ages 12+ (Pfizer) 10/07/2021 COVID-19, MRNA-LNP, 23-24, P F, 30 MCG/0.3 mL, 12 YRS AND ABOVE, IM [facility] 03/06/2023 Covid-19, Mrna, Lnp-s, Pf, B ivalent, 30 Mcg, IM, 12 yrs and above (Pfizer) 02/12/2022 HEP A - Hepatitis A (Adult > 18 yrs) 08/12/2015, 05/01/2010 PPD 03/11/2015 Pneumococcal Conjugate Vacci ne, 20-valent ([id number]) 09/22/2022 Pneumococcal Polysaccharide PPV23 (Pneumovax) 08/19/2021 RSV [...] on file documented as of this encounter Miscellaneous Notes * Telephone Encounter - Raymon Darden [facility] - 05/25/2023 7:23 AM ESTSigned Prescriptions: Disp Refills Sertraline HCl 100 MG Oral Tablet (Zoloft) 60 Tab*5 Sig: take 2 tablets by mouth every morningAuthorizing Provider: MARQUIS MOSS User: RAYMON DARDEN documented in this encounter Plan of Treatment Upcoming Encounters Date Type Department Care Team (Late st Contact Info) Description 07/20/2023 9:00 AM EDT Office Visit Cardiology, [facility] [address] [place] [address] Kathryn Lynn CRNP [address] [place] [address] 10/12/2023 10:20 AM EDT Office Visit Family Practice [facility] [address] [place] [address] Marquis Moss MD [address] [place] [address] 12/25/2023 8:30 AM EDT Cardiac Studies Cardiology, [facility] [address] [place] [address] [place] [address] [place] [address] Scheduled Procedures Name Priority Associated Diagnoses Date/Ti [...] as of this encounter Visit Diagnoses Diagnosis Depression, major, recurrent, mild (HCC) Major depressive disorder, recurrent episode, mild documented in this encounter Care Teams Lamina Searcher Relationship Specialty Start Date End Date Marquis Moss MD [address] [place] [address] PCP - General Family Medicine 07/18/14 documented as of this encounter
--- OUTSIDE RECORDS SUMMARY | 2023-10-07 04:27 | External Medical Summary ---
Author Name Unknown Address Unknown Organization K01:[facility] - [address] [place] [address] Laboratory Report Ordering Provider Test Date Status AJAY URBANO 04/12/2023 10:31:06 Final Observation Date Value Abnormality Reference (Units ) Status Triglyceride 04/12/2023 10:31:06 258 Above high normal <=174 (mg/dL) Final Triglyceride Reference Range s (mg/dL):
<150 Acceptable
150-174 Borderline high
175-499 High
>=500 Very high Cholesterol 04/12/2023 10:31:06 134 <200 (mg /dL) Final Total Cholesterol Reference Ranges (mg/dL):
<200 Desirable
200-239 Borderline high
>=240 High HDL 04/12/2023 10:31:06 29 Below low normal >39 (mg/dL) Final HDL Cholesterol Reference Ra nges (mg/dL):
>=60 High (Desirable)
<50 Low (Undesirable) For Females
<40 Low (Undesirable) For Males NON-HDL CHOLESTEROL 04/12/2023 10:31:06 105 <=159 (mg/dL) Final Non-HDL Cholesterol Referenc e Range (mg/dL):
<100 Target level for high risk ASCVD patient
<130 Optimal for general population
130-159 Near optimal for general population
160-189 Borderline High
190-219 High
>=220 Very High Performing Location [facility]ORY [facility] - [address] [place] [address]
--- OUTSIDE RECORDS SUMMARY | 2023-10-07 04:27 | External Medical Summary | Summary of Care ---
Author Name Unknown Organization [facility] Address [address] [place] [address] Phone [phone] Care Team Providers Care Business Coordinator Name Role Phone Marquis Moss MD Primary Care Provider + Reason for Visit * Reason Comments New Med Request Encounter Details Date Type Department Care Team (Late st Contact Info) Description 05/27/2023 Refill Family Practice [facility] [address] [place] [address] Marquis Moss MD [address] [place] [address] Depression, major, recurrent, mild (HCC) Allergies Active Allergy Reactions Criticality Noted Date Comments Hydroxychloroquine 12/27/2021 Total body rash documented as of this encounter (statuses as of 05/29/2023) Medications Medication Sig Dispensed Refills Start Date [...] the morning. 180 Tablet 1 05/29/2023 Active Sertraline HCl 100 MG Oral Tablet (Zoloft)Indicati ons:Depression, major, recurrent, mild (HCC) take 2 tablets by mouth every morning 60 Tablet 5 05/25/2023 4 Discontinued documented as of this encounter (statuses as of 05/29/2023) Active Problems Problem Noted Date Diagnosed Date [...] <90% 89.3 mins [facility] (previously [facility] in ) Routine general medical exam ination at a health care facility 07/18/2014 Overview: 09/20 TTE normal EF , mild valve 10/20 PFT WNl. Refer sarcoid clinc. 08/20 Complete heart block. Pacemaker placed. Followed by cardiac tamponade TTE [facility] normal EF. +elev right vent pressures. 12/18 colon 6 & 5mm plyp PATH Pend: hyperplastic and adenoma russ 5y 03/19 cutaneous sarcoid 12/13 +polyp path hyperplastic. Colonoscopy. Russ 5y Dyslipidemia HTN, goal below 130/80 Gout Cervical vertebral fusion documented as of this encounter (statuses as of 05/29/2023) Resolved Problems Problem Noted Date Diagnosed Date Resolved Date Status post total right knee replacement 05/17/2016 06/06/2020 Numbness in feet 05/17/2016 06/06/2020 Overview: 2016 labs WNL. Consider EMG if worsening Hoarseness 09/02/2014 05/17/2016 Post-nasal drip 07/18/2014 06/06/2020 Allergic rhinitis 07/18/2014 06/06/2020 History of basal cell carcinoma (BCC) 06/06/2020 Overview: BCC documented as of this encounter (statuses as of 05/29/2023) Immunizations Name Administration Dates Next Due COVID-19 mRNA, LNP-s, No Pre serve, 2-Dose Series ([employer]) 02/03/2021,07/30/2020,07/04/2020 COVID-19, LNP-s, No Preserve , Jay-sucrose, Ages 12+ (Pfizer) 10/07/2021 COVID-19, MRNA-LNP, 23-24, P F, 30 MCG/0.3 mL, 12 YRS AND ABOVE, IM (PFIZER-Comirnat) 03/06/2023 Covid-19, Mrna, Lnp-s, Pf, B ivalent, 30 Mcg, IM, 12 yrs and above (Pfizer) 02/12/2022 HEP A - Hepatitis A (Adult > 18 yrs) 08/12/2015, 05/01/2010 PPD 03/11/2015 Pneumococcal Conjugate Vacci ne, 20-valent ([id number]) 09/22/2022 Pneumococcal Polysaccharide PPV23 (Pneumovax) 08/19/2021 RSV [...] encounter Miscellaneous Notes * Telephone Encounter - Reji Aguilar [facility] - 05/29/2023 10:48 AM ESTSigned Prescriptions: Disp Refills Sertraline HCl 100 MG Oral Tablet (Zoloft) 180 Ta*1 Sig: Take 2 Tablets by mouth in the morning.Authorizing Provider: MARQUIS MOSS User: REJI HARTMAN * Telephone Encounter - Reji Aguilar [facility] - 05/29/2023 10:47 AM EST Pending Prescriptions: Disp Refills Sertraline HCl 100 MG Oral Tablet (Zoloft* 0 Last Visit: 04/12/2023 (in office), 06/02/2020 (telemedicine) Next Visit: 10/12/2023 If no future appointments scheduled, and last appointment is greater than a year ago, please schedule patient for a follow-up appointment Last date the medication was ordered: 05/25/23 Pharmacy: [facility] [address] Is this request for a controlled substance? No Urine Drug Screen:No results found for this or any previous visit. Patient Phone Numbers Labs: Lab Results Component Value Date/Time CREAT 1.0 04/12/2023 10:31 AM CREAT 1.0 02/11/2020 08:12 AM POTASSIUM 4.2 04/12/2023 10:31 AM POTASSIUM 4.3 02/11/2020 08:12 AM TSH 4.45 (H) 01/10/2018 08:15 AM LDLCALC UNINTERPRETABLE RESULT 01/10/2018 08:15 AM LDLDIRECT 76 04/12/2023 10:31 AM LDLDIRECT 116 01/10/2018 08:15 AM ALT 33 09/24/2021 01:32 PM HGBA1C 5.2 09/22/2022 08:58 AM HGBA1C 5.2 02/13/2019 08:09 AM documented in this encounter Plan of Treatment Upcoming Encounters Date Type Department Care Team (Late st Contact Info) Description 07/20/2023 9:00 AM EDT Office Visit Cardiology, [facility] [address] [place] [address] Kathryn Lynn CRNP [address] [place] [address] 10/12/2023 10:20 AM EDT Office Visit Family Practice [facility] [address] [place] [address] Marquis Moss MD [address] [place] [address] 12/25/2023 8:30 AM EDT Cardiac Studies Cardiology, [facility] [address] [place] [address] [facility] [address] [place] [address] Scheduled Procedures Name Priority Associated Diagnoses Date/Ti [...] mild documented in this encounter Care Teams Business Coordinator Relationship Specialty Start Date End Date Marquis Moss MD [address] [place] [address] PCP - General Family Medicine 07/18/14 documented as of this encounter
--- OUTSIDE RECORDS SUMMARY | 2023-10-07 04:27 | External Medical Summary ---
Author Name Unknown Address Unknown Organization [id number]:[facility] - [address] [place] [id number] Laboratory Report Ordering Provider Test Date Status AJAY URBANO 04/12/2023 10:31:06 Final Observation Date Value Abnormality Reference (Units ) Status BUN 04/12/2023 10:31:06 17 6-20 (mg/dL) Final Creatinine 04/12/2023 10:31:06 1.0 0.6-1.2 (mg/dL) Final Glomerular filtration rate/1.73 sq M.predicted [Volume Rate/Area] in Serum, Plasma or Blood by Creatinine-based formula (CKD-EPI) 04/12/2023 10:31:06 82 >=60 (mL/min) Final eGFR is calculated based on the CKD-EPI 2020 equation SODIUM 04/12/2023 10:31:06 139 135-146 (m mol/L) Final Potassium 04/12/2023 10:31:06 4.2 3.5-5.1 (m mol/L) Final Cl 04/12/2023 10:31:06 101 98-107 (mm ol/L) Final CO2 04/12/2023 10:31:06 28 22-32 (mmo l/L) Final Anion gap 04/12/2023 10:31:06 10 7-15 (mmol /L) Final Glucose 04/12/2023 10:31:06 111 70-120 (mg /dL) Final Calcium 04/12/2023 10:31:06 9.2 8.4-10.2 ( mg/dL) Final Performing Location [facility] - [address] [place] [id number]
--- OUTSIDE RECORDS SUMMARY | 2023-10-07 04:27 | External Medical Summary ---
Author Name Unknown Address Unknown Organization K01:LABORATORY [facility] [place] - [address] [place] [address] Laboratory Report Ordering Provider Test Date Status AJAY URBANO 04/12/2023 10:31:06 Final Observation Date Value Abnormality Reference (Units ) Status Uric Acid 04/12/2023 10:31:06 5.4 3.4-7.0 (m g/dL) Final Performing Location [facility] - [address] [facility] [address]
--- OUTSIDE RECORDS SUMMARY | 2023-10-07 04:27 | External Medical Summary | Summary of Care ---
Author Name Unknown Organization [facility] Address [address] [place] [address] Phone [phone] Care Team Providers Care Site Monitor Name Role Phone Marquis Flores MD Primary Care Provider + Reason for Visit * Reason Comments Follow Up Encounter Details Date Type Department Care Team (Latest Contact Info) Description 04/12/2023 9:30 AM EST Office Visit Cardiology, [facility] [address] [place] [address] Mayur Givens, [address] [place] [address] HTN, goal below 130/80*; Complete atrioventricular block (HCC); Biventricular ICD (implantable cardioverter-defibrillat or) in place; PAF (paroxysmal atrial fibrillation) (HCC) Allergies Active Allergy Reactions Criticality Noted [...] <90% 89.3 mins [facility] (previously [facility] in ) Routine general medical exam ination at a health care facility 07/18/2014 Overview: 09/20 TTE normal EF , mild valve 10/20 PFT WNl. Refer sarcoid clinc. 08/20 Complete heart block. Pacemaker placed. Followed by cardiac tamponade TTE [facility] normal EF. +elev right vent [...] mRNA, LNP-s, No Pre serve, 2-Dose Series ([employer]) 02/03/2021,07/30/2020,07/04/2020 COVID-19, LNP-s, No Preserve , Jay-sucrose, Ages 12+ (Pfizer) 10/07/2021 COVID-19, MRNA-LNP, 23-24, P F, 30 MCG/0.3 mL, 12 YRS AND ABOVE, IM ([employer]-[facility]) 03/06/2023 Covid-19, Mrna, Lnp-s, Pf, B ivalent, 30 Mcg, IM, 12 yrs and above (Pfizer) 02/12/2022 HEP A - Hepatitis A (Adult > 18 yrs) 08/12/2015, 05/01/2010 PPD 03/11/2015 Pneumococcal Conjugate Vacci ne, 20-valent ([id number]) 09/22/2022 Pneumococcal Polysaccharide PPV23 (Pneumovax) 08/19/2021 RSV [...] Sign Reading Time Taken Comments Blood Pressure 138/82 04/12/2023 9:45 AM EST Pulse 76 04/12/2023 9:45 AM EST Temperature - - Respiratory Rate - - Oxygen Saturation - - Inhaled Oxygen Concentration - - Weight 133.8 kg (295 lb) 04/12/2023 9:45 AM EST Height - - Body Mass Index 38.92 05/18/2022 9:24 AM EST documented in this encounter Progress Notes * Mayur Givens DO - 04/12/2023 10:07 AM EST SUBJECTIVE: Patient returns today for follow up of uncontrolled hypertension. Losartan recently increased to 100 mg daily in late January via telephone message. History of third-degree AV block status post pacemaker implantation 08/06/2021 complicated by cardiac tamponade s/p pericardiocentesis and pericardial drain placement August 10, 2021. Seen by primary care earlier today. Hydrochlorothiazide discontinued in favor of chlorthalidone. Feeling well from a cardiovascular perspective. Denies chest pain or unusual shortness of breath. Admits to sedentary lifestyle and lack of regular exercise. Home blood pressure generally running 140- 150's / 90's. Denies palpitations, lightheadedness, dizziness, syncope, or near syncope. ROS: All others negative other than those noted in the HPI. Cardiac PET-CT 11/12/2021 1. No PET evidence of active myocardial inflammation. 2. Diaphragmatic attenuation. No definite perfusion defect at rest. Normal left ventricular systolic function. 3. Hilar and mediastinal lymphadenopathy with increased radiotracer uptake, consistent with historyof extracardiac sarcoidosis. 2D echo report September 14, 2022: The LV wall thickness is mildly increased (concentric). The left ventricular wall motion is normal. The qualitative LV ejection fraction is 55-59% (normal). The left atrium is mildly enlarged (35-41 ml/m^2). The left ventricular diastolic function is mildly abnormal (grade I). Mild aortic valve sclerosis is present. Aortic stenosis is absent. Mild mitral regurgitation is present. Trace tricuspid regurgitation is present. The aortic root is mildly enlarged, 4.1 cm. The proximal ascending thoracic aorta is mildly enlarged, 4.1 cm. No pericardial effusion is noted. 2D Echo report 11/24/2021 Small circumferential pericardial effusion with moderate organization. Cardiac tamponade is absent. Normal IVC size and collapsability with sniff indicates a normal right atrial pressure of 3 mmHg. The qualitative LV ejection fraction is 55-59% (normal). 2D echocardiogram report [facility] 08/18/2021: Trivial pericardial effusion without hemodynamic significance. 2D echocardiogram report [facility] 08/16/2021: Trivial pericardial effusion. No evidence of tamponade. 2D echocardiogram report [facility] 08/10/2021: Large circumferential pericardial effusion more pronounced anteriorly. Tamponade physiology with RV diastolic collapse. 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 Triamcinolone Acetonide 0.1 % External Cream (Aristocort) Apply topically to affected area 2 times a day . Apply to scalp 1-2 times daily 80 g 3 amLODIPine Besylate 10 MG Oral Tablet (Norvasc) Take 1 Tablet (10 mg) by mouth in the morning. 90 Tablet 3 Metoprolol Succinate ER 50 MG Oral Tablet Extended Release 24 Hour (toPROL XL) Take 1.5 Tablets by mouth in the morning. 150 Tablet 3 CPAP every night at bedtime. Allopurinol 300 MG Oral Tablet (Zyloprim) Take 1 Tablet by mouth in the morning. 90 Tablet 3 Sertraline HCl 100 MG Oral Tablet (Zoloft) Take 2 Tablets by mouth in the morning. 180 Tablet 3 Simvastatin 20 MG Oral Tablet [...] the morning. In the morning..90 Tablet 3 No current facility-administered medications for this visit. Lipid Panel Results: Results for orders placed or performed in visit on 04/09/21 LIPID PANEL WITH DIRECT LDL IF TG IS HIGH Result Value Ref Range Triglycerides 245 (H) <=174 mg/dL Cholesterol 177 <200 mg/dL HDL Cholesterol 40 >39 mg/dL Non-HDL Cholesterol 137 <=159 mg/dL Lab Results Component Value Date/Time TSH - [facility] 4.45 (H) 01/10/2018 08:15 AM TSH - [facility] 5.08 (H) 05/18/2017 03:57 PM CBC Results: Results for orders placed or performed in visit on 07/29/21 CBC Result Value Ref Range WBC 7.29 4.00 - 10.80 K/uL RBC 5.20 4.50 - 5.25 M/uL HGB 15.9 14.0 - 16.8 g/dL HCT 47.6 40.0 - 48.4 % MCV 91.5 82.0 - 99.5 fL MCH 30.6 27.0 - 34.0 pg MCHC 33.4 32.0 - 36.0 g/dL RDW 13.7 11.5 - 15.5 % MPV 9.6 6.6 - 11.1 fL nRBCs 0 <=0 /100 WBCs PLT 175 140 - 400 K/uL OBJECTIVE/PHYSICAL EXAMINATION: BP 138/82 | Pulse 76 | Wt 133.8 kg (295 lb) | BMI 38.92 kg/m | BSA 2.63 m General: NAD, AAO x3, well nourished. HEENT: Normocephalic. Atraumatic. Conjunctiva pink, no scleral icterus. No carotid bruits, the carotid upstrokes are brisk. No JVD. No HJR Heart: Regular normal S-1 and S-2 no S-3 or S-4 gallop. No murmurs or rubs appreciated. PMI is not displaced. No RV heave.Lungs: Clear bilateral without rales , rhonchi, or wheeze. Abdomen: Normal bowel sounds. Soft. Nontender. No masses or organomegaly. No abdominal bruits. Extremities: No clubbing, cyanosis, or edema.Pulses: radial=2/4, Dorsalis pedis =2/4, posterior tibial=2/4. Neuro: No focal deficits. ASSESSMENT: 1. HTN - uncontrolled; losartan recently titrated to 100 mg daily 2. Third-degree AV block status post dual-chamber ICD implantation. -ICD implanted (instead of dual chamber pacemaker) due to concerns regarding possible sarcoid cardiac involvement. -no evidence of cardiac involvement per PET scan 10/2021 3. Paroxysmal atrial fibrillation reported on device interrogation January 10, 2022. -no recurrence per most recent interrogation dated March 08, 2023. 4. Cutaneous sarcoidosis 5. Erectile dysfunction 6. Obesity with TANNER - recently transition from CPAP to BiPAP. PLAN: Agree with transition of hydrochlorothiazide to chlorthalidone. Continue losartan, metoprolol succinate, amlodipine, and furosemide. Monitor home blood pressure twice weekly proximally 2 hours after a.m. medication. I had a long discussion with the patient regarding need for therapeutic lifestyle changes. Encouraged to participate in a regular aerobic exercise program (150 minutes of moderate intensity exercise weekly). ICD interrogation every 3 months via the heart rhythm device clinic. Follow Up: Return in about 3 months (around 07/12/2023). I spent a total of 30-39 minutes (exact time 31 mins) on the date of service in preparation, delivery, and documentation of the care provided to Guy Ramirez excluding any time spent in the performance of separately billed services. Mayur Givens DO, [facility] Associate Cardiology - [facility] documented in this encounter Nursing Notes * Josie Christie CMA - 04/12/2023 9:44 AM EST Examination Room: 13 Name: Guy Ramirez Date of : (1960) Reason for Visit: 1 month f/u from med change Interim Hospitalization(s): none Problems/Concerns: BP still high Chest Pain/SOB: denied My [facility] is a [...] 07/20/2023 9:00 AM EDT Office Visit Cardiology, [facility] [address] [address] Kathryn Lynn CRNP [address] [address] 10/12/2023 10:20 AM EDT Office Visit Family Practice [facility] [address] [id number] Marquis Flores MD [address] [place] [address] 12/25/2023 8:30 AM EDT Cardiac Studies Cardiology, [facility] [address] [place] [address] Ella Vasquez [facility] [address] [address] Scheduled Procedures Name Priority Associated Diagnoses Date/Ti [...] goal below 130/80- Primary Unspecified essential hypertension Complete atrioventricular block (HCC) Atrioventricular block, complete Biventricular ICD (implantable cardioverter-defibrillator) in place PAF (paroxysmal atrial fibrillation) (HCC) Atrial fibrillation documented in this encounter Care Teams Site Monitor Relationship Specialty Start Date End Date Marquis Flores MD [address] [place] [address] PCP - General Family Medicine 07/18/14 documented as of this encounter"
--- OUTSIDE RECORDS SUMMARY | 2023-10-07 04:27 | External Medical Summary ---
Author Name Unknown Address Unknown Organization K01:[facility] - [address] [place] [address] Laboratory Report Ordering Provider Test Date Status AJAY URBANO 04/12/2023 10:31:06 Final Observation Date Value Abnormality Reference (Units ) Status PSA 04/12/2023 10:31:06 1.11 <4.10 (ng/ mL) Final Performing Location [facility] - [address] [place] [address]
--- OUTSIDE RECORDS SUMMARY | 2023-10-07 04:27 | External Medical Summary | Summary of Care ---
Author Name Unknown Organization [facility] Address [address] [place] [address] Phone [phone] Care Team Providers Care Fireworks Inspector Name Role Phone Marquis Flores MD Primary Care Provider + Reason for Visit * Reason Comments eRx-Medication Refill Encounter Details Date Type Department Care Team (Late st Contact Info) Description 04/20/2023 Refill Cardiology, [facility] [address] [place] [address] Mayur Zimmer, [address] [place] [place] [address] Complete heart block (HCC); Sarcoidosis; HTN, goal below 140/90 Allergies Active Allergy Reactions Criticality Noted Date Comments Hydroxychloroquine 12/27/2021 Total body rash documented as of this encounter (statuses as of 04/20/2023) Medications Medication Sig Dispensed Refills Start Date [...] THE MORNING 135 Tablet 3 04/20/2023 Active Metoprolol Succinate ER 50 MG Oral Tablet Extended Release 24 Hour (toPROL XL)Indications:C omplete heart block (HCC),Sarcoidosi s,HTN, goal below 140/90 Take 1.5 Tablets by mouth in the morning. 150 Tablet 3 04/20/2022 3 Discontinued documented as of this encounter (statuses as of 04/20/2023) Active Problems Problem Noted Date Diagnosed Date [...] <90% 89.3 mins [facility] (previously [facility] in [place]) Routine general medical exam ination at a health care facility 07/18/2014 Overview: 09/20 TTE normal EF , mild valve 10/20 PFT WNl. Refer sarcoid clinc. 08/20 Complete heart block. Pacemaker placed. Followed by cardiac tamponade TTE [facility] normal EF. +elev right vent pressures. 12/18 colon 6 & 5mm plyp PATH Pend: hyperplastic and adenoma russ 5y 03/19 cutaneous sarcoid 12/13 +polyp path hyperplastic. Colonoscopy. Russ 5y Dyslipidemia HTN, goal below 130/80 Gout Cervical vertebral fusion documented as of this encounter (statuses as of 04/20/2023) Resolved Problems Problem Noted Date Diagnosed Date Resolved Date Status post total right knee replacement 05/17/2016 06/06/2020 Numbness in feet 05/17/2016 06/06/2020 Overview: 2016 labs WNL. Consider EMG if worsening Hoarseness 09/02/2014 05/17/2016 Post-nasal drip 07/18/2014 06/06/2020 Allergic rhinitis 07/18/2014 06/06/2020 History of basal cell carcinoma (BCC) 06/06/2020 Overview: BCC documented as of this encounter (statuses as of 04/20/2023) Immunizations Name Administration Dates Next Due COVID-19 mRNA, LNP-s, No Pre serve, 2-Dose Series ([employer]) 02/03/2021,07/30/2020,07/04/2020 COVID-19, LNP-s, No Preserve , Jay-sucrose, Ages 12+ (Pfizer) 10/07/2021 COVID-19, MRNA-LNP, 23-24, P F, 30 MCG/0.3 mL, 12 YRS AND ABOVE, IM ([employer]) 03/06/2023 Covid-19, Mrna, Lnp-s, Pf, B ivalent, 30 Mcg, IM, 12 yrs and above ([employer]) 02/12/2022 HEP A - Hepatitis A (Adult > 18 yrs) 08/12/2015, 05/01/2010 PPD 03/11/2015 Pneumococcal Conjugate Vacci ne, 20-valent ([id number]) 09/22/2022 Pneumococcal Polysaccharide PPV23 (Pneumovax) 08/19/2021 RSV [...] encounter Miscellaneous Notes * Telephone Encounter - Mayur Zimmer DO - 04/20/2023 1:02 PM ESTSigned Prescriptions: Disp Refills Metoprolol Succinate ER 50 MG Oral Tablet *135 Ta*3 Sig: TAKE ONE AND ONE-HALF TABLETS IN THE MORNING Authorizing Provider: MAYUR ZIMMER * Telephone Encounter - Kendra Iverson COT - 04/20/2023 12:34 PM ESTPending Prescriptions: Disp Refills Metoprolol Succinate ER 50 MG Oral Tablet *135 Ta*3 Sig: TAKE ONE AND ONE-HALF TABLETS IN THE MORNING * Telephone Encounter - Kendra Iverson COT - 04/20/2023 12:34 PM EST Did you pend patient's preferred pharmacy and medication before forwarding?yes Pharmacy: [facility]- [place] Pending Prescriptions: Disp Refills Metoprolol Succinate ER 50 MG Oral Tablet*135 Ta*3 Sig: TAKE ONE AND ONE-HALF TABLETS IN THE MORNING Last Visit: 04/12/2023 (in office), Visit date not found (telemedicine) Next Visit: 07/20/2023 If no future appointments scheduled, and last appointment is greater than a year ago, please schedule patient for a follow-up appointment Last date the medication was ordered: 04-20-2022 Is this request for a controlled substance?No Urine Drug Screen:No results found for this [...] 07/20/2023 9:00 AM EDT Office Visit Cardiology, [facility] [address] [address] Kathryn Lynn CRNP [address] [address] 10/12/2023 10:20 AM EDT Office Visit Family Practice [facility] [address] [place] [address] Marquis Flores MD [address] [place] [address] 12/25/2023 8:30 AM EDT Cardiac Studies Cardiology, [facility] [address] [place] [address] [place] [address] [place] [address] Scheduled Procedures Name Priority Associated Diagnoses Date/Ti [...] encounter Visit Diagnoses Diagnosis Complete heart block (HCC) Atrioventricular block, complete Sarcoidosis HTN, goal below 140/90 Unspecified essential hypertension documented in this encounter Care Teams Fireworks Inspector Relationship Specialty Start Date End Date Marquis Flores MD [address] [address] PCP - General Family Medicine 07/18/14 documented as of this encounter
--- OUTSIDE RECORDS SUMMARY | 2023-10-07 04:27 | External Medical Summary ---
Author Name Unknown Address Unknown Organization K01:[facility] - [address] [place] [address] Laboratory Report Ordering Provider Test Date Status AJAY URBANO 04/12/2023 10:31:06 Final Observation Date Value Abnormality Reference (Units ) Status LDL, (direct) 04/12/2023 10:31:06 76 <=129 (mg/dL) Final LDL Cholesterol Reference Ra nges (mg/dL):
<70 Target level for high risk ASCVD patient
<100 Optimal for general population
100-129 Near optimal for general population
130-159 Borderline high
160-189 High
>=190 Very high Performing Location [facility] - [address] [place] [address]
--- NOTE | 2023-10-07 05:23 | Electrocardiogram Report ---
Test Reason : Blood Pressure : / mmHG Vent. Rate : 072 BPM Atrial Rate : 072 BPM P-R Int : 174 ms QRS Dur : 174 ms QT Int : 464 ms P-R-T Axes : 027 268 067 degrees QTc Int : 508 ms Atrial-sensed ventricular-paced rhythm Abnormal ECG When compared with ECG of 13-AUG-2021 11:19, Vent. rate has decreased BY 12 BPM Confirmed by Denzel Win ([id number]) on 10/07/2023 5:23:12 AM Referred By: Confirmed By:Denzel Win
[2023-10-07 07:15] LABS: BUN Creatinine Ratio 18.9 (10-20); Calcium 9.1 mg/dl (8.6-10.3); Chol HDL Ratio 4.3 (0-5); Creatinine Clr Calc Pharmacy 100.4 ml/min; Est GFR (African American) 86.1 ml/min; Est GFR (Non-African American) 74.3 ml/min; Potassium 3.6 mmol/L (3.5-5.1)
[2023-10-07 07:18] LABS: Estimated Average Glucose 100 mg/dl; Hemoglobin A1C 5.1 % (4.5-5.6)
[2023-10-07 07:39] LABS: Hematocrit (blood only) 39.6 % (42.0-52.0); Hemoglobin 13.1 g/dl (14.0-18.0); Mean Corpuscular Hemoglobin 30.1 pg (25.0-34.0); Mean Corpuscular Hgb Conc 33.1 g/dL (32.0-36.0); Mean Platelet Volume 9.2 fL (9.4-12.4); Platelet Count 102 K/uL (130-400); RDW Coefficient of Variation 14.2 % (11.5-14.5); RDW Standard Deviation 47.1 fL (36.4-46.3); Red Blood Count 4.35 M/uL (4.70-6.10); White Blood Count 4.61 K/ul (4.8-10.8)
[2023-10-07] MEDS: amLODIPine BESYLATE 5 MG TAB PO SCH (08:04)
[2023-10-07] MEDS: METOPROLOL SUCC 25MG EXT REL TAB PO SCH (08:04)
[2023-10-07] MEDS: LOSARTAN POTASSIUM 50 MG TAB PO SCH (08:05)
[2023-10-07] MEDS: CHLORTHALIDONE 25 MG TAB PO SCH (08:05)
[2023-10-07] MEDS: FUROSEMIDE 20 MG TAB PO SCH (08:05)
[2023-10-07] MEDS: SERTRALINE HCL 100 MG TABLET PO SCH (08:05)
[2023-10-07] MEDS: ASPIRIN 81 MG ECTAB PO SCH (08:09)
[2023-10-07] MEDS ORDERED: TRIAMCINOLONE ACET 0.1% CR 15 GM TUBE TOP SCH (09:00)
[2023-10-07] MEDS ORDERED: PANTOprazole 40 MG TAB PO SCH (09:00)
--- NOTE | 2023-10-07 09:50 | Hospitalist Progress Note ---
Date of Service October 07, 2023 Assessment & Plan (1) Chest heaviness: (2) Near syncope: (3) Dyspnea: (4) Presence of combination internal cardiac defibrillator (ICD) and pacemaker: Plan: 63 y/o M with PMHx of dyslipidemia, gout, prediabetes, TANNER on BiPAP, complete heart block s/p pacemaker placement, HTN, depression and other problems who presented to the ED via EMS for evaluation of chest heaviness and episode of near-syncope. Initial troponin negative. EKG performed in the ED interpreted by myself and reveals the following: atrial-sensed ventricular-paced rhythm w/ HR 72bpm, P-R Int 174ms, QT/QTc 464/508ms and QRS Dur 174ms. No acute electrolyte abnormalities, LFTs unremarkable. No evidence of acute kidney injury or acute anemic process. Chest x-ray revealed cardiomegaly without acute process, mild subsegmental bibasilar atelectasis. TTE on 10/06/23: EF 60-65%, mod conc LVH, mild MR, trace TR, mild aortic root dilatation Troponin trend is negative Cardiology eval appreciated Continue ASA Home simvastatin changed to atorvastatin Plan for cardiac catheterization on monday. Will keep NPO PMN tomorrow night (5) Pre-diabetes: Plan: Appears last hemoglobin A1C 5.2 on 09/22/22 HbA1c is 5.1 on 10/07/23 He is currently diet controlled, not on any diabetic medication regimen at home. (6) HLD (hyperlipidemia): Plan: On simvastatin therapy at home Changed to atorvastatin 40mg daily (7) Depression: Plan: -Can continue ENROLLMENT COORDINATOR Zoloft therapy while hospitalized. (8) Cutaneous sarcoidosis: Plan: -No any oral medication regimen, using topical triamcinolone daily per patient. -Can continue topical triamcinolone therapy while he hospitalized, applies to his scalp region. (9) TANNER (obstructive sleep apnea): Plan: -Currently on BiPAP therapy, can use home device while inpatient. DVT Prophylaxis: Lovenox Code Status: Full Code PCP: Marquis Flores MD I spent a total of 50 minutes coordinating, documenting and providing care for this patient excluding time spent in performance of separately billed services Admission and Anticipated Discharge Date Admission Date: October 06, 2023 Subjective Patient seen and examined Denied any chest pain today Reported exertional chest pressure prior to admission, resolved with rest and associated with near syncope Denied any other complaints on ROS Reported mother had a heart attack at 63 and brother at 60 Denied smoking. Drinks alcohol only occasionally Physical Exam Constitutional: + well hydrated; no acute distress Eyes: PERRL, conjunctivae normal, anicteric sclerae ENMT: external ear and nose normal, oropharynx normal Respiratory: normal respiratory effort, lungs clear to auscultation Cardiovascular: Rate/Rhythm: regular rate and regular rhythm Gastrointestinal (Abdomen): normal bowel sounds, soft, nontender, no hepatosplenomegaly Musculoskeletal: no cyanosis or clubbing, extremities motor strength 5/5 No pedal edema Neurologic: PERRL, EOMI, accommodation nl, no face palsy, no dysarthria Psychiatric: A+Ox3, euthymic affect Results & Data Results & Data Vital Signs (Past 12 Hours) Vital Signs Temp Pulse Pulse Resp BP Pulse Ox O2 Del Method 10/07/23 08:00 Room Air 10/07/23 07:50 36.6 C 69 18 151/85 H 95 Room Air 10/07/23 07:00 60 10/07/23 02:52 36.4 C L 67 16 120/72 98 Room Air 10/06/23 23:07 36.2 C L 64 16 130/81 96 BiPAP 10/06/23 22:00 67 Laboratory Results Abnormal lab results 10/06/23 10/07/23 Range/Units 10:10 05:58 WBC 4.61 L (4.8-10.8) K/ul RBC 4.55 L 4.35 L (4.70-6.10) M/uL Hgb 13.8 L 13.1 L (14.0-18.0) g/dl Hct 41.2 L 39.6 L (42.0-52.0) % RDW Std Deviation 47.6 H 47.1 H (36.4-46.3) fL Plt Count 109 L 102 L (130-400) K/uL MPV 9.2 L (9.4-12.4) fL Lymph # (Auto) 0.64 L (1.20-3.40) K/uL BUN 24 H (6-23) mg/dl BUN/Creatinine Ratio 23.1 H (10-20) Glucose 113 H (70-99(Fasting)) mg/dl Triglycerides 321 H (0-150) mg/dl VLDL Cholesterol, Calc 64 H (0-30) mg/dl (3) Dyspnea Dyspnea type: dyspnea on exertion Qualified Code(s): R06.09 - Other forms of dyspnea (6) HLD (hyperlipidemia) Hyperlipidemia type: unspecified Qualified Code(s): E78.5 - Hyperlipidemia, unspecified (7) Depression Depression Type: unspecified Qualified Code(s): F32.A - Depression, unspecified
--- NOTE | 2023-10-07 13:15 | Cardiology Progress Note ---
Date of Service October 07, 2023 Assessment & Plan (1) Chest heaviness: (2) Near syncope: (3) Dyspnea: (4) Presence of combination internal cardiac defibrillator (ICD) and pacemaker: (5) Complete heart block: (6) Cardiac pacemaker in situ: (7) Dyslipidemia: (8) Family history of ischemic heart disease: Plan 63-year-old male with recent issues of chest heaviness and exertional dyspnea, experiencing a near syncopal episode after mild exertional associated with dyspnea and significant diaphoresis. EKG with a ventricular paced rhythm. High-sensitivity troponin negative serially. TTE with normal EF. Chest x-ray without acute process. Device interrogation without arrhythmia or malfunction. Blood pressure normotensive. Examination without overt hypervolemia. With the ventricular paced rhythm and the septal/apical wall motion abnormality (likely secondary to pacemaker activity) stress testing will likely be difficult to discern. Options of management discussed. Recommendations: 1. Continue aspirin, beta-humberto, statin 2. Hold furosemide and chlorthalidone Monday 3. Diagnostic cardiac catheterization with Dr. Givens Monday. I spent a total of 25 minutes on the date of service in preparation, delivery, and documentation of the care provided to this patient excluding any time spent in the performance of separately billed services. This visit was a split-shared visit with the substantive portion of the medical decision making performed by the supervising mitigation supervisor/billing provider. Admission and Anticipated Discharge Date Admission Date: October 07, 2023 Supervising Physician Co-Signing Physician Notes I have reviewed the advanced practitioner's documentation on the date of service referenced in note, and I agree with, and take responsibility for the plan of care. I spent a total of [10] minutes coordinating, documenting, and providing care for this patient excluding time spent in the performance of separately billed services or time spent by another provider. Subjective Patient seen and examined. Chart, medications, telemetry reviewed. No complaints/concerns. Notes possibly partying too hard the night before presentation. Did not receive allopurinol (300 mg/day). Telemetry: Sinus in the 70s, paced Review of Systems Review of Systems: Complete Review of Systems is as stated above, negative, or noncontributory. Physical Exam Physical Exam: General: A&Ox3. NAD. HENT: Normocephalic. Atraumatic. Eyes: PER. Conjunctiva pink, sclera clear. Neck: No carotid bruits. No JVD. Heart: Regular, paced. Systolic murmur. No diastolic murmur. Lungs: Clear to auscultation. Abdomen: +BS. No organomegaly. Extremities: No clubbing, cyanosis, or edema. Limited neurological examination is without focal deficits. Pulses: Posterior tibial=2/4. Results & Data Vital Signs (Past 12 Hours) Vital Signs Temp Pulse Pulse Resp BP Pulse Ox O2 Del Method 10/07/23 11:00 36.7 C 66 18 145/80 H 94 Room Air 10/07/23 08:00 Room Air 10/07/23 07:50 36.6 C 69 18 151/85 H 95 Room Air 10/07/23 07:00 60 10/07/23 02:52 36.4 C L 67 16 120/72 98 Room Air Laboratory Results Cardiac Enzymes 10/06/23 10/06/23 Range/Units 15:24 17:58 Troponin I High Sens 4.9 4.2 (0-20) pg/ml Lipids 10/07/23 Range/Units 05:58 Triglycerides 321 H (0-150) mg/dl Cholesterol 117 (0-200) mg/dl HDL Cholesterol 27 mg/dl Cholesterol/HDL Ratio 4.3 (0-5) CBC 10/07/23 Range/Units 05:58 WBC 4.61 L (4.8-10.8) K/ul RBC 4.35 L (4.70-6.10) M/uL Hgb 13.1 L (14.0-18.0) g/dl Hct 39.6 L (42.0-52.0) % Plt Count 102 L (130-400) K/uL Comprehensive Metabolic Panel 10/07/23 Range/Units 05:58 Sodium 137 (136-145) mmol/L Potassium 3.6 (3.5-5.1) mmol/L Chloride 101 (98-107) mmol/L Carbon Dioxide 28 (21-32) mmol/L BUN 20 (6-23) mg/dl Creatinine 1.06 (0.6-1.4) mg/dl Glucose 113 H (70-99(Fasting)) mg/dl Calcium 9.1 (8.6-10.3) mg/dl Intake and Output 10/06/23 10/07/23 10/07/23 22:59 06:59 14:59 Intake Total 470 / 470 Balance 470 / 470 Intake: Oral 470 / 470 Other: Other Intake Source npo Weight 127.006 kg 129 kg Weight Measurement Method Built in [facility] Diagnostic Findings October 06, 2023 TTE Interpretation Summary ([facility], Dr. Givens): Left ventricular systolic function is normal Left ventricular ejection fraction 60 to 65% Moderate concentric LVH Mild mitral regurgitation Trace tricuspid regurgitation Doppler findings do not suggest pulmonary hypertension Mild aortic root dilatation (3) Dyspnea Dyspnea type: dyspnea on exertion Qualified Code(s): R06.09 - Other forms of dyspnea
[2023-10-07] MEDS: allopurinoL 300 MG TAB PO SCH (13:36)
[2023-10-08 07:09] LABS: Hematocrit (blood only) 41.9 % (42.0-52.0); Hemoglobin 14.1 g/dl (14.0-18.0); Mean Corpuscular Hemoglobin 30.5 pg (25.0-34.0); Mean Corpuscular Hgb Conc 33.7 g/dL (32.0-36.0); Mean Corpuscular Volume 90.5 fL (80.0-100.0); Mean Platelet Volume 9.2 fL (9.4-12.4); Platelet Count 111 K/uL (130-400); RDW Coefficient of Variation 14.2 % (11.5-14.5); Red Blood Count 4.63 M/uL (4.70-6.10); White Blood Count 4.35 K/ul (4.8-10.8)
[2023-10-08 07:22] LABS: BUN Creatinine Ratio 20.6 (10-20); Calcium 9.4 mg/dl (8.6-10.3); Creatinine Clr Calc Pharmacy 104.2 ml/min; Est GFR (African American) 90.2 ml/min; Est GFR (Non-African American) 77.9 ml/min; Potassium 3.7 mmol/L (3.5-5.1)
--- NOTE | 2023-10-08 10:48 | Hospitalist Progress Note ---
Date of Service October 08, 2023 Assessment & Plan (1) Chest heaviness: (2) Near syncope: (3) Dyspnea: (4) Presence of combination internal cardiac defibrillator (ICD) and pacemaker: Plan: 63 y/o M with PMHx of dyslipidemia, gout, prediabetes, TANNER on BiPAP, complete heart block s/p pacemaker placement, HTN, depression and other problems who presented to the ED via EMS for evaluation of chest heaviness and episode of near-syncope. Initial troponin negative. EKG performed in the ED interpreted by myself and reveals the following: atrial-sensed ventricular-paced rhythm w/ HR 72bpm, P-R Int 174ms, QT/QTc 464/508ms and QRS Dur 174ms. No acute electrolyte abnormalities, LFTs unremarkable. No evidence of acute kidney injury or acute anemic process. Chest x-ray revealed cardiomegaly without acute process, mild subsegmental bibasilar atelectasis. TTE on 10/06/23: EF 60-65%, mod conc LVH, mild MR, trace TR, mild aortic root dilatation Troponin trend is negative Cardiology eval appreciated Continue ASA Home simvastatin changed to atorvastatin Plan for cardiac catheterization tomorrow. Will keep NPO PMN Hold chlorthalidone and lasix for procedure in AM per Cards (5) Pre-diabetes: Plan: Appears last hemoglobin A1C 5.2 on 09/22/22 HbA1c is 5.1 on 10/07/23 He is currently diet controlled, not on any diabetic medication regimen at home. (6) HLD (hyperlipidemia): Plan: On simvastatin therapy at home Changed to atorvastatin 40mg daily (7) Depression: Plan: -Can continue [employer] Zoloft therapy while hospitalized. (8) Cutaneous sarcoidosis: Plan: -No any oral medication regimen, using topical triamcinolone daily per patient. -Can continue topical triamcinolone therapy while he hospitalized, applies to his scalp region. (9) TANNER (obstructive sleep apnea): Plan: -Currently on BiPAP therapy, can use home device while inpatient. DVT Prophylaxis: Lovenox Code Status: Full Code PCP: Marquis Flores MD I spent a total of 40 minutes coordinating, documenting and providing care for this patient excluding time spent in performance of separately billed services Admission and Anticipated Discharge Date Admission Date: October 07, 2023 Subjective Patient seen and examined. Denies any complaints on review of systems today Physical Exam Constitutional: + well hydrated; no acute distress Eyes: PERRL, conjunctivae normal, anicteric sclerae ENMT: external ear and nose normal, oropharynx normal Respiratory: normal respiratory effort, lungs clear to auscultation Cardiovascular: Rate/Rhythm: regular rate and regular rhythm S1 S2 Gastrointestinal (Abdomen): normal bowel sounds, soft, nontender, no hepatosplenomegaly Musculoskeletal: no cyanosis or clubbing, extremities motor strength 5/5 Neurologic: PERRL, EOMI, accommodation nl, no face palsy, no dysarthria Psychiatric: A+Ox3, euthymic affect Results & Data Results & Data Vital Signs (Past 12 Hours) Vital Signs Temp Pulse Pulse Resp BP BP Pulse Ox 10/08/23 08:00 10/08/23 07:42 36.6 C 71 18 117/78 93 10/08/23 07:01 68 10/08/23 03:00 36.7 C 67 20 117/74 97 10/07/23 22:52 36.7 C 64 16 132/71 95 O2 Del Method 10/08/23 08:00 Room Air 10/08/23 07:42 Room Air 10/08/23 07:01 10/08/23 03:00 Room Air 10/07/23 22:52 Room Air Laboratory Results Abnormal lab results 10/08/23 Range/Units 06:45 WBC 4.35 L (4.8-10.8) K/ul RBC 4.63 L (4.70-6.10) M/uL Hct 41.9 L (42.0-52.0) % RDW Std Deviation 47.0 H (36.4-46.3) fL Plt Count 111 L (130-400) K/uL MPV 9.2 L (9.4-12.4) fL BUN/Creatinine Ratio 20.6 H (10-20) Glucose 114 H (70-99(Fasting)) mg/dl (3) Dyspnea Dyspnea type: dyspnea on exertion Qualified Code(s): R06.09 - Other forms of dyspnea (6) HLD (hyperlipidemia) Hyperlipidemia type: unspecified Qualified Code(s): E78.5 - Hyperlipidemia, unspecified (7) Depression Depression Type: unspecified Qualified Code(s): F32.A - Depression, unspecified
--- NOTE | 2023-10-08 14:28 | Cardiology Progress Note ---
Date of Service October 08, 2023 Assessment & Plan (1) Chest heaviness: (2) Near syncope: (3) Dyspnea: (4) Presence of combination internal cardiac defibrillator (ICD) and pacemaker: (5) Complete heart block: (6) Cardiac pacemaker in situ: (7) Dyslipidemia: (8) Family history of ischemic heart disease: Plan 63-year-old male with recent issues of chest heaviness and exertional dyspnea, experiencing a near syncopal episode after mild exertional associated with dyspnea and significant diaphoresis. EKG with a ventricular paced rhythm. High-sensitivity troponin negative serially. TTE with normal EF. Chest x-ray without acute process. Device interrogation without arrhythmia or malfunction. Blood pressure normotensive. Examination without overt hypervolemia. Options of management discussed; stress testing will likely be difficult to discern with the ventricular paced rhythm/septal and apical wall motion abnormality likely secondary to pacemaker activity. Recommendations: 1. Oral potassium supplementation x 1 today 2. Continue aspirin, beta-humberto, statin 3. Hold furosemide and chlorthalidone in Monday AM 4. NPO after midnight tonight. 5. Diagnostic cardiac catheterization with Dr. Givens on Monday. I spent a total of 16 minutes on the date of service in preparation, delivery, and documentation of the care provided to this patient excluding any time spent in the performance of separately billed services. This visit was a split-shared visit with the substantive portion of the medical decision making performed by the supervising aircraft powertrain repairer/billing provider. Admission and Anticipated Discharge Date Admission Date: October 07, 2023 Supervising Physician Co-Signing Physician Notes I have reviewed the advanced practitioner's documentation on the date of service referenced in note, and I agree with, and take responsibility for the plan of care. I spent a total of [10] minutes coordinating, documenting, and providing care for this patient excluding time spent in the performance of separately billed services or time spent by another provider. Subjective Patient seen and examined. Chart, medications, telemetry reviewed. No complaints/concerns. No chest pain, palpitations, dyspnea, or edema. Telemetry: Sinus in the 70s, paced. Review of Systems Review of Systems: Complete Review of Systems is as stated above, negative, or noncontributory. Physical Exam Physical Exam: General: A&Ox3. NAD. HENT: Normocephalic. Atraumatic. Eyes: PER. Conjunctiva pink, sclera clear. Neck: No carotid bruits. No JVD. Heart: Regular, paced. Systolic murmur. No diastolic murmur. Lungs: Clear to auscultation. Abdomen: +BS. No organomegaly. Extremities: No clubbing, cyanosis, or edema. Limited neurological examination is without focal deficits. Pulses: Posterior tibial=2/4. Results & Data Vital Signs (Past 12 Hours) Vital Signs Temp Pulse Pulse Resp BP BP Pulse Ox 10/08/23 11:32 36.7 C 78 18 112/73 96 10/08/23 08:00 10/08/23 07:42 36.6 C 71 18 117/78 93 10/08/23 07:01 68 10/08/23 03:00 36.7 C 67 20 117/74 97 O2 Del Method 10/08/23 11:32 Room Air 10/08/23 08:00 Room Air 10/08/23 07:42 Room Air 10/08/23 07:01 10/08/23 03:00 Room Air Laboratory Results CBC 10/08/23 Range/Units 06:45 WBC 4.35 L (4.8-10.8) K/ul RBC 4.63 L (4.70-6.10) M/uL Hgb 14.1 (14.0-18.0) g/dl Hct 41.9 L (42.0-52.0) % Plt Count 111 L (130-400) K/uL Comprehensive Metabolic Panel 10/08/23 Range/Units 06:45 Sodium 137 (136-145) mmol/L Potassium 3.7 (3.5-5.1) mmol/L Chloride 101 (98-107) mmol/L Carbon Dioxide 29 (21-32) mmol/L BUN 21 (6-23) mg/dl Creatinine 1.02 (0.6-1.4) mg/dl Glucose 114 H (70-99(Fasting)) mg/dl Calcium 9.4 (8.6-10.3) mg/dl Intake and Output 10/07/23 10/08/23 10/08/23 22:59 06:59 14:59 Intake Total 240 / 1240 100 / 1240 240 / 240 Balance 240 / 1240 100 / 1240 240 / 240 Intake: Oral 240 / 1240 100 / 1240 240 / 240 Other: # Unmeasured Voids 1 2 2 Weight 128.5 kg Weight Measurement Method Built in [facility] (3) Dyspnea Dyspnea type: dyspnea on exertion Qualified Code(s): R06.09 - Other forms of dyspnea
[2023-10-08] MEDS: POTASSIUM CHLORIDE CRTAB 20 MEQ TABCR PO ONE (14:52)
[2023-10-09 07:56] LABS: Hematocrit (blood only) 41.7 % (42.0-52.0); Hemoglobin 14.2 g/dl (14.0-18.0); Mean Corpuscular Hemoglobin 30.3 pg (25.0-34.0); Mean Corpuscular Hgb Conc 34.1 g/dL (32.0-36.0); Mean Corpuscular Volume 88.9 fL (80.0-100.0); Mean Platelet Volume 9.3 fL (9.4-12.4); Platelet Count 108 K/uL (130-400); RDW Coefficient of Variation 14.2 % (11.5-14.5); RDW Standard Deviation 45.7 fL (36.4-46.3); Red Blood Count 4.69 M/uL (4.70-6.10); White Blood Count 4.68 K/ul (4.8-10.8)
[2023-10-09 08:16] LABS: BUN Creatinine Ratio 20.7 (10-20); Calcium 9.7 mg/dl (8.6-10.3); Creatinine Clr Calc Pharmacy 87.7 ml/min; Est GFR (African American) 73.4 ml/min; Est GFR (Non-African American) 63.3 ml/min; Magnesium 2.2 mg/dl (1.7-2.4); Phosphorus 4.5 mg/dl (2.5-4.9); Potassium 3.7 mmol/L (3.5-5.1)
--- NOTE | 2023-10-09 08:19 | Pre Anesthesia Assessment ---
Date of Service October 09, 2023 Pre Sedation Assessment Vital Signs Temp Pulse Pulse Resp BP Pulse Ox O2 Del Method 10/09/23 07:44 12 95 Room Air 10/09/23 07:19 Room Air, CPAP 10/09/23 03:26 36.3 C L 75 18 107/73 96 BiPAP 10/08/23 22:14 36.9 C 70 18 108/74 98 BiPAP 10/08/23 22:00 Room Air 10/08/23 19:54 36.9 C 70 16 114/78 93 Room Air 10/08/23 15:37 36.6 C 65 18 130/75 97 Room Air 10/08/23 15:00 69 10/08/23 11:32 36.7 C 78 18 112/73 96 Room Air Cardiovascular + regular rate and + regular rhythm + S1 normal and + S2 normal + femoral pulses present and + radial pulses present; no JVD and no carotid bruit no edema Respiratory + respiratory effort normal; no respiratory distress and no labored breathing no crackles, no rales, no rhonchi and no wheezes Pre-Sedation Airway Assessment Smoking Status: Never smoker Hx Sleep Apnea: Yes Hx Difficult Intubation: No Short, Thick Neck: No Thyromental Distance: > or= 3.5 Finger Breadths Oral Cavity: + WNL Mallampati Class: II ASA: ASA2 NPO Status Date of Last Intake of Fluids: 10/09/23 Time of Last Intake of Fluids: 07:30 Last Oral Intake of Fluids Comment: sips with meds Date of Last Intake of Solid Food: 10/09/23 Time of Last Intake of Solid Foods: 18:30 Procedure Planning Contraindications for Sedation: none Current Medications Reviewed: Yes Notes The planned sedation has been discussed with the patient. Informed Consent was obtained. I have identified the patient, determined the appropriateness of sedation and have assessed the patient immediately prior to the procedure. All medicine(s) and interventions are by my order.
[2023-10-09] MEDS: fentaNYL citrate PF 100 MCG/2 ML VIAL ONE (08:49)
[2023-10-09] MEDS: MIDAZOLAM HCL 1 MG/ML 2ML VIAL ONE (08:49)
[2023-10-09] MEDS: HEPARIN (PORCINE) 1000 UNIT/ML 10 ML (CATH LAB USE ONLY) ONE (08:49)
[2023-10-09] MEDS: niCARdipine HCL INJ 2.5 MG/ML 10 ML AMP ONE (08:50)
[2023-10-09] MEDS: OPTIRAY 350 ONE (08:50)
[2023-10-09] MEDS: NITROGLYCERIN/D5W 100MCG/ML 20ML SYR ONE (08:51)
--- NOTE | 2023-10-09 09:03 | Post Anesthesia Assessment ---
Date of Service October 09, 2023 Post Sedation Assessment Vital Signs Temp Pulse Pulse Resp BP BP Pulse Ox 10/09/23 11:00 67 14 114/80 92 10/09/23 10:45 64 14 118/80 92 10/09/23 10:30 64 14 114/78 92 10/09/23 10:15 63 14 121/74 92 10/09/23 10:00 63 14 114/72 92 10/09/23 09:45 66 14 108/69 92 10/09/23 09:30 67 14 112/67 92 10/09/23 09:15 64 14 110/68 92 10/09/23 08:59 69 14 108/67 91 10/09/23 07:44 12 95 10/09/23 07:19 10/09/23 03:26 36.3 C L 75 18 107/73 96 10/08/23 22:14 36.9 C 70 18 108/74 98 10/08/23 22:00 10/08/23 19:54 36.9 C 70 16 114/78 93 10/08/23 15:37 36.6 C 65 18 130/75 97 10/08/23 15:00 69 10/08/23 11:32 36.7 C 78 18 112/73 96 O2 Del Method 10/09/23 11:00 Room Air 10/09/23 10:45 Room Air 10/09/23 10:30 Room Air 10/09/23 10:15 Room Air 10/09/23 10:00 Room Air 10/09/23 09:45 Room Air 10/09/23 09:30 Room Air 10/09/23 09:15 Room Air 10/09/23 08:59 Room Air 10/09/23 07:44 Room Air 10/09/23 07:19 Room Air, CPAP 10/09/23 03:26 BiPAP 10/08/23 22:14 BiPAP 10/08/23 22:00 Room Air 10/08/23 19:54 Room Air 10/08/23 15:37 Room Air 10/08/23 15:00 10/08/23 11:32 Room Air Recovery Score Activity: Moves 4 extremities Respiration: Dyspnea/Limited Breathing Circulation: +/-20% PreAnes Value Consciousness: Arouseable (by name) Oxygen Saturation: > 92% On Room Air Discharge Sedation Level of Care: Phase I Post Sedation Plan On clinical assessment, the patient appears to have tolerated the sedation without complications. Patient is recovering as anticipated. Patient will continue to be monitored by nursing and may be discharged when sedation discharge criteria are met per below protocol. Upon Completions of procedure up to 15 minutes continue every 5 minute vital signs and the P.A.R. score; then discharge to a Phase I or Fast Track to Phase II per the following guidelines: * Discharge Patient to appropriate Phase II area if PAR is 8 or greater or return to pre- procedure baseline. The post - procedure orders will be as directed. * If PAR score is less than 8 or not return to pre-procedure baseline then patient will follow Phase I monitoring till PAR is reached for Phase II. The Phase I may be done in procedure room or may call to secure a Phase I area. * If naloxone or flumazenil are used for reversal, hold in Phase I for continued monitoring from when last reversal dose was given for a minimum of 60 minutes or longer pending the nurse and/or physician discretion of patient condition before discharge to Phase II. Please call the Sedation Physician to re-evaluate and complete post-note for discharge to Phase II area. Do NOT discharge from procedure sedation or Phase 1 until post- sedation evaluation note is complete by procedure /sedation MD Sedation Discharge Instructions to be given to the patient at discharge to home.
--- NOTE | 2023-10-09 09:16 | Cardiac Catheterization ---
Cardiac Cath Procedure Full Procedure Date October 09, 2023 Pre-Procedure Diagnosis Pre-Procedure Diagnosis: Angina and CAD AUC Score AUC Score: 7 Post-Procedure Diagnosis Post-Procedure Diagnosis: Moderate CAD and Elevated Intracardiac Pressures Procedure(s) Performed Procedure(s) Performed: Coronary Angiography and Left Heart Cath Stone Der[employer] And Rigger Mayur Givens DO Transformation Coach(s) Chintanr ADAPTIVE PHYSICAL EDUCATOR Estimated Blood Loss Estimated Blood Loss: 5cc Medication(s) Medication(s): Fentanyl, Heparin, Lidocaine 1%, Nicardipine, Nitroglycerin and Versed Summary of Findings Mild to moderate nonobstructive coronary disease. 40% mid OM 30% proximal Ramus Hemodynamics Rest Ao:: 103//86 Final Ao: 112//84 LV: 105//84 Recommendations Recommendations: Medical Therapy and/or Counseling Specimens Specimens: None Radiation Exposure (mGy) 1536 Contrast (mls) 70 Drains Drains: N/A Anesthesia Moderate sedation. Start 0831. End 0849. Sedation monitor: Johnny ANSARI Procedural Complication(s) None Disposition Operational Meteorologist Holding/Recovery I attest to the content of the Intraoperative Record and any orders documented therein. Any exceptions are noted below. ACC Data: Operational Meteorologist Cardiac Status Clinical evaluation leading to the procedure 63-year-old male presents with exertional chest discomfort, and near syncope. Symptoms suggestive of unstable angina. CAD Presenation: Unstable angina Anginal Classification: CCS III Heart Failure: No Coronary Anatomy Dominant: Right Left Main (% Stenosis): Normal LAD (% Stenosis): Proximal (Luminal irregularities, 10%), Mid (Luminal irregularities, 10%) and Distal (Type II vessel, tapers down to 1.5 mm, luminal irregularities, 10%.) D1 (% Stenosis): Normal (Small vessel) D2 (% Stenosis): Normal (Small vessel) Circumflex (% Stenosis): Mid (30%) OM2 (% Stenosis): Mid (40%, Large vessel) RCA (% Stenosis): Proximal (20%), Mid (Luminal irregularities, 10%) and Distal (Luminal irregularities, 10-20%) R PDA (% Stenosis): Proximal (10%) R PL1 (% Stenosis): Normal R PL2 (% Stenosis): Normal AM (% Stenosis): Normal Ramus (% Stenosis): Proximal (30%) Diagnostic Physicians Name: Mayur Givens DO Closure Device Percutaneous Entry Location: Radial Closure Device: Radial Band Recommendations: Medical Therapy and/or Counseling Intraprocedure Events Significant Disection: No Perforation: No
--- NOTE | 2023-10-09 11:19 | Cardiology Progress Note ---
Date of Service October 09, 2023 Assessment & Plan (1) Chest heaviness: (2) Near syncope: (3) Dyspnea: (4) Presence of combination internal cardiac defibrillator (ICD) and pacemaker: (5) Complete heart block: (6) Cardiac pacemaker in situ: (7) Dyslipidemia: (8) Family history of ischemic heart disease: Plan Cardiac catheterization demonstrating nonobstructive coronary disease and mildly elevated left ventricular end-diastolic pressure. Recommendations: 1. Continue aspirin, beta-humberto, statin 2. Restart furosemide and chlorthalidone. 3. Post-cath activity restrictions as described below. 4. Patient may be discharged today after HemoBand removed. 5. Cardiology follow-up as scheduled. ACTIVITY RECOMMENDATIONS: Excess manipulation of the wrist should be avoided for the next 24-48 hours. * No lifting over 2 pounds (approximately a 1/2 gallon of milk) with the utilized arm for 24 hours. * No strenuous activity such as bowling or tennis for 3 days. * Keep the site of the procedure covered with a bandage for 24 hours. *You may shower the day after the procedure. Do not take a tub bath or submerge the puncture site in water for the next 3 days. *Do not operate any motorized equipment for 3 days. SPECIAL CARE INSTRUCTIONS: The site may be slightly bruised and sore following your procedure. Should any of the following occur, contact the Dr. who performed your procedure. 1. Redness/inflammation, swelling, chills, or fever, or colored drainage at procedure site within 3-7 days after your procedure. 2. Coldness, discoloration, ongoing numbness, severe pain, or swelling. Expect mild tingling of hand and tenderness at the puncture site for up to three days. If this persists beyond three days, or other symptoms develop, notify the Dr. who performed your procedure. BLEEDING: If the procedure site on your wrist begins to bleed, do not panic 1. Place 1 or 2 fingers firmly just slightly above the insertion site to stop the bleeding. You may be able to feel your pulse as you hold pressure. 2. Lift your finger after 5 minutes to see if the bleeding has stopped. 3. Once the bleeding has stopped, gently wipe the wrist area clean with a bandage. * If the bleeding from your wrist does not stop after 10 minutes, or if there is a large amount of bleeding or spurting, call 911 (do not drive yourself to the hospital). SKIN IRRITATION: * You may experience some redness and/or swelling in the area where radiation was administered. If any skin irritation occurs, please contact your family physician. FOLLOW UP VISIT: Keep any scheduled doctor appointments. I spent a total of 40 minutes on the date of service in preparation, delivery, and documentation of the care provided to this patient excluding any time spent in the performance of separately billed services. This visit was a split-shared visit with the substantive portion of the medical decision making performed by the supervising assistant branch operations manager/billing provider. Admission and Anticipated Discharge Date Admission Date: October 07, 2023 Subjective Patient seen examined the bedside. Cardiac catheterization demonstrating moderate nonobstructive coronary disease, 30% proximal Ramus and 40% OM. Mildly elevated left ventricular end-diastolic pressure likely secondary to holding diuretic therapy prior to procedure. Review of Systems Review of Systems: All systems reviewed & are unremarkable except as noted in Subjective Physical Exam Constitutional: well nourished; no acute distress and not ill appearing Respiratory: normal respiratory effort; no respiratory distress and no labored breathing Auscultation: no crackles, no rales, no rhonchi and no wheezes Cardiovascular: Rate/Rhythm: regular rate and regular rhythm Heart Sounds: normal S1 and normal S2 Vessels: femoral pulses present and radial pulses present; no JVD and no carotid bruit Extremities: no edema Gastrointestinal (Abdomen): Inspection/Auscultation: abdomen normal to inspection and normal bowel sounds; abdomen not distended Percussion/Palpation: abdomen soft; abdomen nontender, no guarding and abdomen not rigid Neurologic: CN's II-XI intact bilaterally and moves all extremities; no focal motor deficits Results & Data Vital Signs (Past 12 Hours) Vital Signs Temp Pulse Resp BP BP Pulse Ox O2 Del Method 10/09/23 11:00 67 14 114/80 92 Room Air 10/09/23 10:45 64 14 118/80 92 Room Air 10/09/23 10:30 64 14 114/78 92 Room Air 10/09/23 10:15 63 14 121/74 92 Room Air 10/09/23 10:00 63 14 114/72 92 Room Air 10/09/23 09:45 66 14 108/69 92 Room Air 10/09/23 09:30 67 14 112/67 92 Room Air 10/09/23 09:15 64 14 110/68 92 Room Air 10/09/23 08:59 69 14 108/67 91 Room Air 10/09/23 07:44 12 95 Room Air 10/09/23 07:19 Room Air, CPAP 10/09/23 03:26 36.3 C L 75 18 107/73 96 BiPAP Laboratory Results CBC 10/09/23 Range/Units 07:28 WBC 4.68 L (4.8-10.8) K/ul RBC 4.69 L (4.70-6.10) M/uL Hgb 14.2 (14.0-18.0) g/dl Hct 41.7 L (42.0-52.0) % Plt Count 108 L (130-400) K/uL Comprehensive Metabolic Panel 10/09/23 Range/Units 07:28 Sodium 136 (136-145) mmol/L Potassium 3.7 (3.5-5.1) mmol/L Chloride 100 (98-107) mmol/L Carbon Dioxide 28 (21-32) mmol/L BUN 25 H (6-23) mg/dl Creatinine 1.21 (0.6-1.4) mg/dl Glucose 111 H (70-99(Fasting)) mg/dl Calcium 9.7 (8.6-10.3) mg/dl Intake and Output 10/08/23 10/09/23 10/09/23 22:59 06:59 14:59 Intake Total 470 / 710 Balance 470 / 710 Intake: Oral 470 / 710 Other: Other Intake Source npo Weight 128.1 kg Weight Measurement Method Built in [facility] (3) Dyspnea Dyspnea type: dyspnea on exertion Qualified Code(s): R06.09 - Other forms of dyspnea
--- NOTE | 2023-10-09 13:09 | Discharge Summary ---
Date of Service October 09, 2023 Admission HPI Per Admitting Provider Guy Ramirez is a 63 y/o M with PMHx of dyslipidemia, gout, prediabetes, TANNER on BiPAP, complete heart block s/p pacemaker placement, HTN, depression and other problems listed below who presented to the ED via EMS for evaluation of chest heaviness and episode of near-syncope. History obtained from patient, and associated ED/PCP/specialist records. Patient seen with Dr. Chawla in the ED. Patient's present at bedside, provides additional history. Patient states he was attending a conference over at the [place] and suddenly became very dizzy/sweaty when carrying a heavy box up stairs. Patient reports he was near syncope, but never lost consciousness (just felt like he was going to). Symptoms resolved with rest and application of an ice pack on his neck. He was still dizzy somewhat upon arrival to the ED, but that has since resolved. Patient states he has been experiencing some intermittent chest heaviness for the past few days, but states its "nothing that significant." It appears the these "chest heaviness" episodes have resolved with rest, no medical/medication intervention required. He has felt short of breath intermittently for the past few days as well. Patient reports that he "gets winded" when moving heavy objects or participating in increased activity. reports that he stated it felt like "something heavy was sitting on his chest" this morning, but ultimately that feeling subsided without any intervention. Patient does not feel anything is wrong. Reports his "heart history has not been arterial, more electrical." Him and his have been walking a couple miles here and there occasionally, and he does have to stop to rest intermittently but states it is not out of the normal for him to do so. He has never felt his ICD device go off. No tobacco history, occasional alcohol use. Patient reports drinking sometimes more than 2 drinks/day in the past 2 weeks. Wears BiPAP at home, will bring this in for him to wear at night during his hospitalization here. He reports being on aspirin in the past, but is very hesitant regarding being placed on any anticoagulation medication following an episode where his mother had a brain bleed following administration of "clot-busting" medication. Denies any abdominal pain, urinary or bowel habit changes. No true chest pain, only chest heaviness per patient. Has not noticed any leg swelling, changes in his appetite. Seems he lives a pretty active lifestyle recently with his , as alluded to previously. Initial troponin negative. EKG performed in the ED interpreted by myself and reveals the following: atrial-sensed ventricular-paced rhythm w/ HR 72bpm, P-R Int 174ms, QT/QTc 464/508ms and QRS Dur 174ms. No acute electrolyte abnormalities, LFTs unremarkable. No evidence of acute kidney injury or acute anemic process. Chest x-ray revealed cardiomegaly without acute process, mild subsegmental bibasilar atelectasis. Admission Exam Per Admitting Provider GENERAL APPEARANCE: AxOx4, generally well-appearing M, no acute distress. HEENT: NC, AT. MMM. EOMI, clear conjunctiva, oropharynx clear. NECK: Supple without lymphadenopathy. No stiffness or restricted ROM. HEART: Normal rate and regular rhythm, normal S1/S1, no m/r/g LUNGS: CTAB, moving air well. No crackles or wheezes are heard. ABDOMEN: Soft, nontender, nondistended with good bowel sounds heard. BACK: No CVAT, no obvious deformity. EXTREMITIES: Without cyanosis, clubbing or edema. NEUROLOGICAL: Grossly nonfocal. Alert and oriented, moving all 4 extremities. CN not formally tested but appear grossly intact. Observed to ambulate with normal gait. Skin: Warm and dry without any rash. Principal Diagnosis Chest heaviness Near syncope Non obstructive coronary artery disease Discharge Exam Constitutional + well hydrated; no acute distress Eyes PERRL, conjunctivae normal, anicteric sclerae ENMT external ear and nose normal, oropharynx normal Respiratory normal respiratory effort, lungs clear to auscultation Cardiovascular Rate/Rhythm: regular rate and regular rhythm S1 S2 Gastrointestinal (Abdomen) normal bowel sounds, soft, nontender, no hepatosplenomegaly Musculoskeletal no cyanosis or clubbing, extremities motor strength 5/5 Neurologic PERRL, EOMI, accommodation nl, no face palsy, no dysarthria Psychiatric A+Ox3, euthymic affect Discharge Data Allergies Allergy/AdvReac Type Severity Reaction Status Date / Time hydroxychloroquine Allergy Rash Verified 10/06/23 13:38 Consultations 10/06/23 13:17 ED Decision to Admit Stat 10/06/23 13:57 Consult Cardiology Routine Procedures Performed Operation Date: 10/09/23 08:00 Actual Procedures p Cineradiography w/Routine Exam - Mayur Givens DO p Cath, Left with Cors and Vent - Mayur Givens DO Ordered Studies 10/09/23 06:39 CL Cath Imgs for PACS use only Routine Hospital Course (1) Chest heaviness: (2) Near syncope: (3) Dyspnea: (4) Nonobstructive atherosclerosis of coronary artery: (5) Presence of combination internal cardiac defibrillator (ICD) and pacemaker: 63 y/o M with PMHx of dyslipidemia, gout, prediabetes, TANNER on BiPAP, complete heart block s/p pacemaker placement, HTN, depression and other problems who presented to the ED via EMS for evaluation of chest heaviness and episode of near-syncope. Initial troponin negative. EKG performed in the ED interpreted by myself and reveals the following: atrial-sensed ventricular-paced rhythm w/ HR 72bpm, P-R Int 174ms, QT/QTc 464/508ms and QRS Dur 174ms. No acute electrolyte abnormalities, LFTs unremarkable. No evidence of acute kidney injury or acute anemic process. Chest x-ray revealed cardiomegaly without acute process, mild subsegmental bibasilar atelectasis. TTE on 10/06/23: EF 60-65%, mod conc LVH, mild MR, trace TR, mild aortic root dilatation Troponin trend is negative Cardiology evaluated Home simvastatin changed to atorvastatin 40mg Patient had cardiac catheterization today which showed Mild to moderate nonobstructive coronary disease, 40% mid OM, 30% proximal Ramus Continue home chlorthalidone, lasix Started on aspirin 81mg daily (6) Pre-diabetes: Appears last hemoglobin A1C 5.2 on 09/22/22 HbA1c is 5.1 on 10/07/23 He is currently diet controlled, not on any diabetic medication regimen at home. (7) HLD (hyperlipidemia): On simvastatin therapy at home Changed to atorvastatin 40mg daily (8) Depression: -Can continue TRANSPORTATION PLANNER Zoloft therapy while hospitalized. (9) Cutaneous sarcoidosis: -No any oral medication regimen, using topical triamcinolone daily per patient. -Can continue topical triamcinolone therapy while he hospitalized, applies to his scalp region. (10) TANNER (obstructive sleep apnea): -Currently on BiPAP therapy Total Time Total Time Spent Total Time Spent (In Minutes): 35 Total Time Includes: Examination of the Patient, Discharge Planning, Medication Reconciliation and Communication With Other Providers Discharge Plan Discharge Items Patient Disposition: Home - Self-Care Reason For Visit: Chest heaviness, Near syncope Discharge Diagnosis: Chest heaviness Near syncope Non obstructive coronary artery disease Activity: Resume your previous activity Non-emergency contact: Primary Care Provider and Busperson Call non-emergency contact if: you have any medication questions and your symptoms worsen Follow-up/Referrals: Marquis Flores MD [Primary Care Provider] - (Date & Time 10/12/2023 10:20 AM Provider Marquis Flores MD Department [facility] ) Diet: Heart Healthy and Low Sodium (2gm) Addtl Attending Provider Instructions: Mr Ramirez You came to the hospital complaining of chest heaviness and feeling faint. You were evaluated, had a cardiac catheterization and managed for the above listed diagnoses. Your cardiac catheterization showed non obstructing coronary artery disease. Your Simvastatin was changed to atorvastatin Please take aspirin 81mg daily Please ensure follow up with your Primary Doctor and Cardiology. It was a pleasure taking care of you. Addtl Parts Interpreter Provider Instructions: ACTIVITY RECOMMENDATIONS: Excess manipulation of the wrist should be avoided for the next 24-48 hours. * No lifting over 2 pounds (approximately a 1/2 gallon of milk) with the utilized arm for 24 hours. * No strenuous activity such as bowling or tennis for 3 days. * Keep the site of the procedure covered with a bandage for 24 hours. *You may shower the day after the procedure. Do not take a tub bath or submerge the puncture site in water for the next 3 days. *Do not operate any motorized equipment for 3 days. SPECIAL CARE INSTRUCTIONS: The site may be slightly bruised and sore following your procedure. Should any of the following occur, contact the Dr. who performed your procedure. 1. Redness/inflammation, swelling, chills, or fever, or colored drainage at procedure site within 3-7 days after your procedure. 2. Coldness, discoloration, ongoing numbness, severe pain, or swelling. Expect mild tingling of hand and tenderness at the puncture site for up to three days. If this persists beyond three days, or other symptoms develop, notify the Dr. who performed your procedure. BLEEDING: If the procedure site on your wrist begins to bleed, do not panic 1. Place 1 or 2 fingers firmly just slightly above the insertion site to stop the bleeding. You may be able to feel your pulse as you hold pressure. 2. Lift your finger after 5 minutes to see if the bleeding has stopped. 3. Once the bleeding has stopped, gently wipe the wrist area clean with a bandage. * If the bleeding from your wrist does not stop after 10 minutes, or if there is a large amount of bleeding or spurting, call 911 (do not drive yourself to the hospital). SKIN IRRITATION: * You may experience some redness and/or swelling in the area where radiation was administered. If any skin irritation occurs, please contact your family physician. FOLLOW UP VISIT: Keep any scheduled doctor appointments. Pending Studies at Discharge: No Stand-Alone Forms: My [facility], Smoking Cessation Medications and DC Order Prescriptions: New atorvastatin 40 mg Tablet 40 mg PO QPM Qty: 30 0RF aspirin 81 mg Tablet,Delayed Release (Dr/Ec) 81 mg PO QAM Qty: 30 0RF Continued sertraline 100 mg tablet 200 mg PO QAM chlorthalidone 25 mg tablet 25 mg PO QAM acetaminophen [Tylenol Extra Strength] 500 mg Tablet 1,500 mg PO BID PRN (Reason: Pain) triamcinolone acetonide 0.1 % cream 1 applic TOPICAL DAILY omeprazole 20 mg capsule,delayed release(DR/EC) 20 mg PO QAM furosemide 20 mg tablet 20 mg PO DAILY losartan 100 mg tablet 100 mg PO QAM fluticasone propionate [Flonase Allergy Relief] 50 mcg/actuation Waka,Suspension 2 spray INTRANASAL DAILY PRN (Reason: Nasal Congestion) Rx Instructions: administer into each nostril metoprolol succinate 50 mg tablet extended release 24 hr 75 mg PO QAM amlodipine 10 mg Tablet 10 mg PO DAILY Discontinued simvastatin 20 mg tablet 20 mg PO HS Discharge Orders: Discharge Order (Routine); Ordered 10/09/23 Ordered By: Serina Leon Admission Data Admit Date/Time: 10/07/23 11:09 Attending Provider: Serina Leon I. Admit Provider: Marquis Freire Primary Care Provider: Marquis Flores Other Providers: Sole Chawla; Kopinski,Mayur O Other Interventions: Discharge Summary Assessment (RN) Last Done: 10/09/23 12:59
[2023-10-11 16:20] LABS: Babesia microti DNA Not Detected (Not Detected)
== END 2023-10-09 13:21 | disposition home or self-care (01) | DRG 287 ==
LOC: ED 09:56 → SUATTDRO 13:22 → INTOOBSV 13:23 → 2N 13:23